=== PATIENT | female | born 1980 | race Caucasian/White ===

== ENCOUNTER → 2019-10-07 11:40 | Outpatient (BNVA) | payer MEDICAID, SELFPAY | PROVIDERS: Family Provider Nurse Practitioner; PCP Nurse Practitioner; Visit Provider Nurse Practitioner Family | DX: M54.6 Pain in thoracic spine (principal); M50.00 Cervical disc disorder with myelopathy, unspecified cervical region; G89.29 Other chronic pain; M47.817 Spondylosis without myelopathy or radiculopathy, lumbosacral region; I10 Essential (primary) hypertension; W19.XXXA Unspecified fall, initial encounter; Y92.009 Unspecified place in unspecified non-institutional (private) residence as the place of occurrence of the external cause; M48.02 Spinal stenosis, cervical region; E78.2 Mixed hyperlipidemia; J40 Bronchitis, not specified as acute or chronic; K21.9 Gastro-esophageal reflux disease without esophagitis; H91.90 Unspecified hearing loss, unspecified ear; E04.1 Nontoxic single thyroid nodule; F33.1 Major depressive disorder, recurrent, moderate; H91.93 Unspecified hearing loss, bilateral; F17.200 Nicotine dependence, unspecified, uncomplicated | CPT/HCPCS: 80053; 80061; 84443; 85025 ==

== ENCOUNTER 2019-10-18 04:13 | Inpatient (IN) | payer MEDICAID, SELFPAY ==
--- NOTE | 2019-10-18 04:18 | ED_ITS ---
Entered by Naomi Hernandez, acting as scribe for RamanSheeba Ferine HPI - Psych General: Chief Complaint: Psychiatric Symptoms Stated Complaint: SI Time Seen by Provider: 10/18/19 04:19 Source: patient Mode of arrival: ambulatory Limitations: no limitations History of Present Illness: HPI Narrative: 38 yo f came to the er p[facility] with family for SI. Onset was last night. Pt states that she wants Pt states that she does have a plan, she states that she would use a gun. complaint: suicidal ideation Onset (ago): day(s) (last night) Duration: constant History of same: Yes Relieving factors: none Exacerbating factors: none Associated psychiatric symptoms: depression and suicidal ideation Associated symptoms: Reports suicidal ideation Treatments prior to arrival: none If self harm: has plan Details of plan: Pt wants to take a gun and kill herself. Review of Systems General: Reports: other (negative unless marked) Const: Denies: fever, chills, body aches, fatigue, malaise or diaphoresis Eyes: Denies: change in vision or blurry vision ENMT: Denies: throat pain, painful swallowing, hoarseness, ear pain, ear discharge, Change in hearing or nasal discharge Card: Denies: chest pain, palpitations, irregular heart rhythm, syncope, pre- syncope, shortness of breath on exertion or shortness of breath when lying down Resp: Denies: shortness of breath, productive cough, non-productive cough, wheezing, coughing up blood or chest congestion GI: Denies: abdominal pain, nausea, vomiting, vomiting blood, coffee grounds in vomit, diarrhea, constipation, cramping, blood in stool or black tarry stool : Denies: flank pain, painful urination, urinary frequency, urinary urgency, decreased urine ouput, urinary incontinence or blood in urine Musc: Denies: joint warmth Skin/Breast: Denies: rash, skin tenderness or yellow skin Neuro: Denies: headache, numbness in extremities, weakness in extremities, changes in sensation, lack of coordination, difficulty walking, dizziness, vertigo or confusion Psych: Reports: suicidal ideation Endo: Denies: excessive thirst, tired all the time, cold intolerance, excessive sweating, flushing or hot flashes Maciel/Lymph: Denies: easy bruising, easy bleeding, petechiae or enlarged lymph nodes All/Imm: Denies: hives, throat swelling, tongue swelling, facial swelling or acute wheezing PFSH ED PFSH: Statuses (acute, chronic, etc) shown below reflect problem list status as previously entered and may not be historically accurate Medical History 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) Cervical stenosis of spine (Chronic) Chronic neck pain (Chronic) Essential hypertension (Chronic) GERD without esophagitis (Chronic) Hyperlipidemia (Chronic) Major depressive disorder (Chronic) Smoker (Chronic) Spondylosis without myelopathy or radiculopathy, lumbosacral region (Chronic) Thoracic back pain (Chronic) Thyroid cyst (Chronic) Family History Mother Hypercholesteremia Diabetes Hypertension Brother Hypercholesteremia Diabetes Hypertension Father Hypercholesteremia Diabetes Hypertension Sister Hypertension Stroke Social History Smoking and tobacco status: current every day smoker Alcohol intake: current Alcohol intake frequency: holidays/special occasions only Lives independently: Yes Household members: spouse Housing: House Marital status: Physical Exam Const: COMMON NORMALS: no apparent distress, oriented x3, no limitations, healthy appearing and well nourished EXAM LIMITATIONS: no altered mental status GENERAL APPEARANCE: cooperative, well kempt and well developed ORIENTATION/CONSCIOUSNESS: Yes awake HENMT: COMMON NORMALS: normocephalic, head/scalp atraumatic, hearing grossly normal bilaterally, external ears normal, EAC's normal, external nose normal and moist oral mucous membranes HEAD & SCALP: normal to inspection, normocephalic and atraumatic FACE & SINUS: normal facial exam and face symmetric NOSE: external nose normal and nares normal EXTERNAL EAR: Yes external ears normal EXTERNAL AUDITORY CANAL: EAC's normal MOUTH: oral and palatal mucosa normal and tongue normal Eye: COMMON NORMALS: PERRL, EOMs intact bilaterally, conjunctivae normal and no scleral icterus GENERAL EYE: normal appearance of both eyes and normal light reflex CONJUNCTIVA: Yes conjunctivae normal SCLERA: sclerae normal CORNEA: Yes corneas normal PUPIL: Yes PERRL DIRECT OPHTHALMOSCOPY: Yes normal light reflex Neck/C-Spine: COMMON NORMALS: full ROM, no lymphadenopathy, supple, no meningeal signs and no JVD GENERAL: Yes normal visual inspection and Yes trachea midline CERVICAL SPINE: Yes cervical ROM normal Chest: COMMONS NORMALS: inspection of chest normal and palpation of chest normal Resp: COMMON NORMALS: normal respiratory effort, no retractions, no use of accessory muscles and clear to auscultation bilaterally EFFORT & INSPECTION: Yes able to speak in complete sentences AUSCULTATION: clear to auscultation bilaterally Cardio: COMMON NORMALS: no JVD, regular rate, regular rhythm, S1 normal heart sound, S2 normal heart sound, no gallops, no clicks, no murmurs and no rub JUGULAR VENOUS DISTENTION: no JVD RATE: regular rate RHYTHM: regular rhythm HEART SOUNDS: S1 normal and S2 normal GI: COMMON NORMALS: soft to palpation, non-tender, no hepatosplenomegaly and no masses INSPECTION: Yes normal to inspection PALPATION: Yes soft and Yes no hepatosplenomegaly : COMMON NORMALS: Yes no CVA tenderness BLADDER/KIDNEY EXAM: Yes no CVA tenderness Back/Pelvis: COMMON NORMALS: no CVA tenderness, thoracic and lumbar spine normal to inspection, no thoracic nor lumbar tenderness and thoraco-lumbar ROM normal Extremity: COMMON NORMALS: normal to inspection, full ROM, normal capillary refill, no joint enlargement, no clubbing, cyanosis or edema and no calf tenderness Neuro: COMMON NORMALS: oriented x3, CN's II-XII intact bilaterally, moves all extremities, no focal motor deficits and no sensory deficits noted MENINGEAL SIGNS: Yes no meningeal signs Psych: COMMON NORMALS: mental status grossly normal, thought process normal, cooperative, affect normal, speech normal and activity/motor behavior normal APPEARANCE: Yes well kempt SPEECH: Yes normal speech THOUGHT PROCESS: normal thought process Skin: COMMON NORMALS: no rashes or lesions noted, skin turgor normal, no jaundice, no petechiae and no mottling GENERAL SKIN EXAM: no rashes or lesions noted and turgor normal MDM - Psych MDM Narrative: Medical decision making narrative: The case was reviewed with Dr. Mantilla, he is agreeable to admission to the MPU. Once the patient's clearance is completed we will admit. Lab Data: Attestation: I reviewed the patient's lab results. Labs: Lab Results 10/18/19 10/18/19 Range/Units 04:37 04:37 WBC 10.9 H (4.0-10.0) 10^3/ uL RBC 5.30 (4.1-5.3) 10^6/u L Hgb 14.9 (11.5-15.3) g/dL Hct 44.6 (37.0-47.0) % MCV 84.2 (81-99) fL MCH 28.1 (28.0-34.0) pg MCHC 33.4 (30.0-36.0) g/dL RDW 14.4 (12.1-15.1) % Plt Count 359 (130-400) 10^3/c mm MPV 9.9 (7.4-10.4) fL Neut % (Auto) 55.7 % Lymph % (Auto) 30.8 % Sterling % (Auto) 8.9 % Eos % (Auto) 3.7 % Baso % (Auto) 0.4 % Neut # (Auto) 6.1 (1.8-7.7) 10^3/u L Lymph # (Auto) 3.4 (0.8-4.8) 10^3/u L Sterling # (Auto) 1.0 H (0.2-0.9) 10^3/u L Eos # (Auto) 0.4 (0.0-0.8) 10^3/u L Baso # (Auto) 0.0 (0.0-0.1) 10^3/u L Nucleated RBC % (a uto) 0 % Nucleated RBCs # 0.0 /100WBC PT 13.80 H (10.5-13.3) SECO NDS INR 1.03 (0.8-1.2) Discharge Plan Discharge Prescriptions: No Action albuterol sulfate 2.5 mg /3 mL (0.083 %) solution for nebulization 2.5 mg INHALATION QID PRNRF: 0 azelastine 137 mcg (0.1 %) aerosol,spray 1 spray INTRANASAL BID RF: 0 fluticasone propionate [Flonase Allergy Relief] 50 mcg/actuation spray,suspension 2 spray INTRANASAL QDAY RF: 0 quetiapine [Seroquel] 50 mg tablet 100 mg PO .hs 30 Days Qty: 60 RF: 2 ibuprofen 800 mg tablet 800 mg PO TID PRN (Reason: pain) 30 Days Qty: 84 RF: 2 cyclobenzaprine 10 mg tablet 10 mg PO BID PRN (Reason: muscle spasm) 30 Days Qty: 60 RF: 5 lisinopril-hydrochlorothiazide 10-12.5 mg tablet 1 tab PO QDAY 30 Days Qty: 30 RF: 5 omeprazole 20 mg capsule,delayed release(DR/EC) 20 mg PO BID 30 Days Qty: 60 RF: 5 prednisone 10 mg tablets,dose pack See Rx Instructions PO PER PKG DIR Qty: 21 RF: 0 albuterol sulfate [ProAir HFA] 90 mcg/actuation HFA aerosol inhaler 2 puff INHALATION Q4H PRN (Reason: shortness of breath or wheezing) 30 Days Qty: 1 RF: 5 pravastatin 40 mg tablet 40 mg PO .hs 30 Days Qty: 30 RF: 5 Coding Level of Care Code ED Construction Driver for Chg Fwd The documentation recorded by the David person Stephanie Lyn, accurately reflects the service I personally performed and the decisions made by Raman palafox Eli N Oct 18, 2019 04:13
[2019-10-18 04:20] VITALS: RESP 18; BMI 38.7
[2019-10-18 04:24] VITALS: BP 141/101; PULSE 90; RESP 18; TEMP 36.6; O2SAT 96
[2019-10-18 04:50] LABS: Basophils % 0.4 %; Eosinophils # 0.4 10^3/uL (0.0-0.8); Eosinophils % 3.7 %; Hematocrit 44.6 % (37.0-47.0); Hemoglobin 14.9 g/dL (11.5-15.3); Lymphocytes # 3.4 10^3/uL (0.8-4.8); Lymphocytes % 30.8 %; Mean Corpuscular HGB Conc 33.4 g/dL (30.0-36.0); Mean Corpuscular Hemoglobin 28.1 pg (28.0-34.0); Mean Corpuscular Volume 84.2 fL (81-99); Mean Platelet Volume 9.9 fL (7.4-10.4); Monocytes % 8.9 %; Neutrophils # 6.1 10^3/uL (1.8-7.7); Neutrophils % 55.7 %; Nucleated Red Blood Cells % 0 %; Platelet Count 359 10^3/cmm (130-400); Red Cell Distribution Width 14.4 % (12.1-15.1); White Blood Count 10.9 10^3/uL (4.0-10.0)
[2019-10-18 05:07] LABS: INR 1.03 (0.8-1.2)
[2019-10-18 05:24] LABS: Alanine Aminotransferase 18 U/L (0-33); Albumin Level 4.5 g/dL (3.5-5.2); Alcohol Level 99 mg/dL (0-10); Alkaline Phosphatase 86 IU/L (35-105); Anion Gap 19.6 (5-19); Aspartate Amino Transferase 20 U/L (0-32); Blood Urea Nitrogen 4 mg/dL (6-20); Calcium 9.7 mg/dL (8.5-10.5); Carbon Dioxide 22 mmol/L (22-29); Chloride 102 mmol/L (98-107); Globulin 3.3 g/dL (1.3-4.6); Glomerular Filtration Rate 79.9 mL/min (90-130); Glucose 131 mg/dL (74-109); Potassium 3.6 mmol/L (3.5-5.1); Sodium 140 mmol/L (136-145); Thyroid Stimulating Hormone 2.19 uIU/mL (0.27-4.20); Total Bilirubin 0.2 mg/dL (0.15-1.2); Total Protein 7.8 g/dL (6.6-8.7)
[2019-10-18 05:30] LABS: Add Urine Microscopic? YES; Bilirubin Urine Neg (NEGATIVE); Blood Urine 2+ (Negative); Glucose Urine UA Norm (Normal); Ketones Urine Negative (Negative); Leukocyte Esterase Urine Negative (Negative); Nitrate Urine Negative (Negative); Protein Urine Neg (Negative); Specific Gravity, Urine 1.025 (1.005-1.030); Urine Appearance Hazy (CLEAR); Urine Color Yellow (Yellow); Urobilinogen Urine Norm (Negative); pH Urine 5 (5-7)
[2019-10-18 05:31] LABS: Add Urine Culture? No; Amorphous Sediment Urine 2+; Bacteria Urine 3+; RBC Urine 0-4 /hpf (0-2); Squamous Epithelial Cell Urine 15-25 (0-5); WBC Urine 0-4 /hpf (0-5)
[2019-10-18 05:32] LABS: Acetaminophen < 5.0 ug/mL (10-30); Salicylate < 0.3 mg/dL (3-10)
[2019-10-18 05:35] LABS: HCG, Serum Qual Negative (Negative)
[2019-10-18 05:36] LABS: Amphetamines Screen Urine Negative (Negative); Barbiturates Screen Urine Negative (Negative); Benzodiazepines Screen Urine Negative (Negative); Cocaine Screen Urine Negative (Negative); Opiate Screen Urine Negative (Negative); PCP Screen Urine Negative (Negative); THC Screen Urine Positive (Negative)
[2019-10-18 05:46] LABS: Lithium 0.1 mmol/L (0.6-1.2)
[2019-10-18 05:54] LABS: Phenytoin Dilantin 0.8 ug/mL (10-20); Valproic Acid Level 2.8 mcg/mL (50-100)
[2019-10-18 05:55] VITALS: BP 156/118; PULSE 80; RESP 16; O2SAT 98
[2019-10-18 06:10] VITALS: BP 132/96; PULSE 83; RESP 18; TEMP 37.3; O2SAT 99
--- NOTE | 2019-10-18 06:10 | PC.NURSE ---
Dr. Camargo notified of patient BP, okayed to send to NPU
[2019-10-18] MEDS: pneumococcal (23 valent) SDV 0.5 mL IM (08:23)
--- NOTE | 2019-10-18 10:07 | PM.NHP ---
Providers/Chief Complaint Admitting Physician: Martinez Henriquez M.D. Primary Care Provider: CARLOS Weaver Chief Complaint: asking to go to npu HPI NPU History of Present Illness Alla Liz is a 38 year old female who has had significant dysfunctional family troubles. Her daughter will not let her see her grandchild. The patient says she does not have a problem with alcohol but it seems to show up in the story time and again. She is indeed grief stricken and profoundly despondent. She thinks about shooting herself with a gun, avoids there are several in the house. She has been depressed for years and says, I cannot remember NOT being depressed. She had been on a number of antidepressants but the doctor keeps jiggling the doses and swapping out with something else and there has never been a real therapeutic trial of any specific agent. She does recall that she gained almost 100 pounds on Seroquel. They lied to you, she says, about weight gain. Review of Systems Narrative: This is taken from the ED report: General: Reports: other (negative unless marked) Const: Denies: fever, chills, body aches, fatigue, malaise or diaphoresis Eyes: Denies: change in vision or blurry vision ENMT: Denies: throat pain, painful swallowing, hoarseness, ear pain, ear discharge, Change in hearing or nasal discharge Card: Denies: chest pain, palpitations, irregular heart rhythm, syncope, pre-syncope, shortness of breath on exertion or shortness of breath when lying down Resp: Denies: shortness of breath, productive cough, non-productive cough, wheezing, coughing up blood or chest congestion GI: Denies: abdominal pain, nausea, vomiting, vomiting blood, coffee grounds in vomit, diarrhea, constipation, cramping, blood in stool or black tarry stool : Denies: flank pain, painful urination, urinary frequency, urinary urgency, decreased urine ouput, urinary incontinence or blood in urine Musc: Denies: joint warmth Skin/Breast: Denies: rash, skin tenderness or yellow skin Neuro: Denies: headache, numbness in extremities, weakness in extremities, changes in sensation, lack of coordination, difficulty walking, dizziness, vertigo or confusion Psych: Reports: suicidal ideation Endo: Denies: excessive thirst, tired all the time, cold intolerance, excessive sweating, flushing or hot flashes Maciel/Lymph: Denies: easy bruising, easy bleeding, petechiae or enlarged lymph nodes All/Imm: Denies: hives, throat swelling, tongue swelling, facial swelling or acute wheezing Meds NPU Home Medications Medication Instructions Recorded Confirmed Type albuterol sulfate 2.5 mg INHALATION QID PRN 10/07/19 History azelastine 137 mcg (0.1 %) nasal 1 spray INTRANASAL BID 10/07/19 History spray aerosol fluticasone propionate 50 2 spray INTRANASAL QDAY 10/07/19 History mcg/actuation nasal spray,suspension Allergies Allergy/AdvReac Type Severity Reaction Status Date / Time pregabalin [From Lyrica] Allergy unknown Verified 10/07/19 10:43 Psychiatric Medication Details Psychiatric Medication Details/Notes: We will start her on Prozac 20 mg/day IM. Remeron 30 mg will be involved for insomnia as opposed to the quetiapine which caused her so much weight gain. 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 [place] took her children away. The patient is the product of this liaison. Brother Hypercholesteremia Diabetes Hypertension Father Hypercholesteremia Diabetes Hypertension Sister Hypertension Stroke Social History Smoking and tobacco status: current every day smoker Alcohol intake: current Alcohol intake frequency: holidays/special occasions only Lives independently: Yes Household members: spouse Housing: House Marital status: Other Psychiatric History: Other Psychiatric History: The patient says she has had outpatient pharmacotherapy. However the providers Shannon changing the medicines. It would appear she has never had a legitimate full trial on any given antidepressant or other psychopharmacologic agent. Mental Status Exam MSE Comments: The patient is alert and oriented to person, place, time, and situation. Hygiene is good. Sensorium is clear. The patient maintains appropriate eye contact, is cooperative and relates well to me. Behavior shows significant psychomotor agitation. Mood is profoundly despondent. Affect is tearful and sad, appropriate to her current mood. Thought processes are organized and free of racing, blocking or looseness of association. Speech is of normal rate and volume, without dysarthria, aprosody or pressure. There is no inordinate latency of response. The patient denies auditory or visual hallucinations or delusions. Thought processes are integrated and free of any racing, blocking or looseness of association. The patient admits suicidal ideation previously, as she did not know how to cut this psychosocial Gordian knot. Fortunately, she has no homicidal ideation, plan or intent. Memory is intact for recent and remote events. The patient is cooperative and relates well to me. Fund of knowledge is adequate given vocabulary. Insight and judgment were deemed to be good given the recognition of problems and desire for treatment. Vitals/I&O/Wt Last Vital Signs Temp 99.2 F 10/18/19 06:10 Pulse 83 10/18/19 06:10 Resp 18 10/18/19 06:10 BP 132/96 10/18/19 06:10 Pulse Ox 99 10/18/19 06:10 Weight last 48 hrs Weight 240 lb Physical Exam Narrative: EXAM NARRATIVE: The patient appeared obese but normally developed. Vital signs as documented. Head exam is unremarkable. No scleral icterus or corneal arcus noted. Neck is without jugular venous distension, thyromegaly, or carotid bruits. Lungs are clear to auscultation and percussion. Heart normal sinus rhythm, no murmurs. Abdomen bland. Extremities no limitation of motion. Neurological cranial nerves II to XII intact. No cerebellar, sensory or motor deficit noted. Mental status as above. Data NPU : 10/18/19 04:37 10/18/19 04:37 A&P Assessment and plan (1) Major depressive disorder: Status: Chronic Qualifiers: Active/Remission status: currently active Major depression episode severity: moderate Major depression recurrence: recurrent Qualified Code(s): F33.1 - Major depressive disorder, recurrent, moderate Code(s): F32.9 - Major depressive disorder, single episode, unspecified (2) Essential hypertension: Status: Chronic Code(s): I10 - Essential (primary) hypertension Involuntary Hold Information 96 Hour Hold: 96 Hour Involuntary Admission: Yes 96 Hour Hold Ending Date: 10/24/19 96 Hour Hold Ending Time: 04:19 Attestations NPU Medical Necessity Statement*: This is a fairly complex case with a seriously depressed patient. I anticipate 5-7 midnights hospital stay. Time Spent in Patient Care: Greater than 35 minutes (>than 50% of time spent in counselling and/or direct pt care on unit). Coding Level of Care Code Acute Oxyacetylene Torch Operator for Yvette Beaulieu Diagnoses Major depressive disorder F33.1 Active/Remission status: currently active Major depression episode severity: moderate Major depression recurrence: recurrent Essential hypertension I10
[2019-10-18] MEDS: lisinopril 10 mg Tablet PO (10:20)
[2019-10-18] MEDS: nicotine 21 mg Patch 1 PATCH TRANSDERMA (12:37)
[2019-10-18 14:00] VITALS: BP 129/83; PULSE 87; RESP 18; TEMP 37; O2SAT 99
[2019-10-18] MEDS: atorvastatin 40 mg Tablet 20 MG PO (21:10)
[2019-10-18] MEDS: trazodone 50 mg Tablet PO (21:12)
[2019-10-18 22:00] VITALS: BP 101/69; PULSE 78; RESP 18; TEMP 36.9; O2SAT 97
[2019-10-19] MEDS: acetaminophen 325 mg Tablet 650 MG PO (04:13)
[2019-10-19 06:00] VITALS: BP 124/78; PULSE 80; RESP 18; TEMP 36.8; O2SAT 97
[2019-10-19] MEDS: pantoprazole DR 40 mg Tablet PO (09:44)
[2019-10-19] MEDS: lisinopril 10 mg Tablet PO (09:46)
--- NOTE | 2019-10-19 11:50 | PM.NDC ---
Diagnoses at Discharge Discharge Diagnosis (1) Major depressive disorder: Status: Chronic Problem details: Patient cannot remember when she was not depressed. Mood is much improved. She is asking for her discharge and denied suicidal or homicidal ideation, plan or intent. Qualifiers: Major depression recurrence: recurrent Active/Remission status: currently active Major depression episode severity: moderate Qualified Code(s): F33.1 - Major depressive disorder, recurrent, moderate (2) Essential hypertension: Status: Chronic Problem details: Patient is followed at the [facility] for her hypertension. Reason for Visit Reason for Visit: Reason For Visit: asking to go to npu Hospital Course Hospital Course The patient was admitted in extremis. She was reinstated on antidepressant and mood stabilizer medications and very quickly re-stabilized. She now exhibits a normal mental status. Discharge Summary The patient came in depressed, having been off her antidepressant and Seroquel. Mood was despondent, she felt hopeless and she was thinking about hurting herself. She became increasingly distraught and came to the hospital for stabilization. She was reinstated on her pharmacotherapy and involved in [facility]. She very rapidly reconstituted and her mood is greatly improved. She currently denies suicidal or homicidal ideation, plan or intent. Involuntary Hold Information 96 Hour Hold: 96 Hour Involuntary Admission: Yes 96 Hour Hold Ending Date: 10/24/19 96 Hour Hold Ending Time: 04:19 Comments: The patient no longer requires involuntary hospitalization. The risk to her has significantly declined and she is now competent, per my assessment today, to resume the increased risk of an outpatient treatment [facility]. Mental Status Exam MSE Comments: The patient is alert and oriented to person, place, time, and situation. Hygiene is well groomed. Sensorium is spotty but she actually understands what we tell her and what's going on around her. The patient maintains appropriate eye contact, is cooperative and relates well to me. Behavior shows no psychomotor agitation. Mood is calm and euthymic. Affect is appropriate to her current mood. Thought processes are slightly scattered but they are free of racing, blocking or looseness of association. Speech is of normal rate and volume, without dysarthria, aprosody or pressure. There is no inordinate latency of response. The patient denies auditory or visual hallucinations or delusions. The patient denies suicidal or homicidal ideation, plan or intent. She exhibits no assaultive behavior. Memory is intact for recent and remote events. Fund of knowledge is adequate given vocabulary. Insight and judgment were deemed to be good given the recognition of problems and desire for treatment. Physical Exam Narrative: EXAM NARRATIVE: The patient appeared thin but adequately nourished and normally developed. Vital signs as documented. Head exam is unremarkable. No scleral icterus or corneal arcus noted. Neck is without jugular venous distension, thyromegaly, or carotid bruits. Lungs are clear to auscultation and percussion. Heart normal sinus rhythm, no murmurs. Abdomen bland. Extremities no limitation of motion, no lower extremity edema. Neurological cranial nerves II to XII intact. No cerebellar, sensory or motor deficit noted. Mental status as above. Discharge Data Vitals: Last Vital Signs Temp 98.3 F 10/19/19 06:00 Pulse 80 10/19/19 06:00 Resp 18 10/19/19 06:00 BP 124/78 10/19/19 06:00 Pulse Ox 97 10/19/19 06:00 Discharge Plan Discharge Patient Disposition: Home, Self-Care Condition: Stable Prescriptions: Continued albuterol sulfate 2.5 mg /3 mL (0.083 %) solution for nebulization 2.5 mg INHALATION QID PRNRF: 0 azelastine 137 mcg (0.1 %) aerosol,spray 1 spray INTRANASAL BID RF: 0 fluticasone propionate [Flonase Allergy Relief] 50 mcg/actuation spray,suspension 2 spray INTRANASAL QDAY RF: 0 quetiapine [Seroquel] 50 mg tablet 100 mg PO .hs 30 Days Qty: 60 RF: 2 ibuprofen 800 mg tablet 800 mg PO TID PRN (Reason: pain) 30 Days Qty: 84 RF: 2 cyclobenzaprine 10 mg tablet 10 mg PO BID PRN (Reason: muscle spasm) 30 Days Qty: 60 RF: 5 lisinopril-hydrochlorothiazide 10-12.5 mg tablet 1 tab PO QDAY 30 Days Qty: 30 RF: 5 omeprazole 20 mg capsule,delayed release(DR/EC) 20 mg PO BID 30 Days Qty: 60 RF: 5 prednisone 10 mg tablets,dose pack See Rx Instructions PO PER PKG DIR Qty: 21 RF: 0 albuterol sulfate [ProAir HFA] 90 mcg/actuation HFA aerosol inhaler 2 puff INHALATION Q4H PRN (Reason: shortness of breath or wheezing) 30 Days Qty: 1 RF: 5 pravastatin 40 mg tablet 40 mg PO .hs 30 Days Qty: 30 RF: 5 Discharge Orders: Discharge Order (Routine); Ordered 10/19/19 Ordered By: Martinez Henriquez Referrals: Miriam Monsivais MD [Physician] - 10/26/19 8:45 am Discharge Diet: Usual diet Discharge Activity: Resume usual activity Activity Restrictions/Additional Instructions: Follow-up with a provider of choice within 3-5 days of discharge, if possible. Possible resource for outpatient mental health services: [facility] ([facility]) [address] [facility]. [facility] [address] [place] [address] If needed, here's a resource for substance abuse treatment: [facility] [address] [place] [address] If needed, here's a possible resource domestic violence issues: [facility] Address: [address] [place] [id number] Discharge Attestations NPU Time Spent in Discharge Care*: greater than 30 min Specific Discharge Activities: Specific discharge activities: educating patient, discussing with case mgr/social workers/dc planners, documenting/other paperwork and evaluating patient/reviewing data Time Spent in Smoking Cessation: Time spent discussing smoking cessation with patient: 3 to 10 minutes Status at Discharge: Cognitive status at discharge: cognitively intact, Behavioral status at discharge: cooperative, Functional status at discharge: independent ambulation Overall status at discharge: patient is back to baseline Coding Level of Care Code Acute Supervisor Extrusion for Chg Fwd Diagnoses Major depressive disorder F33.1 Major depression recurrence: recurrent Active/Remission status: currently active Major depression episode severity: moderate Essential hypertension I10
[2019-10-19 12:28] VITALS: BP 124/78; PULSE 80; RESP 18; TEMP 36.8; O2SAT 97
[2019-10-19 12:29] VITALS: BP 124/78; PULSE 80; RESP 18; TEMP 36.8; O2SAT 97
== END 2019-10-19 13:00 | disposition home or self-care (01) | DRG 885 ==
LOC: ER 04:30 → NP 05:25
PROVIDERS: Admitting Provider Psychiatry & Neurology Psychiatry; Emergency Provider Emergency Medicine; Family Provider Nurse Practitioner; PCP Nurse Practitioner; Visit Provider Psychiatry & Neurology Psychiatry
DX: F33.1 Major depressive disorder, recurrent, moderate (principal); I10 Essential (primary) hypertension; F17.210 Nicotine dependence, cigarettes, uncomplicated; E78.5 Hyperlipidemia, unspecified; K21.9 Gastro-esophageal reflux disease without esophagitis; G89.29 Other chronic pain; M54.2 Cervicalgia
CPT/HCPCS: 12345; 36415; 80053; 80164; 80178; 80185; 80307; 81001; 84443; 84703; 85025; 85610; 90732; 99282

== ENCOUNTER 2019-10-18 04:13 | Emergency (ER) | payer MEDICAID, SELFPAY | END 2019-10-18 06:00 | disposition admitted as inpatient to this hospital (09) | LOC: ER 11-09 10:22 | PROVIDERS: Emergency Provider Emergency Medicine; Family Provider Nurse Practitioner; PCP Nurse Practitioner | DX: F32.9 Major depressive disorder, single episode, unspecified (principal); R45.851 Suicidal ideations; I10 Essential (primary) hypertension; E78.5 Hyperlipidemia, unspecified; F17.210 Nicotine dependence, cigarettes, uncomplicated | CPT/HCPCS: 36415; 80053; 80164; 80178; 80185; 80307; 81001; 84443; 84703; 85025; 85610; 99282; 99285 ==

== ENCOUNTER 2019-10-26 08:02 | Outpatient (CLI) | payer MEDICAID, SELFPAY ==
--- NOTE | 2019-10-26 08:09 | XRR_ITS ---
PROCEDURE INFORMATION: Exam: XR Cervical Spine, 2 or 3 Views Exam date and time: 10/26/2019 8:42 AM Age: 38 years old Clinical indication: Cervicalgia and radicular pain (radiculopathy); Cervicothoracic region; Prior surgery; Additional info: Neck pain, lt arm pain w/ upper back pain, prior surgery TECHNIQUE: Imaging protocol: XR of the cervical spine, 2 or 3 views. COMPARISON: CR Cervical Spine AP/Lat* [id number] 05/15/2018 12:26 PM FINDINGS: Vertebrae: Alignment is normal. posterior vertebral line and the spinal laminar line normal odontoid process normal no fracture Interbody fusion C5-C6 and C6-C7. Surgical plate closely opposed to the anterior aspect of the vertebral bodies. Soft tissues: Normal. XR/XR cervical spine 3V* [id number] IMPRESSION: Interbody fusion C5-C6 and C6-C7. Surgical plate closely opposed to the anterior aspect of the vertebral bodies. Otherwise normal
--- NOTE | 2019-10-26 08:09 | XRR_ITS ---
PROCEDURE INFORMATION: Exam: XR Thoracic Spine, 3 Views Exam date and time: 10/26/2019 8:42 AM Age: 38 years old Clinical indication: Pain in thoracic spine; With radiculopathy; Left; Prior surgery; Additional info: Upper back pain, lt arm pain, prior c spine surg TECHNIQUE: Imaging protocol: XR of the thoracic spine, 3 views. COMPARISON: No relevant prior studies available. FINDINGS: Vertebrae: The alignment is normal. No visualized fracture. No paravertebral soft tissue prominence. Degenerative changes, mild, throughout much of the thoracic spine No subluxation-no perched or jumped facets. The facets are without acute process. Soft tissues: See Vertebrae Finding. XR/XR thoracic spine 3V* [id number] IMPRESSION: No visualized fracture. Mild degenerative disc disease.
== END 2019-10-26 08:03 | disposition home or self-care (01) ==
PROVIDERS: Family Provider Nurse Practitioner; PCP Nurse Practitioner; Visit Provider Nurse Practitioner Family
DX: M54.6 Pain in thoracic spine (principal); M54.14 Radiculopathy, thoracic region; M54.2 Cervicalgia; Z98.1 Arthrodesis status
CPT/HCPCS: 72040; 72072; 73060

== ENCOUNTER → 2020-01-25 08:06 | Outpatient (BNVA) | payer MEDICAID, SELFPAY | PROVIDERS: Family Provider Nurse Practitioner; PCP Nurse Practitioner; Visit Provider Specialist | DX: T14.8XXA Other injury of unspecified body region, initial encounter (principal); S42.334 Nondisplaced oblique fracture of shaft of humerus, right arm | CPT/HCPCS: 73060 ==

== ENCOUNTER → 2020-08-08 15:56 | Outpatient (BNVA) | payer MEDICAID, SELFPAY | PROVIDERS: Family Provider Nurse Practitioner; PCP Nurse Practitioner; Visit Provider Nurse Practitioner Family | DX: I10 Essential (primary) hypertension (principal); E78.2 Mixed hyperlipidemia; M50.00 Cervical disc disorder with myelopathy, unspecified cervical region; J40 Bronchitis, not specified as acute or chronic; F33.1 Major depressive disorder, recurrent, moderate; K04.7 Periapical abscess without sinus; G89.29 Other chronic pain; M54.2 Cervicalgia; K21.9 Gastro-esophageal reflux disease without esophagitis; M48.02 Spinal stenosis, cervical region; E04.1 Nontoxic single thyroid nodule; R59.0 Localized enlarged lymph nodes; F17.200 Nicotine dependence, unspecified, uncomplicated | CPT/HCPCS: 80053; 80061; 84443; 85025 ==

== ENCOUNTER → 2020-08-22 10:27 | Outpatient (BNVA) | payer MEDICAID, SELFPAY | PROVIDERS: Family Provider Nurse Practitioner; PCP Nurse Practitioner; Visit Provider Nurse Practitioner Family | DX: R05 Cough (principal); M54.6 Pain in thoracic spine; M54.9 Dorsalgia, unspecified; G89.29 Other chronic pain; M48.02 Spinal stenosis, cervical region; M54.2 Cervicalgia; W19.XXXA Unspecified fall, initial encounter | CPT/HCPCS: 71046; 72040; 72072; 72100; 85025 ==

== ENCOUNTER → 2020-08-30 11:05 | Outpatient (BNVA) | payer MEDICAID, SELFPAY | PROVIDERS: Family Provider Nurse Practitioner; PCP Nurse Practitioner; Visit Provider Nurse Practitioner Family | DX: M25.50 Pain in unspecified joint (principal); L30.9 Dermatitis, unspecified | CPT/HCPCS: 80053; 82306; 82607; 84550; 85025; 85651; 86038; 86140; 86431 ==

== ENCOUNTER 2020-09-17 11:46 | Outpatient (CLI) | payer MEDICAID, SELFPAY ==
--- NOTE | 2020-09-17 11:45 | US_ITS ---
WS: [id number] ULTRASOUND SOFT TISSUES cervical chain. HISTORY: R59.0 - Localized enlarged lymph nodes COMPARISON: 10/01/2017 and the heart ultrasound. TECHNIQUE: 2-D and color Doppler imaging is submitted. Bilateral enlarged cervical chain lymph nodes. Decreased echogenicity with no abnormal fatty hilum. V ascularity not significantly increased within the lymph nodes. Largest lymph nodes measure 2.4 x 1.1 x 1.7 cm. US/US soft tissue head neck [id number] IMPRESSION: Bilateral cervical chain lymphadenopathy. Abnormal lymph nodes along each cervi charlie chain. May be reactive and related to an infectious or inflammatory process . Early neoplastic changes from lymphoma not excluded.
== END 2020-09-17 11:47 | disposition home or self-care (01) ==
PROVIDERS: Visit Provider Nurse Practitioner Family
DX: R59.0 Localized enlarged lymph nodes (principal)
CPT/HCPCS: 76536

== ENCOUNTER → 2020-09-19 08:33 | Outpatient (BNVA) | payer MEDICAID, SELFPAY | PROVIDERS: PCP Nurse Practitioner Family; Visit Provider Internal Medicine | DX: R76.8 Other specified abnormal immunological findings in serum (principal); M25.50 Pain in unspecified joint; Z79.899 Other long term (current) drug therapy; Z11.59 Encounter for screening for other viral diseases; R53.83 Other fatigue; R06.02 Shortness of breath; M54.2 Cervicalgia; G89.29 Other chronic pain; R79.82 Elevated C-reactive protein (CRP); F17.210 Nicotine dependence, cigarettes, uncomplicated | CPT/HCPCS: 36415; 80053; 81003; 82533; 82550; 82728; 83540; 83735; 84100; 85025; 85651; 86140; 86431; 86704; 86803; 86812; 87340; 99204 ==

== ENCOUNTER 2020-10-24 09:47 | Outpatient (CLI) | payer MEDICAID, SELFPAY | END 2020-10-24 09:48 | disposition home or self-care (01) | LOC: LAB 07-04 13:41 | PROVIDERS: PCP Nurse Practitioner Family; Visit Provider Nurse Practitioner Family | DX: R59.0 Localized enlarged lymph nodes (principal) | CPT/HCPCS: 80053; 80500; 85025 ==

== ENCOUNTER → 2020-10-30 11:11 | Outpatient (BNVA) | payer MEDICAID, SELFPAY | PROVIDERS: PCP Nurse Practitioner Family; Visit Provider Nurse Practitioner Family | DX: R76.8 Other specified abnormal immunological findings in serum (principal); L40.9 Psoriasis, unspecified; R06.02 Shortness of breath; R53.83 Other fatigue | CPT/HCPCS: 71046; 72202; 73120; 73620 ==

== ENCOUNTER 2020-11-12 12:47 | Outpatient (CLI) | payer MEDICAID, SELFPAY ==
--- NOTE | 2020-11-12 13:00 | CT_ITS ---
WS: [id number] CT NECK WITH CONTRAST HISTORY: R59.0 - Localized enlarged lymph nodes TECHNIQUE: Contiguous 5 mm axial images are performed through the neck with intravenous contrast. Sag ittal and coronal reformats are also submitted. All CT scans at [facility] use at least o ne of these dose optimization techniques: automated exposure control; mA and/or kV adjustment per pat ient size (includes targeted exams where dose is matched to clinical indication); or iterative recons truction. CONTRAST: CONTRAST: Omnipaque 300; 95 mL IV. DLP: 2752.33 mGycm COMPARISON: 02/25/2018. Prior ultrasound 09/17/2020. Prominent asymmetric soft tissue in the posterior RIGHT nasopharynx measures 14 x 11 mm. This is in t he expected location of the adenoids. Oropharynx, hypopharynx, larynx and subglottic airway are negat victoriano. Torus tubarius and fossa of Rosenmuller and parapharyngeal fat are normal. There are numerous enlarged bilateral cervical chain lymph nodes. Small subcentimeter normal-appearin g level I lymph nodes. Level IIa and IIb lymph nodes are enlarged with the largest on the LEFT measur ing up to 1.3 cm in transverse diameter. Loss of the normal fatty hilum and mild increased vascularit y. There are numerous cervical chain lymph nodes. Majority of these are slightly enlarged. Normal fat ty hilum is no longer present and these lymph nodes are becoming round. Additional lymph nodes at lev el III and V. No supraclavicular lymph nodes. Subcentimeter nodule in the LEFT thyroid measures 6 mm. No submandibular or parotid gland mass. Prior anterior cervical fusion from C5 to C7. Visualized portions of the skull base demonstrate no abnormalities. Orbits and globes are within norm al limits. No soft tissue masses. Visualized paranasal sinuses and mastoid air cells are normal. Lung apices are clear. CT/CT neck w con* [id number] IMPRESSION: 1. Numerous indeterminate to slightly enlarged cervical chain lymph nodes. The largest lymph node at level IIb on the LEFT is 1.3 cm. Several of these lymph nodes are mildly hypervascular with loss of the normal fatty taye along the cer vical chains. Abnormal lymph nodes were also present on the prior ultrasound of 09/17/2020. Consider further evaluation by lymph node removal to exclude low-g rade malignancy. 2. Mildly prominent soft tissue in the RIGHT nasopharynx may be asymmetry of t he adenoids. Direct visualization and possible biopsy recommended.
[2020-11-12] MEDS: iohexol 300 mg/mL 100 mL Btl IV (13:20)
== END 2020-11-12 12:48 | disposition home or self-care (01) ==
LOC: RADWPI 12:51
PROVIDERS: PCP Nurse Practitioner Family; Visit Provider Nurse Practitioner Family
DX: R59.0 Localized enlarged lymph nodes (principal)
CPT/HCPCS: 70491; Q9967

== ENCOUNTER → 2020-11-13 14:45 | Outpatient (BNVA) | payer MEDICAID, SELFPAY | PROVIDERS: PCP Nurse Practitioner Family; Visit Provider Internal Medicine | DX: D72.829 Elevated white blood cell count, unspecified (principal); R76.8 Other specified abnormal immunological findings in serum; M25.50 Pain in unspecified joint; R79.82 Elevated C-reactive protein (CRP); R79.89 Other specified abnormal findings of blood chemistry; E55.9 Vitamin D deficiency, unspecified; R53.83 Other fatigue; F17.210 Nicotine dependence, cigarettes, uncomplicated | CPT/HCPCS: 99213; 99214 ==

== ENCOUNTER 2020-11-23 13:46 | Emergency (ER) | payer MEDICAID, SELFPAY ==
[2020-11-23 13:48] VITALS: BP 145/100; PULSE 94; RESP 18; TEMP 37.1; O2SAT 100; BMI 35.5
--- NOTE | 2020-11-23 13:57 | ED_ITS ---
HPI - General Adult General: Chief complaint: General Medical Stated complaint: NEEDING BLOOD WORK FOR DISEASE Time Seen by Provider: 11/23/20 13:56 History of Present Illness: HPI narrative: Patient is a 39-year-old female who comes to the ED with thoracic back pain and headache and fatigue. Patient was just recently diagnosed with Michael's disease and is scheduled to see a specialist on ThursdayNovember 26 to start treatment and discuss further management of disease. Back pain is on the left side of the thoracic spine just below the left shoulder blade. Pain is rated a 10 out of 10. She is also complaining of having a headache as well. Patient has tried taking some Motrin earlier today to help with pain. Associated symptoms: Reports headache(s); Deny chest pain, dyspnea, nausea, rash, palpitations or vomiting Review of Systems Const: Denies: fever(s), chills or fatigue Eyes: Denies: change in vision or eye discomfort ENMT: Denies: throat pain, odynophagia, nasal discharge or nasal congestion Card: Denies: chest pain, palpitations, edema, swelling of feet/ankles, dyspnea on exertion or orthopnea Resp: Denies: dyspnea, productive cough or non-productive cough GI: Denies: abdominal pain, nausea, vomiting, diarrhea, constipation or hematochezia : Denies: flank pain, dysuria or hematuria Musc: Reports: back pain; Denies: neck pain or extremity swelling Skin/Breast: Denies: rash or new lesions Neuro: Reports: headache(s); Denies: numbness in extremities or weakness in extremities PFS ED PFSH: Medical History Abnormal nuclear stress test 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 GERD without esophagitis Hyperglycemia Hyperlipidemia Major depressive disorder Patient cannot remember when she was not depressed. Mood is much improved. She is asking for her discharge and denied suicidal or homicidal ideation, plan or intent. Myalgia Plantar warts Sleep apnea Smoker Spondylosis without myelopathy or radiculopathy, lumbosacral region Thoracic back pain Thyroid cyst Surgical History Hx of section Hx of neck surgery 12/31/2017 c-5 c-6, c-6 c-[address] [place] Hx of tubal ligation 2002 Family History Mother Hypercholesteremia Diabetes Hypertension Psychiatric illness, Onset Age: 20 Mother had an affair with a man. [place] [employer] took her children away. The patient is the product of this liaison. Brother Hypercholesteremia Diabetes Hypertension Father Hypercholesteremia Diabetes Hypertension Sister Hypertension Stroke Social History Smoking and tobacco status: current every day smoker cigarettes Packs smoked per day: 1 Years cigarettes smoked: 27 Second hand smoke exposure: No Alcohol intake: current Alcohol intake frequency: few times a week Lives independently: Yes Household members: spouse Housing: House Marital status: Current occupational status: disabled History of recent travel: No Current gender identity: Female Physical Exam Const: COMMON NORMALS: no acute distress, patient oriented x3 and alert GENERAL APPEARANCE: cooperative and comfortable HENMT: COMMON NORMALS: normocephalic HEAD & SCALP: normocephalic MOUTH: Normal oral and palatal mucosa present THROAT: posterior oropharynx normal and uvula midline Neck/C-Spine: COMMON NORMALS: supple GENERAL: Yes normal visual inspection Resp: COMMON NORMALS: normal respiratory effort, No retractions, No use of accessory muscles and clear to auscultation bilaterally AUSCULTATION: clear to auscultation bilaterally Cardio: COMMON NORMALS: regular rate, regular rhythm, S1 normal heart sound present, S2 normal heart sound present, No gallops present (Cardio), No clicks present (Cardio), No murmurs present (Cardio) and Peripheral pulses 2+ throughout RATE: regular rate RHYTHM: regular rhythm HEART SOUNDS: S1 normal heart sound present and S2 normal heart sound present PERIPHERAL PULSES: Peripheral pulses 2+ throughout GI: COMMON NORMALS: Normal to inspection, nondistended, normoactive bowel sounds present, Soft to palpation, non-tender and no masses PALPATION: Yes Soft to palpation : COMMON NORMALS: Yes no CVA tenderness BLADDER/KIDNEY EXAM: Yes no CVA tenderness Back/Pelvis: COMMON NORMALS: no CVA tenderness THORACIC SPINE/UPPER BACK: Yes paraspinal muscle tenderness Thoracic paraspinal muscle tenderness: left Left thoracic paraspinal muscle tenderness: T4, T5 and T6 and Yes other soft tissue findings Other thoracic soft tissue findings laterality: left Left other thoracic soft tissue findings details: tenderness (Muscular soft tissue tenderness.) Extremity: COMMON NORMALS: normal to inspection Neuro: COMMON NORMALS: patient oriented x3 and moves all extremities SENSORIUM/ORIENTATION: Yes alert Skin: GENERAL SKIN EXAM: dry skin Course Vital Signs: Vital signs: Vital Signs Temperature 98.7 F 11/23/20 13:48 Pulse Rate 94 11/23/20 13:48 Respiratory Rate 18 11/23/20 13:48 Blood Pressure 145/100 11/23/20 13:48 Pulse Oximetry 100 11/23/20 13:48 MDM - General Adult MDM Narrative: Medical decision making narrative: Patient is a 39-year-old female who comes to the ED with back pain, headache and fatigue. Patient states she was just diagnosed with Michael's disease and is scheduled to see an special forces engineer sergeant on November 26 for treatment/management of her [place]'s disease. Patient denies any acute injury or trauma to cause back pain or headache. I described to patient that some of her current symptoms are likely due to her Michael's disease. Exam findings showed some muscular tenderness of the left thoracic back. No other remarkable exam findings. Patient was given 1 dose of Toradol and Solu-Medrol while here in the ED. Patient currently has a prescription for ibuprofen 800s and a muscle relaxer and I told her to continue taking that to help with back pain. Patient diagnosed with musculoskeletal back pain and headache. Patient discharged and told to follow-up with her special forces engineer sergeant on November 26 for management of [place]'s disease. Return to ED precautions given. Patient understood agree with plan. Discharge Plan Discharge Patient Disposition: Home Clinical Impression: Musculoskeletal back pain Headache Qualifiers: Headache type: tension-type Headache chronicity pattern: acute headache Intractability: not intractable Qualified Code(s): G44.209 - Tension-type headache, unspecified, not intractable Condition: Stable Prescriptions: No Action albuterol sulfate 2.5 mg /3 mL (0.083 %) solution for nebulization 2.5 mg INHALATION QID PRN (Reason: Shortness Of Breath) RF: 0 azelastine 137 mcg (0.1 %) aerosol,spray 1 spray INTRANASAL BID RF: 0 fluticasone propionate [Flonase Allergy Relief] 50 mcg/actuation spray,suspension 2 spray INTRANASAL DAILY@0900 RF: 0 ibuprofen 800 mg tablet 800 mg PO TID PRN (Reason: pain) 30 Days Qty: 84 RF: 2 cyclobenzaprine 10 mg tablet 10 mg PO BID PRN (Reason: muscle spasm) 30 Days Qty: 60 RF: 5 albuterol sulfate [ProAir HFA] 90 mcg/actuation HFA aerosol inhaler 2 puff INHALATION Q4H PRN (Reason: shortness of breath or wheezing) 30 Days Qty: 1 RF: 5 ergocalciferol (vitamin D2) 1,250 mcg (50,000 unit) capsule See Rx Instructions .ROUTE .COMPLEX Qty: 4 RF: 2 pravastatin 40 mg tablet 40 mg PO BEDTIME@2100 RF: 0 lisinopril 10 mg tablet 10 mg PO DAILY@0900 RF: 0 omeprazole 20 mg capsule,delayed release(DR/EC) 20 mg PO BID@0900,2100 RF: 0 Seroquel 50 mg tablet 100 mg PO BEDTIME@2100 RF: 0 hydrochlorothiazide 12.5 mg tablet 12.5 mg PO DAILY@0900 RF: 0 Discharge Orders: Discharge ED (Routine); Ordered 11/23/20 Ordered By: Danny Sanford Discharge Diet: Regular Discharge Activity: Increase activity as tolerated Patient Instructions: Musculoskeletal Pain (ED) Activity Restrictions/Additional Instructions: Follow-up with medical provider at your scheduled appointment on November 26 for further evaluation. Continue taking all home medications as previously prescribed. Apply cold pack or heat on back to help with symptoms. Return to the ER or your medical provider if condition worsens. Please read and understand discharge instructions. If any questions, please ask. Coding Level of Care Code ED Gate Watch for Yvette Fwd Exam Comprehensive
[2020-11-23] MEDS: ketorolac 60 mg/2 mL INJ IM (15:14)
== END 2020-11-23 15:19 | disposition home or self-care (01) ==
PROVIDERS: Emergency Provider Physician Assistant
DX: M54.9 Dorsalgia, unspecified (principal); G44.209 Tension-type headache, unspecified, not intractable; I10 Essential (primary) hypertension; E78.5 Hyperlipidemia, unspecified; F17.210 Nicotine dependence, cigarettes, uncomplicated
CPT/HCPCS: 96372; 99283; J1885; J2930

== ENCOUNTER → 2020-11-26 09:57 | Outpatient (BNVA) | payer MEDICAID, SELFPAY | PROVIDERS: Referring Provider Internal Medicine; Visit Provider Internal Medicine | DX: E27.40 Unspecified adrenocortical insufficiency (principal); M81.0 Age-related osteoporosis without current pathological fracture; R53.82 Chronic fatigue, unspecified | CPT/HCPCS: 99205 ==

== ENCOUNTER 2020-12-05 13:55 | Outpatient (CLI) | payer MEDICAID, SELFPAY ==
[2020-12-07 10:03] LABS: Miscellaneous Test See Scanned Lab Rpt
== END 2020-12-05 13:56 | disposition home or self-care (01) ==
PROVIDERS: Visit Provider Specialist
DX: R22.1 Localized swelling, mass and lump, neck (principal)
CPT/HCPCS: 88184; 88185; 88305; 88307

== ENCOUNTER → 2020-12-24 09:48 | Day surgery (SDC) | payer MEDICAID, SELFPAY ==
[2020-12-24] MEDS: cosyntropin 0.25 mg SDV IVP (10:44)
[2020-12-24 11:01] VITALS: BP 122/89; PULSE 82; RESP 18; TEMP 36.4; O2SAT 95
[2020-12-24 12:49] LABS: Cosyntropin 30 Minute 19.09 mcg/dL
[2020-12-24 12:59] LABS: Cosyntropin 1 Hour 21.75 mcg/dL
== END ==
PROVIDERS: Visit Provider Internal Medicine
DX: R79.89 Other specified abnormal findings of blood chemistry (principal)
CPT/HCPCS: 36415; 82533; 96374; J0834

== ENCOUNTER 2020-12-26 09:54 | Outpatient (CLI) | payer MEDICAID, SELFPAY ==
[2020-12-26 12:50] LABS: Basophils # 0.1 10^3/uL (0.0-0.1); Basophils % 0.9 %; Eosinophils # 0.6 10^3/uL (0.0-0.8); Eosinophils % 6.3 %; Hematocrit 43.7 % (37.0-47.0); Hemoglobin 14.2 g/dL (11.5-15.3); Lymphocytes # 3.3 10^3/uL (0.8-4.8); Lymphocytes % 36.9 %; Mean Corpuscular HGB Conc 32.5 g/dL (30.0-36.0); Mean Corpuscular Volume 92.2 fL (81-99); Mean Platelet Volume 10.6 fL (7.4-10.4); Monocytes # 0.6 10^3/uL (0.2-0.9); Monocytes % 6.8 %; Neutrophils # 4.38 10^3/uL (1.8-7.7); Neutrophils % 48.8 %; Nucleated Red Blood Cells % 0 %; Platelet Count 315 10^3/cmm (130-400); Red Blood Count 4.74 10^6/uL (4.1-5.3); Red Cell Distribution Width 13.6 % (12.1-15.1)
[2020-12-26 13:25] LABS: 25 Hydroxy Vitamin D 39 ng/mL (30-100); Alanine Aminotransferase 11 U/L (0-33); Alkaline Phosphatase 66 IU/L (35-105); Anion Gap 13.3 (5-19); Aspartate Amino Transferase 13 U/L (0-32); Blood Urea Nitrogen 14 mg/dL (6-20); Calcium 9.4 mg/dL (8.5-10.5); Carbon Dioxide 26 mmol/L (22-29); Chloride 107 mmol/L (98-107); Globulin 2.7 g/dL (1.3-4.6); Glomerular Filtration Rate 92.2 mL/min (90-130); Glucose 100 mg/dL (65-115); Lactate Dehydrogenase 145 U/L (135-214); Osmolality Calculated 295 mOsm/kg (285-295); Potassium 4.3 mmol/L (3.5-5.1); Sodium 142 mmol/L (136-145); Thyroid Stimulating Hormone 1.27 uIU/mL (0.27-4.20); Total Bilirubin 0.4 mg/dL (0.15-1.2); Total Protein 6.7 g/dL (6.6-8.7)
[2020-12-26 13:33] LABS: Estmated Average Glucose 103; Hemoglobin A1C 5.2 % (4.0-6.0)
[2020-12-26 13:59] LABS: Erythrocyte Sedimentation Rate 17 mm/hr (0-15)
--- NOTE | 2020-12-26 17:24 | ONC CON_ITS ---
Dr. Lewis New Patient Note Patient: Alla Liz Unit #: [id number]: 1980 Dicatated By: Luis Lewis M.D.Date of Visit: Dec 26, 2020 Onc MED New Patient/Consult Referring Physician: Dr. Macario Drew M.D. Chief Complaint: Hodgkin lymphoma. 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 She has multiple medical illnesses including hypertension, hyperlipidemia, asthma/COPD, GERD, degenerative arthritis/degenerative disease of the spine, osteoporosis, and anxiety/depression. She had presented with a knot on the right side of her neck. She was noted to have bilateral cervical adenopathy. Her neck CT on 11/12/2020 showed prominent asymmetric soft tissue in the posterior right nasopharynx measuring 14 x 11 mm, noted to be in the expected location of the adenoids. There were numerous enlarged bilateral cervical chain lymph nodes with the largest on the left measuring up to 1.3 cm. She was referred to Dr. Drew. She underwent direct laryngoscopy with endoscopic biopsy of the nasopharyngeal mass and excisional biopsy of 2 left cervical lymph nodes. Pathology at all sites was consistent with lymphocyte rich classic Hodgkin lymphoma. Her staging PET/CT on 12/22/2020 showed a left cervical level II node measuring 1.9 x 1.4 cm with SUV 5.4. Other similar nodes were present in the right IIA, V, and left II territories, also likely to be involved with lymphoma. There was noted to be prominent uptake along the mucosal surface of the head and neck but without localized activity. There were no other areas of abnormal uptake on that study. She is seen for further management. She has a plethora of complaints. She says she just does not feel good generally. She does not have much energy, and her activity is very limited. ECOG score is 2. Over the past 3 to 4 years she has had a weight loss in the range of 80 pounds, though recently her weight has fluctuated up and down. She complains that she feels hot at night and she does have some sweating, but it is mild. She has sinus drainage and she has soreness in her mouth and throat. She also has TMJ pain. She has cough productive of green or yellow sputum. She has shortness of breath. She has pain with coughing in the middle of her chest and back. She reports that her heart is sometimes irregular. She has daily nausea, occasionally with vomiting, and she has acid reflux. She has a lot of constipation and she occasionally has diarrhea. She reports having had polyps on a colonoscopy several years ago. She has urinary frequency and urgency. She has chronic pain, particularly in her neck and in the middle of her back. She also has pain in her left arm and right hip. She has headache all the time and she has intermittent shooting pains in her head. She also complains of dizziness. She has a little bit of numbness in her hands, worse on the left. She has chronic insomnia, currently managed with Seroquel. She also has anxiety and depression. Past Medical History: Her medical history includes anxiety, asthma/COPD, degenerative arthritis, degenerative disease of the spine, depression, gastroesophageal reflux disease, hyperlipidemia, hypertension, obstructive sleep apnea, osteoporosis, type II diabetes, and vitamin D deficiency. Past Surgical History: Ms. Liz's surgical/procedural history consists of nasal surgery, open reduction/internal fixation of right midshaft humerus fracture in 2018, C5-C6, C6-C7 anterior discectomy/fusion/fixation in 2018, colonoscopy in 2018, hysteroscopy followed by D&C and thermal ablation in 2011, section and tubal ligation in 2001, and section in 1999. Medications: Acid Rolling Machine Operator (20.6 (20 base) mg) Capsule Delayed Release Oral daily, Adult Aspirin EC Low Strength (81 mg) Tablet, enteric coated Oral daily, Allergy (10 mg) Tablet Oral daily, Azelastine HCl (0.15 %) Solution Nasal daily, Cyclobenzaprine HCl (10 mg) Tablet Oral daily, Doxycycline Hyclate (100 mg) Tablet Oral b.i.d., FLUoxetine HCl (10 mg) Tablet Oral daily, Lisinopril (20 mg) Tablet Oral daily, Pravachol (40 mg) Tablet Oral daily Allergies: Amoxicillin, clavulanic acid, KY jelly , and Pregabalin. Social History: Ms. Liz is . She has history of smoking 1 pack of cigarettes daily for 28 years. She also smokes marijuana daily. She reports having weekly alcohol use. Family History: Family history is significant for coronary artery disease and diabetes affecting her father and 2 brothers. One brother is . Her mother and her sister have diabetes. Review Of Symptoms: Constitutional - She has not felt good generally for quite some time. She does not have much energy and she has limited activity. She has had weight loss in the range of 80 pounds over the past 3 to 4 years, but recently her weight has been fluctuating up and down. She has not had fever. She tends to get hot at night and she does have sweating, but just mild. ECOG score is 2, Eyes - Her vision is sometimes blurry, ENMT - No hearing loss, but she sometimes has tinnitus.She has sinus drainage and she sometimes has sore mouth or throat. She has TMJ pain. No difficulty swallowing, Hematologic/Lymphatic - She complains that she bruises all the time, Respiratory - She has shortness of breath. She has cough productive of green or yellow sputum. She has had pain with coughing in the middle of her chest and back. No hemoptysis, Cardiovascular - No angina pain, but her heart is sometimes irregular, Gastrointestinal - She has nausea on a daily basis, occasionally with vomiting. She has acid reflux. She has constipation a lot and she occasionally has diarrhea. No blood in the stool or black stools, Genitourinary (F) - No dysuria or hematuria. She has urinary frequency and urgency. No incontinence, Musculoskeletal - She has chronic pain from her hips up. The most significant pain is in her neck. She also has pain in the middle of her back, and her right hip, and her left arm, Integumentary - She developed itchy bumps on her right leg about a year ago and she recently developed a new similar area on her left leg, Neurologic - She has headache all the time and some shooting pains in her head. She has dizziness. She has a little bit of numbness in her hands, worse on the left. No other focal neurologic symptoms, Psychiatric - She has anxiety and depression. She has chronic insomnia. Vital Signs: Performed on Dec 26, 2020 11:09: 3, 4, 0.00, 0.00 sq.m, 99 %, 64 /min, 18 /min, 118/80 mm(hg), 98.0 F (LOW), and 219 lbs (HIGH). Physical Examination: Constitutional - She does not appear acutely ill, Eyes - Sclerae nonicteric. Conjunctivae clear, ENMT - No lesions noted in the oral cavity, Neck - No mass or thyromegaly, Hematologic/Lymphatic - There is a small node palpable in the right posterior cervical area, measuring about 0.5 cm. There are well-healed incisions on the left side of the neck. I do not feel any clavicular or axillary adenopathy, Respiratory - Lungs sound clear, Cardiovascular - Heart rhythm is regular. There is no murmur, gallop, or rub noted, Abdomen - Soft and non-tender. Liver and spleen are not enlarged. There is no abdominal mass or ascites noted and there is no inguinal adenopathy, Back/Spine - No spine or CVA tenderness noted, Extremities - No edema. Pedal pulses are palpable bilaterally, Integumentary - There are small areas of faint erythema in the anterior tibial area bilaterally. There are no suspicious skin lesions noted, Neurologic - No focal neurologic deficits noted. Problem List: 1. Lymphocyte rich classical Hodgkin lymphoma, stage IIA. 2. Hypertension. 3. Hyperlipidemia. 4. Asthma/COPD. 5. Obstructive sleep apnea. 6. GERD. 7. Degenerative arthritis/degenerative disease of the spine. 8. Osteoporosis. 9. Vitamin D deficiency. 10. Anxiety/depression. 11. She has a strong family history for diabetes. Problems Addressed with this Encounter and Plan: Patient with lymphocyte rich classical Hodgkin lymphoma diagnosed by left cervical lymph node biopsy and biopsy of nasopharyngeal mass on 12/05/2020. By PET/CT her disease appears to be localized to the nasopharynx and cervical lymph nodes. As she does not have clear-cut B symptoms, her disease is thus stage IIA. We discussed the fact that Hodgkin lymphoma is a highly curable malignancy. Per NCCN guidelines, the recommended initial management for this subtype and stage is to initiate treatment with 2 cycles of AVBD chemotherapy followed by restaging PET/CT. I reviewed anticipated side effects with the chemotherapy including the potential for nausea, alopecia, fatigue, and low blood counts, among others. We specifically discussed the risk for cardiac toxicity with Adriamycin and for pulmonary and/or skin toxicity with bleomycin. She will need a baseline echocardiogram and baseline pulmonary function studies, and she also will need to undergo placement of Port-A-Cath for venous access. She will have baseline laboratory studies today to include CBC, CMP, sed rate, and LDH level. I will include a TSH level and a 25-hydroxy vitamin D level. In addition, because of her family history and because she says her blood sugars are sometimes high, I will also include a hemoglobin A1c level. Signed By: Luis Lewis M.D. <<Signature on File>>
== END 2020-12-26 09:55 | disposition home or self-care (01) ==
PROVIDERS: Visit Provider Internal Medicine Medical Oncology
DX: C81.41 Lymphocyte-rich Hodgkin lymphoma, lymph nodes of head, face, and neck (principal); I10 Essential (primary) hypertension; E78.5 Hyperlipidemia, unspecified; J45.909 Unspecified asthma, uncomplicated; J44.9 Chronic obstructive pulmonary disease, unspecified; G47.33 Obstructive sleep apnea (adult) (pediatric); K21.9 Gastro-esophageal reflux disease without esophagitis; M47.9 Spondylosis, unspecified; M81.0 Age-related osteoporosis without current pathological fracture; E55.9 Vitamin D deficiency, unspecified; F41.9 Anxiety disorder, unspecified; F32.9 Major depressive disorder, single episode, unspecified; Z83.3 Family history of diabetes mellitus; Z79.899 Other long term (current) drug therapy
CPT/HCPCS: 80053; 82306; 83036; 83615; 84443; 85025; 85651; 99215

== ENCOUNTER → 2020-12-31 12:02 | Outpatient (BNVA) | payer MEDICAID, SELFPAY | DX: Z01.812 Encounter for preprocedural laboratory examination (principal); Z20.822 Contact with and (suspected) exposure to COVID-19 | CPT/HCPCS: 87635 ==

== ENCOUNTER 2021-01-01 15:49 | Outpatient (CLI) | payer MEDICAID, SELFPAY ==
--- NOTE | 2021-01-01 16:15 | XR_ITS ---
WS: [id number] SCREENING DEXA SCAN [employer] CLINICAL INFORMATION: osteoporosis COMPARISON: None. FINDINGS: The L1-L4 bone mineral density measures 1.383 g/cm2. This corresponds to a T score score of 1.7 and Z score of 0.6. Left femoral neck bone mineral density measures 1.094 g/cm2. This corresponds to a T score of 0.7 and Z score of 0.1. Right femoral neck bone mineral density measures 1.130 g/cm2. This corresponds to a T score 1.0of and Z score of 0.4. Mean femoral neck bone mineral density measures 1.112 g/cm2. This corresponds to a T score of 0.8 and Z score of 0.3. XR/XR DEXA axial skeleton* 22457 IMPRESSION: Normal bone mineralization. Patient's FRAX calculated 10 year probability for major osteoporotic fracture i s 3.3 % and osteoporotic hip fracture is 0.1%.
== END 2021-01-01 15:50 | disposition home or self-care (01) ==
LOC: RADWPI 15:55
PROVIDERS: Visit Provider Internal Medicine
DX: M81.0 Age-related osteoporosis without current pathological fracture (principal)
CPT/HCPCS: 77080

== ENCOUNTER 2021-01-03 15:00 | Outpatient (CLI) | payer MEDICAID, SELFPAY ==
--- NOTE | 2021-01-03 15:28 | PFTS_ITS ---
Date of Study:01/03/21 Date of Dictation: 01/04/2021 MECHANICS: Forced vital capacity (FVC) is normal. Forced expiratory volume in one second (FEV1) is normal. FEV1/FVC is normal. Postbronchodilator study not performed. FLOW VOLUME LOOP: Normal . LUNG VOLUMES: Total lung capacity (TLC) is normal. Residual volume (RV) is normal. DIFFUSING CAPACITY FOR CARBON MONOXIDE: Normal . INTERPRETATION: The pulmonary function tests are normal. MTDD
== END 2021-01-03 15:01 | disposition home or self-care (01) ==
LOC: RT 15:01
PROVIDERS: Visit Provider Internal Medicine Medical Oncology
DX: R06.02 Shortness of breath (principal); J45.909 Unspecified asthma, uncomplicated
CPT/HCPCS: 94010; 94726; 94729

== ENCOUNTER → 2021-01-07 14:40 | Outpatient (BNVA) | payer MEDICAID, SELFPAY | PROVIDERS: Visit Provider Surgery | DX: C81.90 Hodgkin lymphoma, unspecified, unspecified site (principal) | CPT/HCPCS: 87635 ==

== ENCOUNTER → 2021-01-09 11:19 | Outpatient (BNVA) | payer MEDICAID, SELFPAY | PROVIDERS: PCP Nurse Practitioner Family; Visit Provider Nurse Practitioner Family | DX: E04.1 Nontoxic single thyroid nodule (principal); C81.90 Hodgkin lymphoma, unspecified, unspecified site | CPT/HCPCS: 84439; 84443 ==

== ENCOUNTER 2021-01-10 07:20 | Day surgery (SDC) | payer MEDICAID, SELFPAY ==
[2021-01-09 14:54] VITALS: BMI 35.5
[2021-01-10] VITALS (9 sets, daily range): BP systolic 93–133; BP diastolic 65–90; PULSE 60–77; RESP 14–18; TEMP 36.3–36.5; O2SAT 94–100
--- NOTE | 2021-01-10 | SCC_ITS ---
Procedure Done: 1. Placement of PowerPort in the right internal jugular vein 44.8 seconds of fluoroscopic guidance, for a cumulative dose of 9.77 mGy, was provided to Dr. Wright by the radiology department. C-arm images of the chest were saved for the patient's permanent record. [facility]
--- NOTE | 2021-01-10 | XR_ITS ---
WS: [id number] Portable AP upright chest, 01/10/2021 Clinical Data: NAN CATH PLACEMENT POST OP Comparison: PA and lateral chest, 10/30/2020. Findings: The right intrajugular venous port catheter has been inserted. No pneumothorax is noted. He art and lungs are unremarkable. Anterior cervical disc fusion and right humeral jennifer again are seen. XR/XR chest 1V portable [id number] Impression: Satisfactory insertion of right Port-A-Cath.
[2021-01-10] MEDS: sodium chloride 0.9% 1,000 ML 30 ML IV (07:46)
--- NOTE | 2021-01-10 07:54 | W.PM.OPSUD ---
Surgery/Procedure H&P Update DATE OF PROCEDURE: January 10, 2021 DATE H&P PERFORMED: 01/04/21 H&P UPDATE INFORMATION: I have reviewed H&P completed within last 30 days, I have examined patient prior to procedure and No changes to prior documentation PREOP DIAGNOSIS: Lymphoma PLANNED PROCEDURE: Operation Date: 01/10/21 09:10 Proposed Procedures p Portacath Placement 94981 C81.90(Not Applicable) - Ryan Wright MD
--- NOTE | 2021-01-10 08:43 | P.ANESASSM_ITS ---
Pre-Anesthetic Assessment Pre-Anesthetic Assessment: Height/Weight: Height 1.68 m Weight 99.79 kg Temp Pulse Resp BP Pulse Ox 97.4 F L 77 18 121/77 100 01/10/21 07:34 01/10/21 07:34 01/10/21 07:34 01/10/21 07:34 01/10/21 07:34 Preop Diagnosis: Lymphoma Proposed Procedure: Operation Date: 01/10/21 09:10 Proposed Procedures p Portacath Placement 01653 C81.90(Not Applicable) - Ryan Wright MD Was Beta Elisa taken within 24 hours: N/A Was Clonidine taken within 24 hours: N/A Last intake: Intake Last Liquid Date 01/09/21 Last Liquid Time 22:00 Last Solid Date 01/09/21 Last Solid Time 21:30 Social: Social History: Tobacco and No alcohol Exam: Pre-Anes Outpt Exam: alert, oriented x 3, clear to auscultation bilaterally and regular rate & rhythm Airway: Submandibular: WNL Cervical ROM: WNL MP: 2 Dentition: Parti als Additional comments: Missing several Pulmonary: Pulmonary: COPD CV/HEM: CV/HEM: HTN Comments: Lymphoma GI: GI: GERD Metabolic: Metabolic: Morbid obesity Anesthetic Plan: ASA status: 3 Anesthesia: MAC Risk of > 500 ml blood loss (7ml/kg in children): No Meds/Allergies Current Medications: Current Medications Generic Name Dose Route Start Last Admin Trade Name Freq PRN Reason Stop Dose Admin Sodium Chloride 1,000 mls @ 30 ml s/hr 01/10/21 07:30 01/10/21 07:46 Sodium Chloride 0.9% IV 01/11/21 07:29 30 mls/hr .Q24H JOSÉ MIGUEL Administration PFSH Anesthesia PFSH: Medical History 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 GERD without esophagitis Hodgkin lymphoma Hyperglycemia Hyperlipidemia Major depressive disorder Patient cannot remember when she was not depressed. Mood is much improved. She is asking for her discharge and denied suicidal or homicidal ideation, plan or intent. Myalgia Plantar warts Sleep apnea Spondylosis without myelopathy or radiculopathy, lumbosacral region Surgical History History of adenoidectomy 2020 History of colonoscopy 2017 History of surgery lymph node removal in neck -2020 History of surgery on arm right Hx of section Hx of neck surgery 12/31/2017 c-5 c-6, c-6 c-[address] avila Hx of tubal ligation 2001 Family History Mother Hypercholesteremia Diabetes Hypertension Psychiatric illness, Onset Age: 20 Mother had an affair with a man. [place] took her children away. The patient is the product of this liaison. Brother Hypercholesteremia Diabetes Hypertension Father Hypercholesteremia Diabetes Hypertension Sister Hypertension Stroke Social History Smoking and tobacco status: current every day smoker cigarettes Packs smoked per day: 1 Years cigarettes smoked: 27 Second hand smoke exposure: No Alcohol intake: current Alcohol intake frequency: few times a week Caregiver/support person: Yes (spouse) Lives independently: Yes Household members: spouse Housing: House Marital status: service: No Current occupational status: disabled History of recent travel: No Current gender identity: Female Special kamille needs: No Agree to transfusion: Yes Data Anesthesia Cardiac Studies: No Data to Display
[2021-01-10] MEDS: midazolam 1 mg/mL INJ 2 mL 2 MG IVP (09:09)
[2021-01-10] MEDS: vancomycin 1,000 MG in sodium chloride 0.9% 250 ML 250 MG IV (10:08)
--- NOTE | 2021-01-10 10:16 | SC_ITS ---
WS: [id number] C-arm fluoroscopy for port insertion, 01/10/2021 Clinical Data: port a cath Comparison: PA and lateral chest, 10/30/2020. Findings: The port has been inserted into the right internal jugular vein and appears to end in the vena cava. SC/C-arm FL for CVA [id number] Impression: Right port insertion.
[2021-01-10] MEDS: lidocaine 1% INJ 20 mL INJECTION (10:38)
[2021-01-10] MEDS: heparin, porcine 1,000 unit/mL INJ 10 mL 6000 UNIT INJECTION (10:39)
[2021-01-10] MEDS: fentaNYL 50 mcg/mL INJ 2mL IVP ×2 (11:25→11:29)
--- NOTE | 2021-01-10 11:49 | P.OP_ITS ---
Operative Report Date of procedure: January 10, 2021 Pre-op Diagnosis: Lymphoma Post-op diagnosis: same Procedure Done: 1. Placement of PowerPort in the right internal jugular vein 2. Fluoroscopic guidance and interpretation for placement of catheter 3. Ultrasound guidance to access the right internal jugular vein Pathology: none sent Surgeon: Ryan Wright Anesthesia: MAC Condition: stable Disposition: PACU Procedure: The patient was taken to the Operating Room and the chest and neck bilaterally were prepped and draped in a sterile manner after the antibiotic had been administered and shoulder rolls had been placed. A total of 10 mL of 1% lidocaine with 0.5% Marcaine was infiltrated under the clavicle on the left side at the site of the planned entry into the subclavian vein. An introducer needle was then used to access the subclavian vein under the clavicle and after withdrawing blood syringe was removed and a guidewire passed under fluoroscopy but the wire could not be advanced. 3 attempts were made and his decision was made to access the right internal jugular vein. Ultrasound of the right internal jugular vein revealed patent flow with no evidence of thrombus. Under ultrasound guidance the right internal jugular vein was accessed with an int roducer needle, guidewire passed and advanced into the superior vena cava and the introducer needle was removed. The site of the planned port was then marked on the chest and a 15 blade was used to make a 3 cm skin incision this was extended into the subcutaneous tissue using electrocautery and a subcutaneous pocket over the pectoralis fascia was created 2-0 Vicryl suture was used to suture the port to the pectoral fascia in the pocket on 3 sides. The catheter, after having been flushed with hep saline, was attached to the tunneler and a tunnel created between the port site and the right internal jugular vein entry site. Under fluoroscopy the dilator sheath was passed over the guidewire into the proximal superior vena cava. The inner dilator was removed and the sheath left behind and the catheter was introduced through the peel-away sheath with the tip in the superior vena cava. The peel-away sheath was removed. The proximal end of the catheter was cut to the right size and was attached to the port. Using a Arteaga needle the port was accessed, it withdrew blood easily and flushed easily. A final 5cc of heparin was used to flush the PowerPort. The subcutaneous tissue was approximated using interrupted 3-0 Vicryl sutures and the skin at the introducer site and the port site was closed using subcuticular running 4-0 Monocryl sutures. Surgical glue was applied and the patient was stable throughout the procedure. Fluoroscopic guidance and interpretation was performed for introduction of the guidewire in the right internal jugular vein, passage of dilator and placement of catheter tip in the distal superior vena cava.
[2021-01-10] MEDS: HYDROcodone-acetaminophen 5-325 mg Tablet 1 TAB PO (12:01)
--- NOTE | 2021-01-10 15:45 | ANE.PACU2 ---
Inpatient post-anesthesia follow up: Airway intact: Yes Vital signs: Temperature 97.7 F Pulse Rate 64 Respiratory Rate 18 Blood Pressure 124/90 Pulse Oximetry 99 Oxygen Delivery Me thod Room Air Oxygen Flow Rate Fraction of Inspir ed Oxygen Hydration adequate: Yes Nausea and vomiting: No Pain level: 1 Mental status: Baseline
== END 2021-01-10 12:18 | disposition home or self-care (01) ==
PROVIDERS: PCP Nurse Practitioner Family; Visit Provider Surgery
PROC: (CPT 36561; principal; 2021-01-10 09:10)
DX: C81.90 Hodgkin lymphoma, unspecified, unspecified site (principal); J44.9 Chronic obstructive pulmonary disease, unspecified; I10 Essential (primary) hypertension; K21.9 Gastro-esophageal reflux disease without esophagitis; E66.01 Morbid (severe) obesity due to excess calories; Z68.35 Body mass index [BMI] 35.0-35.9, adult; G47.30 Sleep apnea, unspecified; E78.5 Hyperlipidemia, unspecified
CPT/HCPCS: 36561; 71045; 76000; 77001; 96374; C1788; J1644; J2250; J2704; J3010; J3370; J3490; J7030; J7050

== ENCOUNTER 2021-01-18 07:03 | Outpatient (CLI) | payer MEDICAID, SELFPAY ==
--- NOTE | 2021-01-18 07:15 | USCV_ITS ---
Alla Liz Age: 40 Gender: F : 1980 Exam Date: 01/18/2021 07:24 Ordering Phys: Luis Lewis MD Technologist: Emelina Christina [place]am [place] [facility] [place]: HIGH RISK MEDICATION, hodgkins lymphoma BP: / HR: 79 Rhythm: Sinus Technical Quality: Adequate MEASUREMENTS (Male / Female) Normal Values 2D ECHO LV Diastolic Diameter PLAX 4.5 cm 4.2 - 5.9 / 3.9 - 5.3 cm LV Systolic Diameter PLAX 2.5 cm IVS Diastolic Thickness 1.0 cm 0.6 - 1.0 / 0.6 - 0.9 cm IVS Systolic Thickness 1.9 cm LVPW Diastolic Thickness 1.0 cm 0.6 - 1.0 / 0.6 - 0.9 cm LVPW Systolic Thickness 1.8 cm LVOT Diameter 2.1 cm LV Ejection Fraction 2D Teich 76.8 % LV Ejection Fraction MOD 2C 75.9 % LV Ejection Fraction 2C AL 76.4 % LA Diameter 3.3 cm LA Width 2.5 cm LA Height 4.4 cm RA Width 4.0 cm RA Height 3.6 cm Aorta at Sinotubular Diameter 2.7 cm M-MODE LV Diastolic Diameter MM 4.9 cm 4.2 - 5.9 / 3.9 - 5.3 cm LV Systolic Diameter MM 3.3 cm LV Ejection Fraction MM Teich 61.1 % IVS Diastolic Thickness MM 1.1 cm 0.6 - 1.0 / 0.6 - 0.9 cm IVS Systolic Thickness MM 1.3 cm LVPW Diastolic Thickness MM 0.9 cm 0.6 - 1.0 / 0.6 - 0.9 cm LVPW Systolic Thickness MM 1.8 cm Aortic Annulus Diameter 2.8 cm LA Ao Ratio MM 1.3 MV E Point Septal Separation 0.6 cm DOPPLER AV Peak Velocity 108.0 cm/s LVOT Peak Velocity 88.0 cm/s AV Area Cont Eq vti 2.8 cm squared AV Area Cont Eq pk 2.7 cm squared MV Peak Velocity 77.0 cm/s MV Area PHT 4.6 cm squared Mitral E to A Ratio 0.9 MV E' Velocity 35.5 cm/s Mitral E to MV E' Ratio 6.5 Mitral E to LV E' Lateral Ratio 7.0 Mitral E to LV E' Septal Ratio 6.2 TR Peak Velocity 80.0 cm/s TR Peak Gradient 2.6 mmHg Right Atrial Pressure 3.0 mmHg Pulmonary Artery Systolic Pressu 5.6 mmHg PV Peak Velocity 102.3 cm/s RV Acceleration Time 0.1 s RV Ejection Time 0.3 s RV AcT/ET 0.5 FINDINGS Left Ventricle Normal left ventricular cavity size. Normal left ventricular systolic function.left ventricular ejection fraction is estimated at 61 %. Grade I/IV diastolic dysfunction (abnormal relaxation filling pattern), normal to mildly elevated filling pressures. Right Ventricle The right ventricle is normal in size and function. Right Atrium The right atrium is normal in size. Left Atrium The left atrium is normal in size. Mitral Valve Structurally normal mitral valve without significant stenosis or prolapse. There is no mitral regurgitation. Aortic Valve Structurally normal aortic valve without significant sclerosis or stenosis. There is no aortic regurgitation. Tricuspid Valve Structurally normal tricuspid valve without significant stenosis or regurgitation. Pulmonary artery systolic pressure is normal. Pulmonic Valve Structurally normal pulmonic valve without significant stenosis. There is no pulmonic regurgitation. Pericardium Normal pericardium without effusion. Aorta Normal ascending aorta dimension. CONCLUSIONS 1-Normal left ventricular cavity size. Normal left ventricular systolic function.left ventricular ejection fraction is estimated at 61 %. Grade I/IV diastolic dysfunction (abnormal relaxation filling pattern), normal to mildly elevated filling pressures. 2-There is no pericardial effusion. 3-No significant valve abnormalities. 4-Pulmonary artery systolic pressure is within normal limits. 5-Right atrial pressure is around 5 mm of mercury. 6-No significant change since the prior echocardiogram study of 03/28/2018. Estefanía Boswell MD (Electronically Signed) Final Date: 23 Jan 2021 15:24 S
== END 2021-01-18 07:04 | disposition home or self-care (01) ==
LOC: US 07:05
PROVIDERS: PCP Nurse Practitioner Family; Visit Provider Internal Medicine Medical Oncology
DX: Z79.899 Other long term (current) drug therapy (principal); R07.9 Chest pain, unspecified; C81.41 Lymphocyte-rich Hodgkin lymphoma, lymph nodes of head, face, and neck
CPT/HCPCS: 93306

== ENCOUNTER 2021-01-23 11:36 | Outpatient (CLI) | payer MEDICAID, SELFPAY ==
[2021-01-23 12:37] LABS: Basophils % 0.5 %; Eosinophils # 0.6 10^3/uL (0.0-0.8); Hemoglobin 13.1 g/dL (11.5-15.3); Lymphocytes # 2.7 10^3/uL (0.8-4.8); Lymphocytes % 33.2 %; Mean Corpuscular HGB Conc 32.8 g/dL (30.0-36.0); Mean Corpuscular Hemoglobin 29.8 pg (28.0-34.0); Mean Corpuscular Volume 90.9 fL (81-99); Mean Platelet Volume 10.7 fL (7.4-10.4); Monocytes # 0.4 10^3/uL (0.2-0.9); Monocytes % 5.4 %; Neutrophils # 4.23 10^3/uL (1.8-7.7); Neutrophils % 52.7 %; Nucleated Red Blood Cells % 0 %; Platelet Count 253 10^3/cmm (130-400); Red Cell Distribution Width 13.1 % (12.1-15.1)
[2021-01-23 12:59] LABS: Alanine Aminotransferase 9 U/L (0-33); Albumin Level 3.8 g/dL (3.5-5.2); Alkaline Phosphatase 64 IU/L (35-105); Anion Gap 12.3 (5-19); Aspartate Amino Transferase 14 U/L (0-32); Blood Urea Nitrogen 13 mg/dL (6-20); Calcium 8.5 mg/dL (8.5-10.5); Carbon Dioxide 26 mmol/L (22-29); Chloride 105 mmol/L (98-107); Globulin 2.7 g/dL (1.3-4.6); Glomerular Filtration Rate 92.2 mL/min (90-130); Glucose 87 mg/dL (65-115); Lactate Dehydrogenase 189 U/L (135-214); Osmolality Calculated 287 mOsm/kg (285-295); Potassium 4.3 mmol/L (3.5-5.1); Sodium 139 mmol/L (136-145); Total Bilirubin 0.2 mg/dL (0.15-1.2); Total Protein 6.5 g/dL (6.6-8.7)
[2021-01-23] MEDS: acetaminophen 325 mg Tablet 650 MG PO (16:20)
[2021-01-23] MEDS: fosaprepitant 150 MG in sodium chloride 0.9% 150 ML 300 MG IV (16:20)
[2021-01-23] MEDS: famotidine 20 mg/2 mL INJ IVP (16:21)
[2021-01-23] MEDS: palonosetron 0.25 mg/5 mL SDV IV (16:23)
[2021-01-23] MEDS: dexamethasone 20 MG in sodium chloride 0.9% 50 ML 187 MG IV (16:23)
[2021-01-23] MEDS: sodium chloride 0.9% (100 ml) 100 ML 500 ML (16:41)
[2021-01-23] MEDS: diphenhydrAMINE 50 mg/mL SDV 1mL 25 MG IV (16:41)
[2021-01-23] MEDS: pegfilgrastim 6 mg/0.6 mL Kit (onpro) SUBCUT (18:50)
--- NOTE | 2021-02-11 12:53 | ONC FU_ITS ---
[facility] Patient Note Patient: Alla Liz Unit #: [id number]: 1980 Dictated By: Francie MckennaDate of Visit: January 23, 2021 Onc MED Follow-Up/Prog Note Chief Complaint: Hodgkin lymphoma. 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 She has multiple medical illnesses including hypertension, hyperlipidemia, asthma/COPD, GERD, degenerative arthritis/degenerative disease of the spine, osteoporosis, and anxiety/depression. She had presented with a knot on the right side of her neck. She was noted to have bilateral cervical adenopathy. Her neck CT on 11/12/2020 showed prominent asymmetric soft tissue in the posterior right nasopharynx measuring 14 x 11 mm, noted to be in the expected location of the adenoids. There were numerous enlarged bilateral cervical chain lymph nodes with the largest on the left measuring up to 1.3 cm. She was referred to Dr. Drew. She underwent direct laryngoscopy with endoscopic biopsy of the nasopharyngeal mass and excisional biopsy of 2 left cervical lymph nodes. Pathology at all sites was consistent with lymphocyte rich classic Hodgkin lymphoma. Her staging PET/CT on 12/22/2020 showed a left cervical level II node measuring 1.9 x 1.4 cm with SUV 5.4. Other similar nodes were present in the right IIA, V, and left II territories, also likely to be involved with lymphoma. There was noted to be prominent uptake along the mucosal surface of the head and neck but without localized activity. There were no other areas of abnormal uptake on that study. She has chronic pain, particularly in her neck and in the middle of her back. She also has pain in her left arm and right hip. She has headache all the time and she has intermittent shooting pains in her head. She has a little bit of numbness in her hands, worse on the left. She has chronic insomnia, currently managed with Seroquel. She also has chronic anxiety and depression. She has had treatment in the past and states she is very careful about what medications she takes now. Mrs. Ghosh underwent PowerPort placement in the right internal jugular vein per Dr. Wright on January 10, 2021. She underwent echocardiogram on January 18, 2021 which reported normal left ventricular ejection fraction is 61%. There is grade 1 #4 diastolic dysfunction, normal to mildly elevated filling pressures. No pericardial effusions no significant valve abnormalities and the pulmonary artery systolic pressure was within normal limits. The right atrial pressure was around 5 mmHg. She is here today to begin her first cycle of chemotherapy with ABVD (Adriamycin, bleomycin, vinblastine, dacarbazine). Her treatment plan is day 1 and 15 of a 28-day cycle. She will have 2 full cycles and then follow-up PET CT imaging. Mrs. Liz is accompanied by her today. She has no new concerns. She did bring along her Compazine and lorazepam and states she was uncomfortable taking either as she had read up on them and felt that they were psych drugs . She states given her experience with medicines in the past she is uncomfortable taking these. We discussed them at length and I have encouraged her that she can try ondansetron instead. We also discussed utilizing jes products, sea bands and scopolamine. I encouraged her to let us know how her nausea is doing so that we can treat her as needed. She denies any other concerns at this time. She denies any fever or chills. She is had no signs or symptoms of infection for at least the last 72 hours. She denies any mouth sores, sore throat or difficulty swallowing. She states that her appetite is good and her energy is fair. She has 2 grandbabies that she keeps up with pretty regularly and has been able to do this thus far. She denies any new shortness of breath orthopnea. She is had no new cough. She denies current nausea or vomiting. She has had no lower extremity edema. She states her bowels are normal for her. Her ECOG is 1 Past Medical History: Anxiety Asthma/COPD Degenerative arthritis Degenerative disease of the spine Depression Gastroesophageal reflux disease Hyperlipidemia Hypertension Obstructive sleep apnea Osteoporosis Type II diabetes Vitamin D deficiency Past Surgical History: Nasal surgery Open reduction/internal fixation of right midshaft humerus fracture in 2018 C5-C6, C6-C7 anterior discectomy/fusion/fixation in 2018 Colonoscopy in 2018 Hysteroscopy followed by D&C and thermal ablation in 2011 section and tubal ligation in 2001 section in 1999 Allergies: Amoxicillin, clavulanic acid, [place] jelly , and Pregabalin. Medications: Acid Titrator (20.6 (20 base) mg) Capsule Delayed Release Oral daily Adult Aspirin EC Low Strength (81 mg) Tablet, enteric coated Oral daily Allergy (10 mg) Tablet Oral daily Azelastine HCl (0.15 %) Solution Nasal daily Cyclobenzaprine HCl (10 mg) Tablet Oral daily Doxycycline Hyclate (100 mg) Tablet Oral b.i.d. FLUoxetine HCl (10 mg) Tablet Oral daily HYDROcodone-Acetaminophen (5-325 mg) Tablet Oral 8x/d Lisinopril (20 mg) Tablet Oral daily Narcan Liquid Nasal Pravachol (40 mg) Tablet Oral daily Family History: Ms. Liz's mother is alive: hypertension, and type II diabetes. Ms. Liz does not know if her father is alive: asthma, and heart disease, and hypertension, and type II diabetes. Ms. Liz has 3 brothers: 2 alive, 1 . Ms. Liz's first brother's myocard. She has 1 sister who is alive. Family history is significant for coronary artery disease and diabetes affecting her father and 2 brothers. One brother is . Her mother and her sister have diabetes. Social History: Ms. Liz is . She is a daily smoker who smokes 1.0 pack/day. She drinks occasionally. She has indicated exposure to the following products: recreational drug use and marijuana. She has history of smoking 1 pack of cigarettes daily for 28 years. She also smokes marijuana daily. She reports having weekly alcohol use. Review Of Symptoms: <See Above> Vital Signs: Performed on January 23, 2021 14:18 Height - 66.00 in Weight - 222.2 lbs (HIGH) BSA - 2.09 sq.m BMI - 35.86 (HIGH) Temperature - 97.9 F (LOW) Pulse - 73 /min Respiration - 18 /min BP - 106/71 mm(hg) O2 Sat - 99 % Pain - 0,1 - No physically strenuous activity, but ambulatory and able to carry out light or sedentary work (e.g. office work, light house work). (ECOG) Physical Examination: Constitutional Alert, oriented, no acute distress. Skin pink, warm and dry. Head Normocephalic; atraumatic. Eyes Conjunctivae and sclerae are clear and without icterus. Pupils are reactive and equal. Respiratory Lungs are clear to auscultation without rhonchi or wheezing. Cardiovascular Regular rate and rhythm of heart without murmurs,clicks, gallops or rubs. Chest Right chest wall access device insertion site has healed well. It is unremarkable. Abdomen Non-tender, non-distended, no masses or ascites. Good bowel sounds noted in all quads. No guarding or rebound tenderness. No pulsatile masses. Back/Spine Non-tender to palpation. Extremities No visible deformities, no cyanosis, clubbing or edema. Musculoskeletal No tenderness or swelling, normal range of motion without obvious weakness. Integumentary No rashes or lesions. Neurologic No sensory or motor deficits, normal cerebellar function, normal gait. Psychiatric Alert and oriented times three. Coherent speech. Verbalizes understanding of our discussions today. Laboratory:Test performed on February 06, 2021 08:19 LDH (Total) 184 U/L Sodium 137 mmol/L Potassium 4.1 mmol/L Chloride 103 mmol/L CO2 25 mmol/L Anion Gap 13.1 BUN 11 mg/dL Creatinine 0.7 mg/dL Cr Clearance (Est) 165.8600 mL/min eGFR 92.2 mL/min Glucose 91 mg/dL Osmolality - Calculated 283 mOsm/kg Calcium 9.1 mg/dL Protein, Total 7.1 g/dL Albumin 4.1 g/dL Globulin 3.0 g/dL Bilirubin, Total 0.2 mg/dL ALT (SGPT) 12 U/L AST (SGOT) 14 U/L Alkaline Phosphatase 74 IU/L WBC 8.9 10 3/uL RBC 4.67 10 6/uL HGB 14.0 g/dL HCT 42.6 % MCV 91.2 fL MCH 30.0 pg MCHC 32.9 g/dL RDW 13.9 % Platelet Count 234 10 3/cmm MPV 9.8 fL Neutrophils 5.04 10 3/uL Lymphocytes 2.6 10 3/uL Monocytes 0.8 10 3/uL Eosinophils 0.3 10 3/uL Basophils 0.0 10 3/uL Neutrophil % 56.8 % Lymphocyte % 28.9 % Monocyte % 9.3 % Eosinophil % 3.3 % Basophils % 0.2 % NRBC % 0 % Test performed on January 31, 2021 09:05 CBC Slide Review Slide Review Perform Test performed on Dec 26, 2020 12:20 TSH 1.27 uIU/mL Vitamin D (25-Hydroxy), Total 39 ng/mL Est Avg Glucose (eAG) 103 mg/dL ESR (Sed Rate) 17 mm/hr Hemoglobin A1C % 5.2 % Impression: 1. Lymphocyte rich classical Hodgkin lymphoma, stage IIA. 2. Hypertension. 3. Hyperlipidemia. 4. Asthma/COPD. 5. Obstructive sleep apnea. 6. GERD. 7. Degenerative arthritis/degenerative disease of the spine. 8. Osteoporosis. 9. Vitamin D deficiency. 10. Anxiety/depression. 11. She has a strong family history for diabetes. Plan/Problems Addressed at this Visit: 1. Lymphocyte rich classical Hodgkin lymphoma diagnosed by left cervical lymph node biopsy and biopsy of nasopharyngeal mass on 12/05/2020. By PET/CT her disease appears to be localized to the nasopharynx and cervical lymph nodes. As she does not have clear-cut B symptoms, her disease is thus stage IIA. Dr Lewis has discussed the fact that Hodgkin lymphoma is a highly curable malignancy. Per NCCN guidelines, the recommended initial management for this subtype and stage is to initiate treatment with 2 cycles of AVBD chemotherapy followed by restaging PET/CT. He reviewed anticipated side effects with the chemotherapy including the potential for nausea, alopecia, fatigue, and low blood counts, among others. We specifically discussed the risk for cardiac toxicity with Adriamycin and for pulmonary and/or skin toxicity with bleomycin. She has had a baseline echocardiogram and baseline pulmonary function studies. She also placement of Port-A-Cath for venous access. A. Proceed with cycle 1 day 1 ABVD. B. Baseline echocardiogram was obtained on January 18, 2021 and reported a LVEF of 61%. C. She is not comfortable utilizing Compazine and lorazepam for antiemetics at home due to her concern for them being psych drugs . For now we will utilize ondansetron at home. D. She will have supportive care as needed with antiemetics and hydration here at the office. E. Today's labs reviewed in detail and discussed with Mrs. Liz and her and a copy was given to her. WBC 8.0, hemoglobin 13.1, platelets 253,000, ANC is 4230. Potassium 4.3 random glucose is 87 creatinine 0.7 LFTs are normal. Her vitamin D level from December 26, 2020 is 39 and her TSH was 1.27. Her sed rate at that time was 17 and her hemoglobin A1c was 5.2. Her LDH today is 189. 2. Follow-up plan A. She will have weekly interim counts. B. We will plan to see her back in 1 week with CBC CMP for day 8 follow-up. C. She will be due back in 2 weeks for day 15 treatment and she will need CBC CMP and LDH at that time. D. The current plan is to complete 2 full cycles of ABVD then follow-up with repeat PET/CT imaging. 3. Patient education A. We have discussed her antiemetics at length. She is not controlled utilizing Compazine and Ativan at this time. She states that she has utilized psych medications in the past and did not want to utilize these medications at this time. B. The patient and family were informed of chemotherapy plan and specific drugs were discussed. We also discussed how chemotherapy works and identified common side effects including alopecia; myelosuppression-including neutropenia, anemia, bleeding or bruising; skin changes; mouth sores; drug hypersensitivity/allergic reactions or anaphylaxis and extravasation. They have also been informed how to contact the clinic with side effects or symptoms, including but not limited to fever greater than 100.4 degrees, chills, sore throat, bleeding or bruising that is not explained or mouth sores, cough, nasal discharge, diarrhea, constipation, nausea and/or vomiting not relieved with medications on hand at home, as well as any other concern or question they may have. Our hours are 8:00 a.m. to 4:30 p.m. on Thursday through and 8-12:00 on Thursday. However, someone is vehicle sales professional 24 hours per day and they have been advised to contact the [facility] at if it is after hours. We have also discussed potential long-term side effects of chemotherapy including secondary cancers, infertility, pulmonary complications, cardiac complications, and again peripheral neuropathy. We have discussed that they certainly need to let us know before taking any antioxidants or herbal or further dietary supplements, as we are unsure of how these agents react with chemotherapy and we request that they avoid these products for now. They were informed that it is okay to take multivitamins at normal doses. They verbally state that they understand to take all medications as directed by their healthcare provider unless otherwise indicated. They also verbalized understanding to leave the pressure dressing on the intravenous administration site for at least two hours after treatment. Instructions for oral care with baking soda and salt water rinses as well as a guide for use of [id number] medication were provided with the treatment plan. They have been given a written patient treatment plan, of which a copy is in the chart, as well as specific drug information. They have no questions and verbalized understanding and are willing to proceed with chemotherapy at this time. Total time spent on Ms. Liz's care today including review of records prior to her visit; review of plan of care, side effect identification and management and follow-up plan; and post visit documentation was 60 minutes. Signed By: Francie Mckenna-, CNP Luis Lewis MD <<Signature on File>>
== END 2021-01-23 11:37 | disposition home or self-care (01) ==
LOC: ONCMED 11:37
PROVIDERS: PCP Nurse Practitioner Family; Visit Provider Nurse Practitioner
DX: Z51.11 Encounter for antineoplastic chemotherapy (principal); C81.41 Lymphocyte-rich Hodgkin lymphoma, lymph nodes of head, face, and neck; F41.9 Anxiety disorder, unspecified; J45.909 Unspecified asthma, uncomplicated; J44.9 Chronic obstructive pulmonary disease, unspecified; M47.9 Spondylosis, unspecified; F32.9 Major depressive disorder, single episode, unspecified; K21.9 Gastro-esophageal reflux disease without esophagitis; E78.5 Hyperlipidemia, unspecified; I10 Essential (primary) hypertension; G47.33 Obstructive sleep apnea (adult) (pediatric); M81.0 Age-related osteoporosis without current pathological fracture; E11.9 Type 2 diabetes mellitus without complications; E55.9 Vitamin D deficiency, unspecified; Z79.899 Other long term (current) drug therapy
CPT/HCPCS: 80053; 83615; 85025; 96367; 96372; 96375; 96411; 96413; 96417; 99215; J1100; J1200; J1453; J2469; J2505; J3490; J7040; J9000; J9040; J9130; J9360

== ENCOUNTER 2021-01-24 19:41 | Emergency (ER) | payer MEDICAID, SELFPAY ==
[2021-01-24 19:48] VITALS: BP 132/84; PULSE 78; RESP 16; TEMP 36.5; O2SAT 100; BMI 35.5
--- NOTE | 2021-01-24 20:42 | W.ED.HA ---
HPI - Headache General: Chief Complaint: Headache Stated Complaint: HEADACHE AFTER CHEMO YESTERDAY Time Seen by Provider: 01/24/21 20:11 History of Present Illness: HPI Narrative: Patient is a 40-year-old female comes to the ED with headache. Patient says she got chemo yesterday and that was her first chemo treatment. Today she woke up with her severe headache that is generalized and wraps around her entire head. She rates it a 10 out of 10. She denies any other symptoms such as nausea or photophobia. She says she has never had a headache like this before does not have a history of migraines. Associated symptoms: Deny chest pain, fever(s), nausea, rash or vomiting Review of Systems Const: Denies: fever(s), chills or fatigue Eyes: Denies: change in vision or eye discomfort ENMT: Denies: throat pain, odynophagia, nasal discharge or nasal congestion Card: Denies: chest pain, palpitations, edema, swelling of feet/ankles, dyspnea on exertion or orthopnea Resp: Denies: dyspnea, productive cough or non-productive cough GI: Denies: abdominal pain, nausea, vomiting, diarrhea, constipation or hematochezia : Denies: flank pain, dysuria or hematuria Musc: Denies: neck pain, back pain or extremity swelling Skin/Breast: Denies: rash or new lesions Neuro: Reports: headache(s); Denies: numbness in extremities or weakness in extremities PFS ED PFSH: Medical History 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 GERD without esophagitis Hodgkin lymphoma Hyperglycemia Hyperlipidemia Major depressive disorder Patient cannot remember when she was not depressed. Mood is much improved. She is asking for her discharge and denied suicidal or homicidal ideation, plan or intent. Myalgia Plantar warts Sleep apnea Spondylosis without myelopathy or radiculopathy, lumbosacral region Surgical History History of adenoidectomy 2020 History of colonoscopy 2017 History of surgery lymph node removal in neck -2020 History of surgery on arm right Hx of section Hx of neck surgery 12/31/2017 c-5 c-6, c-6 c-[address] avila Hx of tubal ligation 2002 Port-A-Cath in place (01/10/21) Family History Mother Hypercholesteremia Diabetes Hypertension Psychiatric illness, Onset Age: 20 Mother had an affair with a man. Wendell [employer] took her children away. The patient is the product of this liaison. Brother Hypercholesteremia Diabetes Hypertension Father Hypercholesteremia Diabetes Hypertension Sister Hypertension Stroke Social History Smoking and tobacco status: current every day smoker cigarettes Packs smoked per day: 1 Years cigarettes smoked: 27 Second hand smoke exposure: No Alcohol intake: current Alcohol intake frequency: few times a week Caregiver/support person: Yes (spouse) Lives independently: Yes Household members: spouse Housing: House Marital status: service: No Current occupational status: disabled History of recent travel: No Current gender identity: Female Special kamille needs: No Agree to transfusion: Yes Physical Exam Const: COMMON NORMALS: patient oriented x3 and alert HENMT: COMMON NORMALS: normocephalic HEAD & SCALP: normocephalic MOUTH: Normal oral and palatal mucosa present THROAT: posterior oropharynx normal and uvula midline Neck/C-Spine: COMMON NORMALS: supple GENERAL: Yes normal visual inspection Resp: COMMON NORMALS: normal respiratory effort, No retractions, No use of accessory muscles and clear to auscultation bilaterally AUSCULTATION: clear to auscultation bilaterally Cardio: COMMON NORMALS: regular rate, regular rhythm, S1 normal heart sound present, S2 normal heart sound present, No gallops present (Cardio), No clicks present (Cardio), No murmurs present (Cardio) and Peripheral pulses 2+ throughout RATE: regular rate RHYTHM: regular rhythm HEART SOUNDS: S1 normal heart sound present and S2 normal heart sound present PERIPHERAL PULSES: Peripheral pulses 2+ throughout GI: COMMON NORMALS: Normal to inspection, nondistended, normoactive bowel sounds present, Soft to palpation, non-tender and no masses PALPATION: Yes Soft to palpation : COMMON NORMALS: Yes no CVA tenderness BLADDER/KIDNEY EXAM: Yes no CVA tenderness Back/Pelvis: COMMON NORMALS: no CVA tenderness Neuro: COMMON NORMALS: patient oriented x3 and moves all extremities SENSORIUM/ORIENTATION: Yes alert Course ED course: I wanted to go tell patient about the head CT results and she was not in her room. I spoke with the nurse and patient just left AMA. Vital Signs: Vital signs: Vital Signs Temperature 97.7 F 01/24/21 19:48 Pulse Rate 78 01/24/21 19:48 Respiratory Rate 16 01/24/21 19:48 Blood Pressure 132/84 01/24/21 19:48 Pulse Oximetry 100 01/24/21 19:48 MDM - Headache MDM Narrative: Medical decision making narrative: Patient is a 40-year-old female comes to the ED with a headache. The history and physical exam from patient and then told her I was going to order some meds to help her headache and order head CT. Migraine meds were ordered and head CT showed no acute findings. I went in to talk to patient to tell her about the head CT results and she was gone. Patient left ED before I was able to talk with her about head CT and for her to get the meds I ordered for her headache. Patient discharged AMA. Imaging Data^: CT Head: Attestation: I personally reviewed and interpreted this imaging study as follows: Radiologist's impression: [address] [address] [address] Scan Report Signed Patient: Alla Liz Unit #: [id number] : 1980 Age/Sex: 40 / F ADM Date: 01/24/21 Loc: ER Room/Bed: Attending Dr: Ordering Provider/Ordering MD: Danny Sanford Date of Service: 01/24/21 Procedure(s): CT head wo con* [id number] Accession Number(s): [id number] Report Number: [id number] PROCEDURE INFORMATION: Exam: CT Head Without Contrast Exam date and time: 01/24/2021 8:51 PM Age: 40 years old Clinical indication: Pain; Headache; Patient HX: VICK with dizziness. ; Additional info: Sudden and severe headache TECHNIQUE: Imaging protocol: Computed tomography of the head without contrast. Radiation optimization: All CT scans at this facility use at least one of these dose optimization techniques: automated exposure control; mA and/or kV adjustment per patient size (includes targeted exams where dose is matched to clinical indication); or iterative reconstruction. COMPARISON: US soft tissue head neck [id number] 09/17/2020 12:19 PM RADIATION DOSE METRICS: Total DLP (mGy-cm): 846.37 FINDINGS: Brain: No evidence of acute infarct. No mass or mass effect. No intra axial hemorrhage. No extra axial fluid collection or hemorrhage. Cerebral ventricles: Symmetric and without enlargement. Bones/joints: No acute fracture. Paranasal sinuses: Visualized sinuses are well aerated. Mastoid air cells: Visualized mastoid air cells are well aerated. Soft tissues: No concerning abnormalities. CT/CT head wo con* [id number] IMPRESSION: No acute intracranial abnormality. Radiation Dose CTDIVOL = (mGy): DLP = 846.37 (mGy-cm) Dictated By: Cecilio Delatorre Signed By: Cecilio Delatorre Signed Date/Time: 01/24/212134 DD/ 32 Discharge Plan Discharge Patient Disposition: Left Against Medical Advice Condition: Stable Prescriptions: No Action albuterol sulfate 2.5 mg /3 mL (0.083 %) solution for nebulization 2.5 mg INHALATION QID PRN (Reason: Shortness Of Breath) RF: 0 azelastine 137 mcg (0.1 %) aerosol,spray 1 spray INTRANASAL BID RF: 0 fluticasone propionate [Flonase Allergy Relief] 50 mcg/actuation spray,suspension 2 spray INTRANASAL DAILY@0900 RF: 0 ibuprofen 800 mg tablet 800 mg PO TID PRN (Reason: pain) 30 Days Qty: 84 RF: 2 cyclobenzaprine 10 mg tablet 10 mg PO BID PRN (Reason: muscle spasm) 30 Days Qty: 60 RF: 5 albuterol sulfate [ProAir HFA] 90 mcg/actuation HFA aerosol inhaler 2 puff INHALATION Q4H PRN (Reason: shortness of breath or wheezing) 30 Days Qty: 1 RF: 5 ergocalciferol (vitamin D2) 1,250 mcg (50,000 unit) capsule See Rx Instructions .ROUTE .COMPLEX Qty: 4 RF: 2 pravastatin 40 mg tablet 40 mg PO BEDTIME@2100 RF: 0 lisinopril 10 mg tablet 10 mg PO DAILY@0900 RF: 0 omeprazole 20 mg capsule,delayed release(DR/EC) 20 mg PO BID@0900,2100 RF: 0 quetiapine [Seroquel] 50 mg tablet 100 mg PO BEDTIME@2100 RF: 0 hydrochlorothiazide 12.5 mg tablet 12.5 mg PO DAILY@0900 RF: 0 hydrocodone-acetaminophen 5-325 mg tablet 1 tab PO Q6H PRN (Reason: pain) Qty: 20 RF: 0 Zofran 4 mg tablet 4 mg PO Q6H PRN (Reason: nausea and vomiting) Qty: 20 RF: 0 Colace 100 mg capsule 100 mg PO BID Qty: 30 RF: 0 Referrals: Venice Barry FNP [Primary Care Provider] - Coding Level of Care Code ED Recovery Engineer for [facility] Fwd Exam Comprehensive
== END 2021-01-24 21:50 | disposition left against medical advice (07) ==
PROVIDERS: Emergency Provider Physician Assistant; PCP Nurse Practitioner Family
DX: R51.9 Headache, unspecified (principal); Z53.21 Procedure and treatment not carried out due to patient leaving prior to being seen by health care provider; I10 Essential (primary) hypertension; E78.5 Hyperlipidemia, unspecified; Z85.71 Personal history of Hodgkin lymphoma; F17.210 Nicotine dependence, cigarettes, uncomplicated
CPT/HCPCS: 70450; 99281

== ENCOUNTER 2021-02-13 05:43 | Outpatient (RCR) | payer MEDICAID, SELFPAY ==
[2021-01-31 09:28] LABS: Basophils % 0.4 %; Eosinophils # 0.8 10^3/uL (0.0-0.8); Eosinophils % 10.5 %; Hematocrit 39.3 % (37.0-47.0); Hemoglobin 13.3 g/dL (11.5-15.3); Lymphocytes # 2.6 10^3/uL (0.8-4.8); Lymphocytes % 35.3 %; Mean Corpuscular HGB Conc 33.8 g/dL (30.0-36.0); Mean Corpuscular Hemoglobin 30.5 pg (28.0-34.0); Mean Corpuscular Volume 90.1 fL (81-99); Monocytes # 1.3 10^3/uL (0.2-0.9); Monocytes % 17.7 %; Neutrophils # 2.44 10^3/uL (1.8-7.7); Neutrophils % 33.5 %; Nucleated Red Blood Cells % 0 %; Platelet Count 206 10^3/cmm (130-400); Red Blood Count 4.36 10^6/uL (4.1-5.3); Red Cell Distribution Width 13.2 % (12.1-15.1); White Blood Count 7.3 10^3/uL (4.0-10.0)
[2021-01-31 09:49] LABS: Alanine Aminotransferase 24 U/L (0-33); Albumin Level 4.2 g/dL (3.5-5.2); Alkaline Phosphatase 110 IU/L (35-105); Anion Gap 11.3 (5-19); Aspartate Amino Transferase 18 U/L (0-32); Blood Urea Nitrogen 7 mg/dL (6-20); Carbon Dioxide 27 mmol/L (22-29); Chloride 102 mmol/L (98-107); Globulin 2.9 g/dL (1.3-4.6); Glomerular Filtration Rate 92.2 mL/min (90-130); Glucose 87 mg/dL (65-115); Osmolality Calculated 279 mOsm/kg (285-295); Potassium 4.3 mmol/L (3.5-5.1); Sodium 136 mmol/L (136-145); Total Bilirubin 0.2 mg/dL (0.15-1.2); Total Protein 7.1 g/dL (6.6-8.7)
[2021-01-31 10:06] LABS: Slide Review Slide Review Perform
[2021-02-06 08:34] LABS: Basophils % 0.2 %; Eosinophils # 0.3 10^3/uL (0.0-0.8); Eosinophils % 3.3 %; Hematocrit 42.6 % (37.0-47.0); Lymphocytes # 2.6 10^3/uL (0.8-4.8); Lymphocytes % 28.9 %; Mean Corpuscular HGB Conc 32.9 g/dL (30.0-36.0); Mean Corpuscular Volume 91.2 fL (81-99); Mean Platelet Volume 9.8 fL (7.4-10.4); Monocytes # 0.8 10^3/uL (0.2-0.9); Monocytes % 9.3 %; Neutrophils # 5.04 10^3/uL (1.8-7.7); Neutrophils % 56.8 %; Nucleated Red Blood Cells % 0 %; Platelet Count 234 10^3/cmm (130-400); Red Blood Count 4.67 10^6/uL (4.1-5.3); Red Cell Distribution Width 13.9 % (12.1-15.1); White Blood Count 8.9 10^3/uL (4.0-10.0)
[2021-02-06 09:07] LABS: Alanine Aminotransferase 12 U/L (0-33); Albumin Level 4.1 g/dL (3.5-5.2); Alkaline Phosphatase 74 IU/L (35-105); Anion Gap 13.1 (5-19); Aspartate Amino Transferase 14 U/L (0-32); Blood Urea Nitrogen 11 mg/dL (6-20); Calcium 9.1 mg/dL (8.5-10.5); Carbon Dioxide 25 mmol/L (22-29); Chloride 103 mmol/L (98-107); Glomerular Filtration Rate 92.2 mL/min (90-130); Glucose 91 mg/dL (65-115); Lactate Dehydrogenase 184 U/L (135-214); Osmolality Calculated 283 mOsm/kg (285-295); Potassium 4.1 mmol/L (3.5-5.1); Sodium 137 mmol/L (136-145); Total Bilirubin 0.2 mg/dL (0.15-1.2); Total Protein 7.1 g/dL (6.6-8.7)
[2021-02-06] MEDS: acetaminophen 325 mg Tablet 650 MG PO (10:20)
[2021-02-06] MEDS: dexamethasone 20 MG in sodium chloride 0.9% 50 ML 187 MG IV (10:20)
[2021-02-06] MEDS: ondansetron 2 mg/ML SDV 2 mL 8 MG IV (10:20)
[2021-02-06] MEDS: sodium chloride 0.9% 250 ML 75 ML IV (10:20)
[2021-02-06] MEDS: sodium chloride 0.9% (100 ml) 100 ML 500 ML (10:40)
[2021-02-06] MEDS: diphenhydrAMINE 50 mg/mL SDV 1mL 25 MG IV (10:40)
[2021-02-07] MEDS: famotidine 20 mg/2 mL INJ IVP (08:42)
[2021-02-07] MEDS: ondansetron 2 mg/ML SDV 2 mL 8 MG IV (08:45)
[2021-02-07] MEDS: sodium chloride 0.9% 1,000 ML 999 ML IV (09:02)
--- NOTE | 2021-02-11 13:07 | ONC FU_ITS ---
[facility] Patient Note Patient: Alla Liz Unit #: [id number]: [id number] Dictated By: Francie MckennaDate of Visit: January 31, 2021 Onc MED Follow-Up/Prog Note Chief Complaint: Hodgkin lymphoma. 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 She has multiple medical illnesses including hypertension, hyperlipidemia, asthma/COPD, GERD, degenerative arthritis/degenerative disease of the spine, osteoporosis, and anxiety/depression. She had presented with a knot on the right side of her neck. She was noted to have bilateral cervical adenopathy. Her neck CT on 11/12/2020 showed prominent asymmetric soft tissue in the posterior right nasopharynx measuring 14 x 11 mm, noted to be in the expected location of the adenoids. There were numerous enlarged bilateral cervical chain lymph nodes with the largest on the left measuring up to 1.3 cm. She was referred to Dr. Drew. She underwent direct laryngoscopy with endoscopic biopsy of the nasopharyngeal mass and excisional biopsy of 2 left cervical lymph nodes. Pathology at all sites was consistent with lymphocyte rich classic Hodgkin lymphoma. Her staging PET/CT on 12/22/2020 showed a left cervical level II node measuring 1.9 x 1.4 cm with SUV 5.4. Other similar nodes were present in the right IIA, V, and left II territories, also likely to be involved with lymphoma. There was noted to be prominent uptake along the mucosal surface of the head and neck but without localized activity. There were no other areas of abnormal uptake on that study. She has chronic pain, particularly in her neck and in the middle of her back. She also has pain in her left arm and right hip. She has headache all the time and she has intermittent shooting pains in her head. She has a little bit of numbness in her hands, worse on the left. She has chronic insomnia, currently managed with Seroquel. She also has chronic anxiety and depression. She has had treatment in the past and states she is very careful about what medications she takes now. Mrs. Ghosh underwent PowerPort placement in the right internal jugular vein per Dr. Wright on January 10, 2021. She underwent echocardiogram on January 18, 2021 which reported normal left ventricular ejection fraction is 61%. There is grade I/IViastolic dysfunction, normal to mildly elevated filling pressures. No pericardial effusions no significant valve abnormalities and the pulmonary artery systolic pressure was within normal limits. The right atrial pressure was around 5 mmHg. She began her first cycle of chemotherapy with ABVD (Adriamycin, bleomycin, vinblastine, dacarbazine) on January 23, 2021. Her treatment plan is day 1 and 15 of a 28-day cycle. She will have 2 full cycles and then follow-up PET CT imaging. Mrs. Liz is here today for day 8 follow-up. She reports that she feels she is done pretty well. She is had no nausea or vomiting. She did have significant headache and constipation. The headache lasted for 3 to 4 days and is just now starting to ease up. She has a history of headaches but states this is different than what her normal as. She states she is had numbness in her fingertips and some numbness in her throat. She describes the throat discomfort as a sharp pain that comes and goes. Is not particularly related to swallowing is just kind of intermittent. She states it is easing and certainly not getting any worse. She denies any fever or chills. She has had no actual mouth sores or actual sore throat. She states she just the sharp shooting pains at times. She denies any new shortness of breath or cough. She denies any hemoptysis. She states her bowels are better now after she took some laxative that were pretty constipated for the first few days after treatment. She denies any other concerns. She has no new pain. She states that her energy is improving it was down for a few days but now that is much better. Her ECOG is 1. Past Medical History: Anxiety Asthma/COPD Degenerative arthritis Degenerative disease of the spine Depression Gastroesophageal reflux disease Hyperlipidemia Hypertension Obstructive sleep apnea Osteoporosis Type II diabetes Vitamin D deficiency Past Surgical History: Nasal surgery Open reduction/internal fixation of right midshaft humerus fracture in 2018 C5-C6, C6-C7 anterior discectomy/fusion/fixation in 2018 Colonoscopy in 2018 Hysteroscopy followed by D&C and thermal ablation in 2011 section and tubal ligation in 2001 section in 1999 Allergies: Amoxicillin, clavulanic acid, [place] jelly , and Pregabalin. Medications: Acid Senior Courtroom Clerk (20.6 (20 base) mg) Capsule Delayed Release Oral daily Adult Aspirin EC Low Strength (81 mg) Tablet, enteric coated Oral daily Allergy (10 mg) Tablet Oral daily Azelastine HCl (0.15 %) Solution Nasal daily Cyclobenzaprine HCl (10 mg) Tablet Oral daily Doxycycline Hyclate (100 mg) Tablet Oral b.i.d. FLUoxetine HCl (10 mg) Tablet Oral daily HYDROcodone-Acetaminophen (5-325 mg) Tablet Oral 8x/d Lisinopril (20 mg) Tablet Oral daily Narcan Liquid Nasal Pravachol (40 mg) Tablet Oral daily Family History: Ms. Liz's mother is alive: hypertension, and type II diabetes. Ms. Liz does not know if her father is alive: asthma, and heart disease, and hypertension, and type II diabetes. Ms. Liz has 3 brothers: 2 alive, 1 . Ms. Liz's first brother's myocard. She has 1 sister who is alive. Family history is significant for coronary artery disease and diabetes affecting her father and 2 brothers. One brother is . Her mother and her sister have diabetes. Social History: Ms. Liz is . She is a daily smoker who smokes 1.0 pack/day. She drinks occasionally. She has indicated exposure to the following products: recreational drug use and marijuana. She has history of smoking 1 pack of cigarettes daily for 28 years. She also smokes marijuana daily. She reports having weekly alcohol use. Review Of Symptoms: <See Above> Vital Signs: Performed on January 31, 2021 11:42 Height - 66.00 in Weight - 217 lbs (LOW) BSA - 2.07 sq.m BMI - 35.02 (HIGH) Temperature - 98.7 F Pulse - 74 /min Respiration - 18 /min BP - 118/80 mm(hg) O2 Sat - 96 % Pain - 4 Fatigue - 4,1 - No physically strenuous activity, but ambulatory and able to carry out light or sedentary work (e.g. office work, light house work). (ECOG) Physical Examination: Constitutional Alert, oriented, no acute distress. Skin pink, warm and dry. Head Normocephalic; atraumatic. Eyes Conjunctivae and sclerae are clear and without icterus. Pupils are reactive and equal. Respiratory Lungs are clear to auscultation without rhonchi or wheezing. Cardiovascular Regular rate and rhythm of heart without murmurs,clicks, gallops or rubs. Chest Right chest wall access device insertion site has healed well. It is unremarkable. Back/Spine Non-tender to palpation. Musculoskeletal No tenderness or swelling, normal range of motion without obvious weakness. Integumentary No rashes or lesions. Neurologic No sensory or motor deficits, normal cerebellar function, normal gait. Psychiatric Alert and oriented times three. Coherent speech. Verbalizes understanding of our discussions today. Laboratory:see flow sheet Test performed on Dec 26, 2020 12:20 TSH 1.27 uIU/mL Vitamin D (25-Hydroxy), Total 39 ng/mL Est Avg Glucose (eAG) 103 mg/dL ESR (Sed Rate) 17 mm/hr Hemoglobin A1C % 5.2 % Impression: 1. Lymphocyte rich classical Hodgkin lymphoma, stage IIA. 2. Hypertension. 3. Hyperlipidemia. 4. Asthma/COPD. 5. Obstructive sleep apnea. 6. GERD. 7. Degenerative arthritis/degenerative disease of the spine. 8. Osteoporosis. 9. Vitamin D deficiency. 10. Anxiety/depression. 11. She has a strong family history for diabetes. Plan/Problems Addressed at this Visit: 1. Lymphocyte rich classical Hodgkin lymphoma diagnosed by left cervical lymph node biopsy and biopsy of nasopharyngeal mass on 12/05/2020. By PET/CT her disease appears to be localized to the nasopharynx and cervical lymph nodes. As she does not have clear-cut B symptoms, her disease is thus stage IIA. Dr Lewis has discussed the fact that Hodgkin lymphoma is a highly curable malignancy. Per NCCN guidelines, the recommended initial management for this subtype and stage is to initiate treatment with 2 cycles of AVBD chemotherapy followed by restaging PET/CT. He reviewed anticipated side effects with the chemotherapy including the potential for nausea, alopecia, fatigue, and low blood counts, among others. We specifically discussed the risk for cardiac toxicity with Adriamycin and for pulmonary and/or skin toxicity with bleomycin. She has had a baseline echocardiogram and baseline pulmonary function studies. She also placement of Port-A-Cath for venous access. A. Proceed with cycle 1 day 8 ABVD. She was treated day 1 on January 23, 2021 and is due for day 15 next week. We will plan to substitute ondansetron for the Aloxi with day 15 as she did have significant headache and constipation after treatment on day 1. B. Baseline echocardiogram was obtained on January 18, 2021 and reported a LVEF of 61%. C. She is not comfortable utilizing Compazine and lorazepam for antiemetics at home due to her concern for them being psych drugs . For now we will utilize ondansetron at home. D. She will have supportive care as needed with antiemetics and hydration here at the office. E. Today's labs reviewed in detail and discussed with Mrs. Liz and her and a copy was given to her. WBC 7.3, hemoglobin 13.3, platelets 206,000, ANC is 2440. Potassium 4.3 creatinine 0.7 random glucose 87 LFTs are normal her alk phos is 110 presumably due to Neulasta on pro F. CT of the head without contrast from ER visit on January 23, 2021 after headache post chemo showed no acute intracranial abnormality. 2. Follow-up plan A. She will be due back in 1 week with CBC CMP LDH 4 cycle 1 day 15 ABVD. B. We will plan to change from Aloxi to ondansetron to see if this will help avoid the severe headache and the constipation she experienced after day 1 of cycle 1. C. Mrs. Liz was encouraged to contact us in the interim should questions or problems arise. Signed By: Francie Mckenna-, AOP Luis Lewis MD <<Signature on File>>
--- NOTE | 2021-02-11 13:33 | ONC FU_ITS ---
[facility] Patient Note Patient: Alla Liz Unit #: [id number]: 1980 Dictated By: Francie MckennaDate of Visit: February 06, 2021 Onc MED Follow-Up/Prog Note Chief Complaint: Hodgkin lymphoma. 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 She has multiple medical illnesses including hypertension, hyperlipidemia, asthma/COPD, GERD, degenerative arthritis/degenerative disease of the spine, osteoporosis, and anxiety/depression. She had presented with a knot on the right side of her neck. She was noted to have bilateral cervical adenopathy. Her neck CT on 11/12/2020 showed prominent asymmetric soft tissue in the posterior right nasopharynx measuring 14 x 11 mm, noted to be in the expected location of the adenoids. There were numerous enlarged bilateral cervical chain lymph nodes with the largest on the left measuring up to 1.3 cm. She was referred to Dr. Drew. She underwent direct laryngoscopy with endoscopic biopsy of the nasopharyngeal mass and excisional biopsy of 2 left cervical lymph nodes. Pathology at all sites was consistent with lymphocyte rich classic Hodgkin lymphoma. Her staging PET/CT on 12/22/2020 showed a left cervical level II node measuring 1.9 x 1.4 cm with SUV 5.4. Other similar nodes were present in the right IIA, V, and left II territories, also likely to be involved with lymphoma. There was noted to be prominent uptake along the mucosal surface of the head and neck but without localized activity. There were no other areas of abnormal uptake on that study. She has chronic pain, particularly in her neck and in the middle of her back. She also has pain in her left arm and right hip. She has headache all the time and she has intermittent shooting pains in her head. She has a little bit of numbness in her hands, worse on the left. She has chronic insomnia, currently managed with Seroquel. She also has chronic anxiety and depression. She has had treatment in the past and states she is very careful about what medications she takes now. Mrs. Ghosh underwent PowerPort placement in the right internal jugular vein per Dr. Wright on January 10, 2021. She underwent echocardiogram on January 18, 2021 which reported normal left ventricular ejection fraction is 61%. There is grade 1 #4 diastolic dysfunction, normal to mildly elevated filling pressures. No pericardial effusions no significant valve abnormalities and the pulmonary artery systolic pressure was within normal limits. The right atrial pressure was around 5 mmHg. She began her first cycle of chemotherapy with ABVD (Adriamycin, bleomycin, vinblastine, dacarbazine) on January 23, 2021. Her treatment plan is day 1 and 15 of a 28-day cycle. She will have 2 full cycles and then follow-up PET CT imaging. Mrs. Liz is here today for cycle 1 day 15 follow-up and treatment. She states she is doing really well. She just took her 2 and 3-year-old grandchildren to the [facility] for the weekend and tolerated this well. She states she is able to keep up with them and had no problems. She denies any nausea or vomiting. The numbness/tingling in her hands and feet and throat are improved. She states the throat is actually gone slightly in her fingertips but she states nothing that is bothersome. She denies any fever or chills or any signs of infection. She states she is eating good her energy is good. She denies any new shortness of breath orthopnea. She is had no chest pain or palpitations. She denies any lower extremity edema. She states her bowels and bladder are normal for her. She is aware that we plan to change the Aloxi to Zofran/ondansetron today to try to prevent the severe headache she had with cycle 1 day 1 treatment. She actually ended up in the emergency room with a severe headache. Her head CT was unremarkable. She states overall she feels she is doing good. She denies mouth sores or any skin rashes. Her ECOG today is 0. Past Medical History: Anxiety Asthma/COPD Degenerative arthritis Degenerative disease of the spine Depression Gastroesophageal reflux disease Hyperlipidemia Hypertension Obstructive sleep apnea Osteoporosis Type II diabetes Vitamin D deficiency Past Surgical History: Nasal surgery Open reduction/internal fixation of right midshaft humerus fracture in 2018 C5-C6, C6-C7 anterior discectomy/fusion/fixation in 2018 Colonoscopy in 2018 Hysteroscopy followed by D&C and thermal ablation in 2011 section and tubal ligation in 2001 section in 1999 Allergies: Amoxicillin, clavulanic acid, [place] jelly , and Pregabalin. Medications: Acid Teleprinter (20.6 (20 base) mg) Capsule Delayed Release Oral daily Adult Aspirin EC Low Strength (81 mg) Tablet, enteric coated Oral daily Allergy (10 mg) Tablet Oral daily Azelastine HCl (0.15 %) Solution Nasal daily Cyclobenzaprine HCl (10 mg) Tablet Oral daily Doxycycline Hyclate (100 mg) Tablet Oral b.i.d. FLUoxetine HCl (10 mg) Tablet Oral daily HYDROcodone-Acetaminophen (5-325 mg) Tablet Oral 8x/d Lisinopril (20 mg) Tablet Oral daily Narcan Liquid Nasal Pravachol (40 mg) Tablet Oral daily Family History: Ms. Liz's mother is alive: hypertension, and type II diabetes. Ms. Liz does not know if her father is alive: asthma, and heart disease, and hypertension, and type II diabetes. Ms. Liz has 3 brothers: 2 alive, 1 . Ms. Liz's first brother's myocard. She has 1 sister who is alive. Family history is significant for coronary artery disease and diabetes affecting her father and 2 brothers. One brother is . Her mother and her sister have diabetes. Social History: Ms. Liz is . She is a daily smoker who smokes 1.0 pack/day. She drinks occasionally. She has indicated exposure to the following products: recreational drug use and marijuana. She has history of smoking 1 pack of cigarettes daily for 28 years. She also smokes marijuana daily. She reports having weekly alcohol use. Review Of Symptoms: <See Above> Vital Signs: Performed on February 06, 2021 09:22 Height - 66.00 in Weight - 216.8 lbs (LOW) BSA - 2.07 sq.m BMI - 34.99 (HIGH) Temperature - 98.4 F Pulse - 82 /min Respiration - 18 /min BP - 110/77 mm(hg) O2 Sat - 97 % Pain - 0,0 - Fully active, able to carry on all predisease activities without restrictions. (ECOG) Physical Examination: Constitutional Alert, oriented, no acute distress. Skin pink, warm and dry. Head Normocephalic; atraumatic. Eyes Conjunctivae and sclerae are clear and without icterus. Pupils are reactive and equal. ENMT No oral exudates, ulcers, masses, thrush or mucositis. Oropharynx clear. Tongue normal. Respiratory Lungs are clear to auscultation without rhonchi or wheezing. Cardiovascular Regular rate and rhythm of heart without murmurs,clicks, gallops or rubs. Chest Right chest wall access device insertion site has healed well. It is unremarkable. Abdomen Non-tender, non-distended, no masses or ascites. Good bowel sounds noted in all quads. No guarding or rebound tenderness. No pulsatile masses. Back/Spine Non-tender to palpation. Extremities No visible deformities, no cyanosis, clubbing or edema. Musculoskeletal No tenderness or swelling, normal range of motion without obvious weakness. Integumentary No rashes or lesions. Neurologic No sensory or motor deficits, normal cerebellar function, normal gait. Psychiatric Alert and oriented times three. Coherent speech. Verbalizes understanding of our discussions today. Laboratory:Test performed on February 06, 2021 08:19 LDH (Total) 184 U/L Sodium 137 mmol/L Potassium 4.1 mmol/L Chloride 103 mmol/L CO2 25 mmol/L Anion Gap 13.1 BUN 11 mg/dL Creatinine 0.7 mg/dL Cr Clearance (Est) 165.8600 mL/min eGFR 92.2 mL/min Glucose 91 mg/dL Osmolality - Calculated 283 mOsm/kg Calcium 9.1 mg/dL Protein, Total 7.1 g/dL Albumin 4.1 g/dL Globulin 3.0 g/dL Bilirubin, Total 0.2 mg/dL ALT (SGPT) 12 U/L AST (SGOT) 14 U/L Alkaline Phosphatase 74 IU/L WBC 8.9 10 3/uL RBC 4.67 10 6/uL HGB 14.0 g/dL HCT 42.6 % MCV 91.2 fL MCH 30.0 pg MCHC 32.9 g/dL RDW 13.9 % Platelet Count 234 10 3/cmm MPV 9.8 fL Neutrophils 5.04 10 3/uL Lymphocytes 2.6 10 3/uL Monocytes 0.8 10 3/uL Eosinophils 0.3 10 3/uL Basophils 0.0 10 3/uL Neutrophil % 56.8 % Lymphocyte % 28.9 % Monocyte % 9.3 % Eosinophil % 3.3 % Basophils % 0.2 % NRBC % 0 % Test performed on January 31, 2021 09:05 CBC Slide Review Slide Review Perform Test performed on Dec 26, 2020 12:20 TSH 1.27 uIU/mL Vitamin D (25-Hydroxy), Total 39 ng/mL Est Avg Glucose (eAG) 103 mg/dL ESR (Sed Rate) 17 mm/hr Hemoglobin A1C % 5.2 % Impression: 1. Lymphocyte rich classical Hodgkin lymphoma, stage IIA. 2. Hypertension. 3. Hyperlipidemia. 4. Asthma/COPD. 5. Obstructive sleep apnea. 6. GERD. 7. Degenerative arthritis/degenerative disease of the spine. 8. Osteoporosis. 9. Vitamin D deficiency. 10. Anxiety/depression. 11. She has a strong family history for diabetes. Plan/Problems Addressed at this Visit: 1. Lymphocyte rich classical Hodgkin lymphoma diagnosed by left cervical lymph node biopsy and biopsy of nasopharyngeal mass on 12/05/2020. By PET/CT her disease appears to be localized to the nasopharynx and cervical lymph nodes. As she does not have clear-cut B symptoms, her disease is thus stage IIA. Dr Lewis has discussed the fact that Hodgkin lymphoma is a highly curable malignancy. Per NCCN guidelines, the recommended initial management for this subtype and stage is to initiate treatment with 2 cycles of AVBD chemotherapy followed by restaging PET/CT. He reviewed anticipated side effects with the chemotherapy including the potential for nausea, alopecia, fatigue, and low blood counts, among others. We specifically discussed the risk for cardiac toxicity with Adriamycin and for pulmonary and/or skin toxicity with bleomycin. She has had a baseline echocardiogram and baseline pulmonary function studies. She also placement of Port-A-Cath for venous access. A. Proceed with cycle 1 day 15 ABVD. She was treated day 1 on January 23, 2021 and is due for day 15 today. We will plan to substitute ondansetron for the Aloxi as she did have significant headache and constipation after treatment on day 1. B. Baseline echocardiogram was obtained on January 18, 2021 and reported a LVEF of 61%. C. She is not comfortable utilizing Compazine and lorazepam for antiemetics at home due to her concern for them being psych drugs . For now we will utilize ondansetron at home. D. She will have supportive care as needed with antiemetics and hydration here at the office. E. Today's labs reviewed in detail and discussed with Mrs. Liz and her and a copy was given to her. WBC 8.9, hemoglobin 14, platelets 239,000, ANC is 5000. Potassium 4.1 glucose 91 creatinine 0.7 her ALT is 12 her AST is 14 alk phos is [address] is [address] of the head without contrast from ER visit on January 23, 2021 after headache post chemo showed no acute intracranial abnormality. H. We will plan on hydration tomorrow and Thursday if needed. She can also do hydration and supportive care in the interim. 2. Follow-up plan A. She will be due back in 1 week for CBC CMP. B. She will be due back in 2 weeks with CBC CMP and LDH for consideration of cycle 2-day 1 ABVD. C. I have asked for repeat follow-up PFTs with DLCO and vital capacity for monitoring of her bleomycin. D. Mrs. Liz was encouraged to contact us in the interim should questions or problems arise. Signed By: Francie Mckenna-, CNP Luis Lewis MD <<Signature on File>>
[2021-02-13 13:23] LABS: Basophils % 0.1 %; Eosinophils # 0.1 10^3/uL (0.0-0.8); Eosinophils % 1.5 %; Hematocrit 38.6 % (37.0-47.0); Hemoglobin 12.9 g/dL (11.5-15.3); Lymphocytes # 2.1 10^3/uL (0.8-4.8); Mean Corpuscular HGB Conc 33.4 g/dL (30.0-36.0); Mean Corpuscular Hemoglobin 30.4 pg (28.0-34.0); Mean Corpuscular Volume 90.8 fL (81-99); Mean Platelet Volume 10.8 fL (7.4-10.4); Monocytes # 1.4 10^3/uL (0.2-0.9); Monocytes % 14.4 %; Neutrophils # 5.82 10^3/uL (1.8-7.7); Neutrophils % 60.3 %; Nucleated Red Blood Cells % 0 %; Platelet Count 185 10^3/cmm (130-400); Red Blood Count 4.25 10^6/uL (4.1-5.3); Red Cell Distribution Width 13.8 % (12.1-15.1); White Blood Count 9.6 10^3/uL (4.0-10.0)
[2021-02-13 13:33] LABS: Alanine Aminotransferase 22 U/L (0-33); Albumin Level 4.1 g/dL (3.5-5.2); Alkaline Phosphatase 120 IU/L (35-105); Aspartate Amino Transferase 18 U/L (0-32); Blood Urea Nitrogen 8 mg/dL (6-20); Calcium 8.8 mg/dL (8.5-10.5); Carbon Dioxide 25 mmol/L (22-29); Chloride 103 mmol/L (98-107); Globulin 2.8 g/dL (1.3-4.6); Glomerular Filtration Rate 92.2 mL/min (90-130); Glucose 115 mg/dL (65-115); Osmolality Calculated 281 mOsm/kg (285-295); Sodium 136 mmol/L (136-145); Total Bilirubin 0.3 mg/dL (0.15-1.2); Total Protein 6.9 g/dL (6.6-8.7)
[2021-02-13 13:49] LABS: Slide Review Slide Review Perform
== END 2021-02-18 23:59 | disposition home or self-care (01) ==
LOC: ONCMED 05:43
PROVIDERS: Nurse Practitioner; PCP Nurse Practitioner Family; Visit Provider Internal Medicine Medical Oncology
DX: Z51.11 Encounter for antineoplastic chemotherapy (principal); C81.41 Lymphocyte-rich Hodgkin lymphoma, lymph nodes of head, face, and neck; F41.9 Anxiety disorder, unspecified; J45.909 Unspecified asthma, uncomplicated; J44.9 Chronic obstructive pulmonary disease, unspecified; M47.9 Spondylosis, unspecified; F32.9 Major depressive disorder, single episode, unspecified; K21.9 Gastro-esophageal reflux disease without esophagitis; E78.5 Hyperlipidemia, unspecified; I10 Essential (primary) hypertension; G47.33 Obstructive sleep apnea (adult) (pediatric); M81.0 Age-related osteoporosis without current pathological fracture; E11.9 Type 2 diabetes mellitus without complications; E55.9 Vitamin D deficiency, unspecified; Z79.899 Other long term (current) drug therapy
CPT/HCPCS: 36591; 80053; 83615; 85025; 96361; 96365; 96367; 96372; 96375; 96411; 96413; 96417; 99214; J1100; J1200; J2405; J2505; J3490; J7030; J7040; J7050; J9000; J9040; J9130; J9360

== ENCOUNTER 2021-02-26 17:06 | Emergency (ER) | payer MEDICAID, SELFPAY ==
[2021-02-26 17:15] VITALS: BP 110/76; PULSE 98; RESP 16; TEMP 36.4; O2SAT 98; BMI 34.7
[2021-02-26] MEDS: sodium chloride 0.9% 1,000 ML 999 ML IV ×2 (17:49→17:50)
--- NOTE | 2021-02-26 17:49 | XR_ITS ---
WS: [id number] Portable AP upright chest, 02/26/2021 Clinical Data: fever Comparison: Portable chest, 01/10/2021. Findings: No nodules, masses or effusions are seen. The heart is normal. The pulmonary vascularity is not increased. No pneumonia or pneumothorax is seen. The right internal jugular venous port catheter remains in the same position. Anterior cervical disc fusion and right humeral jennifer remain the same. XR/XR chest 1V portable [id number] Impression: Negative chest.
[2021-02-26] MEDS: ondansetron 2 mg/ML SDV 2 mL 4 MG IVP (17:50)
--- NOTE | 2021-02-26 17:50 | ED_ITS ---
HPI - Nausea/Vomiting/Diarrhea General: Chief complaint: Nausea/Vomiting/Diarrhea Stated complaint: DIARRHEA, CRAMPING, FEVER 101 AT HOME Time Seen by Provider: 02/26/21 17:28 Source: patient Mode of arrival: ambulatory Limitations: no limitations History of Present Illness: HPI Narrative: 40-year-old female history of lymphoma currently on chemo received her third treatment last week. States she has been feeling ill with low-grade fevers. States she has had vomiting with abdominal cramping and diarrhea as well. States this has been going on since Thursday. She rates her pain 2 out of 10. Denies any worsening or improving factors. 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 GERD without esophagitis Hodgkin lymphoma Hyperglycemia Hyperlipidemia Major depressive disorder Patient cannot remember when she was not depressed. Mood is much improved. She is asking for her discharge and denied suicidal or homicidal ideation, plan or intent. Myalgia Plantar warts Sleep apnea Spondylosis without myelopathy or radiculopathy, lumbosacral region Surgical History History of adenoidectomy 2020 History of colonoscopy 2017 History of surgery lymph node removal in neck -2020 History of surgery on arm right Hx of section Hx of neck surgery 12/31/2017 c-5 c-6, c-6 c-[address] avila Hx of tubal ligation 2001 Port-A-Cath in place (01/10/21) Family History Mother Hypercholesteremia Diabetes Hypertension Psychiatric illness, Onset Age: 20 Mother had an affair with a man. [facility] took her children away. The patient is the product of this liaison. Brother Hypercholesteremia Diabetes Hypertension Father Hypercholesteremia Diabetes Hypertension Sister Hypertension Stroke Social History Smoking and tobacco status: current every day smoker cigarettes Packs smoked per day: 1 Years cigarettes smoked: 27 Second hand smoke exposure: No Alcohol intake: current Alcohol intake frequency: few times a week Caregiver/support person: Yes (spouse) Lives independently: Yes Household members: spouse Housing: House Marital status: service: No Current occupational status: disabled History of recent travel: No Current gender identity: Female Special kamille needs: No Agree to transfusion: Yes Physical Exam Const: COMMON NORMALS: no acute distress, patient oriented x3 and healthy appearing HENMT: COMMON NORMALS: normocephalic and atraumatic HEAD & SCALP: normocephalic and atraumatic Eye: COMMON NORMALS: Equal, round and reactive pupils present and EOMs intact bilaterally PUPIL: Yes Equal, round and reactive pupils present Neck/C-Spine: COMMON NORMALS: full ROM and supple Chest: COMMONS NORMALS: normal inspection of the chest and normal palpation of entire chest wall Resp: COMMON NORMALS: normal respiratory effort, No retractions, No use of accessory muscles and clear to auscultation bilaterally AUSCULTATION: clear to auscultation bilaterally Cardio: COMMON NORMALS: regular rate, regular rhythm and No murmurs present ( Cardio) RATE: regular rate RHYTHM: regular rhythm GI: COMMON NORMALS: Normal to inspection, nondistended, normoactive bowel sounds present, Soft to palpation, non-tender and no masses PALPATION: Yes Soft to palpation Extremity: COMMON NORMALS: normal to inspection and full ROM Neuro: COMMON NORMALS: patient oriented x3, moves all extremities and no focal motor deficits Psych: COMMON NORMALS: mental status grossly normal, Normal thought process present and cooperative THOUGHT PROCESS: Normal thought process present Skin: COMMON NORMALS: no rashes or lesions noted and no wounds GENERAL SKIN EXAM: no rashes or lesions noted Course Vital Signs: Vital signs: Vital Signs Temperature 99.1 F 02/26/21 19:45 Pulse Rate 100 02/26/21 19:45 Respiratory Rate 20 H 02/26/21 17:56 Blood Pressure 93/49 02/26/21 19:45 Pulse Oximetry 94 02/26/21 19:45 MDM - Nausea/Vomiting/Diarrhea MDM Narrative: Medical decision making narrative: Patient presents here with nausea vomiting diarrhea likely related to her chemotherapy. She is afebrile here and has no signs of infection. She feels much improved here. Will pres cribe her Zofran for home and she is to follow-up with PCP and return if worsening. Lab Data: Labs: Lab Results 02/26/21 02/26/21 02/26/21 Range/Units 17:47 17:47 17:47 WBC 5.3 (4.0-10.0) 10^3/ uL RBC 4.43 (4.1-5.3) 10^6/u L Hgb 13.5 (11.5-15.3) g/dL Hct 39.2 (37.0-47.0) % MCV 88.5 (81-99) fL MCH 30.5 (28.0-34.0) pg MCHC 34.4 (30.0-36.0) g/dL RDW 14.4 (12.1-15.1) % Plt Count 165 (130-400) 10^3/c mm MPV 11.3 H (7.4-10.4) fL Neut % (Auto) 75.6 % Lymph % (Auto) 12.5 % Mcdonald % (Auto) 8.7 % Eos % (Auto) 1.3 % Baso % (Auto) 0.2 % Neut # (Auto) 3.97 (1.8-7.7) 10^3/u L Lymph # (Auto) 0.7 L (0.8-4.8) 10^3/u L Mcdonald # (Auto) 0.5 (0.2-0.9) 10^3/u L Eos # (Auto) 0.1 (0.0-0.8) 10^3/u L Baso # (Auto) 0.0 (0.0-0.1) 10^3/u L Nucleated RBC % (a uto) 0 % Nucleated RBCs # 0.0 /100WBC Sodium 130 L (136-145) mmol/L Potassium 3.9 (3.5-5.1) mmol/L Chloride 94 L (98-107) mmol/L Carbon Dioxide 23 (22-29) mmol/L Anion Gap 16.9 (5-19) BUN 9 (6-20) mg/dL Creatinine 0.6 (0.5-0.9) mg/dL GFR Calculation 110.2 (90-130) mL/min Glucose 108 (65-115) mg/dL Calculated Osmolal ity 269 L (285-295) mOsm/k g Lactate 2.4 H (0.5-2.2) mmol/L Calcium 9.1 (8.5-10.5) mg/dL Magnesium 1.8 (1.7-2.3) mg/dL Total Bilirubin 0.7 (0.15-1.2) mg/dL AST 14 (0-32) U/L ALT 11 (0-33) U/L Alkaline Phosphata se 126 H (35-105) IU/L Total Protein 7.3 (6.6-8.7) g/dL Albumin 4.4 (3.5-5.2) g/dL Globulin 2.9 (1.3-4.6) g/dL Urine Color (Yellow) Urine Appearance (CLEAR) Urine pH (5-7) Ur Specific Gravit y (1.005-1.030) Urine Protein (Negative) Urine Glucose (UA) (Normal) Urine Ketones (Negative) Urine Blood (Negative) Urine Nitrate (Negative) Urine Bilirubin (Negative) Urine Urobilinogen (Negative) mg/dL Ur Leukocyte Estephania ase (Negative) 02/26/21 Range/Units 18:53 WBC (4.0-10.0) 10^3/ uL RBC (4.1-5.3) 10^6/u L Hgb (11.5-15.3) g/dL Hct (37.0-47.0) % MCV (81-99) fL MCH (28.0-34.0) pg MCHC (30.0-36.0) g/dL RDW (12.1-15.1) % Plt Count (130-400) 10^3/c mm MPV (7.4-10.4) fL Neut % (Auto) % Lymph % (Auto) % Mcdonald % (Auto) % Eos % (Auto) % Baso % (Auto) % Neut # (Auto) (1.8-7.7) 10^3/u L Lymph # (Auto) (0.8-4.8) 10^3/u L Mcdonald # (Auto) (0.2-0.9) 10^3/u L Eos # (Auto) (0.0-0.8) 10^3/u L Baso # (Auto) (0.0-0.1) 10^3/u L Nucleated RBC % (a uto) % Nucleated RBCs # /100WBC Sodium (136-145) mmol/L Potassium (3.5-5.1) mmol/L Chloride (98-107) mmol/L Carbon Dioxide (22-29) mmol/L Anion Gap (5-19) BUN (6-20) mg/dL Creatinine (0.5-0.9) mg/dL GFR Calculation (90-130) mL/min Glucose (65-115) mg/dL Calculated Osmolal ity (285-295) mOsm/k g Lactate (0.5-2.2) mmol/L Calcium (8.5-10.5) mg/dL Magnesium (1.7-2.3) mg/dL Total Bilirubin (0.15-1.2) mg/dL AST (0-32) U/L ALT (0-33) U/L Alkaline Phosphata se (35-105) IU/L Total Protein (6.6-8.7) g/dL Albumin (3.5-5.2) g/dL Globulin (1.3-4.6) g/dL Urine Color Yellow (Yellow) Urine Appearance Clear (CLEAR) Urine pH 7 (5-7) Ur Specific Gravit y 1.010 (1.005-1.030) Urine Protein Neg (Negative) Urine Glucose (UA) Norm (Normal) Urine Ketones Negative (Negative) Urine Blood Neg (Negative) Urine Nitrate Negative (Negative) Urine Bilirubin Neg (Negative) Urine Urobilinogen Norm (Negative) mg/dL Ur Leukocyte Estephania ase Negative (Negative) Imaging Data^: CXR: Attestation: I personally reviewed and interpreted this imaging study as follows: My impression: no acute abnormality Discharge Plan Discharge Patient Disposition: Home Clinical Impression: Vomiting Qualifiers: Vomiting type: unspecified Vomiting Intractability: non-intractable Nausea presence: with nausea Qualified Code(s): R11.2 - Nausea with vomiting, unspecified Diarrhea Qualifiers: Diarrhea type: unspecified type Qualified Code(s): R19.7 - Diarrhea, unspe cified Condition: Stable Prescriptions: New ondansetron 4 mg tablet,disintegrating 4 mg PO Q6H PRN (Reason: nausea and vomiting) Qty: 14 RF: 0 No Action azelastine 137 mcg (0.1 %) aerosol,spray 1 spray INTRANASAL BID RF: 0 fluticasone propionate [Flonase Allergy Relief] 50 mcg/actuation spray,suspension 2 spray INTRANASAL DAILY@0900 RF: 0 ibuprofen 800 mg tablet 800 mg PO TID PRN (Reason: pain) 30 Days Qty: 84 RF: 2 cyclobenzaprine 10 mg tablet 10 mg PO BID PRN (Reason: muscle spasm) 30 Days Qty: 60 RF: 5 albuterol sulfate [ProAir HFA] 90 mcg/actuation HFA aerosol inhaler 2 puff INHALATION Q4H PRN (Reason: shortness of breath or wheezing) 30 Days Qty: 1 RF: 5 ergocalciferol (vitamin D2) 1,250 mcg (50,000 unit) capsule See Rx Instructions .ROUTE .COMPLEX Qty: 4 RF: 2 pravastatin 40 mg tablet 40 mg PO BEDTIME@2100 RF: 0 lisinopril 10 mg tablet 10 mg PO DAILY@0900 RF: 0 omeprazole 20 mg capsule,delayed release(DR/EC) 20 mg PO BID@0900,2100 RF: 0 quetiapine [Seroquel] 50 mg tablet 100 mg PO BEDTIME@2100 RF: 0 hydrochlorothiazide 12.5 mg tablet 12.5 mg PO DAILY@0900 RF: 0 lidocaine-prilocaine 2.5-2.5 % cream See Rx Instructions .ROUTE .COMPLEX RF: 0 levocetirizine 5 mg tablet 5 mg PO DAILY@0900 RF: 0 hydrocodone-acetaminophen 5-325 mg tablet 1 tab PO Q6H PRN (Reason: pain) Qty: 20 RF: 0 ondansetron HCl [Zofran] 4 mg tablet 4 mg PO Q6H PRN (Reason: nausea and vomiting) Qty: 20 RF: 0 Discharge Orders: Discharge ED (Routine); Ordered 02/26/21 Ordered By: Honey Mcdowell Referrals: Venice Barry FNP [Primary Care Provider] - 1-3 days Discharge Diet: Advance as tolerated Discharge Activity: Resume usual activity Patient Instructions: Diarrhea - Adult, Acute Nausea and Vomiting (ED) Coding Level of Care Code ED Supervisory Historian for Chg Fwd Exam Comprehensive
[2021-02-26] MEDS: LORazepam 2 mg/mL INJ 1 mL IVP (17:51)
[2021-02-26 17:56] VITALS: RESP 20; O2SAT 98
[2021-02-26] MEDS: morphine 4 mg/mL SDV 1 mL IVP ×2 (17:56→20:12)
[2021-02-26 17:59] LABS: Basophils % 0.2 %; Eosinophils # 0.1 10^3/uL (0.0-0.8); Eosinophils % 1.3 %; Hematocrit 39.2 % (37.0-47.0); Hemoglobin 13.5 g/dL (11.5-15.3); Lymphocytes # 0.7 10^3/uL (0.8-4.8); Lymphocytes % 12.5 %; Mean Corpuscular HGB Conc 34.4 g/dL (30.0-36.0); Mean Corpuscular Hemoglobin 30.5 pg (28.0-34.0); Mean Corpuscular Volume 88.5 fL (81-99); Mean Platelet Volume 11.3 fL (7.4-10.4); Monocytes # 0.5 10^3/uL (0.2-0.9); Monocytes % 8.7 %; Neutrophils # 3.97 10^3/uL (1.8-7.7); Neutrophils % 75.6 %; Nucleated Red Blood Cells % 0 %; Platelet Count 165 10^3/cmm (130-400); Red Blood Count 4.43 10^6/uL (4.1-5.3); Red Cell Distribution Width 14.4 % (12.1-15.1); White Blood Count 5.3 10^3/uL (4.0-10.0)
[2021-02-26 18:25] LABS: Alanine Aminotransferase 11 U/L (0-33); Albumin Level 4.4 g/dL (3.5-5.2); Alkaline Phosphatase 126 IU/L (35-105); Blood Urea Nitrogen 9 mg/dL (6-20); Calcium 9.1 mg/dL (8.5-10.5); Carbon Dioxide 23 mmol/L (22-29); Chloride 94 mmol/L (98-107); Globulin 2.9 g/dL (1.3-4.6); Glomerular Filtration Rate 110.2 mL/min (90-130); Glucose 108 mg/dL (65-115); Magnesium 1.8 mg/dL (1.7-2.3); Osmolality Calculated 269 mOsm/kg (285-295); Sodium 130 mmol/L (136-145); Total Bilirubin 0.7 mg/dL (0.15-1.2); Total Protein 7.3 g/dL (6.6-8.7)
[2021-02-26 18:26] LABS: Lactate (Lactic Acid level) 2.4 mmol/L (0.5-2.2)
[2021-02-26 18:32] LABS: Anion Gap 16.9 (5-19); Potassium 3.9 mmol/L (3.5-5.1)
[2021-02-26 18:33] LABS: Slide Review Slide Review Perform
[2021-02-26 19:04] LABS: Add Urine Microscopic? NO; Charge for UA Resulting for Rev
[2021-02-26 19:08] LABS: Aspartate Amino Transferase 14 U/L (0-32)
[2021-02-26 19:20] LABS: Bilirubin Urine Neg (Negative); Blood Urine Neg (Negative); Glucose Urine UA Norm (Normal); Ketones Urine Negative (Negative); Leukocyte Esterase Urine Negative (Negative); Nitrate Urine Negative (Negative); Protein Urine Neg (Negative); Urine Appearance Clear (CLEAR); Urine Color Yellow (Yellow); Urobilinogen Urine Norm (Negative); pH Urine 7 (5-7)
[2021-02-26 19:45] VITALS: BP 93/49; PULSE 100; TEMP 37.3; O2SAT 94
[2021-02-26 20:12] VITALS: RESP 16; O2SAT 97
[2021-02-26 20:18] VITALS: BP 93/49; PULSE 100; RESP 15; TEMP 37.3; O2SAT 94
== END 2021-02-26 20:22 | disposition home or self-care (01) ==
PROVIDERS: Family Medicine; Emergency Provider Emergency Medicine; PCP Nurse Practitioner Family
DX: R11.2 Nausea with vomiting, unspecified (principal); R19.7 Diarrhea, unspecified; I10 Essential (primary) hypertension; Z85.71 Personal history of Hodgkin lymphoma; E78.5 Hyperlipidemia, unspecified; F17.210 Nicotine dependence, cigarettes, uncomplicated
CPT/HCPCS: 36415; 71045; 80053; 81003; 83605; 83735; 85025; 87040; 96374; 96375; 96376; 99284; J2060; J2270; J2405; J7030

== ENCOUNTER 2021-03-08 07:55 | Outpatient (RCR) | payer MEDICAID, SELFPAY ==
[2021-02-20 12:02] LABS: Basophils % 0.3 %; Eosinophils # 0.1 10^3/uL (0.0-0.8); Hematocrit 39.9 % (37.0-47.0); Hemoglobin 13.2 g/dL (11.5-15.3); Lymphocytes # 2.3 10^3/uL (0.8-4.8); Lymphocytes % 32.5 %; Mean Corpuscular HGB Conc 33.1 g/dL (30.0-36.0); Mean Corpuscular Hemoglobin 30.1 pg (28.0-34.0); Mean Corpuscular Volume 91.1 fL (81-99); Mean Platelet Volume 10.1 fL (7.4-10.4); Monocytes # 0.6 10^3/uL (0.2-0.9); Monocytes % 8.2 %; Neutrophils % 56.7 %; Nucleated Red Blood Cells % 0 %; Platelet Count 179 10^3/cmm (130-400); Red Blood Count 4.38 10^6/uL (4.1-5.3); Red Cell Distribution Width 14.4 % (12.1-15.1); White Blood Count 7.1 10^3/uL (4.0-10.0)
[2021-02-20 12:26] LABS: Alanine Aminotransferase 11 U/L (0-33); Albumin Level 4.1 g/dL (3.5-5.2); Alkaline Phosphatase 83 IU/L (35-105); Anion Gap 14.2 (5-19); Aspartate Amino Transferase 14 U/L (0-32); Blood Urea Nitrogen 9 mg/dL (6-20); Calcium 9.2 mg/dL (8.5-10.5); Carbon Dioxide 26 mmol/L (22-29); Chloride 101 mmol/L (98-107); Globulin 2.8 g/dL (1.3-4.6); Glomerular Filtration Rate 92.2 mL/min (90-130); Glucose 89 mg/dL (65-115); Lactate Dehydrogenase 161 U/L (135-214); Osmolality Calculated 282 mOsm/kg (285-295); Potassium 4.2 mmol/L (3.5-5.1); Sodium 137 mmol/L (136-145); Total Bilirubin 0.2 mg/dL (0.15-1.2); Total Protein 6.9 g/dL (6.6-8.7)
[2021-02-20] MEDS: alteplase 1 mg/mL SDV 2 mL 2 MG IV ×2 (13:30→14:35)
[2021-02-21] MEDS: sodium chloride 0.9% 500 ML 75 ML IV (09:13)
[2021-02-21] MEDS: famotidine 20 mg/2 mL INJ IVP (09:13)
[2021-02-21] MEDS: ondansetron 2 mg/ML SDV 2 mL 8 MG IV (09:15)
[2021-02-21] MEDS: acetaminophen 325 mg Tablet 650 MG PO (09:15)
[2021-02-21] MEDS: sodium chloride 0.9% (100 ml) 100 ML 500 ML (09:20)
[2021-02-21] MEDS: diphenhydrAMINE 50 mg/mL SDV 1mL 25 MG IV (09:20)
[2021-02-21] MEDS: dexamethasone 20 MG in sodium chloride 0.9% 50 ML 187 MG IV (09:40)
[2021-02-21] MEDS: fosaprepitant 150 MG in sodium chloride 0.9% 150 ML 300 MG IV (10:00)
[2021-02-21] MEDS: alteplase 1 mg/mL SDV 2 mL 2 MG IV (11:06)
[2021-02-21] MEDS: pegfilgrastim 6 mg/0.6 mL Kit (onpro) SUBCUT (11:40)
--- NOTE | 2021-02-23 10:10 | ONC FU_ITS ---
Dr. Lewis Patient Follow-Up Note Patient: Alla Liz Unit #: [id number]: 1980 Dicatated By: Luis Lewis M.D.Date of Visit:Feb 20, 2021 Onc Med Follow-up/Prog Note Chief Complaint: Hodgkin lymphoma. 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 She had presented with a knot on the right side of her neck. She was noted to have bilateral cervical adenopathy. Her neck CT on 11/12/2020 showed prominent asymmetric soft tissue in the posterior right nasopharynx measuring 14 x 11 mm, noted to be in the expected location of the adenoids. There were numerous enlarged bilateral cervical chain lymph nodes with the largest on the left measuring up to 1.3 cm. She was referred to Dr. Drew. She underwent direct laryngoscopy with endoscopic biopsy of the nasopharyngeal mass and excisional biopsy of 2 left cervical lymph nodes. Pathology at all sites was consistent with lymphocyte rich classic Hodgkin lymphoma. Her staging PET/CT on 12/22/2020 showed a left cervical level II node measuring 1.9 x 1.4 cm with SUV 5.4. Other similar nodes were present in the right IIA, V, and left II territories, also likely to be involved with lymphoma. There was noted to be prominent uptake along the mucosal surface of the head and neck but without localized activity. There were no other areas of abnormal uptake on that study. I had seen her initially on 12/26/2020. By clinical evaluation, her disease was stage IIA and she was recommended to begin treatment with ABVD chemotherapy for 2 cycles followed by restaging PET/CT. Her baseline echocardiogram showed normal left ventricular ejection fraction at 61%. Her pulmonary function studies showed normal diffusion capacity at 101% of predicted. Her other medical illnesses include hypertension, hyperlipidemia, asthma/COPD, GERD, obstructive sleep apnea, degenerative arthritis/degenerative disease of the spine, osteoporosis, vitamin D deficiency, and anxiety/depression. She has history of smoking 1 pack of cigarettes daily. INTERIM HISTORY: She began cycle 1 of ABVD chemotherapy on 01/23/2021. She was able to tolerate it with acceptable toxicity, and she continued with cycle 1 day 15 treatment on 02/06/2021. She is seen for a follow-up visit. She complains that she has been feeling really tired. She is still able to do light work. ECOG score is 1. Appetite is variable. She has not had fever. She does report having sweating and hot flashes. She is having burning in her scalp and alopecia. She complains of having clogged sinuses and the corners of her mouth are sore. She has not had sore throat or difficulty swallowing. She does get out of breath quickly. She has having some chest congestion and cough and she has some pain in the chest area with coughing. She has not had any nausea/vomiting. She has a little bit of heartburn. Her bowel function lately has been better. She has no complaints. She has had increased pain in her neck and back for 3 to 4 days after treatment. She has headaches, but they are not as severe now. She has numbness on the tips of her fingers. Medications: Acid Electric Train Driver (20.6 (20 base) mg) Capsule Delayed Release Oral daily, Adult Aspirin EC Low Strength (81 mg) Tablet, enteric coated Oral daily, Allergy (10 mg) Tablet Oral daily, Azelastine HCl (0.15 %) Solution Nasal daily, Cyclobenzaprine HCl (10 mg) Tablet Oral daily, Doxycycline Hyclate (100 mg) Tablet Oral b.i.d., FLUoxetine HCl (10 mg) Tablet Oral daily, HYDROcodone-Acetaminophen (5-325 mg) Tablet Oral 8x/d, Lisinopril (20 mg) Tablet Oral daily, Narcan Liquid Nasal, Pravachol (40 mg) Tablet Oral daily Allergies: Amoxicillin, clavulanic acid, KY jelly , and Pregabalin. Vital Signs: Performed on Feb 20, 2021 13:25 Height - 66.00 in Weight - 219.8 lbs (HIGH) BSA - 2.08 sq.m BMI - 35.48 (HIGH) Temperature - 97.7 F (LOW) Pulse - 98 /min Respiration - 18 /min BP - 129/84 mm(hg) O2 Sat - 98 % Pain - 4 Fatigue - 4 Physical Examination: Constitutional - She looks pretty good generally, Eyes - Sclerae nonicteric. Conjunctivae clear, ENMT - She has mild angular cheilitis. There are no lesions noted in the oral cavity, Hematologic/Lymphatic - No cervical, clavicular, or axillary adenopathy, Respiratory - Lungs are clear with good air movement bilaterally, Cardiovascular - Heart rhythm is regular. There is no murmur, gallop, or rub noted, Abdomen - Soft. Liver and spleen are not enlarged. There is no abdominal mass or ascites noted and there is no inguinal adenopathy, Extremities - No edema, Neurologic - No focal neurologic deficits noted. Lab/Imaging: Test performed on Feb 20, 2021 11:35 LDH (Total) 161 U/L Sodium 137 mmol/L Potassium 4.2 mmol/L Chloride 101 mmol/L CO2 26 mmol/L Anion Gap 14.2 BUN 9 mg/dL Creatinine 0.7 mg/dL Cr Clearance (Est) 165.8600 mL/min eGFR 92.2 mL/min Glucose 89 mg/dL Osmolality - Calculated 282 mOsm/kg Calcium 9.2 mg/dL Protein, Total 6.9 g/dL Albumin 4.1 g/dL Globulin 2.8 g/dL Bilirubin, Total 0.2 mg/dL ALT (SGPT) 11 U/L AST (SGOT) 14 U/L Alkaline Phosphatase 83 IU/L WBC 7.1 10 3/uL RBC 4.38 10 6/uL HGB 13.2 g/dL HCT 39.9 % MCV 91.1 fL MCH 30.1 pg MCHC 33.1 g/dL RDW 14.4 % Platelet Count 179 10 3/cmm MPV 10.1 fL Neutrophils 4.00 10 3/uL Lymphocytes 2.3 10 3/uL Monocytes 0.6 10 3/uL Eosinophils 0.1 10 3/uL Basophils 0.0 10 3/uL Neutrophil % 56.7 % Lymphocyte % 32.5 % Monocyte % 8.2 % Eosinophil % 2.0 % Basophils % 0.3 % NRBC % 0 % Problem List: 1. Lymphocyte rich classical Hodgkin lymphoma, stage IIA. 2. Hypertension. 3. Hyperlipidemia. 4. Asthma/COPD. 5. Obstructive sleep apnea. 6. GERD. 7. Degenerative arthritis/degenerative disease of the spine. 8. Osteoporosis. 9. Vitamin D deficiency. 10. Anxiety/depression. 11. She has a strong family history for diabetes. Problems Addressed with this Encounter and Plan: Patient with lymphocyte rich classical Hodgkin lymphoma diagnosed by left cervical lymph node biopsy and biopsy of nasopharyngeal mass on 12/05/2020. By PET/CT her disease appears to be localized to the nasopharynx and cervical lymph nodes. As she did not have clear-cut B symptoms, by clinical evaluation her disease was stage IIA. She was recommended to undergo treatment with ABVD chemotherapy for 2 cycles followed by restaging PET/CT. She began cycle 1 of ABVD on 01/23/2021. She tolerated it with acceptable toxicity, and she continued with cycle 1 day 15 treatment on 02/06/2021. At this point she is having some fatigue, but she still has ECOG performance score of 1. She reports having sinusitis symptoms and productive cough, she also has some angular cheilitis. She has mild neuropathy symptoms. Her blood counts, though, remain adequate and overall she continues to tolerate chemotherapy with acceptable toxicity. She will proceed now with her cycle 2-day 1 ABVD. Dosages will remain the same. She returns in 2 weeks. She will have restaging PET/CT following completion of the 2nd cycle. Signed By: Luis Lewis M.D. <<Signature on File>>
--- NOTE | 2021-02-27 09:03 | PFTS_ITS ---
Date of Study:02/27/21 Date of Dictation: 03/01/2021 Prebronchodilator forced vital capacity (FVC) is normal. Prebronchodilator forced expiratory volume in one second (FEV1) is normal. FEV1/FVC is normal. No postbronchodilator study performed. FLOW VOLUME LOOP: Normal. LUNG VOLUMES: Total lung capacity (TLC) is normal. Residual volume (RV) is normal. DIFFUSING CAPACITY FOR CARBON MONOXIDE: Normal . INTERPRETATION: The pulmonary function tests are normal. MTDD
[2021-02-28] MEDS: sodium chloride 0.9% 1,000 ML 999 ML IV (14:55)
[2021-02-28] MEDS: ondansetron 2 mg/ML SDV 2 mL 8 MG IV (15:30)
[2021-02-28] MEDS: loperamide 2 mg Capsule PO (15:30)
[2021-03-01] MEDS: sodium chloride 0.9% 1,000 ML 999 ML IV (11:00)
[2021-03-07] MEDS: alteplase 1 mg/mL SDV 2 mL 2 MG IV (10:20)
[2021-03-07 10:34] LABS: Basophils % 0.3 %; Eosinophils # 0.1 10^3/uL (0.0-0.8); Hematocrit 37.6 % (37.0-47.0); Hemoglobin 12.5 g/dL (11.5-15.3); Lymphocytes # 2.3 10^3/uL (0.8-4.8); Lymphocytes % 26.4 %; Mean Corpuscular HGB Conc 33.2 g/dL (30.0-36.0); Mean Corpuscular Volume 90.2 fL (81-99); Mean Platelet Volume 9.4 fL (7.4-10.4); Monocytes % 11.8 %; Neutrophils % 59.1 %; Nucleated Red Blood Cells % 0 %; Platelet Count 274 10^3/cmm (130-400); Red Blood Count 4.17 10^6/uL (4.1-5.3); Red Cell Distribution Width 14.6 % (12.1-15.1); White Blood Count 8.6 10^3/uL (4.0-10.0)
[2021-03-07 11:05] LABS: Alanine Aminotransferase 12 U/L (0-33); Albumin Level 3.8 g/dL (3.5-5.2); Alkaline Phosphatase 78 IU/L (35-105); Anion Gap 15.1 (5-19); Aspartate Amino Transferase 13 U/L (0-32); Blood Urea Nitrogen 11 mg/dL (6-20); Calcium 8.7 mg/dL (8.5-10.5); Carbon Dioxide 23 mmol/L (22-29); Chloride 103 mmol/L (98-107); Globulin 2.7 g/dL (1.3-4.6); Glucose 127 mg/dL (65-115); Osmolality Calculated 285 mOsm/kg (285-295); Potassium 4.1 mmol/L (3.5-5.1); Sodium 137 mmol/L (136-145); Total Bilirubin 0.2 mg/dL (0.15-1.2); Total Protein 6.5 g/dL (6.6-8.7)
[2021-03-07] MEDS: acetaminophen 325 mg Tablet 650 MG PO (12:36)
[2021-03-07] MEDS: ondansetron 2 mg/ML SDV 2 mL 8 MG IV (12:37)
[2021-03-07] MEDS: diphenhydrAMINE 50 mg/mL SDV 1mL 25 MG IV (12:40)
[2021-03-07 12:42] VITALS: RESP 18
[2021-03-07] MEDS: morphine 4 mg/mL SDV 1 mL 2 MG IVP (12:42)
[2021-03-07] MEDS: dexamethasone 20 MG in sodium chloride 0.9% 50 ML 187 MG IV (12:46)
[2021-03-07 12:54] LABS: Add Urine Microscopic? NO; Charge for UA Resulting for Rev
[2021-03-07 13:10] LABS: Bilirubin Urine Neg (Negative); Blood Urine Neg (Negative); Glucose Urine UA Norm (Normal); Ketones Urine Negative (Negative); Leukocyte Esterase Urine Negative (Negative); Nitrate Urine Negative (Negative); Protein Urine Neg (Negative); Urine Appearance Clear (CLEAR); Urine Color Yellow (Yellow); Urobilinogen Urine 1 mg/dL (Negative); pH Urine 6.5 (5-7)
[2021-03-08] MEDS: famotidine 20 mg/2 mL INJ IVP (08:35)
[2021-03-08] MEDS: sodium chloride 0.9% 1,000 ML 999 ML IV (08:35)
--- NOTE | 2021-03-25 21:17 | ONC FU_ITS ---
[facility] Patient Note Patient: Alla Liz Unit #: [id number]: 1980 Dictated By: Francie MckennaDate of Visit: Mar 07, 2021 Onc MED Follow-Up/Prog Note Chief Complaint: Hodgkin lymphoma. 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 She had presented with a knot on the right side of her neck. She was noted to have bilateral cervical adenopathy. Her neck CT on 11/12/2020 showed prominent asymmetric soft tissue in the posterior right nasopharynx measuring 14 x 11 mm, noted to be in the expected location of the adenoids. There were numerous enlarged bilateral cervical chain lymph nodes with the largest on the left measuring up to 1.3 cm. She was referred to Dr. Drew. She underwent direct laryngoscopy with endoscopic biopsy of the nasopharyngeal mass and excisional biopsy of 2 left cervical lymph nodes. Pathology at all sites was consistent with lymphocyte rich classic Hodgkin lymphoma. Her staging PET/CT on 12/22/2020 showed a left cervical level II node measuring 1.9 x 1.4 cm with SUV 5.4. Other similar nodes were present in the right IIA, V, and left II territories, also likely to be involved with lymphoma. There was noted to be prominent uptake along the mucosal surface of the head and neck but without localized activity. There were no other areas of abnormal uptake on that study. Dr Lewis had seen her initially on 12/26/2020. By clinical evaluation, her disease was stage IIA and she was recommended to begin treatment with ABVD chemotherapy for 2 cycles followed by restaging PET/CT. Her baseline echocardiogram showed normal left ventricular ejection fraction at 61%. Her pulmonary function studies showed normal diffusion capacity at 101% of predicted. Her other medical illnesses include hypertension, hyperlipidemia, asthma/COPD, GERD, obstructive sleep apnea, degenerative arthritis/degenerative disease of the spine, osteoporosis, vitamin D deficiency, and anxiety/depression. She has history of smoking 1 pack of cigarettes daily. INTERIM HISTORY: She began cycle 1 of ABVD chemotherapy on 01/23/2021. She was able to tolerate it with acceptable toxicity, and she continued with cycle 1 day 15 treatment on 02/06/2021. She had cycle 2 on February 21, 2021. She is receiving growth factor support with Neulasta on pro. She has had interim hydration as needed. She is here today for follow-up and consideration of cycle 2-day 15 ABVD. She has no new concerns today. She states overall she is feeling okay. She has washed out but is still able to do her ADLs without any assistance. She denies any mouth sores, sore throat or difficulty swallowing. She has had no fever or chills or any signs of infection. She states her appetite count of comes and goes but is good for the most part . She has had some alopecia on her scalp but not complete hair loss at this time. She has occasional shortness of breath and occasional cough but thus far its been nonproductive. She states the shortness of breath is no worse than what it has been. She denies any orthopnea. She denies any chest pain or palpitations. She denies any nausea or vomiting. She has had some intermittent heartburn that is controlled with [id number] antacids. She has had couple episodes of diarrhea but states that may have been stress or diet related and has not been an issue. It has resolved completely. She is having mild urinary symptoms with urinary burning, frequency and right flank pain. She states it just started yesterday. She has not had any hematuria. She does tend to have some bone pain related to the Neulasta. She has had some intermittent peripheral neuropathy symptoms in her fingers but they resolve prior to treatment. Her ECOG is 1. Past Medical History: Anxiety Asthma/COPD Degenerative arthritis Degenerative disease of the spine Depression Gastroesophageal reflux disease Hyperlipidemia Hypertension Obstructive sleep apnea Osteoporosis Type II diabetes Vitamin D deficiency Past Surgical History: Nasal surgery Open reduction/internal fixation of right midshaft humerus fracture in 2018 C5-C6, C6-C7 anterior discectomy/fusion/fixation in 2018 Colonoscopy in 2018 Hysteroscopy followed by D&C and thermal ablation in 2012 section and tubal ligation in 2001 section in 1999 Allergies: Amoxicillin, clavulanic acid, [place] jelly , and Pregabalin. Medications: Acid Syrup Mixer Helper (20.6 (20 base) mg) Capsule Delayed Release Oral daily Adult Aspirin EC Low Strength (81 mg) Tablet, enteric coated Oral daily Allergy (10 mg) Tablet Oral daily Azelastine HCl (0.15 %) Solution Nasal daily Cyclobenzaprine HCl (10 mg) Tablet Oral daily Doxycycline Hyclate (100 mg) Tablet Oral b.i.d. FLUoxetine HCl (10 mg) Tablet Oral daily HYDROcodone-Acetaminophen (5-325 mg) Tablet Oral 8x/d Lisinopril (20 mg) Tablet Oral daily Narcan Liquid Nasal Pravachol (40 mg) Tablet Oral daily Family History: Ms. Liz's mother is alive: hypertension, and type II diabetes. Ms. Liz does not know if her father is alive: asthma, and heart disease, and hypertension, and type II diabetes. Ms. Liz has 3 brothers: 2 alive, 1 . Ms. Liz's first brother's myocard. She has 1 sister who is alive. Family history is significant for coronary artery disease and diabetes affecting her father and 2 brothers. One brother is . Her mother and her sister have diabetes. Social History: Ms. Liz is . She is a daily smoker who smokes 1.0 pack/day. She drinks occasionally. She has indicated exposure to the following products: recreational drug use and marijuana. She has history of smoking 1 pack of cigarettes daily for 28 years. She also smokes marijuana daily. She reports having weekly alcohol use. Review Of Symptoms: <See Above> Vital Signs: Performed on Mar 07, 2021 15:24 Height - 66.00 in Temperature - 97.5 F (LOW) Pulse - 83 /min Respiration - 18 /min BP - 123/86 mm(hg) O2 Sat - 97 % Performed on Mar 07, 2021 11:54 Height - 66.00 in Weight - 214.2 lbs (LOW) BSA - 2.06 sq.m BMI - 34.57 (HIGH) Temperature - 97.6 F (LOW) Pulse - 85 /min Respiration - 18 /min BP - 110/70 mm(hg) O2 Sat - 99 % Pain - 5 Fatigue - 4,1 - No physically strenuous activity, but ambulatory and able to carry out light or sedentary work (e.g. office work, light house work). (ECOG) Physical Examination: Constitutional Alert, oriented, no acute distress. Skin pink, warm and dry. Head Normocephalic; atraumatic. Eyes Conjunctivae and sclerae are clear and without icterus. Pupils are reactive and equal. ENMT No oral exudates, ulcers, masses, thrush or mucositis. Oropharynx clear. Tongue normal. Respiratory Lungs are clear to auscultation without rhonchi or wheezing. Cardiovascular Regular rate and rhythm of heart without murmurs,clicks, gallops or rubs. Chest Right chest wall access device insertion site has healed well. It is unremarkable. Abdomen Non-tender, non-distended, no masses or ascites. Good bowel sounds noted in all quads. No guarding or rebound tenderness. No pulsatile masses. Back/Spine Non-tender to palpation. Extremities No visible deformities, no cyanosis, clubbing or edema. Musculoskeletal No tenderness or swelling, normal range of motion without obvious weakness. Integumentary No rashes or lesions. Neurologic No sensory or motor deficits, normal cerebellar function, normal gait. Psychiatric Alert and oriented times three. Coherent speech. Verbalizes understanding of our discussions today. Test performed on Mar 07, 2021 12:10 Ua Color Yellow Ua Appearance Clear Ua Glucose Norm Ua Bilirubin Neg Ua Ketones Negative Ua Specific [place] 1.020 Ua Blood Neg Ua pH 6.5 Ua Protein Neg Ua Urobilinogen 1 mg/dL Ua Nitrites Negative Ua Leukocyte Esterase Negative Test performed on Dec 26, 2020 12:20 TSH 1.27 uIU/mL Vitamin D (25-Hydroxy), Total 39 ng/mL Est Avg Glucose (eAG) 103 mg/dL ESR (Sed Rate) 17 mm/hr Hemoglobin A1C % 5.2 % Impression: 1. Lymphocyte rich classical Hodgkin lymphoma, stage IIA. 2. Hypertension. 3. Hyperlipidemia. 4. Asthma/COPD. 5. Obstructive sleep apnea. 6. GERD. 7. Degenerative arthritis/degenerative disease of the spine. 8. Osteoporosis. 9. Vitamin D deficiency. 10. Anxiety/depression. 11. She has a strong family history for diabetes. Plan/Problems Addressed at this Visit: 1. Lymphocyte rich classical Hodgkin lymphoma diagnosed by left cervical lymph node biopsy and biopsy of nasopharyngeal mass on 12/05/2020. By PET/CT her disease appears to be localized to the nasopharynx and cervical lymph nodes. As she does not have clear-cut B symptoms, her disease is thus stage IIA. Dr Lewis has discussed the fact that Hodgkin lymphoma is a highly curable malignancy. Per NCCN guidelines, the recommended initial management for this subtype and stage is to initiate treatment with 2 cycles of ABVD chemotherapy followed by restaging PET/CT. He reviewed anticipated side effects with the chemotherapy including the potential for nausea, alopecia, fatigue, and low blood counts, among others. We specifically discussed the risk for cardiac toxicity with Adriamycin and for pulmonary and/or skin toxicity with bleomycin. She has had a baseline echocardiogram and baseline pulmonary function studies. She also had placement of Port-A-Cath for venous access. She began her first cycle of ABVD on January 23, 2021. She has tolerated it well overall. A. Proceed with cycle 2 day 15 ABVD. She has had substitution of ondansetron for the Aloxi as she did have significant headache and constipation after treatment on day 1 of cycle 1. She has not had recurrence of the headache with the ondanestron and has not had significant nausea. B. Baseline echocardiogram was obtained on January 18, 2021 and reported a LVEF of 61%. C. She is not comfortable utilizing Compazine and lorazepam for antiemetics at home due to her concern for them being psych drugs . For now we will utilize ondansetron at home. D. She will have supportive care as needed with antiemetics and hydration here at the office as needed. E. Today's labs reviewed in detail and discussed with Mrs. Liz and her and a copy was given to her. WBC 8.6, hemoglobin 12.5, platelets 10 74,000, ANC is 5110. Potassium 4.1 random glucose 127 creatinine 0.9 LFTs are normal. Her last LDH on February 20, 2021 was 161 which is normal. F. CT of the head without contrast from ER visit on January 23, 2021 after headache post chemo showed no acute intracranial abnormality. G. I have requested a UA today for urinary burning and right flank pain. H. Childbearing age/potential. She has had tubal ligation in the past. 2. Follow-up plan A. She will be due for restaging PET/CT after completion of 2 full cycles of ABVD. B. She will be due back in 2 weeks with CBC CMP and LDH for consideration of cycle 3-day 1 ABVD. She will have had repeat pet imaging and will review the results at that time as well. C. I have previously asked for repeat follow-up PFTs with DLCO and vital capacity for monitoring of her bleomycin. She had PFT's on 01/03/2021. I do not see any followup PFT's at this time. She has not had any new shortness of breath or any noted respiratory changes on exam. D. Mrs. Liz was encouraged to contact us in the interim should questions or problems arise. Signed By: Francie Mckenna-< AOCNP Luis Lewis MD <<Signature on File>>
== END 2021-03-20 23:59 | disposition home or self-care (01) ==
LOC: ONCMED 07:55
PROVIDERS: Internal Medicine Medical Oncology; PCP Nurse Practitioner Family; Visit Provider Nurse Practitioner
DX: Z51.11 Encounter for antineoplastic chemotherapy (principal); C81.41 Lymphocyte-rich Hodgkin lymphoma, lymph nodes of head, face, and neck; I10 Essential (primary) hypertension; E78.5 Hyperlipidemia, unspecified; J45.909 Unspecified asthma, uncomplicated; J44.9 Chronic obstructive pulmonary disease, unspecified; G47.33 Obstructive sleep apnea (adult) (pediatric); K21.9 Gastro-esophageal reflux disease without esophagitis; M47.9 Spondylosis, unspecified; M81.0 Age-related osteoporosis without current pathological fracture; E55.9 Vitamin D deficiency, unspecified; F41.9 Anxiety disorder, unspecified; F32.9 Major depressive disorder, single episode, unspecified; Z83.3 Family history of diabetes mellitus; Z79.899 Other long term (current) drug therapy
CPT/HCPCS: 36415; 36593; 80053; 81003; 83615; 85025; 87635; 94010; 94726; 94729; 96360; 96361; 96365; 96367; 96372; 96374; 96375; 96376; 96377; 96411; 96413; 96415; 96417; 99214; J1100; J1200; J1453; J2270; J2405; J2505; J2997; J3490; J7030; J7040; J9000; J9040; J9130; J9360

== ENCOUNTER → 2021-04-02 15:48 | Outpatient (BNVA) | payer MEDICAID, SELFPAY | PROVIDERS: PCP Nurse Practitioner Family; Visit Provider Nurse Practitioner Family | DX: L02.214 Cutaneous abscess of groin (principal); J30.89 Other allergic rhinitis | CPT/HCPCS: 87070; 87075; 87205 ==

== ENCOUNTER 2021-04-18 05:46 | Outpatient (RCR) | payer MEDICAID, SELFPAY ==
[2021-03-21 08:44] LABS: Basophils % 0.4 %; Eosinophils # 0.2 10^3/uL (0.0-0.8); Eosinophils % 3.2 %; Hematocrit 36.2 % (37.0-47.0); Hemoglobin 11.7 g/dL (11.5-15.3); Lymphocytes # 1.7 10^3/uL (0.8-4.8); Lymphocytes % 30.4 %; Mean Corpuscular HGB Conc 32.3 g/dL (30.0-36.0); Mean Corpuscular Hemoglobin 29.9 pg (28.0-34.0); Mean Corpuscular Volume 92.6 fL (81-99); Mean Platelet Volume 9.4 fL (7.4-10.4); Monocytes # 0.7 10^3/uL (0.2-0.9); Monocytes % 12.1 %; Neutrophils # 3.06 10^3/uL (1.8-7.7); Neutrophils % 53.5 %; Nucleated Red Blood Cells % 0 %; Platelet Count 213 10^3/cmm (130-400); Red Blood Count 3.91 10^6/uL (4.1-5.3); Red Cell Distribution Width 16.1 % (12.1-15.1); White Blood Count 5.7 10^3/uL (4.0-10.0)
[2021-03-21 09:07] LABS: Alanine Aminotransferase 10 U/L (0-33); Albumin Level 3.6 g/dL (3.5-5.2); Alkaline Phosphatase 88 IU/L (35-105); Anion Gap 13.7 (5-19); Aspartate Amino Transferase 10 U/L (0-32); Blood Urea Nitrogen 9 mg/dL (6-20); Calcium 8.7 mg/dL (8.5-10.5); Carbon Dioxide 23 mmol/L (22-29); Chloride 102 mmol/L (98-107); Globulin 2.7 g/dL (1.3-4.6); Glomerular Filtration Rate 92.2 mL/min (90-130); Glucose 132 mg/dL (65-115); Lactate Dehydrogenase 176 U/L (135-214); Osmolality Calculated 281 mOsm/kg (285-295); Potassium 3.7 mmol/L (3.5-5.1); Sodium 135 mmol/L (136-145); Total Bilirubin 0.2 mg/dL (0.15-1.2); Total Protein 6.3 g/dL (6.6-8.7)
[2021-03-21 09:41] LABS: Slide Review Slide Review Perform
[2021-03-21] MEDS: famotidine 20 mg/2 mL INJ IVP (11:20)
[2021-03-21] MEDS: sodium chloride 0.9% 250 ML 75 ML IV (11:20)
[2021-03-21] MEDS: diphenhydrAMINE 50 mg/mL SDV 1mL 25 MG IVP (11:21)
[2021-03-21] MEDS: ondansetron 2 mg/ML SDV 2 mL 8 MG IV (11:26)
[2021-03-21] MEDS: acetaminophen 325 mg Tablet 650 MG PO (11:26)
[2021-03-21] MEDS: dexamethasone 20 MG in sodium chloride 0.9% 50 ML 187 MG IV (11:26)
[2021-03-21] MEDS: fosaprepitant 150 MG in sodium chloride 0.9% 150 ML 300 MG IV (11:48)
[2021-03-21] MEDS: alteplase 1 mg/mL SDV 2 mL 2 MG INTRACATH (14:45)
[2021-03-21] MEDS: pegfilgrastim 6 mg/0.6 mL Kit (onpro) SUBCUT (15:32)
--- NOTE | 2021-03-21 17:43 | ONC FU_ITS ---
Dr. Lewis Patient Follow-Up Note Patient: Alla Liz Unit #: [id number]: 1980 Dicatated By: Luis Lewis M.D.Date of Visit:Mar 21, 2021 Onc Med Follow-up/Prog Note Chief Complaint: Hodgkin lymphoma. 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 She had presented with a knot on the right side of her neck. She was noted to have bilateral cervical adenopathy. Her neck CT on 11/12/2020 showed prominent asymmetric soft tissue in the posterior right nasopharynx measuring 14 x 11 mm, noted to be in the expected location of the adenoids. There were numerous enlarged bilateral cervical chain lymph nodes with the largest on the left measuring up to 1.3 cm. She was referred to Dr. Drew. She underwent direct laryngoscopy with endoscopic biopsy of the nasopharyngeal mass and excisional biopsy of 2 left cervical lymph nodes. Pathology at all sites was consistent with lymphocyte rich classic Hodgkin lymphoma. Her staging PET/CT on 12/22/2020 showed a left cervical level II node measuring 1.9 x 1.4 cm with SUV 5.4. Other similar nodes were present in the right IIA, V, and left II territories, also likely to be involved with lymphoma. There was noted to be prominent uptake along the mucosal surface of the head and neck but without localized activity. There were no other areas of abnormal uptake on that study. I had seen her initially on 12/26/2020. By clinical evaluation, her disease was stage IIA and she was recommended to begin treatment with ABVD chemotherapy for 2 cycles followed by restaging PET/CT. Her baseline echocardiogram showed normal left ventricular ejection fraction at 61%. Her pulmonary function studies showed normal diffusion capacity at 101% of predicted. Her other medical illnesses include hypertension, hyperlipidemia, asthma/COPD, GERD, obstructive sleep apnea, degenerative arthritis/degenerative disease of the spine, osteoporosis, vitamin D deficiency, and anxiety/depression. She has history of smoking 1 pack of cigarettes daily. INTERIM HISTORY: She began cycle 1 of ABVD chemotherapy on 01/23/2021. She was able to tolerate it with acceptable toxicity. She continued with cycle 1 day 15 treatment on 02/06/2021, with cycle 2 day 1 on 02/21/2021, and with cycle 2 day 15 on 03/07/2021. Her restaging PET/CT on 03/16/2021 showed decrease in the previously described bilateral jugulodigastric lymph nodes to subcentimeter size with negative FDG uptake, consistent with complete response to treatment (Deauville criteria 1). Mediastinal lymph nodes appeared radiographically benign and without significant FDG uptake. There was no significant pelvic or abdominal adenopathy noted. She is seen for a follow-up visit. She says she is feeling all right, though she has had significant chemotherapy related side effects, particularly during the first week after her treatments. She says he just feels like a bad case of the flu with fatigue, body aches, and nausea/anorexia. She also has a bad taste. She does feel somewhat better the second week, and she is able to do some light work. ECOG score is 1. She has not had fever. She is having hot flashes and night sweating. She has some sinus drainage and cough. She also has shortness of breath with activity. She is still smoking, but she is trying to quit. She recently had some chest pain, which she thought was most likely heartburn/acid reflux. Her nausea comes and goes. She has had diarrhea and at times she also has had constipation. Bladder function has been okay. She continues to have joint pain and she sometimes has headache. She has a little bit of dizziness. She is having some numbness in her fingertips. Medications: Acid Scrap Collector (20.6 (20 base) mg) Capsule Delayed Release Oral daily, Adult Aspirin EC Low Strength (81 mg) Tablet, enteric coated Oral daily, Allergy (10 mg) Tablet Oral daily, Azelastine HCl (0.15 %) Solution Nasal daily, Cyclobenzaprine HCl (10 mg) Tablet Oral daily, Doxycycline Hyclate (100 mg) Tablet Oral b.i.d., FLUoxetine HCl (10 mg) Tablet Oral daily, HYDROcodone-Acetaminophen (5-325 mg) Tablet Oral 8x/d, Lisinopril (20 mg) Tablet Oral daily, Narcan Liquid Nasal, Pravachol (40 mg) Tablet Oral daily Allergies: Amoxicillin, clavulanic acid, [place] jelly , and Pregabalin. Vital Signs: Performed on Mar 21, 2021 11:24 Height - 66.00 in Weight - 217 lbs (HIGH) BSA - 2.07 sq.m BMI - 35.02 (HIGH) Temperature - 97.8 F (LOW) Pulse - 81 /min Respiration - 18 /min BP - 101/71 mm(hg) O2 Sat - 98 % Pain - 4 Fatigue - 2 Physical Examination: Constitutional - She looks pretty good generally, Eyes - Sclerae nonicteric. Conjunctivae clear, ENMT - No lesions noted in the oral cavity, Hematologic/Lymphatic - There is no cervical, clavicular, or axillary adenopathy noted, Respiratory - Lungs are clear with good air movement bilaterally, Cardiovascular - Heart rhythm is regular. There is no murmur, gallop, or rub noted, Abdomen - Soft. Liver and spleen are not enlarged. There is no abdominal mass or ascites noted and there is no inguinal adenopathy, Extremities - No edema, Neurologic - No focal neurologic deficits noted. Lab/Imaging: Test performed on Mar 21, 2021 08:32 LDH (Total) 176 U/L Sodium 135 mmol/L Potassium 3.7 mmol/L Chloride 102 mmol/L CO2 23 mmol/L Anion Gap 13.7 BUN 9 mg/dL Creatinine 0.7 mg/dL Cr Clearance (Est) 165.8600 mL/min eGFR 92.2 mL/min Glucose 132 mg/dL Osmolality - Calculated 281 mOsm/kg Calcium 8.7 mg/dL Protein, Total 6.3 g/dL Albumin 3.6 g/dL Globulin 2.7 g/dL Bilirubin, Total 0.2 mg/dL ALT (SGPT) 10 U/L AST (SGOT) 10 U/L Alkaline Phosphatase 88 IU/L WBC 5.7 10 3/uL RBC 3.91 10 6/uL HGB 11.7 g/dL HCT 36.2 % MCV 92.6 fL MCH 29.9 pg MCHC 32.3 g/dL RDW 16.1 % Platelet Count 213 10 3/cmm MPV 9.4 fL Neutrophils 3.06 10 3/uL Lymphocytes 1.7 10 3/uL Monocytes 0.7 10 3/uL Eosinophils 0.2 10 3/uL Basophils 0.0 10 3/uL Neutrophil % 53.5 % Lymphocyte % 30.4 % Monocyte % 12.1 % Eosinophil % 3.2 % Basophils % 0.4 % NRBC % 0 % CBC Slide Review Slide Review Perform SLIDE REVIEW AGREES WITH AUTOMATED RESULTS ST Problem List: 1. Lymphocyte rich classical Hodgkin lymphoma, stage IIA. 2. Hypertension. 3. Hyperlipidemia. 4. Asthma/COPD. 5. Obstructive sleep apnea. 6. GERD. 7. Degenerative arthritis/degenerative disease of the spine. 8. Osteoporosis. 9. Vitamin D deficiency. 10. Anxiety/depression. 11. She has a strong family history for diabetes. Problems Addressed with this Encounter and Plan: Patient with lymphocyte rich classical Hodgkin lymphoma diagnosed by left cervical lymph node biopsy and biopsy of nasopharyngeal mass on 12/05/2020. By PET/CT her disease appears to be localized to the nasopharynx and cervical lymph nodes. As she did not have clear-cut B symptoms, by clinical evaluation her disease was stage IIA. She has been undergoing treatment with ABVD chemotherapy, cycle 1 beginning on 01/23/2021. She has now completed 2 cycles of treatment. Her restaging PET/CT is consistent with complete response to treatment (Deauville 1). With that finding, she is recommended to continue with 2 more cycles of chemotherapy. She is having multiple chemotherapy related side effects including fatigue, body aches, nausea/anorexia, dysguesia, and mild neuropathy, among others. Her blood counts, though, have remained adequate, and her repeat pulmonary function studies show normal DLCO. Overall, though, she has been able to tolerate the chemotherapy with acceptable toxicity. As such, she will proceed now with cycle 3-day 1 ABVD. The dosages remain the same. She returns in 2 weeks. Signed By: Luis Lewis M.D. <<Signature on File>>
[2021-04-04] MEDS: alteplase 1 mg/mL SDV 2 mL 2 MG IV (11:23)
[2021-04-04 11:57] LABS: Basophils % 0.5 %; Eosinophils # 0.1 10^3/uL (0.0-0.8); Eosinophils % 1.1 %; Hematocrit 36.6 % (37.0-47.0); Hemoglobin 12.2 g/dL (11.5-15.3); Lymphocytes % 22.2 %; Mean Corpuscular HGB Conc 33.3 g/dL (30.0-36.0); Mean Corpuscular Hemoglobin 30.9 pg (28.0-34.0); Mean Corpuscular Volume 92.7 fL (81-99); Mean Platelet Volume 9.5 fL (7.4-10.4); Monocytes # 1.1 10^3/uL (0.2-0.9); Monocytes % 12.8 %; Neutrophils # 5.41 10^3/uL (1.8-7.7); Neutrophils % 61.2 %; Nucleated Red Blood Cells % 0 %; Platelet Count 249 10^3/cmm (130-400); Red Blood Count 3.95 10^6/uL (4.1-5.3); Red Cell Distribution Width 16.9 % (12.1-15.1); White Blood Count 8.8 10^3/uL (4.0-10.0)
[2021-04-04 12:26] LABS: Alanine Aminotransferase 12 U/L (0-33); Albumin Level 3.8 g/dL (3.5-5.2); Alkaline Phosphatase 78 IU/L (35-105); Anion Gap 14.2 (5-19); Aspartate Amino Transferase 13 U/L (0-32); Blood Urea Nitrogen 6 mg/dL (6-20); Calcium 8.7 mg/dL (8.5-10.5); Carbon Dioxide 23 mmol/L (22-29); Chloride 105 mmol/L (98-107); Globulin 2.6 g/dL (1.3-4.6); Glucose 84 mg/dL (65-115); Osmolality Calculated 283 mOsm/kg (285-295); Potassium 4.2 mmol/L (3.5-5.1); Sodium 138 mmol/L (136-145); Total Bilirubin 0.2 mg/dL (0.15-1.2); Total Protein 6.4 g/dL (6.6-8.7)
[2021-04-04] MEDS: dexamethasone 20 MG in sodium chloride 0.9% 50 ML 187 MG IV (13:48)
[2021-04-04] MEDS: ondansetron 2 mg/ML SDV 2 mL 8 MG IV (13:48)
[2021-04-04] MEDS: sodium chloride 0.9% 250 ML 75 ML IV (13:48)
[2021-04-04] MEDS: famotidine 20 mg/2 mL INJ IVP (14:05)
[2021-04-04] MEDS: acetaminophen 325 mg Tablet 650 MG PO (14:05)
[2021-04-04] MEDS: diphenhydrAMINE 50 mg/mL SDV 1mL 25 MG IV (14:07)
[2021-04-04] MEDS: pegfilgrastim 6 mg/0.6 mL Kit (onpro) SUBCUT (16:15)
--- NOTE | 2021-04-05 07:14 | ONC FU_ITS ---
Dr. Lewis Patient Follow-Up Note Patient: Alla Liz Unit #: [id number]: 1980 Dicatated By: Luis Lewis M.D.Date of Visit:Apr 04, 2021 Onc Med Follow-up/Prog Note Chief Complaint: Hodgkin lymphoma. 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 She had presented with a knot on the right side of her neck. She was noted to have bilateral cervical adenopathy. Her neck CT on 11/12/2020 showed prominent asymmetric soft tissue in the posterior right nasopharynx measuring 14 x 11 mm, noted to be in the expected location of the adenoids. There were numerous enlarged bilateral cervical chain lymph nodes with the largest on the left measuring up to 1.3 cm. She was referred to Dr. Drew. She underwent direct laryngoscopy with endoscopic biopsy of the nasopharyngeal mass and excisional biopsy of 2 left cervical lymph nodes. Pathology at all sites was consistent with lymphocyte rich classic Hodgkin lymphoma. Her staging PET/CT on 12/22/2020 showed a left cervical level II node measuring 1.9 x 1.4 cm with SUV 5.4. Other similar nodes were present in the right IIA, V, and left II territories, also likely to be involved with lymphoma. There was noted to be prominent uptake along the mucosal surface of the head and neck but without localized activity. There were no other areas of abnormal uptake on that study. I had seen her initially on 12/26/2020. By clinical evaluation, her disease was stage IIA and she was recommended to begin treatment with ABVD chemotherapy for 2 cycles followed by restaging PET/CT. Her baseline echocardiogram showed normal left ventricular ejection fraction at 61%. Her pulmonary function studies showed normal diffusion capacity at 101% of predicted. Her other medical illnesses include hypertension, hyperlipidemia, asthma/COPD, GERD, obstructive sleep apnea, degenerative arthritis/degenerative disease of the spine, osteoporosis, vitamin D deficiency, and anxiety/depression. She has history of smoking 1 pack of cigarettes daily. INTERIM HISTORY: She began cycle 1 of ABVD chemotherapy on 01/23/2021. She was able to tolerate it with acceptable toxicity. She continued with cycle 1 day 15 treatment on 02/06/2021, with cycle 2 day 1 on 02/21/2021, and with cycle 2 day 15 on 03/07/2021. Her restaging PET/CT on 03/16/2021 showed decrease in the previously described bilateral jugulodigastric lymph nodes to subcentimeter size with negative FDG uptake, consistent with complete response to treatment (Deauville criteria 1). Mediastinal lymph nodes appeared radiographically benign and without significant FDG uptake. There was no significant pelvic or abdominal adenopathy noted. With those findings, she was recommended to continue with 2 additional cycles of ABVD chemotherapy. She returned for cycle 3-day 1 treatment on 03/21/2021. She is seen for a follow-up visit. She has been feeling a little better generally. She still complains that she is tired, but she is able to do light work. Her bone pain was not as bad after her last treatment. Her ECOG score is 1. Appetite is variable. Her weight is stable. She has not had fever. She has having some sweating at night, which I suspect is hormonal. She has started antibiotic therapy for a boil which drained from her right groin area. She reports having constant drainage from her nose, and she has had some ongoing problems with angular cheilitis. She has some shortness of breath and cough. She also reports having a little chest pain. She has just occasional nausea. She has a little bit of acid reflux. Bowel and bladder function have been okay. She has headache off and on. She has numbness/tingling in her fingers, but it comes and goes. Medications: Acid Wildlife Conservation Professor (20.6 (20 base) mg) Capsule Delayed Release Oral daily, Adult Aspirin EC Low Strength (81 mg) Tablet, enteric coated Oral daily, Allergy (10 mg) Tablet Oral daily, Azelastine HCl (0.15 %) Solution Nasal daily, Cyclobenzaprine HCl (10 mg) Tablet Oral daily, Doxycycline Hyclate (100 mg) Tablet Oral b.i.d., FLUoxetine HCl (10 mg) Tablet Oral daily, HYDROcodone-Acetaminophen (5-325 mg) Tablet Oral 8x/d, Lisinopril (20 mg) Tablet Oral daily, Narcan Liquid Nasal, Pravachol (40 mg) Tablet Oral daily Allergies: Amoxicillin, clavulanic acid, KY jelly , and Pregabalin. Vital Signs: Performed on Apr 04, 2021 13:47 Height - 66.00 in Weight - 216.2 lbs (LOW) BSA - 2.07 sq.m BMI - 34.90 (HIGH) Temperature - 97.8 F (LOW) Pulse - 97 /min Respiration - 18 /min BP - 109/72 mm(hg) O2 Sat - 94 % (LOW) Pain - 0 Fatigue - 2 Physical Examination: Constitutional - She looks pretty good generally, Eyes - Sclerae nonicteric. Conjunctivae clear, ENMT - No lesions noted in the oral cavity, Hematologic/Lymphatic - There is no cervical, clavicular, or axillary adenopathy noted, Respiratory - Lungs are clear with good air movement bilaterally, Cardiovascular - Heart rhythm is regular. There is no murmur, gallop, or rub noted, Abdomen - Soft. Liver and spleen are not enlarged. There is no abdominal mass or ascites noted and there is no inguinal adenopathy, Extremities - No edema, Integumentary - There is a resolving furuncle in the right groin area, Neurologic - No focal neurologic deficits noted. Lab/Imaging: Test performed on Apr 04, 2021 11:25 Sodium 138 mmol/L Potassium 4.2 mmol/L Chloride 105 mmol/L CO2 23 mmol/L Anion Gap 14.2 BUN 6 mg/dL Creatinine 0.8 mg/dL Cr Clearance (Est) 145.1300 mL/min eGFR 79.0 mL/min Glucose 84 mg/dL Osmolality - Calculated 283 mOsm/kg Calcium 8.7 mg/dL Protein, Total 6.4 g/dL Albumin 3.8 g/dL Globulin 2.6 g/dL Bilirubin, Total 0.2 mg/dL ALT (SGPT) 12 U/L AST (SGOT) 13 U/L Alkaline Phosphatase 78 IU/L WBC 8.8 10 3/uL RBC 3.95 10 6/uL HGB 12.2 g/dL HCT 36.6 % MCV 92.7 fL MCH 30.9 pg MCHC 33.3 g/dL RDW 16.9 % Platelet Count 249 10 3/cmm MPV 9.5 fL Neutrophils 5.41 10 3/uL Lymphocytes 2.0 10 3/uL Monocytes 1.1 10 3/uL Eosinophils 0.1 10 3/uL Basophils 0.0 10 3/uL Neutrophil % 61.2 % Lymphocyte % 22.2 % Monocyte % 12.8 % Eosinophil % 1.1 % Basophils % 0.5 % NRBC % 0 % Problem List: 1. Lymphocyte rich classical Hodgkin lymphoma, stage IIA. 2. Hypertension. 3. Hyperlipidemia. 4. Asthma/COPD. 5. Obstructive sleep apnea. 6. GERD. 7. Degenerative arthritis/degenerative disease of the spine. 8. Osteoporosis. 9. Vitamin D deficiency. 10. Anxiety/depression. 11. She has a strong family history for diabetes. Problems Addressed with this Encounter and Plan: Patient with lymphocyte rich classical Hodgkin lymphoma diagnosed by left cervical lymph node biopsy and biopsy of nasopharyngeal mass on 12/05/2020. By PET/CT her disease appeared to be localized to the nasopharynx and cervical lymph nodes. As she did not have clear-cut B symptoms, by clinical evaluation her disease was stage IIA. She began cycle 1 of ABVD chemotherapy on 01/23/2021. Her restaging PET/CT after 2 cycles was consistent with complete response to treatment (Deauville 1). With that finding, she was recommended to continue with 2 more cycles of chemotherapy. She received cycle 3-day 1 ABVD on 03/21/2021. It was administered at full dosages. She continues to have significant fatigue with the chemotherapy. She also has musculoskeletal pain and mild neuropathy. Her blood counts, though, remain adequate. Overall, she has been tolerating treatment with acceptable toxicity. She is at risk for pneumonitis, as she is a smoker. She will proceed with her cycle 3-day 15 treatment. Dosages remain the same. She returns in 2 weeks. Signed By: Luis Lewis M.D. <<Signature on File>>
[2021-04-15 11:17] LABS: Basophils % 0.5 %; Eosinophils # 0.1 10^3/uL (0.0-0.8); Eosinophils % 2.6 %; Hemoglobin 11.3 g/dL (11.5-15.3); Lymphocytes % 25.4 %; Mean Corpuscular HGB Conc 33.2 g/dL (30.0-36.0); Mean Corpuscular Hemoglobin 30.7 pg (28.0-34.0); Mean Corpuscular Volume 92.4 fL (81-99); Mean Platelet Volume 9.5 fL (7.4-10.4); Monocytes # 0.9 10^3/uL (0.2-0.9); Monocytes % 23.1 %; Neutrophils # 1.87 10^3/uL (1.8-7.7); Neutrophils % 47.9 %; Nucleated Red Blood Cells % 0 %; Platelet Count 227 10^3/cmm (130-400); Red Blood Count 3.68 10^6/uL (4.1-5.3); Red Cell Distribution Width 17.3 % (12.1-15.1); White Blood Count 3.9 10^3/uL (4.0-10.0)
[2021-04-15 11:37] LABS: Alanine Aminotransferase 12 U/L (0-33); Albumin Level 4.2 g/dL (3.5-5.2); Alkaline Phosphatase 86 IU/L (35-105); Aspartate Amino Transferase 14 U/L (0-32); Blood Urea Nitrogen 7 mg/dL (6-20); Calcium 9.1 mg/dL (8.5-10.5); Carbon Dioxide 22 mmol/L (22-29); Chloride 99 mmol/L (98-107); Globulin 2.9 g/dL (1.3-4.6); Glucose 104 mg/dL (65-115); Osmolality Calculated 276 mOsm/kg (285-295); Sodium 134 mmol/L (136-145); Total Bilirubin 0.3 mg/dL (0.15-1.2); Total Protein 7.1 g/dL (6.6-8.7)
[2021-04-18 11:29] LABS: Basophils % 0.4 %; Eosinophils # 0.2 10^3/uL (0.0-0.8); Eosinophils % 2.9 %; Hematocrit 31.2 % (37.0-47.0); Hemoglobin 10.4 g/dL (11.5-15.3); Lymphocytes # 1.4 10^3/uL (0.8-4.8); Lymphocytes % 27.9 %; Mean Corpuscular HGB Conc 33.3 g/dL (30.0-36.0); Mean Corpuscular Volume 93.1 fL (81-99); Mean Platelet Volume 8.8 fL (7.4-10.4); Monocytes # 0.8 10^3/uL (0.2-0.9); Monocytes % 14.8 %; Neutrophils # 2.71 10^3/uL (1.8-7.7); Nucleated Red Blood Cells % 0 %; Platelet Count 214 10^3/cmm (130-400); Red Blood Count 3.35 10^6/uL (4.1-5.3); Red Cell Distribution Width 17.2 % (12.1-15.1); White Blood Count 5.1 10^3/uL (4.0-10.0)
[2021-04-18 12:16] LABS: Slide Review Slide Review Perform
[2021-04-18] MEDS: alteplase 1 mg/mL SDV 2 mL 2 MG IV (12:40)
[2021-04-18] MEDS: acetaminophen 325 mg Tablet 650 MG PO (13:15)
[2021-04-18] MEDS: famotidine 20 mg/2 mL INJ IVP (13:15)
[2021-04-18] MEDS: sodium chloride 0.9% 250 ML 75 ML IV (13:15)
[2021-04-18] MEDS: diphenhydrAMINE 50 mg/mL SDV 1mL 25 MG IV (13:16)
[2021-04-18] MEDS: ondansetron 2 mg/ML SDV 2 mL 8 MG IVP (13:20)
[2021-04-18] MEDS: dexamethasone 20 MG in sodium chloride 0.9% 50 ML 187 MG IV (13:20)
[2021-04-18] MEDS: fosaprepitant 150 MG in sodium chloride 0.9% 150 ML 300 MG IV (13:40)
[2021-04-18] MEDS: pegfilgrastim 6 mg/0.6 mL Kit (onpro) SUBCUT (16:00)
--- NOTE | 2021-04-18 16:34 | ONC FU_ITS ---
Dr. Lewis Patient Follow-Up Note Patient: Alla Liz Unit #: [id number]: 1980 Dicatated By: Luis Lewis M.D.Date of Visit:Apr 15, 2021 Onc Med Follow-up/Prog Note Chief Complaint: Hodgkin lymphoma. 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 She had presented with a knot on the right side of her neck. She was noted to have bilateral cervical adenopathy. Her neck CT on 11/12/2020 showed prominent asymmetric soft tissue in the posterior right nasopharynx measuring 14 x 11 mm, noted to be in the expected location of the adenoids. There were numerous enlarged bilateral cervical chain lymph nodes with the largest on the left measuring up to 1.3 cm. She was referred to Dr. Drew. She underwent direct laryngoscopy with endoscopic biopsy of the nasopharyngeal mass and excisional biopsy of 2 left cervical lymph nodes. Pathology at all sites was consistent with lymphocyte rich classic Hodgkin lymphoma. Her staging PET/CT on 12/22/2020 showed a left cervical level II node measuring 1.9 x 1.4 cm with SUV 5.4. Other similar nodes were present in the right IIA, V, and left II territories, also likely to be involved with lymphoma. There was noted to be prominent uptake along the mucosal surface of the head and neck but without localized activity. There were no other areas of abnormal uptake on that study. I had seen her initially on 12/26/2020. By clinical evaluation, her disease was stage IIA and she was recommended to begin treatment with ABVD chemotherapy for 2 cycles followed by restaging PET/CT. Her baseline echocardiogram showed normal left ventricular ejection fraction at 61%. Her pulmonary function studies showed normal diffusion capacity at 101% of predicted. Her other medical illnesses include hypertension, hyperlipidemia, asthma/COPD, GERD, obstructive sleep apnea, degenerative arthritis/degenerative disease of the spine, osteoporosis, vitamin D deficiency, and anxiety/depression. She has history of smoking 1 pack of cigarettes daily. INTERIM HISTORY: She began cycle 1 of ABVD chemotherapy on 01/23/2021. She was able to tolerate it with acceptable toxicity. She continued with cycle 1 day 15 treatment on 02/06/2021, with cycle 2 day 1 on 02/21/2021, and with cycle 2 day 15 on 03/07/2021. Her restaging PET/CT on 03/16/2021 showed decrease in the previously described bilateral jugulodigastric lymph nodes to subcentimeter size with negative FDG uptake, consistent with complete response to treatment (Deauville criteria 1). Mediastinal lymph nodes appeared radiographically benign and without significant FDG uptake. There was no significant pelvic or abdominal adenopathy noted. With those findings, she was recommended to continue with 2 additional cycles of ABVD chemotherapy. She returned for cycle 3-day 1 treatment on 03/21/2021 and for cycle 3 day 15 treatment on 04/04/2021. She is seen for a follow-up visit. She complains that her energy is down and she has very limited activity. ECOG score is 2. Her appetite has not been good since her last treatment. She has not had fever. She does have sweating, both during the daytime and at night. She has sinus drainage. She says the inside of her mouth felt raw after her last treatment. She has not had sore throat or difficulty swallowing. She does have cough when she gets out of breath very quickly. She has had a little bit of chest pain. She had nausea and vomiting for 4 days. Bowel function remains adequate, she has had a little bit of rectal bleeding the last 2 to 3 days. Bladder function has been okay. She has generalized achiness, like she has the flu. She has occasional headache. She has a little bit of dizziness. She has numbness/tingling in her fingers, which is is the same. She says her right arm went numb for short time yesterday. Medications: Acid Cutter Operator Asbestos Shingle (20.6 (20 base) mg) Capsule Delayed Release Oral daily, Adult Aspirin EC Low Strength (81 mg) Tablet, enteric coated Oral daily, Allergy (10 mg) Tablet Oral daily, Azelastine HCl (0.15 %) Solution Nasal daily, Cyclobenzaprine HCl (10 mg) Tablet Oral daily, Doxycycline Hyclate (100 mg) Tablet Oral b.i.d., FLUoxetine HCl (10 mg) Tablet Oral daily, hydroCHLOROthiazide 1 (12.5 mg) Tablet Oral daily, HYDROcodone-Acetaminophen (5-325 mg) Tablet Oral 8x/d, Lisinopril 1 (10 mg) Tablet Oral daily, Narcan Liquid Nasal, Pravachol (40 mg) Tablet Oral daily Allergies: Amoxicillin, clavulanic acid, KY jelly , and Pregabalin. Vital Signs: Performed on Apr 15, 2021 13:25 Height - 66.00 in Weight - 208.8 lbs (LOW) BSA - 2.04 sq.m BMI - 33.70 (HIGH) Temperature - 97.5 F (LOW) Pulse - 115 /min (HIGH) Respiration - 19 /min BP - 93/65 mm(hg) O2 Sat - 96 % Pain - 4 Physical Examination: Constitutional - She looks pretty good generally, Eyes - Sclerae nonicteric. Conjunctivae clear, ENMT - No lesions noted in the oral cavity, Hematologic/Lymphatic - There is no cervical, clavicular, or axillary adenopathy noted, Respiratory - Lungs are clear with good air movement bilaterally, Cardiovascular - Heart rhythm is regular. There is no murmur, gallop, or rub noted, Abdomen - Soft. Liver and spleen are not enlarged. There is no abdominal mass or ascites noted and there is no inguinal adenopathy, Extremities - No edema, Neurologic - No focal neurologic deficits noted. Lab/Imaging: Test performed on Apr 15, 2021 11:06 Sodium 134 mmol/L Potassium 4.0 mmol/L Chloride 99 mmol/L CO2 22 mmol/L Anion Gap 17.0 BUN 7 mg/dL Creatinine 0.9 mg/dL Cr Clearance (Est) 129.0000 mL/min eGFR 69.0 mL/min Glucose 104 mg/dL Osmolality - Calculated 276 mOsm/kg Calcium 9.1 mg/dL Protein, Total 7.1 g/dL Albumin 4.2 g/dL Globulin 2.9 g/dL Bilirubin, Total 0.3 mg/dL ALT (SGPT) 12 U/L AST (SGOT) 14 U/L Alkaline Phosphatase 86 IU/L WBC 3.9 10 3/uL RBC 3.68 10 6/uL HGB 11.3 g/dL HCT 34.0 % MCV 92.4 fL MCH 30.7 pg MCHC 33.2 g/dL RDW 17.3 % Platelet Count 227 10 3/cmm MPV 9.5 fL Neutrophils 1.87 10 3/uL Lymphocytes 1.0 10 3/uL Monocytes 0.9 10 3/uL Eosinophils 0.1 10 3/uL Basophils 0.0 10 3/uL Neutrophil % 47.9 % Lymphocyte % 25.4 % Monocyte % 23.1 % Eosinophil % 2.6 % Basophils % 0.5 % NRBC % 0 % Problem List: 1. Lymphocyte rich classical Hodgkin lymphoma, stage IIA. 2. Hypertension. 3. Hyperlipidemia. 4. Asthma/COPD. 5. Obstructive sleep apnea. 6. GERD. 7. Degenerative arthritis/degenerative disease of the spine. 8. Osteoporosis. 9. Vitamin D deficiency. 10. Anxiety/depression. 11. She has a strong family history for diabetes. Problems Addressed with this Encounter and Plan: 1. Patient with lymphocyte rich classical Hodgkin lymphoma diagnosed by left cervical lymph node biopsy and biopsy of nasopharyngeal mass on 12/05/2020. By PET/CT her disease appeared to be localized to the nasopharynx and cervical lymph nodes. As she did not have clear-cut B symptoms, by clinical evaluation her disease was stage IIA. She began cycle 1 of ABVD chemotherapy on 01/23/2021. Her restaging PET/CT after 2 cycles was consistent with complete response to treatment (Deauville 1). With that finding, she was recommended to continue with 2 more cycles of chemotherapy. She received cycle 3-day 1 ABVD on 03/21/2021 and cycle 3 day 15 treatment on 04/04/2021. It was administered at full dosages. She has had worsening fatigue during chemotherapy, particularly during the past month. She also reports having shortness of breath with activity. She has had some nausea/vomiting and she also reports generalized achiness. She has mild neuropathy. Overall, she has been tolerating treatment with acceptable toxicity. She will return in 4 days to begin her 4th cycle of treatment. I will see her at day 15. 2. She has hypertension for which she has been on treatment with lisinopril and hydrochlorothiazide. Her blood pressure is low now, so she will be given IV fluid today and she will stop both medications. She will monitor blood pressure at home. Signed By: Luis Lewis M.D. <<Signature on File>>
== END 2021-04-20 23:59 | disposition home or self-care (01) ==
LOC: ONCMED 05:46
PROVIDERS: PCP Nurse Practitioner Family; Visit Provider Internal Medicine Medical Oncology
DX: Z51.11 Encounter for antineoplastic chemotherapy (principal); C81.41 Lymphocyte-rich Hodgkin lymphoma, lymph nodes of head, face, and neck; I10 Essential (primary) hypertension; E78.5 Hyperlipidemia, unspecified; J45.909 Unspecified asthma, uncomplicated; J44.9 Chronic obstructive pulmonary disease, unspecified; G47.33 Obstructive sleep apnea (adult) (pediatric); K21.9 Gastro-esophageal reflux disease without esophagitis; M47.9 Spondylosis, unspecified; M81.0 Age-related osteoporosis without current pathological fracture; E55.9 Vitamin D deficiency, unspecified; F41.9 Anxiety disorder, unspecified; F32.9 Major depressive disorder, single episode, unspecified; Z83.3 Family history of diabetes mellitus; Z79.899 Other long term (current) drug therapy
CPT/HCPCS: 36415; 36593; 80053; 83615; 85025; 96367; 96372; 96375; 96377; 96411; 96413; 96417; 99214; 99215; J1100; J1200; J1453; J2405; J2505; J2997; J3490; J7040; J7050; J9000; J9040; J9130; J9360

== ENCOUNTER 2021-05-01 06:16 | Outpatient (RCR) | payer MEDICAID, SELFPAY ==
[2021-05-01] MEDS: alteplase 1 mg/mL SDV 2 mL 2 MG IV (12:12)
[2021-05-01 12:28] LABS: Basophils % 0.5 %; Eosinophils % 0.3 %; Hematocrit 39.1 % (37.0-47.0); Hemoglobin 12.7 g/dL (11.5-15.3); Lymphocytes # 1.9 10^3/uL (0.8-4.8); Lymphocytes % 21.2 %; Mean Corpuscular HGB Conc 32.5 g/dL (30.0-36.0); Mean Corpuscular Hemoglobin 31.8 pg (28.0-34.0); Mean Corpuscular Volume 97.8 fL (81-99); Mean Platelet Volume 9.4 fL (7.4-10.4); Monocytes # 1.1 10^3/uL (0.2-0.9); Neutrophils # 5.65 10^3/uL (1.8-7.7); Neutrophils % 64.7 %; Nucleated Red Blood Cells % 0 %; Platelet Count 219 10^3/cmm (130-400); Red Cell Distribution Width 18.6 % (12.1-15.1); White Blood Count 8.7 10^3/uL (4.0-10.0)
[2021-05-01 13:06] LABS: Alanine Aminotransferase 13 U/L (0-33); Albumin Level 4.1 g/dL (3.5-5.2); Alkaline Phosphatase 95 IU/L (35-105); Anion Gap 17.7 (5-19); Aspartate Amino Transferase 13 U/L (0-32); Blood Urea Nitrogen 9 mg/dL (6-20); Calcium 9.4 mg/dL (8.5-10.5); Carbon Dioxide 21 mmol/L (22-29); Chloride 104 mmol/L (98-107); Globulin 2.9 g/dL (1.3-4.6); Glucose 148 mg/dL (65-115); Lactate Dehydrogenase 277 U/L (135-214); Osmolality Calculated 289 mOsm/kg (285-295); Potassium 3.7 mmol/L (3.5-5.1); Sodium 139 mmol/L (136-145); Total Bilirubin 0.2 mg/dL (0.15-1.2)
[2021-05-01 13:34] LABS: Slide Review Slide Review Perform
--- NOTE | 2021-05-01 14:00 | ONC FU_ITS ---
Dr. Lewis Patient Follow-Up Note Patient: Alla Liz Unit #: [id number]: 1980 Dicatated By: Luis Lewis M.D.Date of Visit:May 01, 2021 Onc Med Follow-up/Prog Note Chief Complaint: Hodgkin lymphoma. 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 She had presented with a knot on the right side of her neck. She was noted to have bilateral cervical adenopathy. Her neck CT on 11/12/2020 showed prominent asymmetric soft tissue in the posterior right nasopharynx measuring 14 x 11 mm, noted to be in the expected location of the adenoids. There were numerous enlarged bilateral cervical chain lymph nodes with the largest on the left measuring up to 1.3 cm. She was referred to Dr. Drew. She underwent direct laryngoscopy with endoscopic biopsy of the nasopharyngeal mass and excisional biopsy of 2 left cervical lymph nodes. Pathology at all sites was consistent with lymphocyte rich classic Hodgkin lymphoma. Her staging PET/CT on 12/22/2020 showed a left cervical level II node measuring 1.9 x 1.4 cm with SUV 5.4. Other similar nodes were present in the right IIA, V, and left II territories, also likely to be involved with lymphoma. There was noted to be prominent uptake along the mucosal surface of the head and neck but without localized activity. There were no other areas of abnormal uptake on that study. I had seen her initially on 12/26/2020. By clinical evaluation, her disease was stage IIA and she was recommended to begin treatment with ABVD chemotherapy for 2 cycles followed by restaging PET/CT. Her baseline echocardiogram showed normal left ventricular ejection fraction at 61%. Her pulmonary function studies showed normal diffusion capacity at 101% of predicted. Her other medical illnesses include hypertension, hyperlipidemia, asthma/COPD, GERD, obstructive sleep apnea, degenerative arthritis/degenerative disease of the spine, osteoporosis, vitamin D deficiency, and anxiety/depression. She has history of smoking 1 pack of cigarettes daily. INTERIM HISTORY: She began cycle 1 of ABVD chemotherapy on 01/23/2021. She was able to tolerate it with acceptable toxicity. She continued with cycle 1 day 15 treatment on 02/06/2021, with cycle 2 day 1 on 02/21/2021, and with cycle 2 day 15 on 03/07/2021. Her restaging PET/CT on 03/16/2021 showed decrease in the previously described bilateral jugulodigastric lymph nodes to subcentimeter size with negative FDG uptake, consistent with complete response to treatment (Deauville criteria 1). Mediastinal lymph nodes appeared radiographically benign and without significant FDG uptake. There was no significant pelvic or abdominal adenopathy noted. With those findings, she was recommended to continue with 2 additional cycles of ABVD chemotherapy. She continued with cycle 3 on 03/21/2021 and with her cycle 4 day 1 treatment on 04/18/2021. She is seen for a follow-up visit. She has not been feeling very good. She has very poor energy, she gets short of breath with any activity, even showering. Her ECOG score is 2. Her appetite is not very good. She has not had fever. She has alternating hot and cold spells and she has episodes of sweating both during the daytime and at night. She has sinus drainage. For about a week she has had sore throat and hoarseness. She also has cough. She has pain in her mid to upper back and in her upper chest. She is having some nausea, but no vomiting. Bowel and bladder function remain adequate. She also has pain in her neck and jaw area and she has generalized aching. She has occasional headache. She has a little bit of numbness in her fingers. Medications: Acid Bath Steward (20.6 (20 base) mg) Capsule Delayed Release Oral daily, Adult Aspirin EC Low Strength (81 mg) Tablet, enteric coated Oral daily, Allergy (10 mg) Tablet Oral daily, Azelastine HCl (0.15 %) Solution Nasal daily, Cyclobenzaprine HCl (10 mg) Tablet Oral daily, Doxycycline Hyclate (100 mg) Tablet Oral b.i.d., FLUoxetine HCl (10 mg) Tablet Oral daily, hydroCHLOROthiazide 1 (12.5 mg) Tablet Oral daily, HYDROcodone-Acetaminophen (5-325 mg) Tablet Oral 8x/d, Lisinopril 1 (10 mg) Tablet Oral daily, Narcan Liquid Nasal, Pravachol (40 mg) Tablet Oral daily Allergies: Amoxicillin, clavulanic acid, KY jelly , and Pregabalin. Vital Signs: Weight is 211 pounds. Blood pressure 134/81, pulse 111, respirations 20, temp 97.3 degrees, oxygen saturation 97%. Physical Examination: Constitutional - She looks pretty good generally, Eyes - Sclerae nonicteric. Conjunctivae clear, ENMT - No lesions noted in the oral cavity, Hematologic/Lymphatic - There is no cervical, clavicular, or axillary adenopathy noted, Respiratory - Lungs sound clear. She has good air movement bilaterally, Cardiovascular - Heart rhythm is regular with a mild tachycardia. There is no murmur, gallop, or rub noted, Abdomen - Soft. Liver and spleen are not enlarged. There is no abdominal mass or ascites noted and there is no inguinal adenopathy, Extremities - No edema, Neurologic - No focal neurologic deficits noted. Lab/Imaging: Test performed on May 01, 2021 12:12 LDH (Total) 277 U/L Sodium 139 mmol/L Potassium 3.7 mmol/L Chloride 104 mmol/L CO2 21 mmol/L Anion Gap 17.7 BUN 9 mg/dL Creatinine 0.9 mg/dL Cr Clearance (Est) 129.0000 mL/min eGFR 69.0 mL/min Glucose 148 mg/dL Osmolality - Calculated 289 mOsm/kg Calcium 9.4 mg/dL Protein, Total 7.0 g/dL Albumin 4.1 g/dL Globulin 2.9 g/dL Bilirubin, Total 0.2 mg/dL ALT (SGPT) 13 U/L AST (SGOT) 13 U/L Alkaline Phosphatase 95 IU/L WBC 8.7 10 3/uL RBC 4.00 10 6/uL HGB 12.7 g/dL HCT 39.1 % MCV 97.8 fL MCH 31.8 pg MCHC 32.5 g/dL RDW 18.6 % Platelet Count 219 10 3/cmm MPV 9.4 fL Neutrophils 5.65 10 3/uL Lymphocytes 1.9 10 3/uL Monocytes 1.1 10 3/uL Eosinophils 0.0 10 3/uL Basophils 0.0 10 3/uL Neutrophil % 64.7 % Lymphocyte % 21.2 % Monocyte % 12.0 % Eosinophil % 0.3 % Basophils % 0.5 % NRBC % 0 % CBC Slide Review Slide Review Perform Problem List: 1. Lymphocyte rich classical Hodgkin lymphoma, stage IIA. 2. Hypertension. 3. Hyperlipidemia. 4. Asthma/COPD. 5. Obstructive sleep apnea. 6. GERD. 7. Degenerative arthritis/degenerative disease of the spine. 8. Osteoporosis. 9. Vitamin D deficiency. 10. Anxiety/depression. 11. She has a strong family history for diabetes. Problems Addressed with this Encounter and Plan: Patient with lymphocyte rich classical Hodgkin lymphoma diagnosed by left cervical lymph node biopsy and biopsy of nasopharyngeal mass on 12/05/2020. By PET/CT her disease appeared to be localized to the nasopharynx and cervical lymph nodes. As she did not have clear-cut B symptoms, by clinical evaluation her disease was stage IIA. She began cycle 1 of ABVD chemotherapy on 01/23/2021. Her restaging PET/CT after 2 cycles was consistent with complete response to treatment (Deauville 1). With that finding, she was recommended to continue with 2 more cycles of chemotherapy. She continue with cycle 3 on 03/21/2021 and she received her cycle 4-day 1 treatment on 04/18/2021. She is complaining of severe fatigue and exertional dyspnea, and she also has some nausea and generalized aching. In addition she is having significant hot flashes and sweating, which likely are hormone related. As she has had a good response to the chemotherapy, she will proceed now with her cycle 4-day 15 treatment. She will be scheduled to return in 1 month. She will have restaging PET/CT prior to that visit. Signed By: Luis Lewis M.D. <<Signature on File>>
[2021-05-01] MEDS: acetaminophen 325 mg Tablet 650 MG PO (14:40)
[2021-05-01] MEDS: sodium chloride 0.9% 250 ML 75 ML IV (14:41)
[2021-05-01] MEDS: fosaprepitant 150 MG in sodium chloride 0.9% 150 ML 300 MG IV (14:41)
[2021-05-01] MEDS: diphenhydrAMINE 50 mg/mL SDV 1mL 25 MG IV (15:05)
[2021-05-01] MEDS: famotidine 20 mg/2 mL INJ IVP (15:20)
[2021-05-01] MEDS: ondansetron 2 mg/ML SDV 2 mL 8 MG IV (15:20)
[2021-05-01] MEDS: dexamethasone 20 MG in sodium chloride 0.9% 50 ML 187 MG IV (15:20)
[2021-05-01] MEDS: pegfilgrastim 6 mg/0.6 mL Kit (onpro) SUBCUT (16:10)
== END 2021-05-21 23:59 | disposition home or self-care (01) ==
LOC: ONCMED 06:16
PROVIDERS: PCP Nurse Practitioner Family; Visit Provider Internal Medicine Medical Oncology
DX: Z51.11 Encounter for antineoplastic chemotherapy (principal); C81.40 Lymphocyte-rich Hodgkin lymphoma, unspecified site; I10 Essential (primary) hypertension; E78.5 Hyperlipidemia, unspecified; J45.909 Unspecified asthma, uncomplicated; J44.9 Chronic obstructive pulmonary disease, unspecified; G47.33 Obstructive sleep apnea (adult) (pediatric); K21.9 Gastro-esophageal reflux disease without esophagitis; M47.9 Spondylosis, unspecified; M81.0 Age-related osteoporosis without current pathological fracture; E55.9 Vitamin D deficiency, unspecified; F41.9 Anxiety disorder, unspecified; F32.9 Major depressive disorder, single episode, unspecified; Z83.3 Family history of diabetes mellitus; Z79.899 Other long term (current) drug therapy
CPT/HCPCS: 36415; 36593; 80053; 83615; 85025; 96367; 96372; 96375; 96377; 96411; 96413; 96417; 99214; J1100; J1200; J1453; J2405; J2505; J2997; J3490; J7040; J7050; J9000; J9040; J9130; J9360

== ENCOUNTER 2021-05-28 06:02 | Outpatient (RCR) | payer MEDICAID, SELFPAY ==
[2021-05-28] MEDS: alteplase 1 mg/mL SDV 2 mL 2 MG IV (13:56)
[2021-05-28 14:59] LABS: Basophils # 0.1 10^3/uL (0.0-0.1); Basophils % 0.8 %; Eosinophils # 0.1 10^3/uL (0.0-0.8); Eosinophils % 0.7 %; Hematocrit 35.7 % (37.0-47.0); Hemoglobin 11.6 g/dL (11.5-15.3); Lymphocytes # 2.4 10^3/uL (0.8-4.8); Lymphocytes % 28.2 %; Mean Corpuscular HGB Conc 32.5 g/dL (30.0-36.0); Mean Corpuscular Hemoglobin 31.6 pg (28.0-34.0); Mean Corpuscular Volume 97.3 fl (81-99); Mean Platelet Volume 9.6 fL (7.4-10.4); Monocytes % 11.8 %; Neutrophils # 4.94 10^3/uL (1.8-7.7); Nucleated Red Blood Cells % 0 %; Platelet Count 370 10^3/cmm (130-400); Red Blood Count 3.67 10^6/uL (4.1-5.3); Red Cell Distribution Width 14.8 % (12.1-15.1); White Blood Count 8.5 10^3/uL (4.0-10.0)
[2021-05-28 15:29] LABS: Alanine Aminotransferase 16 U/L (0-33); Albumin Level 3.9 g/dL (3.5-5.2); Alkaline Phosphatase 72 IU/L (35-105); Anion Gap 16.6 (5-19); Aspartate Amino Transferase 17 U/L (0-32); Blood Urea Nitrogen 7 mg/dL (6-20); Calcium 9.1 mg/dL (8.5-10.5); Carbon Dioxide 24 mmol/L (22-29); Chloride 104 mmol/L (98-107); Globulin 2.8 g/dL (1.3-4.6); Glomerular Filtration Rate 92.2 mL/min (90-130); Glucose 101 mg/dL (65-115); Lactate Dehydrogenase 224 U/L (135-214); Osmolality Calculated 290 mOsm/kg (285-295); Potassium 3.6 mmol/L (3.5-5.1); Sodium 141 mmol/L (136-145); Total Bilirubin 0.3 mg/dL (0.15-1.2); Total Protein 6.7 g/dL (6.6-8.7)
--- NOTE | 2021-05-29 06:50 | ONC FU_ITS ---
Dr. Lewis Patient Follow-Up Note Patient: Alla Liz Unit #: [id number]: 1980 Dicatated By: Luis Lewis M.D.Date of Visit:May 28, 2021 Onc Med Follow-up/Prog Note Chief Complaint: Hodgkin lymphoma. 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 She had presented with a knot on the right side of her neck. She was noted to have bilateral cervical adenopathy. Her neck CT on 11/12/2020 showed prominent asymmetric soft tissue in the posterior right nasopharynx measuring 14 x 11 mm, noted to be in the expected location of the adenoids. There were numerous enlarged bilateral cervical chain lymph nodes with the largest on the left measuring up to 1.3 cm. She was referred to Dr. Drew. She underwent direct laryngoscopy with endoscopic biopsy of the nasopharyngeal mass and excisional biopsy of 2 left cervical lymph nodes. Pathology at all sites was consistent with lymphocyte rich classic Hodgkin lymphoma. Her staging PET/CT on 12/22/2020 showed a left cervical level II node measuring 1.9 x 1.4 cm with SUV 5.4. Other similar nodes were present in the right IIA, V, and left II territories, also likely to be involved with lymphoma. There was noted to be prominent uptake along the mucosal surface of the head and neck but without localized activity. There were no other areas of abnormal uptake on that study. I had seen her initially on 12/26/2020. By clinical evaluation, her disease was stage IIA and she was recommended to begin treatment with ABVD chemotherapy for 2 cycles followed by restaging PET/CT. Her baseline echocardiogram showed normal left ventricular ejection fraction at 61%. Her pulmonary function studies showed normal diffusion capacity at 101% of predicted. She began cycle 1 of ABVD chemotherapy on 01/23/2021. She was able to tolerate it with acceptable toxicity. She continued with cycle 1 day 15 treatment on 02/06/2021, with cycle 2 day 1 on 02/21/2021, and with cycle 2 day 15 on 03/07/2021. Her restaging PET/CT on 03/16/2021 showed decrease in the previously described bilateral jugulodigastric lymph nodes to subcentimeter size with negative FDG uptake, consistent with complete response to treatment (Deauville criteria 1). Mediastinal lymph nodes appeared radiographically benign and without significant FDG uptake. There was no significant pelvic or abdominal adenopathy noted. With those findings, she was recommended to continue with 2 additional cycles of ABVD chemotherapy. She continued with cycle 3 on 03/21/2021 and with cycle 4 on 04/18/2021. Her other medical illnesses include hypertension, hyperlipidemia, asthma/COPD, GERD, obstructive sleep apnea, degenerative arthritis/degenerative disease of the spine, osteoporosis, vitamin D deficiency, and anxiety/depression. She has history of smoking 1 pack of cigarettes daily. INTERIM HISTORY: Her restaging PET/CT on 05/11/2021 was negative for malignancy (Deauville criteria 1). Previously described bilateral jugulodigastric nodes remained resolved. Mediastinal lymph nodes were radiographically benign and without significant FDG uptake. A 3 mm right lower lobe pulmonary nodules unchanged. There were no pulmonary infiltrates or other pulmonary parenchymal abnormalities noted. She is seen for a follow-up visit. She continues to complain that her energy is not good. Her activity is limited. ECOG score is 2. Her appetite is not very good. She has not had fever. She has been having hot and cold sweats. She is having some sinus drainage and she has a slight cough. She continues to complain that she is short of breath with any activity. She is smoking 1/2 pack of cigarettes daily. She has been having some pain in her lower chest, mainly when she swallows something hot or cold. It sometimes occurs with stress. She has a little nausea. She is not having any obvious acid reflux symptoms. Bowel function has been okay, but she occasionally has a little bit of red blood in the stool. She has no complaints. She has been having some joint pain, mainly in the right hip and right foot. It is not real bad. She does not complain of headache or dizziness. She still has a little bit of numbness/tingling, but it goes away. Medications: Acid Metal Casting Trades Worker (20.6 (20 base) mg) Capsule Delayed Release Oral daily, Adult Aspirin EC Low Strength (81 mg) Tablet, enteric coated Oral daily, Allergy (10 mg) Tablet Oral daily, Azelastine HCl (0.15 %) Solution Nasal daily, Cyclobenzaprine HCl (10 mg) Tablet Oral daily, Doxycycline Hyclate (100 mg) Tablet Oral b.i.d., FLUoxetine HCl (10 mg) Tablet Oral daily, hydroCHLOROthiazide 1 (12.5 mg) Tablet Oral daily, HYDROcodone-Acetaminophen (5-325 mg) Tablet Oral 8x/d, Lisinopril 1 (10 mg) Tablet Oral daily, Narcan Liquid Nasal, Pravachol (40 mg) Tablet Oral daily Allergies: Amoxicillin, clavulanic acid, KY jelly , and Pregabalin. Vital Signs: Performed on May 28, 2021 15:39 Height - 66.00 in Weight - 214.8 lbs (HIGH) BSA - 2.06 sq.m BMI - 34.67 (HIGH) Temperature - 97.3 F (LOW) Pulse - 114 /min (HIGH) Respiration - 18 /min BP - 134/93 mm(hg) O2 Sat - 96 % Pain - 6 Fatigue - 7 Physical Examination: Constitutional - She looks pretty good generally, Eyes - Sclerae nonicteric. Conjunctivae clear, ENMT - No lesions noted in the oral cavity, Hematologic/Lymphatic - No cervical, clavicular, or axillary adenopathy noted, Respiratory - Lungs sound clear. She has good air movement bilaterally, Cardiovascular - Heart rhythm is regular. There is no murmur, gallop, or rub noted, Abdomen - Soft. Liver and spleen are not enlarged. There is no abdominal mass or ascites noted and there is no inguinal adenopathy, Extremities - No edema, Neurologic - No focal neurologic deficits noted. Lab/Imaging: Test performed on May 28, 2021 14:00 LDH (Total) 224 U/L Sodium 141 mmol/L Potassium 3.6 mmol/L Chloride 104 mmol/L CO2 24 mmol/L Anion Gap 16.6 BUN 7 mg/dL Creatinine 0.7 mg/dL Cr Clearance (Est) 165.8600 mL/min eGFR 92.2 mL/min Glucose 101 mg/dL Osmolality - Calculated 290 mOsm/kg Calcium 9.1 mg/dL Protein, Total 6.7 g/dL Albumin 3.9 g/dL Globulin 2.8 g/dL Bilirubin, Total 0.3 mg/dL ALT (SGPT) 16 U/L AST (SGOT) 17 U/L Alkaline Phosphatase 72 IU/L WBC 8.5 10 3/uL RBC 3.67 10 6/uL HGB 11.6 g/dL HCT 35.7 % MCV 97.3 fl MCH 31.6 pg MCHC 32.5 g/dL RDW 14.8 % Platelet Count 370 10 3/cmm MPV 9.6 fL Neutrophils 4.94 10 3/uL Lymphocytes 2.4 10 3/uL Monocytes 1.0 10 3/uL Eosinophils 0.1 10 3/uL Basophils 0.1 10 3/uL Neutrophil % 58.0 % Lymphocyte % 28.2 % Monocyte % 11.8 % Eosinophil % 0.7 % Basophils % 0.8 % NRBC % 0 % Problem List: 1. Lymphocyte rich classical Hodgkin lymphoma, stage IIA. 2. Hypertension. 3. Hyperlipidemia. 4. Asthma/COPD. 5. Obstructive sleep apnea. 6. GERD. 7. Degenerative arthritis/degenerative disease of the spine. 8. Osteoporosis. 9. Vitamin D deficiency. 10. Anxiety/depression. 11. She has a strong family history for diabetes. Problems Addressed with this Encounter and Plan: 1. Patient with lymphocyte rich classical Hodgkin lymphoma diagnosed by left cervical lymph node biopsy and biopsy of nasopharyngeal mass on 12/05/2020. By PET/CT her disease appeared to be localized to the nasopharynx and cervical lymph nodes. As she did not have clear-cut B symptoms, by clinical evaluation her disease was stage IIA, and she was recommended to undergo treatment with ABVD chemotherapy. She began cycle 1 of ABVD on 01/23/2021. Her restaging PET/CT after 2 cycles was consistent with complete response to treatment (Deauville 1). With that finding, she was recommended to continue with 2 more cycles of chemotherapy. She continued with cycle 3 on 03/21/2021 and with cycle 4-day on 04/18/2021. Her restaging PET/CT on 05/11/2021 was again negative for malignancy (Deauville category 1). As such, she has completed her course of treatment and she will now be followed on expectant management. In view of the symptoms she is currently having, I am going to see her again in 1 month. 2. She has had persistent complaints of shortness of breath. The cause is uncertain. She does have a history of asthma/COPD, and she continues to smoke. She would be at some risk of bleomycin induced pulmonary toxicity, but there were no findings on the PET/CT which would suggest that kind of problem. At this point I will have her seen by a headliner installer. Signed By: Luis Lewis M.D. <<Signature on File>>
== END 2021-06-20 23:59 | disposition home or self-care (01) ==
LOC: ONCMED 06:02
PROVIDERS: PCP Nurse Practitioner Family; Visit Provider Internal Medicine Medical Oncology
DX: Z08 Encounter for follow-up examination after completed treatment for malignant neoplasm (principal); Z85.72 Personal history of non-Hodgkin lymphomas; I10 Essential (primary) hypertension; E78.5 Hyperlipidemia, unspecified; J45.909 Unspecified asthma, uncomplicated; J44.9 Chronic obstructive pulmonary disease, unspecified; G47.33 Obstructive sleep apnea (adult) (pediatric); K21.9 Gastro-esophageal reflux disease without esophagitis; M47.9 Spondylosis, unspecified; M81.0 Age-related osteoporosis without current pathological fracture; E55.9 Vitamin D deficiency, unspecified; F41.9 Anxiety disorder, unspecified; F32.9 Major depressive disorder, single episode, unspecified; Z83.3 Family history of diabetes mellitus; Z79.899 Other long term (current) drug therapy; Z92.21 Personal history of antineoplastic chemotherapy
CPT/HCPCS: 36415; 36593; 80053; 83615; 85025; 96374; 99214; J2997

== ENCOUNTER → 2021-05-31 10:51 | Outpatient (BNVA) | payer MEDICAID, SELFPAY | PROVIDERS: PCP Nurse Practitioner Family; Visit Provider Nurse Practitioner Family | DX: M79.671 Pain in right foot (principal) | CPT/HCPCS: 73630 ==

== ENCOUNTER 2021-06-18 16:41 | Outpatient (CLI) | payer MEDICAID, SELFPAY ==
--- NOTE | 2021-06-18 16:45 | XR_ITS ---
WS: [id number] Exam: XR chest 2V* [id number] Date/Time of Exam: 06/18/2021 4:45 PM Reason For Exam: RULE OUT PNEUMONIA Comparison 02/26/2021. The lungs are clear. Normal cardiomediastinal structures and regional bony elements. No pleural effus ions. A right-sided Chemo-Port is noted ending in the lower one third of the SVC. Signs of the lower cervical spine fusion with plate and screw fixation. An intramedullary jennifer is partially visualized in the upper right humerus. XR/XR chest 2V* [id number] IMPRESSION: 1. No acute cardiopulmonary finding. No change.
[2021-06-20 11:48] LABS: Alpha 1 Antitrypsin 177 mg/dL (83-199)
[2021-06-20 16:12] LABS: Immunoglobulin E <2 kU/L (<OR=114)
== END 2021-06-18 16:42 | disposition home or self-care (01) ==
LOC: RAD 16:44
PROVIDERS: PCP Nurse Practitioner Family; Visit Provider Internal Medicine Pulmonary Disease
DX: J44.9 Chronic obstructive pulmonary disease, unspecified (principal); J06.9 Acute upper respiratory infection, unspecified; R06.02 Shortness of breath; J30.89 Other allergic rhinitis
CPT/HCPCS: 36415; 71046; 82103; 82785; 86003

== ENCOUNTER 2021-07-03 10:30 | Outpatient (RCR) | payer MEDICAID, SELFPAY ==
[2021-07-02 12:23] LABS: Basophils # 0.1 10^3/uL (0.0-0.1); Basophils % 0.6 %; Eosinophils # 0.8 10^3/uL (0.0-0.8); Eosinophils % 9.6 %; Hematocrit 42.8 % (37.0-47.0); Hemoglobin 13.6 g/dL (11.5-15.3); Lymphocytes # 2.4 10^3/uL (0.8-4.8); Lymphocytes % 30.1 %; Mean Corpuscular HGB Conc 31.8 g/dL (30.0-36.0); Mean Corpuscular Hemoglobin 29.4 pg (28.0-34.0); Mean Corpuscular Volume 92.4 fl (81-99); Mean Platelet Volume 9.6 fL (7.4-10.4); Monocytes # 0.7 10^3/uL (0.2-0.9); Monocytes % 8.4 %; Neutrophils % 50.9 %; Nucleated Red Blood Cells % 0 %; Platelet Count 230 10^3/cmm (130-400); Red Blood Count 4.63 10^6/uL (4.1-5.3); Red Cell Distribution Width 13.4 % (12.1-15.1); White Blood Count 7.9 10^3/uL (4.0-10.0)
[2021-07-02] MEDS: alteplase 1 mg/mL SDV 2 mL 2 MG IV (12:25)
--- NOTE | 2021-07-02 12:33 | PC.PHAR ---
OK TO INCREASE DOSE TO NORCO PER GUICHO
[2021-07-02 12:50] LABS: Alanine Aminotransferase 16 U/L (0-33); Albumin Level 4.1 g/dL (3.5-5.2); Alkaline Phosphatase 66 IU/L (35-105); Anion Gap 11.8 (5-19); Aspartate Amino Transferase 14 U/L (0-32); Blood Urea Nitrogen 11 mg/dL (6-20); Calcium 9.6 mg/dL (8.5-10.5); Carbon Dioxide 27 mmol/L (22-29); Chloride 104 mmol/L (98-107); Globulin 2.7 g/dL (1.3-4.6); Glucose 111 mg/dL (65-115); Lactate Dehydrogenase 145 U/L (135-214); Osmolality Calculated 288 mOsm/kg (285-295); Potassium 3.8 mmol/L (3.5-5.1); Sodium 139 mmol/L (136-145); Total Bilirubin 0.2 mg/dL (0.15-1.2); Total Protein 6.8 g/dL (6.6-8.7)
[2021-07-02] MEDS: HYDROcodone-acetaminophen 10-325 mg Tablet 1 TAB PO (12:52)
[2021-07-02] MEDS: sodium chloride 0.9% 500 ML 999 ML IV (13:23)
--- NOTE | 2021-07-03 10:01 | XR_ITS ---
WS: [id number] CHEST 2 VIEWS HISTORY: SHORTNESS OF BREATH; LYMPHOMA ALSO FOR CT COMPARISON: 06/18/2021 Lungs: Clear with no abnormality. No pleural effusion or pneumothorax. Cardiac size: Normal. Mediastinum/Aorta: Normal mediastinum. Bones: Prior anterior cervical fusion. RIGHT subclavian Mediport with tip in the distal SVC. XR/XR chest 2V* [id number] IMPRESSION: No pneumonia. No acute interval change.
--- NOTE | 2021-07-03 10:01 | XR_ITS ---
WS: [id number] Bilateral hips. HISTORY: Hip pain after fall. COMPARISON: 10/30/2020. No fractures or dislocations. No osteoblastic or osteolytic bone disease. No significant degenerative changes at the hips. XR/XR hip BI 3-4V wo/w pel [id number] IMPRESSION: Negative bilateral hips. No fractures.
--- NOTE | 2021-07-03 10:01 | CT_ITS ---
WS: [id number] CT HEAD WITH AND WITHOUT CONTRAST HISTORY: DIZZINESS,HEADACHE,VISION CHANGES, UNEXPLAINED SYNCOPE TECHNIQUE: Noncontrast 2.5 mm axial images obtained from the vertex to the skull base. Additional mary alice ging performed at 2.5 mm axial images status post IV contrast. Bone and soft tissue windows are revie wed. All CT scans at [facility] use at least one of these dose optimization techniques: autom ated exposure control; mA and/or kV adjustment per patient size (includes targeted exams where dose i s matched to clinical indication); or iterative reconstruction. CONTRAST: Omnipaque 300; 95 mL IV. DLP: 1229.96 mGy.cm COMPARISON: 01/24/2021 No acute intracranial hemorrhage, edema or midline shift. No enhancing mass or vascular malformations identified. Dural venous sinuses are normally enhancing. Visualized [place] is unremarkable. Paranasal sinuses as visualized: Clear. Mastoid air cells: Clear. Calvarium and scalp: Intact. CT/CT head w con [id number] IMPRESSION: 1. No acute intracranial hemorrhage or edema. No enhancing mass. 2. Negative CT head with and without contrast.
[2021-07-03] MEDS: iohexol 300 mg/mL 100 mL Btl IV (10:45)
--- NOTE | 2021-07-07 23:11 | ONC FU_ITS ---
[facility] Patient Note Patient: Alla Liz Unit #: [id number]: 1980 Dictated By: Francie MckennaDate of Visit: Jul 02, 2021 Onc MED Follow-Up/Prog Note Chief Complaint: Hodgkin lymphoma. 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 She had presented with a knot on the right side of her neck. She was noted to have bilateral cervical adenopathy. Her neck CT on 11/12/2020 showed prominent asymmetric soft tissue in the posterior right nasopharynx measuring 14 x 11 mm, noted to be in the expected location of the adenoids. There were numerous enlarged bilateral cervical chain lymph nodes with the largest on the left measuring up to 1.3 cm. She was referred to Dr. Drew. She underwent direct laryngoscopy with endoscopic biopsy of the nasopharyngeal mass and excisional biopsy of 2 left cervical lymph nodes. Pathology at all sites was consistent with lymphocyte rich classic Hodgkin lymphoma. Her staging PET/CT on 12/22/2020 showed a left cervical level II node measuring 1.9 x 1.4 cm with SUV 5.4. Other similar nodes were present in the right IIA, V, and left II territories, also likely to be involved with lymphoma. There was noted to be prominent uptake along the mucosal surface of the head and neck but without localized activity. There were no other areas of abnormal uptake on that study. Dr Lewis had seen her initially on 12/26/2020. By clinical evaluation, her disease was stage IIA and she was recommended to begin treatment with ABVD chemotherapy for 2 cycles followed by restaging PET/CT. Her baseline echocardiogram showed normal left ventricular ejection fraction at 61%. Her pulmonary function studies showed normal diffusion capacity at 101% of predicted. She began cycle 1 of ABVD chemotherapy on 01/23/2021. She was able to tolerate it with acceptable toxicity. She continued with cycle 1 day 15 treatment on 02/06/2021, with cycle 2 day 1 on 02/21/2021, and with cycle 2 day 15 on 03/07/2021. Her restaging PET/CT on 03/16/2021 showed decrease in the previously described bilateral jugulodigastric lymph nodes to subcentimeter size with negative FDG uptake, consistent with complete response to treatment (Deauville criteria 1). Mediastinal lymph nodes appeared radiographically benign and without significant FDG uptake. There was no significant pelvic or abdominal adenopathy noted. With those findings, she was recommended to continue with 2 additional cycles of ABVD chemotherapy. She continued with cycle 3 on 03/21/2021 and with cycle 4 on 04/18/2021. Her other medical illnesses include hypertension, hyperlipidemia, asthma/COPD, GERD, obstructive sleep apnea, degenerative arthritis/degenerative disease of the spine, osteoporosis, vitamin D deficiency, and anxiety/depression. She has history of smoking 1 pack of cigarettes daily. INTERIM HISTORY: Her restaging PET/CT on 05/11/2021 was negative for malignancy (Deauville criteria 1). Previously described bilateral jugulodigastric nodes remained resolved. Mediastinal lymph nodes were radiographically benign and without significant FDG uptake. A 3 mm right lower lobe pulmonary nodules unchanged. There were no pulmonary infiltrates or other pulmonary parenchymal abnormalities noted. She presents today for an urgent, uncscheduled appointment after passing out a few days ago . She reported getting dizzy, diapheritic and feeling really weak overall. Drinking a soda didn't help . She has had no more passing out spells . She states that she felt like she hit her head and her ribs have been sore. She has not been coughing. She states that her hips have been hurting on both sides since the fall. She states it hurts to walk more so with the right but the left is tender as well. She denies any orthopnea but states she is more winded than normal for her. She states she gets out of breath just walking around the house sometimes. She denies any wheezing. She denies any runny nose or cough presently.. Has had no hemoptysis. She states she just feels off today and weak in general. She denies any headaches or vision changes. She has had no more diaphoresis but is anxious today. She denies any lower extremity edema today but states she has been swelling in her feet and ankles off and on for the last couple of weeks. She states her bowels and bladder are normal for her. She states her appetite is down she is just not been able to eat or drink very well for the last couple of days. She states she is worried that the cancer is back. Her ECOG is 1 Past Medical History: Anxiety Asthma/COPD Degenerative arthritis Degenerative disease of the spine Depression Gastroesophageal reflux disease Hyperlipidemia Hypertension Obstructive sleep apnea Osteoporosis Type II diabetes Vitamin D deficiency Past Surgical History: Nasal surgery Open reduction/internal fixation of right midshaft humerus fracture in 2018 C5-C6, C6-C7 anterior discectomy/fusion/fixation in 2018 Colonoscopy in 2017 Hysteroscopy followed by D&C and thermal ablation in 2011 section and tubal ligation in 2001 section in 1999 Allergies: Amoxicillin, clavulanic acid, KY jelly , and Pregabalin. Medications: Acid General Repairer (20.6 (20 base) mg) Capsule Delayed Release Oral daily Adult Aspirin EC Low Strength (81 mg) Tablet, enteric coated Oral daily Allergy (10 mg) Tablet Oral daily Azelastine HCl (0.15 %) Solution Nasal daily Cyclobenzaprine HCl (10 mg) Tablet Oral daily Doxycycline Hyclate (100 mg) Tablet Oral b.i.d. FLUoxetine HCl (10 mg) Tablet Oral daily hydroCHLOROthiazide 1 (12.5 mg) Tablet Oral daily HYDROcodone-Acetaminophen (5-325 mg) Tablet Oral 8x/d Lisinopril 1 (10 mg) Tablet Oral daily Narcan Liquid Nasal Pravachol (40 mg) Tablet Oral daily Family History: Ms. Liz's mother is alive: hypertension, and type II diabetes. Ms. Liz does not know if her father is alive: asthma, and heart disease, and hypertension, and type II diabetes. Ms. Liz has 3 brothers: 2 alive, 1 . Ms. Liz's first brother's myocard. She has 1 sister who is alive. Family history is significant for coronary artery disease and diabetes affecting her father and 2 brothers. One brother is . Her mother and her sister have diabetes. Social History: Ms. Liz is . She is a daily smoker who smokes 1.0 pack/day. She drinks occasionally. She has indicated exposure to the following products: recreational drug use and marijuana. She has history of smoking 1 pack of cigarettes daily for 28 years. She also smokes marijuana daily. She reports having weekly alcohol use. Review Of Symptoms: <See Above> Vital Signs: Performed on Jul 02, 2021 11:43 Height - 66.00 in Temperature - 97.9 F (LOW) Pulse - 87 /min Respiration - 18 /min BP - 138/85 mm(hg) O2 Sat - 98 % Pain - 10 Fatigue - 6,1 - No physically strenuous activity, but ambulatory and able to carry out light or sedentary work (e.g. office work, light house work). (ECOG) Physical Examination: Constitutional Alert, oriented, no acute distress. Skin pink, warm and dry. Head Normocephalic; atraumatic. Eyes Conjunctivae and sclerae are clear and without icterus. Pupils are reactive and equal. ENMT No oral exudates, ulcers, masses, thrush or mucositis. Oropharynx clear. Tongue normal. Respiratory Lungs are clear to auscultation without rhonchi or wheezing. Cardiovascular Regular rate and rhythm of heart without murmurs,clicks, gallops or rubs. Chest Right chest wall access device insertion site is unremarkable. Abdomen Non-tender, non-distended, no masses or ascites. Good bowel sounds noted in all quads. No guarding or rebound tenderness. No pulsatile masses. Back/Spine Non-tender to palpation. Extremities No visible deformities, no cyanosis, clubbing or edema. Musculoskeletal No tenderness or swelling, normal range of motion without obvious weakness. Integumentary No rashes or lesions. Neurologic No sensory or motor deficits, normal cerebellar function, slow gait. Psychiatric Alert and oriented times three. Coherent speech. Verbalizes understanding of our discussions today. Laboratory:Test performed on Jul 02, 2021 12:08 LDH (Total) 145 U/L Sodium 139 mmol/L Potassium 3.8 mmol/L Chloride 104 mmol/L CO2 27 mmol/L Anion Gap 11.8 BUN 11 mg/dL Creatinine 0.8 mg/dL Cr Clearance (Est) 145.1300 mL/min eGFR 79.0 mL/min Glucose 111 mg/dL Osmolality - Calculated 288 mOsm/kg Calcium 9.6 mg/dL Protein, Total 6.8 g/dL Albumin 4.1 g/dL Globulin 2.7 g/dL Bilirubin, Total 0.2 mg/dL ALT (SGPT) 16 U/L AST (SGOT) 14 U/L Alkaline Phosphatase 66 IU/L WBC 7.9 10 3/uL RBC 4.63 10 6/uL HGB 13.6 g/dL HCT 42.8 % MCV 92.4 fl MCH 29.4 pg MCHC 31.8 g/dL RDW 13.4 % Platelet Count 230 10 3/cmm MPV 9.6 fL Neutrophils 4.00 10 3/uL Lymphocytes 2.4 10 3/uL Monocytes 0.7 10 3/uL Eosinophils 0.8 10 3/uL Basophils 0.1 10 3/uL Neutrophil % 50.9 % Lymphocyte % 30.1 % Monocyte % 8.4 % Eosinophil % 9.6 % Basophils % 0.6 % NRBC % 0 % Impression: 1. Lymphocyte rich classical Hodgkin lymphoma, stage IIA. 2. Hypertension. 3. Hyperlipidemia. 4. Asthma/COPD. 5. Obstructive sleep apnea. 6. GERD. 7. Degenerative arthritis/degenerative disease of the spine. 8. Osteoporosis. 9. Vitamin D deficiency. 10. Anxiety/depression. 11. She has a strong family history for diabetes. Plan/Problems Addressed at this Visit: 1. Patient with lymphocyte rich classical Hodgkin lymphoma diagnosed by left cervical lymph node biopsy and biopsy of nasopharyngeal mass on 12/05/2020. By PET/CT her disease appeared to be localized to the nasopharynx and cervical lymph nodes. As she did not have clear-cut B symptoms, by clinical evaluation her disease was stage IIA, and she was recommended to undergo treatment with ABVD chemotherapy. She began cycle 1 of ABVD on 01/23/2021. Her restaging PET/CT after 2 cycles was consistent with complete response to treatment (Deauville 1). With that finding, she was recommended to continue with 2 more cycles of chemotherapy. She continued with cycle 3 on 03/21/2021 and with cycle 4-day on 04/18/2021. Her restaging PET/CT on 05/11/2021 was again negative for malignancy (Deauville category 1). As such, she has completed her course of treatment and she will now be followed on expectant management. Mrs. Ghosh presents today with generalized weakness, anxiety after a recent fall with new complaints of shortness of breath, bilateral hip pain, decreased appetite and oral intake and head pain after falling. A. She received supportive care with hydration and antiemetics today if needed. B. I requested a CBC CMP LDH today. Have also asked for a chest x-ray due to the shortness of breath and her history of lymphoma. C. We will ask for CT of the head with IV contrast due to headache unexplained syncope and her reports of dizziness and vision changes prior to her syncopal episode. D. Of also asked for plain films of the hips bilaterally due to bilateral hip pain after the fall. We have been unable to explain her fall. She states that she does, got dizzy and went down . I cannot ascertain that she actually was out for any length of time and did not appear to have any seizure-like activity. E. We will go over the labs with her once those are available and plan to see her back in 2 weeks to go over all of her requested imaging unless otherwise needed. We will see her sooner if needed. F. I was able to go over her labs with her today and reassured her that those were all normal. We will call her with results of the x-rays once those were obtained in the CT and echocardiogram. G. Mrs. Liz was instructed to contact us in interim should questions or problems arise. H. refill her lorazepam to use as needed for anxiety.. Signed By: Francie Mckenna-, AOCNP Luis Lewis MD <<Signature on File>>
== END 2021-07-21 23:59 | disposition home or self-care (01) ==
LOC: RAD 10:30
PROVIDERS: PCP Nurse Practitioner Family; Visit Provider Nurse Practitioner
DX: R53.1 Weakness (principal); F41.9 Anxiety disorder, unspecified; M25.552 Pain in left hip; R51.9 Headache, unspecified; M25.551 Pain in right hip; I10 Essential (primary) hypertension; E78.5 Hyperlipidemia, unspecified; J44.9 Chronic obstructive pulmonary disease, unspecified; Z85.71 Personal history of Hodgkin lymphoma
CPT/HCPCS: 36415; 36593; 70460; 71046; 73522; 80053; 83615; 85025; 96361; 96374; 99215; J2997; J7040; Q9967

== ENCOUNTER 2021-07-05 19:54 | Emergency (ER) | payer MEDICAID, SELFPAY ==
[2021-07-05 20:04] VITALS: BP 117/84; PULSE 89; RESP 18; TEMP 36.7; O2SAT 99; BMI 34.8
--- NOTE | 2021-07-05 20:10 | W.ED.SKABFB ---
HPI - Skin/Abscess/Foreign Bdy General: Chief complaint: Skin/Abscess/Foreign Body Stated complaint: Rash around chemo port Time Seen by Provider: 07/05/21 20:10 History of Present Illness: HPI narrative: 40-year-old female comes in today for concerns of a rash developing to her right chest wall for the last 2 to 3 days. Patient states that she had her port flushed 2 days ago but since then has noticed more of a rash developing. Before that she did have some pain and tenderness along that right chest wall. Patient appears well. Patient appears no acute distress. 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 avila Hx of tubal ligation 2001 Port-A-Cath in place (01/10/21) Family History (Updated 06/18/21 @ 15:18 by Taniya Fields LPN) Mother Hypercholesteremia Diabetes Hypertension Psychiatric illness, Onset Age: 20 Mother had an affair with a man. [employer] took her children away. The patient is the product of this liaison. Brother Hypercholesteremia Diabetes Hypertension Myocardial infarct Father Hypercholesteremia Diabetes Hypertension Sister Hypertension Stroke Social History (Updated 06/18/21 @ 15:17 by Taniya Fields LPN) Smoking and tobacco status: current every day smoker cigarettes Packs smoked per day: 1.5 Years cigarettes smoked: 27 Second hand smoke exposure: No Alcohol intake: current Alcohol intake frequency: few times a week Caregiver/support person: Yes (spouse) Lives independently: Yes Household members: spouse Housing: House Marital status: service: No Current occupational status: disabled History of recent travel: No Current gender identity: Female Special kamille needs: No Agree to transfusion: Yes Physical Exam Const: COMMON NORMALS: no acute distress and patient oriented x3 GENERAL APPEARANCE: cooperative HENMT: COMMON NORMALS: normocephalic and Normal external nose present HEAD & SCALP: normal to inspection and normocephalic NOSE: Normal external nose present MOUTH: Normal oral and palatal mucosa present Eye: GENERAL EYE: appearance normal, both eyes and all related structures Neck/C-Spine: COMMON NORMALS: full ROM Chest: COMMONS NORMALS: normal inspection of the chest Resp: COMMON NORMALS: normal respiratory effort EFFORT & INSPECTION: Yes able to speak in complete sentences Cardio: COMMON NORMALS: regular rate and regular rhythm RATE: regular rate RHYTHM: regular rhythm GI: COMMON NORMALS: non-tender Extremity: COMMON NORMALS: normal to inspection Neuro: COMMON NORMALS: patient oriented x3 and moves all extremities Psych: COMMON NORMALS: mental status grossly normal and cooperative Skin: NARRATIVE SKIN EXAM: Erupting vesicular lesions to the right anterior chest wall developing along a linear pattern. Course Vital Signs: Vital signs: Vital Signs Temperature 98.0 F 07/05/21 20:04 Pulse Rate 89 07/05/21 20:04 Respiratory Rate 18 07/05/21 20:04 Blood Pressure 117/84 07/05/21 20:04 Pulse Oximetry 99 07/05/21 20:04 MDM - Skin/Abscess/Foreign Bdy MDM Narrative: Medical decision making narrative: 40-year-old female comes in today with a rash developing to her right anterior chest wall in a linear pattern. Patient states that there is some pain with the rash. On exam we note a vesicular lesions developing along the right anterior chest wall in a linear pattern. Differential diagnosis includes herpes zoster, cellulitis, contact dermatitis. It appears patient probably has shingles. We will start her on valacyclovir and recommend lidocaine gel for her pain. Patient can also use hydrocodone for breakthrough pain. Patient reported understanding of care plan and need for follow-up or return to the ER. Discharge Plan Discharge Patient Disposition: Home Clinical Impression: Shingles Qualifiers: Herpes zoster complications: without complications Qualified Code(s): B02.9 - Zoster without complications Condition: Stable Prescriptions: New valacyclovir 1 gram tablet 1,000 mg PO TID 7 Days Qty: 21 RF: 0 No Action azelastine 137 mcg (0.1 %) aerosol,spray 1 spray INTRANASAL BID RF: 0 nicotine (polacrilex) 2 mg gum 2 mg buccal Q2H Qty: 50 RF: 3 nicotine 21-14-7 mg/24 hr patch, TD daily, sequential See Rx Instructions transdermal .COMPLEX Qty: 56 RF: 0 budesonide-formoterol [Symbicort] 80-4.5 mcg/actuation HFA aerosol inhaler 2 puff inhalation BID Qty: 10.2 RF: 3 ibuprofen 800 mg tablet 800 mg PO TID PRN (Reason: pain) 30 Days Qty: 84 RF: 2 mupirocin 2 % ointment 1 applic topical BID Qty: 22 RF: 0 quetiapine [Seroquel] 50 mg tablet 100 mg PO BEDTIME@2100 Qty: 60 RF: 5 pravastatin 40 mg tablet 40 mg PO BEDTIME@2100 Qty: 30 RF: 5 omeprazole 20 mg capsule,delayed release(DR/EC) 20 mg PO BID@0900,2100 Qty: 30 RF: 5 hydrochlorothiazide 12.5 mg tablet 12.5 mg PO DAILY@0900 Qty: 30 RF: 5 fluticasone propionate [Flonase Allergy Relief] 50 mcg/actuation spray,suspension 2 spray INTRANASAL DAILY@0900 Qty: 16 RF: 5 cyclobenzaprine 10 mg tablet 10 mg PO BID PRN (Reason: muscle spasm) 30 Days Qty: 60 RF: 5 albuterol sulfate [ProAir HFA] 90 mcg/actuation HFA aerosol inhaler 2 puff INHALATION Q4H PRN (Reason: shortness of breath or wheezing) 30 Days Qty: 1 RF: 5 ergocalciferol (vitamin D2) 1,250 mcg (50,000 unit) capsule See Rx Instructions .ROUTE .COMPLEX Qty: 4 RF: 2 lidocaine-prilocaine 2.5-2.5 % cream See Rx Instructions .ROUTE .COMPLEX RF: 0 levocetirizine 5 mg tablet 5 mg PO DAILY@0900 RF: 0 ondansetron 4 mg tablet,disintegrating 4 mg PO Q6H PRN (Reason: nausea and vomiting) Qty: 14 RF: 0 hydrocodone-acetaminophen 5-325 mg tablet 1 tab PO Q6H PRN (Reason: pain) Qty: 20 RF: 0 ondansetron HCl [Zofran] 4 mg tablet 4 mg PO Q6H PRN (Reason: nausea and vomiting) Qty: 20 RF: 0 Discharge Orders: Discharge ED (Routine); Ordered 07/05/21 Ordered By: Khoa Gutierrez Referrals: Venice Barry FNP [Primary Care Provider] - Discharge Diet: Usual diet Discharge Activity: Increase activity as tolerated Patient Instructions: Shingles (ED), Opioid Safety Activity Restrictions/Additional Instructions: Home and rest. Drink plenty of water. Activity as tolerated. Use [id number] lidocaine topical preparations to the rash to help pain control. Use hydrocodone for breakthrough pain. Take valacyclovir for outbreaks for the next 7 days. Follow-up with primary care as needed. Return to the ED for new concerns. Coding Level of Care Code ED Inspecting Machine Adjuster for Yvette Fweboni Exam Comprehensive
[2021-07-05] MEDS: valACYclovir 1,000 mg Tablet 1000 MG PO (20:31)
== END 2021-07-05 20:34 | disposition home or self-care (01) ==
LOC: ER 20:20
PROVIDERS: Emergency Provider Nurse Practitioner Family; PCP Nurse Practitioner Family
DX: B02.9 Zoster without complications (principal); F17.210 Nicotine dependence, cigarettes, uncomplicated; I10 Essential (primary) hypertension; Z85.71 Personal history of Hodgkin lymphoma; E78.5 Hyperlipidemia, unspecified
CPT/HCPCS: 99282

== ENCOUNTER 2021-07-29 12:16 | Outpatient (RCR) | payer MEDICAID, SELFPAY ==
[2021-07-29] MEDS: alteplase 1 mg/mL SDV 2 mL 2 MG IV (12:45)
[2021-07-29 14:02] LABS: Basophils # 0.1 10^3/uL (0.0-0.1); Basophils % 0.7 %; Eosinophils # 0.3 10^3/uL (0.0-0.8); Eosinophils % 4.1 %; Hematocrit 39.3 % (37.0-47.0); Hemoglobin 12.7 g/dL (11.5-15.3); Lymphocytes # 2.8 10^3/uL (0.8-4.8); Lymphocytes % 36.4 %; Mean Corpuscular HGB Conc 32.3 g/dL (30.0-36.0); Mean Corpuscular Hemoglobin 29.3 pg (28.0-34.0); Mean Corpuscular Volume 90.8 fl (81-99); Mean Platelet Volume 9.7 fL (7.4-10.4); Monocytes # 0.6 10^3/uL (0.2-0.9); Monocytes % 8.3 %; Neutrophils # 3.82 10^3/uL (1.8-7.7); Neutrophils % 50.2 %; Nucleated Red Blood Cells % 0 %; Platelet Count 244 10^3/cmm (130-400); Red Blood Count 4.33 10^6/uL (4.1-5.3); Red Cell Distribution Width 14.3 % (12.1-15.1); White Blood Count 7.6 10^3/uL (4.0-10.0)
[2021-07-29 14:17] LABS: Alanine Aminotransferase 12 U/L (0-33); Albumin Level 3.9 g/dL (3.5-5.2); Alkaline Phosphatase 60 IU/L (35-105); Anion Gap 15.8 (5-19); Aspartate Amino Transferase 14 U/L (0-32); Blood Urea Nitrogen 7 mg/dL (6-20); Carbon Dioxide 24 mmol/L (22-29); Chloride 105 mmol/L (98-107); Globulin 2.6 g/dL (1.3-4.6); Glomerular Filtration Rate 92.2 mL/min (90-130); Glucose 79 mg/dL (65-115); Lactate Dehydrogenase 143 U/L (135-214); Osmolality Calculated 289 mOsm/kg (285-295); Potassium 3.8 mmol/L (3.5-5.1); Sodium 141 mmol/L (136-145); Total Bilirubin 0.2 mg/dL (0.15-1.2); Total Protein 6.5 g/dL (6.6-8.7)
--- NOTE | 2021-07-29 14:21 | ONC FU_ITS ---
Dr. Lewis Patient Follow-Up Note Patient: Alla Liz Unit #: [id number]: 1980 Dicatated By: Luis Lewis M.D.Date of Visit:Jul 29, 2021 Onc Med Follow-up/Prog Note Chief Complaint: Hodgkin lymphoma. 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 She had presented with a knot on the right side of her neck. She was noted to have bilateral cervical adenopathy. Her neck CT on 11/12/2020 showed prominent asymmetric soft tissue in the posterior right nasopharynx measuring 14 x 11 mm, noted to be in the expected location of the adenoids. There were numerous enlarged bilateral cervical chain lymph nodes with the largest on the left measuring up to 1.3 cm. She was referred to Dr. Drew. She underwent direct laryngoscopy with endoscopic biopsy of the nasopharyngeal mass and excisional biopsy of 2 left cervical lymph nodes. Pathology at all sites was consistent with lymphocyte rich classic Hodgkin lymphoma. Her staging PET/CT on 12/22/2020 showed a left cervical level II node measuring 1.9 x 1.4 cm with SUV 5.4. Other similar nodes were present in the right IIA, V, and left II territories, also likely to be involved with lymphoma. There was noted to be prominent uptake along the mucosal surface of the head and neck but without localized activity. There were no other areas of abnormal uptake on that study. I had seen her initially on 12/26/2020. By clinical evaluation, her disease was stage IIA and she was recommended to begin treatment with ABVD chemotherapy for 2 cycles followed by restaging PET/CT. Her baseline echocardiogram showed normal left ventricular ejection fraction at 61%. Her pulmonary function studies showed normal diffusion capacity at 101% of predicted. She began cycle 1 of ABVD chemotherapy on 01/23/2021. She was able to tolerate it with acceptable toxicity. She began cycle 2 on 02/21/2021. Her restaging PET/CT on 03/16/2021 showed decrease in the previously described bilateral jugulodigastric lymph nodes to subcentimeter size with negative FDG uptake, consistent with complete response to treatment (Deauville criteria 1). Mediastinal lymph nodes appeared radiographically benign and without significant FDG uptake. There was no significant pelvic or abdominal adenopathy noted. With those findings, she was recommended to continue with 2 additional cycles of ABVD chemotherapy. She continued with cycle 3 on 03/21/2021 and with cycle 4 on 04/18/2021. Her restaging PET/CT on 05/11/2021 was negative for malignancy (Deauville criteria 1). Previously described bilateral jugulodigastric nodes remained resolved. Mediastinal lymph nodes were radiographically benign and without significant FDG uptake. A 3 mm right lower lobe pulmonary nodules unchanged. There were no pulmonary infiltrates or other pulmonary parenchymal abnormalities noted. With those findings, she then began expectant management. Her other medical illnesses include hypertension, hyperlipidemia, asthma/COPD, GERD, obstructive sleep apnea, degenerative arthritis/degenerative disease of the spine, osteoporosis, vitamin D deficiency, and anxiety/depression. She has history of smoking 1 pack of cigarettes daily. INTERIM HISTORY: She had been seen here about a month ago with complaint of having nearly passed out while waiting in line at [employer]. It started with hot flashes and sweating. She says she then went deaf and blind and then went down . Her contrast-enhanced head CT was unrevealing. On 07/05/2021 she was seen in the emergency room with a skin eruption in the right upper chest/back. She was treated for herpes zoster with valacyclovir 1 g 3 times daily for 7 days. She is seen for a scheduled follow-up visit. She still complains of being fatigued, but she is babysitting her 3 grandchildren. Her ECOG score is 1. Her appetite is not good, she says she does eat. She has gained weight. She has not had fever. She has been having a lot of hot flashes and sweating. She has sinus drainage and cough. She has shortness of breath, but her breathing lately has been a little better. She still has some pain associated with the shingles. She has had a little bit of nausea and a little bit of acid reflux. Bowel and bladder function have been okay. She complains that her whole entire body hurts when she first wakes up, but that does tend to get better with activity. She also has been having pain in her neck and she has had some swelling and numbness in her left arm and hand. She has some headaches and she sometimes has dizziness. She had pre-existing numbness in her right hand. Medications: Acid Sheet Ironworker (20.6 (20 base) mg) Capsule Delayed Release Oral daily, Adult Aspirin EC Low Strength (81 mg) Tablet, enteric coated Oral daily, Allergy (10 mg) Tablet Oral daily, Azelastine HCl (0.15 %) Solution Nasal daily, Cyclobenzaprine HCl (10 mg) Tablet Oral daily, Doxycycline Hyclate (100 mg) Tablet Oral b.i.d., FLUoxetine HCl (10 mg) Tablet Oral daily, hydroCHLOROthiazide 1 (12.5 mg) Tablet Oral daily, HYDROcodone-Acetaminophen (5-325 mg) Tablet Oral 8x/d, Lisinopril 1 (10 mg) Tablet Oral daily, Narcan Liquid Nasal, Pravachol (40 mg) Tablet Oral daily Allergies: Amoxicillin, clavulanic acid, KY jelly , and Pregabalin. Vital Signs: Performed on Jul 29, 2021 12:48 Height - 66.00 in Weight - 224.2 lbs (HIGH) BSA - 2.10 sq.m BMI - 36.19 (HIGH) Temperature - 98.0 F (LOW) Pulse - 94 /min Respiration - 18 /min BP - 125/86 mm(hg) O2 Sat - 96 % Pain - 10 Fatigue - 2 Physical Examination: Constitutional - She looks pretty good generally, Eyes - Sclerae nonicteric. Conjunctivae clear, ENMT - No lesions noted in the oral cavity, Hematologic/Lymphatic - No cervical, clavicular, or axillary adenopathy noted, Respiratory - Lungs sound clear. She has pretty good air movement bilaterally, Cardiovascular - Heart rhythm is regular. There is no murmur, gallop, or rub noted, Abdomen - Soft. Liver and spleen are not enlarged. There is no abdominal mass or ascites noted and there is no inguinal adenopathy, Extremities - No edema, Neurologic - No focal neurologic deficits noted. Problem List: 1. Lymphocyte rich classical Hodgkin lymphoma, stage IIA. 2. Hypertension. 3. Hyperlipidemia. 4. Asthma/COPD. 5. Obstructive sleep apnea. 6. GERD. 7. Degenerative arthritis/degenerative disease of the spine. 8. Osteoporosis. 9. Vitamin D deficiency. 10. Anxiety/depression. 11. She has a strong family history for diabetes. Problems Addressed with this Encounter and Plan: 1. Patient with lymphocyte rich classical Hodgkin lymphoma diagnosed by left cervical lymph node biopsy and biopsy of nasopharyngeal mass on 12/05/2020. By PET/CT her disease appeared to be localized to the nasopharynx and cervical lymph nodes. As she did not have clear-cut B symptoms, by clinical evaluation her disease was stage IIA, and she was recommended to undergo treatment with ABVD chemotherapy. She began cycle 1 of ABVD on 01/23/2021. Her restaging PET/CT after 2 cycles was consistent with complete response to treatment (Deauville 1). With that finding, she was recommended to continue with 2 more cycles of chemotherapy. She continued with cycle 3 on 03/21/2021 and with cycle 4-day on 04/18/2021. Her restaging PET/CT on 05/11/2021 was again negative for malignancy (Deauville category 1). With those findings she then began expectant management. During follow-up she had continued to complain of fatigue and shortness of breath, and she also reported having fairly generalized musculoskeletal pain. Since then the shortness of breath has improved. She continues to have significant fatigue and musculoskeletal pain. Thus far there has been no evidence of recurrence/progression of the Hodgkin lymphoma. She continues expectant management, but I will recheck laboratory studies today to include CBC, CMP, sed rate and CRP level. In addition, with her neck pain and left arm numbness I am going to schedule her for an x-ray of the cervical spine. She will have further evaluation with MRI as indicated. In the meantime, she will be given a prescription for gabapentin to start at 100 mg 3 times daily. I will tentatively plan a follow-up visit in 3 months. 2. She has been having significant hot flashes and sweating since her chemotherapy. This is almost certainly due to chemotherapy induced menopause, and I will include FSH, LH, and estradiol levels with her current lab studies. In addition, I will go ahead and arrange for [facility] referral for hormone replacement therapy, as there would be no contraindication from an oncologic standpoint. Signed By: Luis Lewis M.D. <<Signature on File>>
[2021-07-29 16:33] LABS: Estradiol 123.8 pg/mL; Follicle Stimulating Hormone 14.6 mIU/mL; Luteinizing Hormone 19.7 mIU/mL (0.5-41.7)
[2021-07-30 16:31] LABS: Erythrocyte Sedimentation Rate 14 mm/hr (0-15)
== END 2021-08-20 23:59 | disposition home or self-care (01) ==
LOC: ONCMED 12:16
PROVIDERS: Internal Medicine Medical Oncology; PCP Nurse Practitioner Family; Visit Provider Nurse Practitioner
DX: Z08 Encounter for follow-up examination after completed treatment for malignant neoplasm (principal); Z85.71 Personal history of Hodgkin lymphoma; I10 Essential (primary) hypertension; E78.5 Hyperlipidemia, unspecified; J45.909 Unspecified asthma, uncomplicated; J44.9 Chronic obstructive pulmonary disease, unspecified; G47.33 Obstructive sleep apnea (adult) (pediatric); K21.9 Gastro-esophageal reflux disease without esophagitis; M47.9 Spondylosis, unspecified; M81.0 Age-related osteoporosis without current pathological fracture; E55.9 Vitamin D deficiency, unspecified; F41.9 Anxiety disorder, unspecified; F32.9 Major depressive disorder, single episode, unspecified; Z83.3 Family history of diabetes mellitus; Z79.891 Long term (current) use of opiate analgesic; Z79.890 Hormone replacement therapy; Z92.21 Personal history of antineoplastic chemotherapy
CPT/HCPCS: 36415; 36593; 80053; 82670; 83001; 83002; 83615; 85025; 85651; 90471; 90686; 96374; 99214; J2997

== ENCOUNTER 2021-07-30 08:16 | Outpatient (CLI) | payer MEDICAID, SELFPAY ==
--- NOTE | 2021-07-30 08:24 | XR_ITS ---
WS: [id number] CERVICAL SPINE 3 VIEWS HISTORY: NECK PAIN, LYMPHOMA COMPARISON: None available. Straightening of the normal cervical lordosis. Slight reversal near C5. Anterior cervical fusion from C5 to C7. Interbody spacers at C5-6 and C6-7 with normal disc space height. Posterior alignment is normal. Lateral masses are aligned. Odontoid is intact. XR/XR cervical spine 3V* [id number] IMPRESSION: 1. Anterior cervical fusion with interbody spacers from C5 to C6 intact. 2. No acute change.
== END 2021-07-30 08:17 | disposition home or self-care (01) ==
LOC: RAD 08:20
PROVIDERS: PCP Nurse Practitioner Family; Visit Provider Internal Medicine Medical Oncology
DX: M54.2 Cervicalgia (principal); C85.90 Non-Hodgkin lymphoma, unspecified, unspecified site
CPT/HCPCS: 72040

== ENCOUNTER 2021-08-12 10:45 | Outpatient (CLI) | payer MEDICAID, SELFPAY ==
--- NOTE | 2021-08-12 11:00 | MR_ITS ---
WS: [id number] MRI CERVICAL SPINE NONCONTRAST AND CONTRAST TECHNIQUE: Sagittal T1, T2 and STIR imaging. Axial T2, gradient, and fiesta imaging. Post gadolinium imaging was obtained. CLINICAL INFORMATION: LYMPHOMA, NECK PAIN COMPARISON: CT cervical February 2018. PET/CT April 2021 FINDINGS: Straightening of the normal cervical lordosis. ACDF C5-C7. Cord signal is normal. No high-grade centr al canal stenosis. C2-C3: Normal. C3-C4: No significant disc bulging. Spinal canal and foramen are patent. Mild facet arthropathy. C4-C5: Mild disc bulging with a tiny annular fissure. Mild facet arthropathy. Spinal canal and forame n are patent. C5-C6: Postoperative changes ACDF. Mild facet arthropathy. Spinal canal and foramen are patent. C6-C7: Postoperative changes ACDF. Mild left and no right foraminal narrowing. Spinal canal is paten t. C7-T1: Normal. Visualized brain stem structures: Normal. Prevertebral soft tissues: Normal. MR/MR cervical spine wo/w [id number] IMPRESSION: 1. Straightening of the normal cervical lordosis. No high-grade central canal narrowing. Cord signal is normal. 2. ACDF C5-C7. 3. Mild left C6-C7 bony foraminal narrowing. 4. Mild disc bulging C4-C5 with a tiny annular fissure. Spinal canal and rachel en are patent at this level.
[2021-08-12] MEDS: gadobenate dimeglumine 20 mL vial IV (12:53)
== END 2021-08-12 10:46 | disposition home or self-care (01) ==
PROVIDERS: PCP Nurse Practitioner Family; Visit Provider Internal Medicine Medical Oncology
DX: C81.41 Lymphocyte-rich Hodgkin lymphoma, lymph nodes of head, face, and neck (principal); M43.22 Fusion of spine, cervical region; M50.221 Other cervical disc displacement at C4-C5 level
CPT/HCPCS: 72156; A9577

== ENCOUNTER 2021-08-14 13:51 | Outpatient (CLI) | payer MEDICAID, SELFPAY ==
--- NOTE | 2021-08-14 13:59 | USCV_ITS ---
Alla Liz Age: 40 Gender: F : 1980 Exam Date: 08/14/2021 14:18 Ordering Phys: Miriam Taylor NP Technologist: PAVEL [place] [facility] [place]: SHORTNESS OF BREATH/SYNCOPE/LOWER EXTREMITY EDEMA BP: 108 / 64 HR: 78 Rhythm: Sinus Technical Quality: Adequate MEASUREMENTS (Male / Female) Normal Values 2D ECHO LV Diastolic Diameter PLAX 4.6 cm 4.2 - 5.9 / 3.9 - 5.3 cm LV Systolic Diameter PLAX 3.1 cm IVS Diastolic Thickness 1.1 cm 0.6 - 1.0 / 0.6 - 0.9 cm IVS Systolic Thickness 1.8 cm LVPW Diastolic Thickness 1.2 cm 0.6 - 1.0 / 0.6 - 0.9 cm LVPW Systolic Thickness 1.5 cm RV Chamber Size 2.5 cm LVOT Diameter 2.0 cm LV Ejection Fraction 2D Teich 60.6 % LV Ejection Fraction MOD 2C 69.5 % LV Ejection Fraction 2C AL 69.7 % LA Diameter 3.3 cm LA Width 3.4 cm LA Height 4.1 cm RA Width 2.7 cm RA Height 3.7 cm Aorta at Sinotubular Diameter 2.0 cm M-MODE Aortic Annulus Diameter 3.1 cm LA Ao Ratio MM 0.9 MV E Point Septal Separation 0.6 cm DOPPLER AV Peak Velocity 125.0 cm/s LVOT Peak Velocity 84.0 cm/s AV Area Cont Eq vti 2.2 cm squared AV Area Cont Eq pk 2.1 cm squared MV Area PHT 3.6 cm squared Mitral E to A Ratio 1.0 MV E' Velocity 44.0 cm/s Mitral E to MV E' Ratio 7.4 Mitral E to LV E' Lateral Ratio 7.0 Mitral E to LV E' Septal Ratio 8.0 TR Peak Velocity 275.0 cm/s TR Peak Gradient 30.3 mmHg TV Peak E Velocity 63.0 cm/s Right Atrial Pressure 3.0 mmHg Pulmonary Artery Systolic Pressu 33.3 mmHg RV Acceleration Time 0.1 s RV Ejection Time 0.2 s RV AcT/ET 0.6 FINDINGS Left Ventricle Normal left ventricular cavity size. Normal left ventricular systolic function. No regional wall motion abnormalities. Left ventricular ejection fraction is estimated at 65 %.Grade I/IV diastolic dysfunction (abnormal relaxation filling pattern), normal to mildly elevated filling pressures. Right Ventricle The right ventricle is normal in size and function. Right Atrium The right atrium is normal in size. Left Atrium The left atrium is normal in size. Mitral Valve Structurally normal mitral valve without significant stenosis or prolapse. There is no mitral regurgitation. Aortic Valve Structurally normal aortic valve without significant sclerosis or stenosis. There is no aortic regurgitation. Tricuspid Valve Structurally normal tricuspid valve without significant stenosis or regurgitation. Pulmonary artery systolic pressure is normal. Pulmonic Valve Structurally normal pulmonic valve without significant stenosis. There is no pulmonic regurgitation. Pericardium Normal pericardium without effusion. Aorta Normal ascending aorta dimension. CONCLUSIONS 1-Normal left ventricular cavity size. Normal left ventricular systolic function. No regional wall motion abnormalities. Left ventricular ejection fraction is estimated at 65 %.Grade I/IV diastolic dysfunction (abnormal relaxation filling pattern), normal to mildly elevated filling pressures. 2-No significant valve abnormalities. 3-There is no pericardial effusion. 4-Pulmonary artery systolic pressure is within normal limits. 5-Right atrial pressure is around 5 mm of mercury. 6-No significant change since the prior echocardiogram study of 01/23/2021. Estefanía Boswell MD (Electronically Signed) Final Date: 14 August 2021 19:32 S
== END 2021-08-14 13:52 | disposition home or self-care (01) ==
LOC: US 13:55
PROVIDERS: PCP Nurse Practitioner Family; Visit Provider Nurse Practitioner
DX: R06.02 Shortness of breath (principal); R55 Syncope and collapse; R60.0 Localized edema
CPT/HCPCS: 93306

== ENCOUNTER 2021-08-24 06:27 | Emergency (ER) | payer MEDICAID, SELFPAY ==
[2021-08-24 06:35] VITALS: BP 147/91; PULSE 78; RESP 16; TEMP 36.6; O2SAT 100; BMI 35.5
[2021-08-24 07:12] VITALS: BP 139/78; PULSE 80; RESP 15; O2SAT 99
--- NOTE | 2021-08-24 07:15 | XRR_ITS ---
PROCEDURE INFORMATION: Exam: XR Chest Exam date and time: 08/24/2021 7:15 AM Age: 40 years old Clinical indication: Pain; Chest pressure; Prior surgery; Surgery type: Port; Additional info: Chest pain TECHNIQUE: Imaging protocol: XR of the chest. Views: 2 views. Total images: 2 COMPARISON: CR XR chest 2V* [id number] 07/03/2021 10:13 AM FINDINGS: Tubes, catheters and devices: A right infusion port is present. Lungs: Unremarkable. No consolidation. Pleural spaces: Unremarkable. No pleural effusion. No pneumothorax. Heart/Mediastinum: Unremarkable. No cardiomegaly. Bones/joints: Spinal fusion hardware noted. XR/XR chest 2V* [id number] IMPRESSION: No acute cardiopulmonary process. Radiation Dose CTDIVOL = (mGy): DLP = (mGy-cm)
[2021-08-24] MEDS: acetaminophen-codeine 300-30mg Tablet 1 TAB PO (07:38)
[2021-08-24] MEDS: ketorolac 30 mg/mL INJ IM (07:38)
[2021-08-24 07:40] LABS: Basophils % 0.5 %; Eosinophils # 0.4 10^3/uL (0.0-0.8); Eosinophils % 5.3 %; Hematocrit 45.8 % (37.0-47.0); Hemoglobin 14.6 g/dL (11.5-15.3); Lymphocytes # 2.5 10^3/uL (0.8-4.8); Lymphocytes % 34.3 %; Mean Corpuscular HGB Conc 31.9 g/dL (30.0-36.0); Mean Corpuscular Volume 87.7 fl (81-99); Mean Platelet Volume 9.9 fL (7.4-10.4); Monocytes # 0.6 10^3/uL (0.2-0.9); Monocytes % 8.5 %; Neutrophils # 3.75 10^3/uL (1.8-7.7); Nucleated Red Blood Cells % 0 %; Platelet Count 242 10^3/cmm (130-400); Red Blood Count 5.22 10^6/uL (4.1-5.3); Red Cell Distribution Width 14.8 % (12.1-15.1); White Blood Count 7.4 10^3/uL (4.0-10.0)
[2021-08-24 08:03] LABS: Troponin T (5th) Once 9 ng/L (0-10)
[2021-08-24 08:04] LABS: Anion Gap 14.2 (5-19); Blood Urea Nitrogen 9 mg/dL (6-20); Calcium 9.1 mg/dL (8.5-10.5); Carbon Dioxide 26 mmol/L (22-29); Chloride 103 mmol/L (98-107); Glomerular Filtration Rate 92.2 mL/min (90-130); Glucose 82 mg/dL (65-115); Osmolality Calculated 286 mOsm/kg (285-295); Potassium 4.2 mmol/L (3.5-5.1); Sodium 139 mmol/L (136-145)
--- NOTE | 2021-08-24 08:04 | W.ED.GENADLT ---
HPI - General Adult General: Chief complaint: Back Pain/Injury Stated complaint: L SIDE BACK PAIN,SHINGLE HX:STATES FEELS SAME Time Seen by Provider: 08/24/21 06:31 History of Present Illness: HPI narrative: Patient is a 40-year-old female with history of Hodgkin lymphoma NOT on chemotherapy, prior history of shingles presenting to the emergency room for evaluation left thoracic posterior back pain and burning sensation and dyspnea since . Patient says that she is concerned that she may be having shingles again said to come to the emergency room for evaluation. Patient has not noted any vesicular lesion but left thoracic back pain. In addition, patient has occasiona ldyspnea since then. Denies dyspnea is exertional in anture. Denies any chest pain, hemoptysis, cough, pleuritic chest pain, leg swelling, recent surgery or immobilization. Patient denies any cough, runny nose, sore throat, fever or chills. Patient has no abdominal complaints no nausea vomiting, diaphoresis, arm pain jaw pain, diarrhea, melena or hematochezia Onset: 3 days ago Duration:3 days Location:home Severity:moderate Review of Systems Narrative: Constitutional: No fever, no chills. HEENT: No vision changes CV: No chest pain, no palpitations PULM: no cough, no dyspnea. GI: No abdominal pain, no N/V/D. : No dysuria MSKEL: No muscle pain SKIN: No new rashes, no lesions. NEURO: No headache, no focal weakness. 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 avila Hx of tubal ligation 2001 Port-A-Cath in place (01/10/21) Family History (Updated 06/18/21 @ 15:18 by Taniya Fields LPN) Mother Hypercholesteremia Diabetes Hypertension Psychiatric illness, Onset Age: 20 Mother had an affair with a man. [employer] took her children away. The patient is the product of this liaison. Brother Hypercholesteremia Diabetes Hypertension Myocardial infarct Father Hypercholesteremia Diabetes Hypertension Sister Hypertension Stroke Social History (Updated 06/18/21 @ 15:17 by Taniya Fields LPN) Smoking and tobacco status: current every day smoker cigarettes Packs smoked per day: 1.5 Years cigarettes smoked: 27 Second hand smoke exposure: No Alcohol intake: current Alcohol intake frequency: few times a week Caregiver/support person: Yes (spouse) Lives independently: Yes Household members: spouse Housing: House Marital status: service: No Current occupational status: disabled History of recent travel: No Current gender identity: Female Special kamille needs: No Agree to transfusion: Yes Physical Exam Narrative: EXAM NARRATIVE: Head: Atraumatic Eyes: PERRL, conjunctiva without injection ENT: Mucous membrane moist NECK: Supple, ROM intact LUNGS: LCTAB, no crackles/rhonchi CV: RRR ABDOMEN: Soft, no focal TTP. NO guarding rebound, guarding, rigidity. No CVA tenderness to percussion. Neg Huddleston/Neg McBurney's point tenderness, no suprabupic tenderness to palpation. EXTREMITY: Normal ROM SKIN: No rash or erythema, +no vesicular lesions over the L throacic areas, no erythema/induration/fluctuance along L upper thoracic back NEURO: Awake and alert, no focal motor deficits PSYCH: Normal mood and affect BACK: +mild tenderness to palpation over the L thoracic back at the Level of T8-T10 Course Vital Signs: Vital signs: Vital Signs Temperature 97.8 F 08/24/21 06:35 Pulse Rate 85 08/24/21 08:40 Respiratory Rate 18 08/24/21 08:40 Blood Pressure 139/78 08/24/21 07:12 Pulse Oximetry 98 08/24/21 08:40 MDM - General Adult MDM Narrative: Medical decision making narrative: Patient is a 40-year-old female with a history of shingles, Hodgkin's lymphoma in remission presenting to the emergency room with complaints of left upper thoracic back pain. On exam, patient has point tenderness palpation of the levels T8-T10. No visible vesicular lesion or signs of infection in the upper back. At the present time, it is unclear whether patient is actually having a prodrome of shingles. However, given the symptoms of dyspnea, and cancer history, will evaluate for PE (low suspicion - no pleuritic pain, normal O2 sat, no tachycardia, no other risk factors other than cancer for VTE) Today including EKG, troponin, D-dimer within normal limit. X-ray chest not show any signs of focal pneumonia. No signs of acute fracture or cancer seen in the thoracic back. At the present time, if this can certainly be early shingles lesion. As such I have given patient close follow-up to come back to the emergency room within the 72-hour vesicular outbreak to get antiviral medication. Patient is not immunocompromised and does not need acyclovir currently. Patient received T3, Toradol with significant improvement in pain currently. Rx tylenol, menthol, lidocaine patch, and norflex PRN pain Disposition: Discharge. Patient counseled regarding diagnostic impression, treatment plan. Patient given ED strict return precautions to return for continuation, worsening, or development of new symptoms. Instructed to f/u w/ PCP regarding symptoms today. Patient verbalized understanding. Lab Data: Labs: Lab Results 08/24/21 08/24/21 08/24/21 07:30 07:30 07:30 WBC 7.4 10^3/uL 10^3/ uL (4.0-10.0) RBC 5.22 10^6/uL 10^6 /uL (4.1-5.3) Hgb 14.6 g/dL g/dL (11.5-15.3) Hct 45.8 % % (37.0-47.0) MCV 87.7 fl fl (81-99) MCH 28.0 pg pg (28.0-34.0) MCHC 31.9 g/dL g/dL (30.0-36.0) RDW 14.8 % % (12.1-15.1) Plt Count 242 10^3/cmm 10^3 /cmm (130-400) MPV 9.9 fL fL (7.4-10.4) Neut % (Auto) 51.0 % % Lymph % (Auto) 34.3 % % [place] % (Auto) 8.5 % % Eos % (Auto) 5.3 % % Baso % (Auto) 0.5 % % Neut # (Auto) 3.75 10^3/uL 10^3 /uL (1.8-7.7) Lymph # (Auto) 2.5 10^3/uL 10^3/ uL (0.8-4.8) [place] # (Auto) 0.6 10^3/uL 10^3/ uL (0.2-0.9) Eos # (Auto) 0.4 10^3/uL 10^3/ uL (0.0-0.8) Baso # (Auto) 0.0 10^3/uL 10^3/ uL (0.0-0.1) Nucleated RBC % (a uto) 0 % % Nucleated RBCs # 0.0 /100WBC /100W BC D-Dimer 0.43 ug/mIFEU ug/ mIFEU (0-0.59) Sodium 139 mmol/L mmol/L (136-145) Potassium 4.2 mmol/L mmol/L (3.5-5.1) Chloride 103 mmol/L mmol/L (98-107) Carbon Dioxide 26 mmol/L mmol/L (22-29) Anion Gap 14.2 (5-19) BUN 9 mg/dL mg/dL (6-20) Creatinine 0.7 mg/dL mg/dL (0.5-0.9) GFR Calculation 92.2 mL/min mL/mi n (90-130) Glucose 82 mg/dL mg/dL (65-115) Calculated Osmolal ity 286 mOsm/kg mOsm/ kg (285-295) Calcium 9.1 mg/dL mg/dL (8.5-10.5) Troponin T Gen 5 n g/L 08/24/21 07:30 WBC RBC Hgb Hct MCV MCH MCHC RDW Plt Count MPV Neut % (Auto) Lymph % (Auto) [place] % (Auto) Eos % (Auto) Baso % (Auto) Neut # (Auto) Lymph # (Auto) [place] # (Auto) Eos # (Auto) Baso # (Auto) Nucleated RBC % (a uto) Nucleated RBCs # D-Dimer Sodium Potassium Chloride Carbon Dioxide Anion Gap BUN Creatinine GFR Calculation Glucose Calculated Osmolal ity Calcium Troponin T Gen 5 n g/L 9 ng/L ng/L (0-10) Discharge Plan Discharge Patient Disposition: Home Clinical Impression: Back pain, Dyspnea Condition: Stable Prescriptions: New acetaminophen 500 mg tablet 500 mg PO Q6H PRN (Reason: pain) 5 Days Qty: 20 RF: 0 lidocaine 5 % adhesive patch,medicated 1 patch topical DAILY PRN (Reason: pain) 10 Days Qty: 10 RF: 0 orphenadrine citrate 100 mg tablet extended release 100 mg PO BID PRN (Reason: pain) 10 Days Qty: 20 RF: 0 Biofreeze (menthol) 5 % gel 1 ea topical BID PRN (Reason: pain) 10 Days Qty: 1 RF: 0 No Action azelastine 137 mcg (0.1 %) aerosol,spray 1 spray INTRANASAL BID RF: 0 nicotine (polacrilex) 2 mg gum 2 mg buccal Q2H Qty: 50 RF: 3 nicotine 21-14-7 mg/24 hr patch, TD daily, sequential See Rx Instructions transdermal .COMPLEX Qty: 56 RF: 0 budesonide-formoterol [Symbicort] 80-4.5 mcg/actuation HFA aerosol inhaler 2 puff inhalation BID Qty: 10.2 RF: 3 ibuprofen 800 mg tablet 800 mg PO TID PRN (Reason: pain) 30 Days Qty: 84 RF: 2 mupirocin 2 % ointment 1 applic topical BID Qty: 22 RF: 0 quetiapine [Seroquel] 50 mg tablet 100 mg PO BEDTIME@2100 Qty: 60 RF: 5 pravastatin 40 mg tablet 40 mg PO BEDTIME@2100 Qty: 30 RF: 5 omeprazole 20 mg capsule,delayed release(DR/EC) 20 mg PO BID@0900,2100 Qty: 30 RF: 5 hydrochlorothiazide 12.5 mg tablet 12.5 mg PO DAILY@0900 Qty: 30 RF: 5 fluticasone propionate [Flonase Allergy Relief] 50 mcg/actuation spray,suspension 2 spray INTRANASAL DAILY@0900 Qty: 16 RF: 5 cyclobenzaprine 10 mg tablet 10 mg PO BID PRN (Reason: muscle spasm) 30 Days Qty: 60 RF: 5 albuterol sulfate [ProAir HFA] 90 mcg/actuation HFA aerosol inhaler 2 puff INHALATION Q4H PRN (Reason: shortness of breath or wheezing) 30 Days Qty: 1 RF: 5 ergocalciferol (vitamin D2) 1,250 mcg (50,000 unit) capsule See Rx Instructions .ROUTE .COMPLEX Qty: 4 RF: 0 lidocaine-prilocaine 2.5-2.5 % cream See Rx Instructions .ROUTE .COMPLEX RF: 0 levocetirizine 5 mg tablet 5 mg PO DAILY@0900 RF: 0 ondansetron 4 mg tablet,disintegrating 4 mg PO Q6H PRN (Reason: nausea and vomiting) Qty: 14 RF: 0 hydrocodone-acetaminophen 5-325 mg tablet 1 tab PO Q6H PRN (Reason: pain) Qty: 20 RF: 0 ondansetron HCl [Zofran] 4 mg tablet 4 mg PO Q6H PRN (Reason: nausea and vomiting) Qty: 20 RF: 0 Discharge Orders: Discharge ED (Routine); Ordered 08/24/21 Ordered By: Yelena Montemayor Referrals: Venice Barry FNP [Primary Care Provider] - Discharge Diet: Advance as tolerated Discharge Activity: Resume usual activity Patient Instructions: Back Pain (ED) Activity Restrictions/Additional Instructions: Come back to the emergency room if your chest pain worsens, have any fever or chills, worsening shortness of breath, worsening exertional lightheadedness, or any new or concerning complaints. Come back if you notice any shingle like rash as you can get valtrex within 72 hrs. Coding Level of Care Code ED Oil Heater Operator for Yvette Beaulieu
[2021-08-24 08:08] LABS: D Dimer 0.43 ug/mIFEU (0-0.59)
[2021-08-24 08:40] VITALS: PULSE 85; RESP 18; O2SAT 98
== END 2021-08-24 08:41 | disposition home or self-care (01) ==
PROVIDERS: Emergency Provider Emergency Medicine; PCP Nurse Practitioner Family
DX: M54.9 Dorsalgia, unspecified (principal); R06.00 Dyspnea, unspecified; I10 Essential (primary) hypertension; Z85.71 Personal history of Hodgkin lymphoma; E78.5 Hyperlipidemia, unspecified; F17.210 Nicotine dependence, cigarettes, uncomplicated
CPT/HCPCS: 71046; 80048; 84484; 85025; 85378; 96372; 99283; J1885

== ENCOUNTER 2021-08-27 14:02 | Outpatient (CLI) | payer MEDICAID, SELFPAY ==
[2021-08-27] MEDS: alteplase 1 mg/mL SDV 2 mL 2 MG IV (14:23)
== END 2021-08-27 14:03 | disposition home or self-care (01) ==
LOC: ONCMED 14:04
PROVIDERS: PCP Nurse Practitioner Family; Visit Provider Internal Medicine Medical Oncology
DX: C81.41 Lymphocyte-rich Hodgkin lymphoma, lymph nodes of head, face, and neck (principal); Z79.899 Other long term (current) drug therapy
CPT/HCPCS: 36593; 96374; J2997

== ENCOUNTER 2021-09-30 13:59 | Outpatient (CLI) | payer MEDICAID, SELFPAY | END 2021-09-30 14:00 | disposition home or self-care (01) | PROVIDERS: PCP Nurse Practitioner Family; Visit Provider Internal Medicine Medical Oncology | DX: Z45.2 Encounter for adjustment and management of vascular access device (principal) | CPT/HCPCS: 96523 ==

== ENCOUNTER → 2021-10-02 10:02 | Outpatient (BNVA) | payer MEDICAID, SELFPAY | PROVIDERS: PCP Nurse Practitioner Family; Visit Provider Nurse Practitioner Family | DX: M25.519 Pain in unspecified shoulder (principal); M54.2 Cervicalgia; J30.89 Other allergic rhinitis; J44.9 Chronic obstructive pulmonary disease, unspecified; R06.02 Shortness of breath; M25.511 Pain in right shoulder; G89.29 Other chronic pain; F41.9 Anxiety disorder, unspecified; F32.A Depression, unspecified; J01.00 Acute maxillary sinusitis, unspecified | CPT/HCPCS: 82785; 86003 ==

== ENCOUNTER → 2021-10-07 14:05 | Outpatient (BNVA) | payer MEDICAID, SELFPAY | PROVIDERS: PCP Nurse Practitioner Family; Visit Provider Internal Medicine | DX: R76.8 Other specified abnormal immunological findings in serum (principal); M25.50 Pain in unspecified joint; E55.9 Vitamin D deficiency, unspecified; M54.2 Cervicalgia; G89.29 Other chronic pain; F17.210 Nicotine dependence, cigarettes, uncomplicated | CPT/HCPCS: 99213 ==

== ENCOUNTER → 2021-10-08 10:03 | Outpatient (BNVA) | payer MEDICAID, SELFPAY | PROVIDERS: PCP Nurse Practitioner Family; Referring Provider Nurse Practitioner Family; Visit Provider Physician Assistant | DX: M54.2 Cervicalgia (principal); G89.29 Other chronic pain | CPT/HCPCS: 72050 ==

== ENCOUNTER → 2021-10-09 09:03 | Outpatient (BNVA) | payer MEDICAID, SELFPAY | PROVIDERS: PCP Nurse Practitioner Family; Referring Provider Physician Assistant; Visit Provider Anesthesiology Pain Medicine | DX: G89.29 Other chronic pain (principal); M54.2 Cervicalgia; M79.601 Pain in right arm; M79.602 Pain in left arm; Z79.891 Long term (current) use of opiate analgesic | CPT/HCPCS: 99204 ==

== ENCOUNTER → 2021-10-21 14:11 | Outpatient (BNVA) | payer MEDICAID, SELFPAY | PROVIDERS: PCP Nurse Practitioner Family; Visit Provider Anesthesiology Pain Medicine | DX: Z79.891 Long term (current) use of opiate analgesic (principal); F17.210 Nicotine dependence, cigarettes, uncomplicated | CPT/HCPCS: 62321; J1100 ==

== ENCOUNTER → 2021-10-28 11:27 | Outpatient (BNVA) | payer MEDICAID, SELFPAY | PROVIDERS: PCP Nurse Practitioner Family; Visit Provider Nurse Practitioner Family | DX: H66.91 Otitis media, unspecified, right ear (principal); N64.4 Mastodynia; R30.0 Dysuria | CPT/HCPCS: 81003 ==

== ENCOUNTER 2021-10-29 12:39 | Outpatient (CLI) | payer MEDICAID, SELFPAY ==
[2021-10-29] MEDS: alteplase 1 mg/mL SDV 2 mL 2 MG INTRACATH (13:01)
[2021-10-29 13:36] LABS: Basophils # 0.1 10^3/uL (0.0-0.1); Basophils % 0.6 %; Eosinophils # 0.4 10^3/uL (0.0-0.8); Eosinophils % 4.3 %; Hematocrit 40.9 % (37.0-47.0); Hemoglobin 13.2 g/dL (11.5-15.3); Lymphocytes # 2.4 10^3/uL (0.8-4.8); Lymphocytes % 27.2 %; Mean Corpuscular HGB Conc 32.3 g/dL (30.0-36.0); Mean Corpuscular Hemoglobin 29.1 pg (28.0-34.0); Mean Corpuscular Volume 90.3 fl (81-99); Mean Platelet Volume 9.6 fL (7.4-10.4); Monocytes # 0.7 10^3/uL (0.2-0.9); Monocytes % 7.3 %; Neutrophils # 5.38 10^3/uL (1.8-7.7); Neutrophils % 60.2 %; Nucleated Red Blood Cells % 0 %; Platelet Count 231 10^3/cmm (130-400); Red Blood Count 4.53 10^6/uL (4.1-5.3); Red Cell Distribution Width 15.5 % (12.1-15.1); White Blood Count 8.9 10^3/uL (4.0-10.0)
[2021-10-29 14:15] LABS: Alanine Aminotransferase 11 U/L (0-33); Albumin Level 3.9 g/dL (3.5-5.2); Alkaline Phosphatase 73 IU/L (35-105); Anion Gap 13.7 (5-19); Aspartate Amino Transferase 13 U/L (0-32); Blood Urea Nitrogen 13 mg/dL (6-20); Calcium 8.9 mg/dL (8.5-10.5); Carbon Dioxide 22 mmol/L (22-29); Chloride 101 mmol/L (98-107); Globulin 2.3 g/dL (1.3-4.6); Glucose 83 mg/dL (65-115); Lactate Dehydrogenase 133 U/L (135-214); Osmolality Calculated 275 mOsm/kg (285-295); Potassium 3.7 mmol/L (3.5-5.1); Sodium 133 mmol/L (136-145); Total Bilirubin 0.4 mg/dL (0.15-1.2); Total Protein 6.2 g/dL (6.6-8.7)
[2021-10-30 21:11] LABS: Estmated Average Glucose 114; Hemoglobin A1C 5.6 % (4.0-6.0)
--- NOTE | 2021-11-02 12:11 | ONC FU_ITS ---
Dr. Lewis Patient Follow-Up Note Patient: Alla Liz Unit #: [id number]: 1980 Dicatated By: Luis Lewis M.D.Date of Visit:Oct 29, 2021 Onc Med Follow-up/Prog Note Chief Complaint: Hodgkin lymphoma. 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 She had presented with a knot on the right side of her neck. She was noted to have bilateral cervical adenopathy. Her neck CT on 11/12/2020 showed prominent asymmetric soft tissue in the posterior right nasopharynx measuring 14 x 11 mm, noted to be in the expected location of the adenoids. There were numerous enlarged bilateral cervical chain lymph nodes with the largest on the left measuring up to 1.3 cm. She was referred to Dr. Drew. She underwent direct laryngoscopy with endoscopic biopsy of the nasopharyngeal mass and excisional biopsy of 2 left cervical lymph nodes. Pathology at all sites was consistent with lymphocyte rich classic Hodgkin lymphoma. Her staging PET/CT on 12/22/2020 showed a left cervical level II node measuring 1.9 x 1.4 cm with SUV 5.4. Other similar nodes were present in the right IIA, V, and left II territories, also likely to be involved with lymphoma. There was noted to be prominent uptake along the mucosal surface of the head and neck but without localized activity. There were no other areas of abnormal uptake on that study. I had seen her initially on 12/26/2020. By clinical evaluation, her disease was stage IIA and she was recommended to begin treatment with ABVD chemotherapy for 2 cycles followed by restaging PET/CT. Her baseline echocardiogram showed normal left ventricular ejection fraction at 61%. Her pulmonary function studies showed normal diffusion capacity at 101% of predicted. She began cycle 1 of ABVD chemotherapy on 01/23/2021. She was able to tolerate it with acceptable toxicity. She began cycle 2 on 02/21/2021. Her restaging PET/CT on 03/16/2021 showed decrease in the previously described bilateral jugulodigastric lymph nodes to subcentimeter size with negative FDG uptake, consistent with complete response to treatment (Deauville criteria 1). Mediastinal lymph nodes appeared radiographically benign and without significant FDG uptake. There was no significant pelvic or abdominal adenopathy noted. With those findings, she was recommended to continue with 2 additional cycles of ABVD chemotherapy. She continued with cycle 3 on 03/21/2021 and with cycle 4 on 04/18/2021. Her restaging PET/CT on 05/11/2021 was negative for malignancy (Deauville criteria 1). Previously described bilateral jugulodigastric nodes remained resolved. Mediastinal lymph nodes were radiographically benign and without significant FDG uptake. A 3 mm right lower lobe pulmonary nodules unchanged. There were no pulmonary infiltrates or other pulmonary parenchymal abnormalities noted. With those findings, she then began expectant management. Her other medical illnesses include hypertension, hyperlipidemia, asthma/COPD, GERD, obstructive sleep apnea, degenerative arthritis/degenerative disease of the spine, osteoporosis, vitamin D deficiency, and anxiety/depression. She has history of smoking 1 pack of cigarettes daily. INTERIM HISTORY: On 07/05/2021 she was seen in the emergency room with a skin eruption in the right upper chest/back. She was treated for herpes zoster with valacyclovir 1 g 3 times daily for 7 days. At her follow-up visit in July 2021 she was having a lot of neck pain. She also reported having pretty severe hot flashes and sweating. I had suspected chemotherapy-induced menopause, but her hormone levels appear to be premenopausal. Her MRI of the cervical spine on 08/12/2021 showed just mild degenerative changes. There was no evidence of metastatic involvement. She is seen for a scheduled follow-up visit. She says she does not feel good. She has been trying to do little things at home, but her energy is not good and she has limited activity. Her ECOG score is one. Appetite is variable. She has not noticed that meat now tastes nasty to her. Her weight is up a couple of pounds. She has not had fever. She still having a lot of sweating, both during the daytime and at night. She has been having pain in both breasts. She has sinus drainage, and she is on antibiotic for ear infection. She has had sore throat, but she has only a little bit of cough. She has shortness of breath, but her breathing overall is better now. She does not complain of chest pain. She has nausea in the mornings. She has a little bit of acid reflux. Bowel function has been okay. She has been having some lower abdominal cramping and she has been having difficulty voiding the past 2 to 3 weeks. She continues to have neck pain. She did get an injection at pain clinic, but that caused a headache, and it did not really help the neck pain. She also reports having pain in her shoulders, in the middle of her back, and in her hips. She has numbness/tingling in her fingers and arms. She has ongoing problems with anxiety and depression, for which she did start treatment with sertraline. Medications: Acid Senior Construction Project Manager (20.6 (20 base) mg) Capsule Delayed Release Oral daily, Adult Aspirin EC Low Strength (81 mg) Tablet, enteric coated Oral daily, Allergy (10 mg) Tablet Oral daily, Azelastine HCl (0.15 %) Solution Nasal daily, Cyclobenzaprine HCl (10 mg) Tablet Oral daily, Doxycycline Hyclate (100 mg) Tablet Oral b.i.d., FLUoxetine HCl (10 mg) Tablet Oral daily, hydroCHLOROthiazide 1 (12.5 mg) Tablet Oral daily, HYDROcodone-Acetaminophen (5-325 mg) Tablet Oral 8x/d, Lisinopril 1 (10 mg) Tablet Oral daily, Narcan Liquid Nasal, Pravachol (40 mg) Tablet Oral daily Allergies: Amoxicillin, clavulanic acid, [place] jelly , and Pregabalin. Vital Signs: Performed on Oct 29, 2021 15:33 Height - 66.00 in Weight - 226.4 lbs (HIGH) BSA - 2.11 sq.m BMI - 36.54 (HIGH) Temperature - 96.8 F (LOW) Pulse - 74 /min Respiration - 18 /min BP - 120/80 mm(hg) O2 Sat - 98 % Pain - 6 Fatigue - 7 Physical Examination: Constitutional - She looks pretty good generally, Eyes - Sclerae nonicteric. Conjunctivae clear, ENMT - No lesions noted in the oral cavity, Hematologic/Lymphatic - No cervical or clavicular adenopathy, Respiratory - Lungs sound clear, Cardiovascular - Heart rhythm is regular. There is no murmur, gallop, or rub noted, Breasts - Both breasts have a nodular consistency, but there are no suspicious masses noted. There is no axillary adenopathy noted, Abdomen - Soft. Liver and spleen are not enlarged. There is no abdominal mass or ascites noted and there is no inguinal adenopathy, Back/Spine - There is a subcutaneous nodule palpable in the lower back to the right of the midline, Extremities - No edema, Neurologic - No focal neurologic deficits noted. Lab/Imaging: Test performed on Oct 29, 2021 13:21 LDH (Total) 133 U/L Sodium 133 mmol/L Potassium 3.7 mmol/L Chloride 101 mmol/L Est Avg Glucose (eAG) 114 mg/dL CO2 22 mmol/L Anion Gap 13.7 BUN 13 mg/dL Creatinine 0.8 mg/dL Cr Clearance (Est) 145.1300 mL/min eGFR 79.0 mL/min Glucose 83 mg/dL Osmolality - Calculated 275 mOsm/kg Calcium 8.9 mg/dL Protein, Total 6.2 g/dL Albumin 3.9 g/dL Globulin 2.3 g/dL Bilirubin, Total 0.4 mg/dL ALT (SGPT) 11 U/L AST (SGOT) 13 U/L Alkaline Phosphatase 73 IU/L Hemoglobin A1C % 5.6 % WBC 8.9 10 3/uL RBC 4.53 10 6/uL HGB 13.2 g/dL HCT 40.9 % MCV 90.3 fl MCH 29.1 pg MCHC 32.3 g/dL RDW 15.5 % Platelet Count 231 10 3/cmm MPV 9.6 fL Neutrophils 5.38 10 3/uL Lymphocytes 2.4 10 3/uL Monocytes 0.7 10 3/uL Eosinophils 0.4 10 3/uL Basophils 0.1 10 3/uL Neutrophil % 60.2 % Lymphocyte % 27.2 % Monocyte % 7.3 % Eosinophil % 4.3 % Basophils % 0.6 % NRBC % 0 % Problem List: 1. Lymphocyte rich classical Hodgkin lymphoma, stage IIA. 2. Hypertension. 3. Hyperlipidemia. 4. Asthma/COPD. 5. Obstructive sleep apnea. 6. GERD. 7. Degenerative arthritis/degenerative disease of the spine. 8. Osteoporosis. 9. Vitamin D deficiency. 10. Anxiety/depression. 11. She has a strong family history for diabetes. Problems Addressed with this Encounter and Plan: Patient with lymphocyte rich classical Hodgkin lymphoma diagnosed by left cervical lymph node biopsy and biopsy of nasopharyngeal mass on 12/05/2020. By PET/CT her disease appeared to be localized to the nasopharynx and cervical lymph nodes. As she did not have clear-cut B symptoms, by clinical evaluation her disease was stage IIA, and she was recommended to undergo treatment with ABVD chemotherapy. She began cycle 1 of ABVD on 01/23/2021. Her restaging PET/CT after 2 cycles was consistent with complete response to treatment (Deauville 1). With that finding, she was recommended to continue with 2 more cycles of chemotherapy. She continued with cycle 3 on 03/21/2021 and with cycle 4-day on 04/18/2021. Her restaging PET/CT on 05/11/2021 was again negative for malignancy (Deauville category 1). With those findings she was then followed on expectant management. During follow-up she has continued to have multiple complaints, most significantly fatigue and musculoskeletal pain. She also has been having hot flashes and sweating, and she also has been having anxiety/depression. I had suspected that she had chemotherapy-induced menopause, but her hormone levels appear to be premenopausal. In the absence of any evidence of recurrence of the Hodgkin lymphoma, she will continue on expectant management. I will see her again in 3 months. In the meantime, I will have her try increasing her gabapentin to 600 mg 3 times daily and I also will have her try increasing the sertraline dosage to 100 mg daily. Signed By: Luis Lewis M.D. <<Signature on File>>
== END 2021-10-29 12:40 | disposition home or self-care (01) ==
LOC: ONCMED 12:40
PROVIDERS: PCP Nurse Practitioner Family; Visit Provider Internal Medicine Medical Oncology
DX: C81.40 Lymphocyte-rich Hodgkin lymphoma, unspecified site (principal); I10 Essential (primary) hypertension; E78.5 Hyperlipidemia, unspecified; J45.909 Unspecified asthma, uncomplicated; J44.9 Chronic obstructive pulmonary disease, unspecified; G47.33 Obstructive sleep apnea (adult) (pediatric); K21.9 Gastro-esophageal reflux disease without esophagitis; G31.89 Other specified degenerative diseases of nervous system; M81.0 Age-related osteoporosis without current pathological fracture; E55.9 Vitamin D deficiency, unspecified; F41.9 Anxiety disorder, unspecified; F32.9 Major depressive disorder, single episode, unspecified; Z83.3 Family history of diabetes mellitus; Z79.899 Other long term (current) drug therapy
CPT/HCPCS: 36593; 80053; 83036; 83615; 85025; 96523; 99215; J2997

== ENCOUNTER → 2021-11-04 09:55 | Outpatient (BNVA) | payer MEDICAID, SELFPAY | PROVIDERS: PCP Nurse Practitioner Family; Visit Provider Anesthesiology Pain Medicine | DX: M54.2 Cervicalgia (principal); F17.210 Nicotine dependence, cigarettes, uncomplicated; Z79.891 Long term (current) use of opiate analgesic | CPT/HCPCS: 99213; 99214 ==

== ENCOUNTER 2021-12-17 10:40 | Outpatient (CLI) | payer MEDICAID, SELFPAY ==
[2021-12-17] MEDS: ondansetron 2 mg/ML SDV 2 mL 8 MG IV (11:36)
[2021-12-17] MEDS: alteplase 1 mg/mL SDV 2 mL 2 MG IV (12:01)
[2021-12-17] MEDS: sodium chloride 0.9% 1,000 ML 999 ML IV (12:17)
== END 2021-12-17 10:41 | disposition home or self-care (01) ==
PROVIDERS: PCP Nurse Practitioner Family; Visit Provider Internal Medicine Medical Oncology
DX: C81.41 Lymphocyte-rich Hodgkin lymphoma, lymph nodes of head, face, and neck (principal); Z79.899 Other long term (current) drug therapy
CPT/HCPCS: 36593; 96360; 96374; 96375; J1100; J2405; J2997; J7030

== ENCOUNTER 2021-12-24 13:30 | Outpatient (CLI) | payer MEDICAID, SELFPAY ==
--- NOTE | 2021-12-24 13:49 | MM_ITS ---
WS: [id number] DIAGNOSTIC BILATERAL 3D TOMOSYNTHESIS DIGITAL MAMMOGRAM WITH CAD HISTORY: N64.4 - Mastodynia COMPARISON: None available. TECHNIQUE: Bilateral craniocaudad, mediolateral oblique, and mediolateral views are submitted. Comput er aided detection utilized. Breast composition: There are scattered areas of fibroglandular density. No soft tissue masses or dis tortion identified. There are a few benign calcifications in each breast. No nipple retraction. MM/[place] [id number] IMPRESSION: BI-RADS: 2-Benign FOLLOW UP: 1 Year Follow-up Patient was unable to locate palpable areas today. No ultrasound will be perfor med. No masses are identified by mammography.
== END 2021-12-24 13:31 | disposition home or self-care (01) ==
LOC: RAD 13:32
PROVIDERS: PCP Nurse Practitioner Family; Visit Provider Nurse Practitioner Family
DX: N64.4 Mastodynia (principal)
CPT/HCPCS: 77062

== ENCOUNTER 2022-01-30 07:41 | Emergency (ER) | payer MEDICAID, SELFPAY ==
[2022-01-30 07:46] VITALS: BP 131/88; PULSE 79; RESP 16; TEMP 36.7; O2SAT 98; BMI 35.5
--- NOTE | 2022-01-30 08:13 | XRR_ITS ---
PROCEDURE INFORMATION: Exam: XR Chest Exam date and time: 01/30/2022 8:28 AM Age: 41 years old Clinical indication: Cough and shortness of breath; Prior surgery; Surgery type: Port; Additional info: Cough, congestion TECHNIQUE: Imaging protocol: XR of the chest. Views: 1 view. COMPARISON: CR XR chest 2V* [id number] 08/24/2021 7:58 AM FINDINGS: Tubes, catheters and devices: Right IJ Port-A-Cath terminates in the region of the mid SVC. Lungs: Unremarkable. No consolidation. Pleural spaces: Unremarkable. No pleural effusion. No pneumothorax. Heart/Mediastinum: Unremarkable. No cardiomegaly. Bones/joints: Partially imaged ACDF hardware in the cervical spine. XR/XR chest 1V portable [id number] IMPRESSION: No acute cardiopulmonary abnormality.
--- NOTE | 2022-01-30 09:19 | W.ED.GENADLT ---
HPI - General Adult General: Chief complaint: General Medical Stated complaint: SOB, Cough, Congestion Time Seen by Provider: 01/30/22 09:19 History of Present Illness: Ms. Liz is a 41-year-old lady with significant past medical history of tobacco use, asthma?COPD overlap syndrome, history of Hodgkin's lymphoma after completion of treatment, hypertension, hyperlipidemia, obesity who presents to the emergency department due to generalized illness. She reports symptom onset approximately 5 days ago primarily with sore throat. Initially mild in intensity and sharp stinging with swallowing however is now progressed to worsening. She subjectively feels like her throat is swollen. Additionally she has had productive cough and shortness of breath as well as nausea and one episode of loose stool this morning associated with mild abdominal discomfort. Overall course of symptoms has been worsening. Intensity is moderate. No other specific changes in health, exacerbating, or alleviating factors identified. 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 avila Hx of tubal ligation 2002 Port-A-Cath in place (01/10/21) Family History Mother Hypercholesteremia Diabetes Hypertension Psychiatric illness, Onset Age: 20 Mother had an affair with a man. [employer] took her children away. The patient is the product of this liaison. Brother Hypercholesteremia Diabetes Hypertension Myocardial infarct Father Hypercholesteremia Diabetes Hypertension Sister Hypertension Stroke Social History Smoking and tobacco status: current every day smoker cigarettes Packs smoked per day: 1 Years cigarettes smoked: 27 Second hand smoke exposure: No Alcohol intake: current Alcohol intake frequency: few times a week Caregiver/support person: Yes (spouse) Lives independently: Yes Household members: spouse Housing: House Marital status: service: No Current occupational status: disabled History of recent travel: No Current gender identity: Female Special kamille needs: No Agree to transfusion: Yes Physical Exam Const: COMMON NORMALS: alert GENERAL APPEARANCE: cooperative, well developed and ill appearing (Mildly) HENMT: COMMON NORMALS: normocephalic and atraumatic HEAD & SCALP: normocephalic and atraumatic THROAT: uvula midline and posterior oropharynx abnormal erythema; no uvular edema Eye: COMMON NORMALS: conjunctivae normal CONJUNCTIVA: Yes conjunctivae normal SCLERA: sclerae normal Neck/C-Spine: COMMON NORMALS: supple GENERAL: Yes trachea midline Resp: COMMON NORMALS: clear to auscultation bilaterally EFFORT & INSPECTION: Yes able to speak in complete sentences AUSCULTATION: clear to auscultation bilaterally Cardio: COMMON NORMALS: regular rate and regular rhythm RATE: regular rate RHYTHM: regular rhythm GI: COMMON NORMALS: Soft to palpation PALPATION: Yes Soft to palpation and No Tenderness to palpation present (GI) PERCUSSION: normal to percussion Extremity: GENERAL: Yes normal exam except as noted and No edema Neuro: COMMON NORMALS: moves all extremities SENSORIUM/ORIENTATION: Yes alert and No Orientation impaired Psych: COMMON NORMALS: mental status grossly normal and Normal thought process present THOUGHT PROCESS: Normal thought process present Course ED course: - Patient was seen and evaluated by me at bedside -Vital signs obtained - Initial evaluation notable for exam as above - Labs and xrays personally interpreted by me - Labs notable for minimal leukocytosis, normal hemoglobin. Electrolyte panel without acute abnormality to explain symptoms. Urinalysis not concerning for urinary tract infection. Viral studies negative. - Imaging notable for no pneumonia or pneumothorax -Prior to completion of ED evaluation and reassessment the patient ambulated from the emergency department without notification of staff for myself. Patient left prior to treatment completion. Vital Signs: Vital signs: Vital Signs Temperature 98.1 F 01/30/22 07:46 Pulse Rate 75 01/30/22 10:00 Respiratory Rate 18 01/30/22 10:00 Blood Pressure 140/94 01/30/22 10:00 Pulse Oximetry 100 01/30/22 10:00 MDM - General Adult Medical Decision Making 41-year-old lady presented to the emergency department for concern of sore throat/respiratory symptoms. Patient eloped from the emergency department prior to completion of ED evaluation. Medical Records I reviewed the patient's medical records. Lab Data I reviewed the patient's lab results. : 01/30/22 09:25 01/30/22 09:25 Radiology Impressions Chest X-Ray 01/30/22 08:13 IMPRESSION: No acute cardiopulmonary abnormality. Laboratory Results WBC 10.2 10^3/uL (4.0-10.0) H 01/30/22 09:25 RBC 5.17 10^6/uL (4.1-5.3) 01/30/22 09:25 Hgb 15.2 g/dL (11.5-15.3) 01/30/22 09:25 Hct 46.4 % (37.0-47.0) 01/30/22 09:25 MCV 89.7 fl (81-99) 01/30/22 09:25 MCH 29.4 pg (28.0-34.0) 01/30/22 09:25 MCHC 32.8 g/dL (30.0-36.0) 01/30/22 09:25 RDW 14.3 % (12.1-15.1) 01/30/22 09:25 Plt Count 227 10^3/cmm (130-400) 01/30/22 09:25 MPV 10.1 fL (7.4-10.4) 01/30/22 09:25 Neut % (Auto) 49.5 % 01/30/22 09:25 Lymph % (Auto) 35.0 % 01/30/22 09:25 [place]ardo % (Auto) 6.6 % 01/30/22 09:25 Eos % (Auto) 8.1 % 01/30/22 09:25 Baso % (Auto) 0.5 % 01/30/22 09:25 Neut # (Auto) 5.06 10^3/uL (1.8-7.7) 01/30/22 09:25 Lymph # (Auto) 3.6 10^3/uL (0.8-4.8) 01/30/22 09:25 [place]ardo # (Auto) 0.7 10^3/uL (0.2-0.9) 01/30/22 09:25 Eos # (Auto) 0.8 10^3/uL (0.0-0.8) 01/30/22 09:25 Baso # (Auto) 0.1 10^3/uL (0.0-0.1) 01/30/22 09:25 Nucleated RBC % (auto) 0 % 01/30/22 09:25 Nucleated RBCs # 0.0 /100WBC 01/30/22 09:25 Sodium 141 mmol/L (136-145) 01/30/22 09:25 Potassium 4.0 mmol/L (3.5-5.1) 01/30/22 09:25 Chloride 106 mmol/L (98-107) 01/30/22 09:25 Carbon Dioxide 24 mmol/L (22-29) 01/30/22 09:25 Anion Gap 15.0 (5-19) 01/30/22 09:25 BUN 6 mg/dL (6-20) 01/30/22 09:25 Creatinine 0.7 mg/dL (0.5-0.9) 01/30/22 09:25 GFR Calculation 91.8 mL/min (90-130) 01/30/22 09:25 Glucose 104 mg/dL (65-115) 01/30/22 09:25 Calculated Osmolality 290 mOsm/kg (285-295) 01/30/22 09:25 Calcium 10.1 mg/dL (8.5-10.5) 01/30/22 09:25 Total Bilirubin 0.4 mg/dL (0.15-1.2) 01/30/22 09:25 AST 16 U/L (0-32) 01/30/22 09:25 ALT 15 U/L (0-33) 01/30/22 09:25 Alkaline Phosphatase 84 IU/L (35-105) 01/30/22 09:25 Total Protein 8.2 g/dL (6.6-8.7) 01/30/22 09:25 Albumin 4.6 g/dL (3.5-5.2) 01/30/22 09:25 Globulin 3.6 g/dL (1.3-4.6) 01/30/22 09:25 Urine Color Yellow (Yellow) 01/30/22 09:30 Urine Appearance Clear (CLEAR) 01/30/22 09:30 Urine pH 6 (5-7) 01/30/22 09:30 Ur Specific [place] 1.010 (1.005-1.030) 01/30/22 09:30 Urine Protein Neg (Negative) 01/30/22 09:30 Urine Glucose (UA) Norm (Normal) 01/30/22 09:30 Urine Ketones Negative (Negative) 01/30/22 09:30 Urine Blood Neg (Negative) 01/30/22 09:30 Urine Nitrate Negative (Negative) 01/30/22 09:30 Urine Bilirubin Neg (Negative) 01/30/22 09:30 Urine Urobilinogen Norm mg/dL (Negative) 01/30/22 09:30 Ur Leukocyte Esterase Negative (Negative) 01/30/22 09:30 Urine HCG, Qual Negative (Negative) 01/30/22 09:30 Influenza Type A Ag Negative (Negative) 01/30/22 09:55 Influenza Type B Ag Negative (Negative) 01/30/22 09:55 SARS-CoV-2 Ag (Rapid) Negative (Negative) 01/30/22 09:55 Group A Strep Rapid Negative (Negative) 01/30/22 09:55 Discharge Plan Discharge Patient Disposition: Left Against Medical Advice Clinical Impression: Acute sore throat, Shortness of breath, Cough Condition: Stable Prescriptions: No Action quetiapine [Seroquel] 50 mg tablet 100 mg PO BEDTIME@2100 Qty: 60 5RF omeprazole 20 mg capsule,delayed release(DR/EC) 20 mg PO BID@0900,2100 Qty: 30 5RF cyclobenzaprine 10 mg tablet 10 mg PO BID PRN (Reason: muscle spasm) 30 Days Qty: 60 5RF albuterol sulfate [ProAir HFA] 90 mcg/actuation HFA aerosol inhaler 2 puff INHALATION Q4H PRN (Reason: shortness of breath or wheezing) 30 Days Qty: 1 5RF meloxicam 15 mg tablet 15 mg PO DAILY Qty: 30 3RF diclofenac sodium [Voltaren Arthritis Pain] 1 % gel 4 g topical QID Qty: 100 0RF Rx Instructions: apply to single knee, ankle, foot; for foot includes sole/toes/top of foot gabapentin 600 mg tablet 600 mg PO DAILY 0RF budesonide-formoterol [Symbicort] 80-4.5 mcg/actuation HFA aerosol inhaler 2 puff inhalation BID Qty: 10.2 3RF nicotine (polacrilex) 4 mg gum 4 mg buccal Q2H Qty: 100 3RF fluticasone propionate 50 mcg/actuation spray,suspension See Rx Instructions .ROUTE .COMPLEX Qty: 16 0RF Dose Instruction: USE 2 SPRAYS IN EACH NOSTRIL DAILY AT 9:00AM Rx Instructions: USE 2 SPRAYS IN EACH NOSTRIL DAILY AT 9:00AM lidocaine-prilocaine 2.5-2.5 % cream See Rx Instructions .ROUTE .COMPLEX 0RF Rx Instructions: apply generous amount to port area at least 1 hour prior to chemo. hydrocodone-acetaminophen 5-325 mg tablet 1 tab PO Q6H PRN (Reason: pain) Qty: 20 0RF sertraline 50 mg tablet 50 mg PO DAILY 0RF Referrals: Venice Barry FNP [Primary Care Provider] - Coding Level of Care Code ED Senior Customer Service Representative for Chg Fwd Exam Comprehensive
[2022-01-30 09:21] VITALS: BP 152/93; PULSE 86; O2SAT 98
[2022-01-30 09:33] LABS: Basophils # 0.1 10^3/uL (0.0-0.1); Basophils % 0.5 %; Eosinophils # 0.8 10^3/uL (0.0-0.8); Eosinophils % 8.1 %; Hematocrit 46.4 % (37.0-47.0); Hemoglobin 15.2 g/dL (11.5-15.3); Lymphocytes # 3.6 10^3/uL (0.8-4.8); Mean Corpuscular HGB Conc 32.8 g/dL (30.0-36.0); Mean Corpuscular Hemoglobin 29.4 pg (28.0-34.0); Mean Corpuscular Volume 89.7 fl (81-99); Mean Platelet Volume 10.1 fL (7.4-10.4); Monocytes # 0.7 10^3/uL (0.2-0.9); Monocytes % 6.6 %; Neutrophils # 5.06 10^3/uL (1.8-7.7); Neutrophils % 49.5 %; Nucleated Red Blood Cells % 0 %; Platelet Count 227 10^3/cmm (130-400); Red Blood Count 5.17 10^6/uL (4.1-5.3); Red Cell Distribution Width 14.3 % (12.1-15.1); White Blood Count 10.2 10^3/uL (4.0-10.0)
[2022-01-30] MEDS: ketorolac 30 mg/mL INJ IM (09:54)
[2022-01-30] MEDS: ondansetron 4 MG Tablet PO (09:54)
[2022-01-30 10:00] VITALS: BP 140/94; PULSE 75; RESP 18; O2SAT 100
[2022-01-30 10:03] LABS: Alanine Aminotransferase 15 U/L (0-33); Albumin Level 4.6 g/dL (3.5-5.2); Alkaline Phosphatase 84 IU/L (35-105); Aspartate Amino Transferase 16 U/L (0-32); Blood Urea Nitrogen 6 mg/dL (6-20); Calcium 10.1 mg/dL (8.5-10.5); Carbon Dioxide 24 mmol/L (22-29); Chloride 106 mmol/L (98-107); Creatinine Clr Calc Pharmacy 124.7781; Globulin 3.6 g/dL (1.3-4.6); Glomerular Filtration Rate 91.8 mL/min (90-130); Glucose 104 mg/dL (65-115); Osmolality Calculated 290 mOsm/kg (285-295); Sodium 141 mmol/L (136-145); Total Bilirubin 0.4 mg/dL (0.15-1.2); Total Protein 8.2 g/dL (6.6-8.7)
[2022-01-30 10:07] LABS: Slide Review Slide Review Perform
[2022-01-30 10:10] LABS: Add Urine Microscopic? NO; Urine Appearance Clear (CLEAR); Urine Color Yellow (Yellow)
[2022-01-30 10:11] LABS: Bilirubin Urine Neg (Negative); Blood Urine Neg (Negative); Glucose Urine UA Norm (Normal); Ketones Urine Negative (Negative); Leukocyte Esterase Urine Negative (Negative); Nitrate Urine Negative (Negative); Protein Urine Neg (Negative); Urobilinogen Urine Norm (Negative); pH Urine 6 (5-7)
[2022-01-30 10:13] LABS: Charge for UA Resulting for Rev
[2022-01-30 10:26] LABS: Rapid Strep A Test Negative (Negative)
[2022-01-30 10:34] LABS: Influenza A by IFA Negative (Negative)
[2022-01-30 10:35] LABS: Influenza B by IFA Negative (Negative); SARS Covid-2 Antigen Negative (Negative)
== END 2022-01-30 11:05 | disposition left against medical advice (07) ==
PROVIDERS: Physician Assistant; Emergency Provider Emergency Medicine; PCP Nurse Practitioner Family
DX: J02.9 Acute pharyngitis, unspecified (principal); R06.02 Shortness of breath; R05.9 Cough, unspecified; Z53.29 Procedure and treatment not carried out because of patient's decision for other reasons; F17.210 Nicotine dependence, cigarettes, uncomplicated
CPT/HCPCS: 71045; 80053; 81003; 81025; 85025; 87081; 87426; 87804; 87880; 96372; 99284; J1885; Q0162

== ENCOUNTER 2022-03-03 11:18 | Oncology outpatient (recurring) (ONCR) | payer MEDICAID, SELFPAY ==
[2022-03-03 11:55] LABS: Basophils # 0.1 10^3/uL (0.0-0.1); Basophils % 0.7 %; Eosinophils # 0.8 10^3/uL (0.0-0.8); Eosinophils % 8.8 %; Hemoglobin 10.5 g/dL (11.5-15.3); Lymphocytes # 3.5 10^3/uL (0.8-4.8); Lymphocytes % 40.8 %; Mean Corpuscular HGB Conc 33.9 g/dL (30.0-36.0); Mean Corpuscular Hemoglobin 29.8 pg (28.0-34.0); Mean Corpuscular Volume 88.1 fl (81-99); Mean Platelet Volume 9.9 fL (7.4-10.4); Monocytes # 0.5 10^3/uL (0.2-0.9); Neutrophils # 3.75 10^3/uL (1.8-7.7); Neutrophils % 43.2 %; Nucleated Red Blood Cells % 0 %; Platelet Count 177 10^3/cmm (130-400); Red Blood Count 3.52 10^6/uL (4.1-5.3); Red Cell Distribution Width 13.9 % (12.1-15.1); White Blood Count 8.7 10^3/uL (4.0-10.0)
[2022-03-03 12:14] LABS: Alanine Aminotransferase 10 U/L (0-33); Albumin Level 3.8 g/dL (3.5-5.2); Alkaline Phosphatase 65 IU/L (35-105); Anion Gap 12.8 (5-19); Aspartate Amino Transferase 12 U/L (0-32); Blood Urea Nitrogen 11 mg/dL (6-20); Calcium 7.9 mg/dL (8.5-10.5); Carbon Dioxide 22 mmol/L (22-29); Chloride 107 mmol/L (98-107); Globulin 2.4 g/dL (1.3-4.6); Glomerular Filtration Rate 91.8 mL/min (90-130); Glucose 81 mg/dL (65-115); Lactate Dehydrogenase 141 U/L (135-214); Osmolality Calculated 284 mOsm/kg (285-295); Potassium 3.8 mmol/L (3.5-5.1); Sodium 138 mmol/L (136-145); Total Bilirubin 0.2 mg/dL (0.15-1.2); Total Protein 6.2 g/dL (6.6-8.7)
[2022-03-03 14:15] LABS: Ferritin 36 ng/mL (15-150)
[2022-03-03 14:31] LABS: Vitamin B12 277 pg/mL (232-1245)
[2022-03-03 14:47] LABS: Reticulocyte % 1.3 % (0.5-2.0)
[2022-03-03 14:50] LABS: Erythrocyte Sedimentation Rate 1 mm/hr (0-15)
[2022-03-03 15:11] LABS: Thyroid Stimulating Hormone 1.05 uIU/mL (0.27-4.20)
== END 2022-03-20 23:59 | disposition home or self-care (01) ==
PROVIDERS: Internal Medicine; PCP Nurse Practitioner Family; Referring Provider Specialist; Visit Provider Nurse Practitioner Family
DX: C81.41 Lymphocyte-rich Hodgkin lymphoma, lymph nodes of head, face, and neck (principal); R53.83 Other fatigue; M79.18 Myalgia, other site; D64.9 Anemia, unspecified; Z79.899 Other long term (current) drug therapy; Z92.21 Personal history of antineoplastic chemotherapy
CPT/HCPCS: 36591; 80053; 82607; 82728; 83010; 83615; 84443; 85025; 85045; 85651; 99214

== ENCOUNTER → 2022-04-03 13:12 | Outpatient (BNVA) | payer MEDICAID, SELFPAY | PROVIDERS: PCP Nurse Practitioner Family; Visit Provider Nurse Practitioner Family | DX: J40 Bronchitis, not specified as acute or chronic (principal) | CPT/HCPCS: 71046; 80053; 80061 ==

== ENCOUNTER 2022-04-09 11:15 | Oncology outpatient (recurring) (ONCR) | payer MEDICAID, SELFPAY ==
[2022-04-09 12:30] LABS: Basophils # 0.1 10^3/uL (0.0-0.1); Basophils % 0.6 %; Eosinophils # 0.4 10^3/uL (0.0-0.8); Eosinophils % 3.8 %; Hematocrit 41.6 % (37.0-47.0); Hemoglobin 13.6 g/dL (11.5-15.3); Lymphocytes # 3.3 10^3/uL (0.8-4.8); Lymphocytes % 32.7 %; Mean Corpuscular HGB Conc 32.7 g/dL (30.0-36.0); Mean Corpuscular Hemoglobin 29.8 pg (28.0-34.0); Mean Corpuscular Volume 91.2 fl (81-99); Mean Platelet Volume 10.1 fL (7.4-10.4); Monocytes # 0.9 10^3/uL (0.2-0.9); Monocytes % 9.4 %; Neutrophils # 5.27 10^3/uL (1.8-7.7); Neutrophils % 52.9 %; Nucleated Red Blood Cells % 0 %; Platelet Count 204 10^3/cmm (130-400); Red Blood Count 4.56 10^6/uL (4.1-5.3); Red Cell Distribution Width 13.8 % (12.1-15.1)
[2022-04-09 13:08] LABS: Alanine Aminotransferase 11 U/L (0-33); Albumin Level 3.9 g/dL (3.5-5.2); Alkaline Phosphatase 73 IU/L (35-105); Aspartate Amino Transferase 14 U/L (0-32); Blood Urea Nitrogen 8 mg/dL (6-20); Calcium 8.8 mg/dL (8.5-10.5); Carbon Dioxide 24 mmol/L (22-29); Chloride 101 mmol/L (98-107); Globulin 2.8 g/dL (1.3-4.6); Glomerular Filtration Rate 78.7 mL/min (90-130); Glucose 119 mg/dL (65-115); Osmolality Calculated 281 mOsm/kg (285-295); Sodium 136 mmol/L (136-145); Total Bilirubin 0.2 mg/dL (0.15-1.2); Total Protein 6.7 g/dL (6.6-8.7)
[2022-04-09 13:13] LABS: Anion Gap 14.7 (5-19); Potassium 3.7 mmol/L (3.5-5.1)
== END 2022-04-09 23:59 | disposition home or self-care (01) ==
PROVIDERS: PCP Nurse Practitioner Family; Referring Provider Specialist; Visit Provider Nurse Practitioner Family
DX: C81.41 Lymphocyte-rich Hodgkin lymphoma, lymph nodes of head, face, and neck (principal); R53.82 Chronic fatigue, unspecified; F41.9 Anxiety disorder, unspecified; F32.A Depression, unspecified; M79.18 Myalgia, other site; B37.81 Candidal esophagitis; B37.0 Candidal stomatitis; Z79.899 Other long term (current) drug therapy; Z92.21 Personal history of antineoplastic chemotherapy
CPT/HCPCS: 36591; 80053; 85025; 99214

== ENCOUNTER 2022-05-12 15:05 | Oncology outpatient (recurring) (ONCR) | payer MEDICAID, SELFPAY | END 2022-05-21 23:59 | disposition home or self-care (01) | PROVIDERS: PCP Nurse Practitioner Family; Referring Provider Specialist; Visit Provider Nurse Practitioner Family | DX: Z45.2 Encounter for adjustment and management of vascular access device (principal) | CPT/HCPCS: 96523 ==

== ENCOUNTER → 2022-05-15 13:27 | Outpatient (BNVA) | payer MEDICAID, SELFPAY | PROVIDERS: PCP Nurse Practitioner Family; Visit Provider Internal Medicine | DX: R07.9 Chest pain, unspecified (principal); I10 Essential (primary) hypertension; F17.210 Nicotine dependence, cigarettes, uncomplicated | CPT/HCPCS: 99203; 99204 ==

== ENCOUNTER 2022-05-15 14:35 | Outpatient (CLI) | payer MEDICAID, SELFPAY ==
--- NOTE | 2022-05-15 14:54 | XR_ITS ---
WS: [id number] AP pelvis, both hips, 2 views each, 05/15/2022 Clinical Data: M25.551 - Pain in right hip Comparison: Both hips, 07/03/2021. Findings: AP pelvis: The SI joints and pubic symphysis are normal. The pelvis is intact. The hips are unremarkable. The so ft tissues are normal. Right hip: There are no fractures or dislocations. The right hip joint shows no erosion, sclerosis, narrowing or fragmentation of the right femoral head. Left hip: There are no fractures or dislocations. The left hip shows no erosion, sclerosis, narrowing or fragme ntation of the left femoral head. XR/XR hip BI m 5V wo/w pel* [id number] Impression: Negative pelvis and both hips.
--- NOTE | 2022-05-15 14:54 | XR_ITS ---
WS: [id number] Lumbar spine, 3 views, 05/15/2022 Clinical Data: M54.50 - Low back pain, unspecified Comparison: Lumbar spine, 08/22/2020. Findings: No compression fractures or subluxation is seen. No disc space narrowing is seen. The transverse proc esses and SI joints are normal. There is anterior osteoarthritic spurring at L1, L3 and L4. XR/XR lumbar spine 2-3V* [id number] Impression: Osteoarthritis L1, L3 and L4.
== END 2022-05-15 14:36 | disposition home or self-care (01) ==
PROVIDERS: PCP Nurse Practitioner Family; Visit Provider Nurse Practitioner Family
DX: M25.551 Pain in right hip (principal); M25.552 Pain in left hip; M47.816 Spondylosis without myelopathy or radiculopathy, lumbar region
CPT/HCPCS: 72100; 73523

== ENCOUNTER → 2022-07-04 09:27 | Outpatient (BNVA) | payer MEDICAID, SELFPAY | PROVIDERS: PCP Nurse Practitioner Family; Visit Provider Obstetrics & Gynecology | DX: Z12.4 Encounter for screening for malignant neoplasm of cervix (principal) | CPT/HCPCS: 87624 ==

== ENCOUNTER 2022-07-15 11:30 | Oncology outpatient (recurring) (ONCR) | payer MEDICAID, SELFPAY ==
[2022-07-15 12:01] LABS: Basophils # 0.1 10^3/uL (0.0-0.1); Basophils % 0.7 %; Eosinophils # 0.9 10^3/uL (0.0-0.8); Eosinophils % 9.3 %; Hematocrit 38.6 % (37.0-47.0); Hemoglobin 12.8 g/dL (11.5-15.3); Lymphocytes # 3.6 10^3/uL (0.8-4.8); Lymphocytes % 35.3 %; Mean Corpuscular HGB Conc 33.2 g/dL (30.0-36.0); Mean Corpuscular Hemoglobin 30.2 pg (28.0-34.0); Mean Platelet Volume 10.3 fL (7.4-10.4); Monocytes # 0.7 10^3/uL (0.2-0.9); Monocytes % 6.6 %; Neutrophils # 4.83 10^3/uL (1.8-7.7); Neutrophils % 47.8 %; Nucleated Red Blood Cells % 0 %; Platelet Count 247 10^3/cmm (130-400); Red Blood Count 4.24 10^6/uL (4.1-5.3); Red Cell Distribution Width 14.5 % (12.1-15.1); White Blood Count 10.1 10^3/uL (4.0-10.0)
[2022-07-15 12:20] LABS: Alanine Aminotransferase 9 U/L (0-33); Albumin Level 3.6 g/dL (3.5-5.2); Alkaline Phosphatase 64 U/L (35-105); Anion Gap 14.3 (5-19); Aspartate Amino Transferase 13 U/L (0-32); Blood Urea Nitrogen 10 mg/dL (6-20); Carbon Dioxide 23 mmol/L (22-29); Chloride 106 mmol/L (98-107); Globulin 2.4 g/dL (1.3-4.6); Glomerular Filtration Rate 68.7 mL/min (90-130); Glucose 88 mg/dL (65-115); Osmolality Calculated 286 mOsm/kg (285-295); Potassium 4.3 mmol/L (3.5-5.1); Sodium 139 mmol/L (136-145); Total Bilirubin 0.2 mg/dL (0.15-1.2)
[2022-07-15 12:29] LABS: Lactate Dehydrogenase 173 U/L (135-214)
== END 2022-07-21 23:59 | disposition home or self-care (01) ==
PROVIDERS: PCP Nurse Practitioner Family; Visit Provider Internal Medicine Medical Oncology
DX: Z45.2 Encounter for adjustment and management of vascular access device (principal); C81.41 Lymphocyte-rich Hodgkin lymphoma, lymph nodes of head, face, and neck; R53.83 Other fatigue; Z92.21 Personal history of antineoplastic chemotherapy
CPT/HCPCS: 80053; 83615; 85025; 96523; 99213

== ENCOUNTER 2022-07-16 06:36 | Outpatient (CLI) | payer MEDICAID, SELFPAY ==
--- NOTE | 2022-07-16 07:15 | MR_ITS ---
WS: [id number] MRI LUMBAR SPINE NONCONTRAST TECHNIQUE: Sagittal T1, T2 and STIR imaging. Axial T1 and T2 imaging. CLINICAL INFORMATION: M54.50 - Low back pain, unspecified COMPARISON: None. FINDINGS: Mild lumbar curve. No acute compression. No high-grade central canal stenosis. Degenerative endplate-type changes L3-L4. L1-L2: Normal. L2-L3: Mild annular bulging. Moderate facet arthropathy. Spinal canal and foramen are patent. L3-L4: Mild annular bulging with slight effacement of ventral thecal sac. Narrowing of the subarticul ar recess bilaterally with encroachment traversing L4 nerve roots. Moderate facet arthropathy. Small RIGHT foraminal protrusion with mild RIGHT foraminal narrowing. LEFT foramen is patent. L4-L5: LEFT eccentric disc osteophytic ridging. Mild LEFT foraminal narrowing. Narrowing of the LEFT subarticular recess. RIGHT foramen is patent. Mild facet arthropathy. L5-S1: No significant disc bulging. Tiny RIGHT lateral synovial cyst slightly contacts the exiting RI GHT L5 nerve root. Synovial cyst measures 5 mm. Mild facet arthropathy. LEFT foramen is patent. Small RIGHT renal cyst. MR/MR lumbar spine wo con* [id number] IMPRESSION: 1. Mild lumbar curve. No acute compression. No high-grade central canal stenos is. 2. Mild annular bulging L3-L4 narrowing of the subarticular recess bilaterally . Mild RIGHT L3-L4 foraminal narrowing with contact of the exiting RIGHT L3 ner ve root. 3. LEFT eccentric disc bulging L4-L5 with narrowing LEFT subarticular recess a nd mild LEFT L4-L5 foraminal narrowing. 4. Small RIGHT synovial cyst RIGHT L5-S1 slightly contacts the exiting RIGHT L 5 nerve root. Small synovial cyst measures 5 mm. 5. Mild to moderate facet arthropathy L3-L5. 6. Prior cervical fusion seen on the welding inspector imaging at C5-C7.
== END 2022-07-16 06:37 | disposition home or self-care (01) ==
LOC: RAD 06:37
PROVIDERS: PCP Nurse Practitioner Family; Visit Provider Nurse Practitioner Family
DX: M51.26 Other intervertebral disc displacement, lumbar region (principal); M47.816 Spondylosis without myelopathy or radiculopathy, lumbar region; Z98.1 Arthrodesis status
CPT/HCPCS: 72148

== ENCOUNTER → 2022-08-07 08:18 | Outpatient (BNVA) | payer MEDICAID, SELFPAY | PROVIDERS: PCP Nurse Practitioner Family; Referring Provider Nurse Practitioner Family; Visit Provider Orthopaedic Surgery | DX: M48.062 Spinal stenosis, lumbar region with neurogenic claudication (principal); M43.16 Spondylolisthesis, lumbar region; M47.816 Spondylosis without myelopathy or radiculopathy, lumbar region | CPT/HCPCS: 72120; 99214 ==

== ENCOUNTER 2022-08-08 16:32 | Emergency (ER) | payer MEDICAID, SELFPAY ==
[2022-08-08 16:39] VITALS: BP 113/82; PULSE 77; RESP 16; TEMP 36.6; O2SAT 98; BMI 38.2
--- NOTE | 2022-08-08 18:18 | CTR_ITS ---
PROCEDURE INFORMATION: Exam: CT Head Without Contrast Exam date and time: 08/08/2022 6:24 PM Age: 41 years old Clinical indication: Visual disturbance; Additional info: Blurry vision TECHNIQUE: Imaging protocol: Computed tomography of the head without contrast. Radiation optimization: All CT scans at this facility use at least one of these dose optimization techniques: automated exposure control; mA and/or kV adjustment per patient size (includes targeted exams where dose is matched to clinical indication); or iterative reconstruction. COMPARISON: CT head w con [id number] 07/03/2021 10:38 AM RADIATION DOSE METRICS: Total DLP (mGy-cm): 1181.98 FINDINGS: Brain: Normal. No hemorrhage. Unremarkable white matter. No mass effect. Cerebral ventricles: No ventriculomegaly. Paranasal sinuses: Visualized sinuses are unremarkable. No fluid levels. Mastoid air cells: Visualized mastoid air cells are well aerated. Bones/joints: Unremarkable. No acute fracture. Soft tissues: Unremarkable. CT/CT head wo con* [id number] IMPRESSION: No acute intracranial abnormality.
--- NOTE | 2022-08-08 18:19 | W.ED.GENADLT ---
HPI - General Adult General: Chief complaint: General Medical Stated complaint: neck pain and swelling, blurred vision Time Seen by Provider: 08/08/22 17:44 History of Present Illness: patient is a 41-year-old female comes to the ED with neck pain and blurred vision. Approximately 1 week ago she had dental pain and was put on an antibiotic and is currently taking the antibiotic for dental pain. Patient states that her symptoms started this morning when she woke up. She started feeling some pain in her neck bilaterally. She states that her dental pain has since resolved. Reports feeling flushed and her face was red this morning. She has had blurry vision as well. She denies any trouble breathing or throat swelling. Associated symptoms: Deny chest pain, dyspnea, headache(s), nausea, rash, palpitations or vomiting Review of Systems Const: Denies: fever(s), chills or fatigue Eyes: Reports: blurry vision; Denies: change in vision or eye discomfort ENMT: Denies: throat pain, odynophagia, nasal discharge or nasal congestion Card: Denies: chest pain, palpitations, edema, swelling of feet/ankles, dyspnea on exertion or orthopnea Resp: Denies: dyspnea, productive cough or non-productive cough GI: Denies: abdominal pain, nausea, vomiting, diarrhea, constipation or hematochezia : Denies: flank pain, dysuria or hematuria Musc: Reports: neck pain (anterior neck soreness); Denies: back pain or extremity swelling Skin/Breast: Denies: rash or new lesions Neuro: Denies: headache(s), numbness in extremities or weakness in extremities PFS ED PFSH: Medical History Chronic anxiety COPD (chronic obstructive pulmonary disease) Degenerative arthritis Degenerative joint disease of spine Environmental and seasonal allergies Essential hypertension GERD (gastroesophageal reflux disease) Hodgkin lymphoma Hyperlipidemia Major depressive disorder Obstructive sleep apnea Surgical History History of adenoidectomy (2020) History of colonoscopy (2017) History of endometrial ablation (2011) Hysteroscopy followed by D&C and thermal ablation History of lymph node biopsy (12/05/20) Left cervical lymph node biopsy History of surgery on arm (2017) ORIF for fracture of the right humerus Hx of section x 2 Hx of neck surgery 12/31/2017 c-5 c-6, c-6 c-[address] avila Hx of tubal ligation (2001) 2001 Port-A-Cath in place (01/10/21) Family History Mother Hypercholesteremia Diabetes Hypertension Psychiatric illness, Onset Age: 20 Mother had an affair with a man. [employer] took her children away. The patient is the product of this liaison. Brother Hypercholesteremia Diabetes Hypertension Myocardial infarct Heart disease Father Hypercholesteremia Diabetes Hypertension Sister Hypertension Stroke Grandmother Thyroid disease Denies family history of Colon cancer Ovarian cancer Breast cancer Uterine cancer Social History Smoking and tobacco status: current every day smoker (1/2 rod a day, smoked x 25+ years) Other details last alcohol use: none Physical Exam Const: COMMON NORMALS: no acute distress, patient oriented x3 and alert GENERAL APPEARANCE: cooperative HENMT: COMMON NORMALS: normocephalic HEAD & SCALP: normocephalic MOUTH: Normal oral and palatal mucosa present THROAT: posterior oropharynx normal and uvula midline Eye: COMMON NORMALS: Equal, round and reactive pupils present and EOMs intact bilaterally GENERAL EYE: appearance normal, both eyes and all related structures PUPIL: Yes Equal, round and reactive pupils present Neck/C-Spine: COMMON NORMALS: supple GENERAL: Yes normal visual inspection Lymph: LYMPHATIC: lymphadenopathy bilateral anterior cervical small and tender 1 cm Resp: COMMON NORMALS: normal respiratory effort, No retractions, No use of accessory muscles and clear to auscultation bilaterally AUSCULTATION: clear to auscultation bilaterally Cardio: COMMON NORMALS: regular rate, regular rhythm, S1 normal heart sound present, S2 normal heart sound present, No gallops present (Cardio), No clicks present (Cardio), No murmurs present (Cardio) and Peripheral pulses 2+ throughout RATE: regular rate RHYTHM: regular rhythm HEART SOUNDS: S1 normal heart sound present and S2 normal heart sound present PERIPHERAL PULSES: Peripheral pulses 2+ throughout GI: COMMON NORMALS: Normal to inspection, nondistended, normoactive bowel sounds present, Soft to palpation, non-tender and no masses PALPATION: Yes Soft to palpation : COMMON NORMALS: Yes no CVA tenderness BLADDER/KIDNEY EXAM: Yes no CVA tenderness Back/Pelvis: COMMON NORMALS: no CVA tenderness Extremity: GENERAL: Yes normal exam except as noted Neuro: COMMON NORMALS: patient oriented x3, CN's II-XII intact bilaterally, moves all extremities, no focal motor deficits and no sensory deficits noted SENSORIUM/ORIENTATION: Yes alert SENSORY EXAM: Yes extremities (intact) MOTOR EXAM: 5/5 motor strength present throughout Skin: COMMON NORMALS: no rashes or lesions noted GENERAL SKIN EXAM: no rashes or lesions noted and dry skin Course Vital Signs: Vital signs: Vital Signs Temperature 97.9 F 08/08/22 16:39 Pulse Rate 77 08/08/22 16:39 Respiratory Rate 16 08/08/22 16:39 Blood Pressure 113/82 08/08/22 16:39 Pulse Oximetry 98 08/08/22 16:39 Oxygen Delivery Me thod 08/08/22 16:39 MDM - General Adult Medical Decision Making Patient is a 39-year-old female comes the ED with anterior neck pain and blurry vision. Patient started developing neck pain from tooth ache that started a couple days ago. Today she noticed she was having some bilateral blurry vision as well. Denies any other symptoms. Vitals are stable. Exam of patient showed some small palpable and tender bilateral anterior cervical lymph nodes, which are likely reactive to recent dental issue. She appears nontoxic in no acute distress or pain. Neuro exam shows no deficits. Head CT showed no acute findings. Patient diagnosed with anterior neck pain and blurry vision and was stable for discharge home. She was told to follow-up with her PCP within the next week for reevaluation. Return to ED precautions given. Patient understood and agreed with plan. Lab Data Radiology Impressions Head CT 08/08/22 18:18 IMPRESSION: No acute intracranial abnormality. Discharge Plan Discharge Patient Disposition: Home Clinical Impression: Anterior neck pain, Blurred vision, bilateral Condition: Stable Prescriptions: No Action albuterol sulfate [ProAir HFA] 90 mcg/actuation HFA aerosol inhaler 2 puff INHALATION Q4H PRN (Reason: shortness of breath or wheezing) 30 Days Qty: 1 5RF cyclobenzaprine 10 mg tablet 10 mg PO BID PRN (Reason: muscle spasm) 30 Days Qty: 60 5RF fluticasone propionate 50 mcg/actuation spray,suspension See Rx Instructions .ROUTE .COMPLEX Qty: 16 6RF Dose Instruction: USE 2 SPRAYS IN EACH NOSTRIL DAILY AT 9:00AM Rx Instructions: USE 2 SPRAYS IN EACH NOSTRIL DAILY AT 9:00AM quetiapine [Seroquel] 50 mg tablet 100 mg PO BEDTIME@2100 Qty: 60 5RF diclofenac sodium [Voltaren Arthritis Pain] 1 % gel 4 g topical QID Qty: 100 5RF Rx Instructions: apply to single knee, ankle, foot; for foot includes sole/toes/top of foot ondansetron 4 mg tablet,disintegrating 4 mg PO Q6H PRN (Reason: nausea and vomiting) Qty: 90 0RF diclofenac sodium 75 mg tablet,delayed release (DR/EC) 75 mg PO BID PRN (Reason: pain) Qty: 60 5RF clindamycin HCl 300 mg capsule 300 mg PO TID 10 Days Qty: 30 0RF simvastatin 20 mg tablet 20 mg PO .QHS 30 Days Qty: 30 5RF Spiriva with HandiHaler 18 mcg capsule, w/inhalation device 1 cap inhalation DAILY Qty: 30 3RF Rx Instructions: puncture 1 cap using device; one dose = 2 inhalations budesonide-formoterol [Symbicort] 160-4.5 mcg/actuation HFA aerosol inhaler 2 puff inhalation BID Qty: 10.2 3RF gabapentin 100 mg capsule 100 mg PO TID Qty: 270 3RF pantoprazole 40 mg tablet,delayed release (DR/EC) See Rx Instructions .ROUTE .COMPLEX Qty: 30 2RF Dose Instruction: TAKE ONE TABLET BY MOUTH DAILY Rx Instructions: TAKE ONE TABLET BY MOUTH DAILY bupropion HCl 150 mg tablet sustained-release 12 hr See Rx Instructions .ROUTE .COMPLEX Qty: 60 2RF Dose Instruction: TAKE ONE TABLET BY MOUTH TWICE DAILY - START WITH ONE TABLET ONCE DAILY FOR 3 DAYS, THEN INCREASE TO TWICE DAILY Rx Instructions: TAKE ONE TABLET BY MOUTH TWICE DAILY - START WITH ONE TABLET ONCE DAILY FOR 3 DAYS, THEN INCREASE TO TWICE DAILY hydrocodone-acetaminophen 7.5-325 mg tablet 1 tab PO Q4H PRN (Reason: pain) 30 Days Qty: 120 0RF lidocaine-prilocaine 2.5-2.5 % cream See Rx Instructions .ROUTE .COMPLEX Rx Instructions: apply generous amount to port area at least 1 hour prior to chemo. Discharge Orders: Discharge ED (Routine); Ordered 08/08/22 Ordered By: Danny Sanford Referrals: Venice Barry FNP [Primary Care Provider] - Discharge Diet: Regular Discharge Activity: Increase activity as tolerated Activity Restrictions/Additional Instructions: Follow-up with medical provider as directed. Continue taking all home medications as previously prescribed. Return to the ER or your medical provider if condition worsens. Please read and understand discharge instructions. Thank you for choosing [facility] for your healthcare needs today. Please realize this is an emergency room and that we are providing you with a medical screening exam and this may not be complete and all inclusive of all the testing and or work up that you may need to determine your ailment or severity of your illness. It is very important that you follow up as instructed or that you return to the Emergency Department should you have concerns or if your condition changes or worsens in any way. Coding Level of Care Code ED [employer] for Yvette Beaulieu Exam Comprehensive
[2022-08-08] MEDS: dexamethasone 10 mg/mL INJ IM (20:15)
== END 2022-08-08 21:00 | disposition home or self-care (01) ==
PROVIDERS: Emergency Provider Physician Assistant; PCP Nurse Practitioner Family
DX: M54.2 Cervicalgia (principal); H53.8 Other visual disturbances; F17.210 Nicotine dependence, cigarettes, uncomplicated
CPT/HCPCS: 70450; 96372; 99285; J1100

== ENCOUNTER 2022-08-10 15:14 | Emergency (ER) | payer MEDICAID, SELFPAY ==
[2022-08-10 15:31] VITALS: BP 121/87; PULSE 83; RESP 16; TEMP 36.6; O2SAT 99
[2022-08-10 16:48] LABS: Basophils # 0.1 10^3/uL (0.0-0.1); Basophils % 0.7 %; Eosinophils # 0.5 10^3/uL (0.0-0.8); Eosinophils % 4.1 %; Hematocrit 41.8 % (37.0-47.0); Hemoglobin 13.7 g/dL (11.5-15.3); Lymphocytes # 4.9 10^3/uL (0.8-4.8); Mean Corpuscular HGB Conc 32.8 g/dL (30.0-36.0); Mean Corpuscular Volume 91.5 fl (81-99); Mean Platelet Volume 9.8 fL (7.4-10.4); Monocytes # 0.9 10^3/uL (0.2-0.9); Monocytes % 7.6 %; Neutrophils # 5.57 10^3/uL (1.8-7.7); Neutrophils % 46.3 %; Nucleated Red Blood Cells % 0 %; Platelet Count 191 10^3/cmm (130-400); Red Blood Count 4.57 10^6/uL (4.1-5.3); Red Cell Distribution Width 14.2 % (12.1-15.1)
[2022-08-10 16:56] VITALS: BP 126/87; PULSE 70; O2SAT 100
[2022-08-10 16:59] LABS: Erythrocyte Sedimentation Rate 6 mm/hr (0-15)
--- NOTE | 2022-08-10 17:05 | ED_ITS ---
HPI - Headache General: Chief Complaint: Headache Stated Complaint: Temples are swollen Time Seen by Provider: 08/10/22 16:45 History of Present Illness: 41-year-old female presents to the emergency department stating she had a gradual onset of headache on Thursday, 2 days ago. She reports the headache is around her temples and over the top of her head radiating towards the back. It is not unilateral. She feels her temples are puffy or swollen. When she leans over she feels like she is not getting blood flow to her head. Patient notes that she has binocular blurry vision. She reports that she always has trouble concentrating with her vision and has not been to an trace evidence technician in a long time but seems like it is worse. She does not have ocular pain or discharge. She does have a history of MURALI positive serotesting. She denies any fever, acute neck pain or stiffness, tickborne illnesses, acute sinus issues, acute dental pain, trauma, confusion, new neurologic symptoms. She has been taking hydrocodone with Tylenol as this is prescribed for chronic pain syndrome. No history of vasculitis. History of Hodgkin's lymphoma. Associated symptoms: Deny chest pain, fever(s), nausea, rash, syncope or vomiting Review of Systems General: Reports: 10 or more systems reviewed and unremarkable except in HPI and below Const: Denies: fever(s) or chills Eyes: Reports: change in vision and blurry vision; Denies: blind spots, photophobia, eye discomfort, eye discharge, eye redness, yellow eyes, dry eyes, increased production of tears, floaters or seeing flashes ENMT: Denies: throat pain, uvular edema, enlarged tonsils, odynophagia, hoarseness, mouth pain, oral sores, dental pain, ear or mastoid pain, change in hearing, disequilibrium, nasal discharge, nasal congestion, nasal obstruction or sinus pain Card: Denies: chest pain or syncope Resp: Denies: dyspnea, productive cough or non-productive cough GI: Denies: abdominal pain, nausea, vomiting or diarrhea : Denies: flank pain or dysuria Musc: Reports: neck pain (Chronic, unchanged) and back pain (Chronic, unchanged); Denies: extremity swelling or joint warmth Skin/Breast: Denies: rash or sores Neuro: Denies: weakness in extremities PFSH ED PFSH: Medical History Chronic anxiety COPD (chronic obstructive pulmonary disease) Degenerative arthritis Degenerative joint disease of spine Environmental and seasonal allergies Essential hypertension GERD (gastroesophageal reflux disease) Hodgkin lymphoma Hyperlipidemia Major depressive disorder Obstructive sleep apnea Surgical History History of adenoidectomy (2020) History of colonoscopy (2017) History of endometrial ablation (2011) Hysteroscopy followed by D&C and thermal ablation History of lymph node biopsy (12/05/20) Left cervical lymph node biopsy History of surgery on arm (2017) ORIF for fracture of the right humerus Hx of section x 2 Hx of neck surgery 12/31/2017 c-5 c-6, c-6 c-[address] avila Hx of tubal ligation (2001) 2001 Port-A-Cath in place (01/10/21) Family History Mother Hypercholesteremia Diabetes Hypertension Psychiatric illness, Onset Age: 20 Mother had an affair with a man. [employer] took her children away. The patient is the product of this liaison. Brother Hypercholesteremia Diabetes Hypertension Myocardial infarct Heart disease Father Hypercholesteremia Diabetes Hypertension Sister Hypertension Stroke Grandmother Thyroid disease Denies family history of Colon cancer Ovarian cancer Breast cancer Uterine cancer Social History Smoking and tobacco status: current every day smoker (1/2 rod a day, smoked x 25+ years) Other details last alcohol use: none Physical Exam Const: COMMON NORMALS: no limitations, alert and well nourished EXAM LIMITATIONS: no altered mental status GENERAL APPEARANCE: cooperative, well kempt and well developed ORIENTATION/CONSCIOUSNESS: Yes awake; not confused HENMT: COMMON NORMALS: normocephalic, atraumatic, external ears normal, EAC's normal, TM's normal bilaterally and Normal external nose present HEAD & SCALP: normal to inspection, normocephalic and atraumatic FACE & SINUS: face symmetric and sinus tenderness (Maxillary and frontal) NOSE: Normal external nose present EXTERNAL EAR: Yes external ears normal EXTERNAL AUDITORY CANAL: EAC's normal TYMPANIC MEMBRANE: TM's normal bilaterally MOUTH: lip normal and other (Patient has no signs of acute inflammation or infection in the gingiva. Sh); no muffled voice THROAT: no uvular edema OTHER: Patient states her buddhist areas are swollen. Without knowing her I would not have noticed a difference. She is tender in the buddhist region bilaterally. No palpable cord , warmth, erythema Eye: COMMON NORMALS: EOMs intact bilaterally and conjunctivae normal GENERAL EYE: appearance normal, both eyes and all related structures CONJUNCTIVA: Yes conjunctivae normal Neck/C-Spine: COMMON NORMALS: no meningeal signs and no JVD GENERAL: Yes normal visual inspection and Yes trachea midline OTHER: No meningeal signs Lymph: OTHER: No cervical lymph nodes palpated anteriorly Resp: COMMON NORMALS: normal respiratory effort, No use of accessory muscles and clear to auscultation bilaterally EFFORT & INSPECTION: Yes able to speak in complete sentences and Yes symmetric chest movement AUSCULTATION: clear to auscultation bilaterally Cardio: COMMON NORMALS: no JVD, regular rate and regular rhythm RATE: regular rate RHYTHM: regular rhythm PERIPHERAL PULSES: radial pulses present GI: COMMON NORMALS: Soft to palpation INSPECTION: Yes normal to inspection PALPATION: Yes Soft to palpation, No Tenderness to palpation present (GI) and No Guarding due to palpation present (GI) Back/Pelvis: COMMON NORMALS: thoraco-lumbar ROM normal Extremity: COMMON NORMALS: normal to inspection GENERAL: Yes normal exam except as noted Neuro: COMMON NORMALS: moves all extremities, no focal motor deficits and no sensory deficits noted SENSORIUM/ORIENTATION: Yes alert MENINGEAL SIGNS: Yes no meningeal signs CRANIAL NERVES: Yes CN normal except as noted COORDINATION/BALANCE: other (Normal observed coordination with movements in the room, repositioning, fin) SPEECH: speech normal COORDINATION: other (Normal observed coordination with movements in the room, repositioning, fin) Psych: COMMON NORMALS: mental status grossly normal, Normal thought process present, cooperative, normal affect and speech normal APPEARANCE: Yes well kempt SPEECH: Yes normal speech THOUGHT PROCESS: Normal thought process present Skin: COMMON NORMALS: no rashes or lesions noted, turgor normal and no jaundice GENERAL SKIN EXAM: no rashes or lesions noted and turgor normal Course Vital Signs: Vital signs: Vital Signs Temperature 97.8 F 08/10/22 15:31 Pulse Rate 62 08/10/22 17:29 Respiratory Rate 16 08/10/22 15:31 Blood Pressure 131/78 08/10/22 17:30 Pulse Oximetry 97 08/10/22 17:30 Oxygen Delivery Me thod 08/10/22 17:30 MDM - Headache Medical Decision Making Differential diagnosis includes tension type headache, ocular headache due to po or visual acuity and eyestrain, sinusitis, temporal arteritis, medication overuse syndrome, medication withdrawal syndrome due to the fact the patient stopped taking NSAIDs in anticipation of a lumbar surgery coming up, other. Patient did have a CT scan of her head on the and did not have any intracranial abnormalities. Additionally, her sinuses and mastoid air cells were noted as within normal limits with no fluid levels. I have ordered ESR and CRP to evaluate for possible temporal arteritis. I have ordered visual acuity. I have also ordered a cocktail to help with general headache and an empiric dose of steroids. UPDATE: ESR is normal. This would typically be positive if GCA was present. CRP is mildly elevated. Patient's presentation: female, hx of MURALI positive, buddhist pain, binocular vision complaints, headache is enough to consider GCA until de finitive testing can be done. I consulted with Dr Akbar at [facility]. He is a vascular surgeon and recommends doing 5 days of steroids and he will follow-up with her in clinic and consider temporal artery US at that time. On reassessment, patient's headache is gone. Lab Data 08/10/22 16:40 08/10/22 16:40 Laboratory Results WBC 12.0 10^3/uL (4.0-10.0) H 08/10/22 16:40 RBC 4.57 10^6/uL (4.1-5.3) 08/10/22 16:40 Hgb 13.7 g/dL (11.5-15.3) 08/10/22 16:40 Hct 41.8 % (37.0-47.0) 08/10/22 16:40 MCV 91.5 fl (81-99) 08/10/22 16:40 MCH 30.0 pg (28.0-34.0) 08/10/22 16:40 MCHC 32.8 g/dL (30.0-36.0) 08/10/22 16:40 RDW 14.2 % (12.1-15.1) 08/10/22 16:40 Plt Count 191 10^3/cmm (130-400) 08/10/22 16:40 MPV 9.8 fL (7.4-10.4) 08/10/22 16:40 Neut % (Auto) 46.3 % 08/10/22 16:40 Lymph % (Auto) 41.0 % 08/10/22 16:40 Calhoun % (Auto) 7.6 % 08/10/22 16:40 Eos % (Auto) 4.1 % 08/10/22 16:40 Baso % (Auto) 0.7 % 08/10/22 16:40 Neut # (Auto) 5.57 10^3/uL (1.8-7.7) 08/10/22 16:40 Lymph # (Auto) 4.9 10^3/uL (0.8-4.8) H 08/10/22 16:40 Calhoun # (Auto) 0.9 10^3/uL (0.2-0.9) 08/10/22 16:40 Eos # (Auto) 0.5 10^3/uL (0.0-0.8) 08/10/22 16:40 Baso # (Auto) 0.1 10^3/uL (0.0-0.1) 08/10/22 16:40 Nucleated RBC % (auto) 0 % 08/10/22 16:40 Nucleated RBCs # 0.0 /100WBC 08/10/22 16:40 ESR 6 mm/hr (0-15) 08/10/22 16:40 Sodium 137 mmol/L (136-145) 08/10/22 16:40 Potassium 3.6 mmol/L (3.5-5.1) 08/10/22 16:40 Chloride 102 mmol/L (98-107) 08/10/22 16:40 Carbon Dioxide 26 mmol/L (22-29) 08/10/22 16:40 Anion Gap 12.6 (5-19) 08/10/22 16:40 BUN 15 mg/dL (6-20) 08/10/22 16:40 Creatinine 1.1 mg/dL (0.5-0.9) H 08/10/22 16:40 GFR Calculation 54.5 mL/min (90-130) L 08/10/22 16:40 Glucose 83 mg/dL (65-115) 08/10/22 16:40 Calculated Osmolality 284 mOsm/kg (285-295) L 08/10/22 16:40 Calcium 9.3 mg/dL (8.5-10.5) 08/10/22 16:40 Total Bilirubin 0.4 mg/dL (0.15-1.2) 08/10/22 16:40 AST 15 U/L (0-32) 08/10/22 16:40 ALT 12 U/L (0-33) 08/10/22 16:40 Alkaline Phosphatase 65 U/L (35-105) 08/10/22 16:40 C-Reactive Protein 10.3 mg/L (0.0-4.9) H 08/10/22 16:40 Total Protein 7.1 g/dL (6.6-8.7) 08/10/22 16:40 Albumin 4.3 g/dL (3.5-5.2) 08/10/22 16:40 Globulin 2.8 g/dL (1.3-4.6) 08/10/22 16:40 Discharge Plan Discharge Condition: Stable Prescriptions: No Action albuterol sulfate [ProAir HFA] 90 mcg/actuation HFA aerosol inhaler 2 puff INHALATION Q4H PRN (Reason: shortness of breath or wheezing) 30 Days Qty: 1 5RF cyclobenzaprine 10 mg tablet 10 mg PO BID PRN (Reason: muscle spasm) 30 Days Qty: 60 5RF fluticasone propionate 50 mcg/actuation spray,suspension See Rx Instructions .ROUTE .COMPLEX Qty: 16 6RF Dose Instruction: USE 2 SPRAYS IN EACH NOSTRIL DAILY AT 9:00AM Rx Instructions: USE 2 SPRAYS IN EACH NOSTRIL DAILY AT 9:00AM quetiapine [Seroquel] 50 mg tablet 100 mg PO BEDTIME@2100 Qty: 60 5RF diclofenac sodium [Voltaren Arthritis Pain] 1 % gel 4 g topical QID Qty: 100 5RF Rx Instructions: apply to single knee, ankle, foot; for foot includes sole/toes/top of foot ondansetron 4 mg tablet,disintegrating 4 mg PO Q6H PRN (Reason: nausea and vomiting) Qty: 90 0RF diclofenac sodium 75 mg tablet,delayed release (DR/EC) 75 mg PO BID PRN (Reason: pain) Qty: 60 5RF clindamycin HCl 300 mg capsule 300 mg PO TID 10 Days Qty: 30 0RF simvastatin 20 mg tablet 20 mg PO .QHS 30 Days Qty: 30 5RF Spiriva with HandiHaler 18 mcg capsule, w/inhalation device 1 cap inhalation DAILY Qty: 30 3RF Rx Instructions: puncture 1 cap using device; one dose = 2 inhalations budesonide-formoterol [Symbicort] 160-4.5 mcg/actuation HFA aerosol inhaler 2 puff inhalation BID Qty: 10.2 3RF gabapentin 100 mg capsule 100 mg PO TID Qty: 270 3RF pantoprazole 40 mg tablet,delayed release (DR/EC) See Rx Instructions .ROUTE .COMPLEX Qty: 30 2RF Dose Instruction: TAKE ONE TABLET BY MOUTH DAILY Rx Instructions: TAKE ONE TABLET BY MOUTH DAILY bupropion HCl 150 mg tablet sustained-release 12 hr See Rx Instructions .ROUTE .COMPLEX Qty: 60 2RF Dose Instruction: TAKE ONE TABLET BY MOUTH TWICE DAILY - START WITH ONE TABLET ONCE DAILY FOR 3 DAYS, THEN INCREASE TO TWICE DAILY Rx Instructions: TAKE ONE TABLET BY MOUTH TWICE DAILY - START WITH ONE TABLET ONCE DAILY FOR 3 DAYS, THEN INCREASE TO TWICE DAILY hydrocodone-acetaminophen 7.5-325 mg tablet 1 tab PO Q4H PRN (Reason: pain) 30 Days Qty: 120 0RF lidocaine-prilocaine 2.5-2.5 % cream See Rx Instructions .ROUTE .COMPLEX Rx Instructions: apply generous amount to port area at least 1 hour prior to chemo. Referrals: Venice Barry FNP [Primary Care Provider] - Coding Level of Care Code ED [employer] for [employer] Exam Comprehensive
[2022-08-10 17:12] LABS: Alanine Aminotransferase 12 U/L (0-33); Albumin Level 4.3 g/dL (3.5-5.2); Alkaline Phosphatase 65 U/L (35-105); Anion Gap 12.6 (5-19); Aspartate Amino Transferase 15 U/L (0-32); Blood Urea Nitrogen 15 mg/dL (6-20); C Reactive Protein 10.3 mg/L (0.0-4.9); Calcium 9.3 mg/dL (8.5-10.5); Carbon Dioxide 26 mmol/L (22-29); Chloride 102 mmol/L (98-107); Globulin 2.8 g/dL (1.3-4.6); Glomerular Filtration Rate 54.5 mL/min (90-130); Glucose 83 mg/dL (65-115); Osmolality Calculated 284 mOsm/kg (285-295); Potassium 3.6 mmol/L (3.5-5.1); Sodium 137 mmol/L (136-145); Total Bilirubin 0.4 mg/dL (0.15-1.2); Total Protein 7.1 g/dL (6.6-8.7)
[2022-08-10] MEDS: diphenhydrAMINE 50 mg/mL SDV 1mL IVP (17:20)
[2022-08-10] MEDS: haloperidol inj 5 mg/mL INJ 1 mL 2.5 MG IVP (17:21)
[2022-08-10] MEDS: sodium chloride 0.9% 1,000 ML 999 ML IV (17:23)
[2022-08-10] MEDS: ketorolac 30 mg/mL INJ IVP (17:24)
[2022-08-10 17:29] VITALS: BP 142/90; PULSE 62; O2SAT 100
[2022-08-10 17:30] VITALS: BP 131/78; O2SAT 97
[2022-08-10 18:21] VITALS: BP 145/95; PULSE 62; O2SAT 100
--- NOTE | 2022-08-12 08:31 | DCPLANNER ---
Patient called rn field case manager about referral to [facility] that was supposed to be made for patient. shop manager reviewed patients chart, the physician wanted patient to be seen at [facility], rn field case manager faxed patients information to the clinic. Patients information will be printed and reviewed. Clinic will call patient with appointment information.
== END 2022-08-10 18:20 | disposition home or self-care (01) ==
PROVIDERS: Emergency Provider Emergency Medicine; PCP Nurse Practitioner Family
DX: R51.9 Headache, unspecified (principal); F17.210 Nicotine dependence, cigarettes, uncomplicated; J44.9 Chronic obstructive pulmonary disease, unspecified; I10 Essential (primary) hypertension; E78.5 Hyperlipidemia, unspecified; Z85.71 Personal history of Hodgkin lymphoma
CPT/HCPCS: 36415; 80053; 85025; 85651; 86140; 96361; 96374; 96375; 99284; J1200; J1630; J1885; J2930; J7030

== ENCOUNTER 2022-08-12 08:01 | Oncology outpatient (recurring) (ONCR) | payer MEDICAID, SELFPAY ==
--- NOTE | 2022-08-12 11:45 | MR_ITS ---
WS: [id number] MRI HEAD WITH CONTRAST TECHNIQUE: Sagittal T1, T2 axial, T2 axial FLAIR, axial susceptibility weighted imaging, axial diffus ion weighted images, and coronal T2 images were obtained. Pre and post-T1 axial and post T1 coronal i mages. ADC and FSPGR images. CLINICAL INFORMATION: headache COMPARISON: None. FINDINGS: No evidence of restricted diffusion to suggest acute ischemia. Ventricular system and basal cisterns are patent. Mild patchy supratentorial patchy white matter changes nonspecific in a patient this age but can be seen with hypertension, diabetes, collagen vascular disease, and migraine headaches. This is progressed compared to 2011. Demyelinating disease is an additional consideration although less li hanny. Corpus callosum appears normal. No hemosiderin on susceptibly weighted images. Normal posterior fossa. Normal vascular flow voids at the skull base. No extra-axial fluid collections. No evidence of mass or mass effect. Paranasal sinus es and mastoid air cells are well aerated. Normal visualized orbits.Normal posterior nasopharynx and parapharyngeal fat. Normal optic chiasm and pituitary infundibulum. Normal cavernous sinuses and Meckel's cave. Temporal lobes and hippocampal formations are normal in appearance. No abnormal intracranial enhancement. Dural venous sinuses appear normal. MR/MR head wo/w con [id number] IMPRESSION: 1. No evidence of restricted diffusion to suggest acute ischemia. 2. Mild to moderate patchy supratentorial white matter changes nonspecific in a patient this age but can be seen with hypertension, diabetes, collagen vascul ar disease, and migraine headaches. Demyelinating disease less likely. 3. Normal corpus callosum. 4. No abnormal gadolinium enhancement. 5. No hemosiderin on susceptibly weighted images. 6. No other suspicious findings.
[2022-08-12] MEDS: gadobenate dimeglumine 20 mL vial IV (12:11)
--- NOTE | 2022-08-12 16:31 | PC.NURSE ---
Patient came in for the port a cath flush which was done per orders and with the treatment she states she was seen in ER over the weekend with the temporal edema along with headaches and blurred vision. Dr Lewis notified with the new orders for MRI . She left the suite ambulatory to await for the orders.hayes
== END 2022-08-20 23:59 | disposition home or self-care (01) ==
PROVIDERS: PCP Nurse Practitioner Family; Visit Provider Internal Medicine Medical Oncology
DX: C81.41 Lymphocyte-rich Hodgkin lymphoma, lymph nodes of head, face, and neck (principal); R53.83 Other fatigue; Z92.21 Personal history of antineoplastic chemotherapy; Z45.2 Encounter for adjustment and management of vascular access device
CPT/HCPCS: 70553; 96523; A9577

== ENCOUNTER 2022-08-18 06:58 | Outpatient (CLI) | payer MEDICAID, SELFPAY ==
--- NOTE | 2022-08-18 07:06 | US_ITS ---
WS: [id number] ULTRASOUND SOFT TISSUES posterior RIGHT hip. HISTORY: M25.551 - Pain in right hip COMPARISON: No similar studies. TECHNIQUE: 2-D and color Doppler imaging is submitted. Hypoechoic area along the posterior RIGHT hip is nearly isoechoic to the adjacent soft tissues and mu scles. Very nonspecific and may be related to a muscle bundle. There is no adjacent fluid. Hypoechoic area measures 10 x 32 x 6 mm. US/US soft tissue/extremity [id number] IMPRESSION: Vague hypoechoic soft tissue in the posterior RIGHT hip. Corresponds to the pal pable abnormality. This is very nonspecific and may be related to a muscle bund le. There is no adjacent fluid or inflammation. No increased vascularity. For f urther evaluation consider MRI RIGHT hip. Prior MRI lumbar spine did not includ e dislocation.
--- NOTE | 2022-08-18 08:00 | US_ITS ---
WS: [id number] RENAL ULTRASOUND HISTORY: M54.50 - Low back pain, unspecified COMPARISON: None available. TECHNIQUE: 2-D and color Doppler imaging of the kidney submitted. Right kidney: 10.9 cm x 6.1 cm x 4.2 cm. Normal echogenicity with no hydronephrosis or mass. Left kidney: 10.5 cm x 5.0 cm x 5.7 cm. Normal echogenicity with no hydronephrosis or mass. Aorta: Normal. Urinary Bladder: Normal distention. No intraluminal filling defects. Bilateral ureteral jets. US/US renal BI* [id number] IMPRESSION: Normal renal ultrasound.
== END 2022-08-18 06:59 | disposition home or self-care (01) ==
LOC: RAD 06:59
PROVIDERS: PCP Nurse Practitioner Family; Visit Provider Nurse Practitioner Family
DX: M54.50 Low back pain, unspecified (principal); M25.551 Pain in right hip; G89.29 Other chronic pain
CPT/HCPCS: 76770; 76882

== ENCOUNTER → 2022-09-05 08:27 | Outpatient (BNVA) | payer MEDICAID, SELFPAY | PROVIDERS: PCP Nurse Practitioner Family; Referring Provider Internal Medicine Medical Oncology; Visit Provider Nurse Practitioner | DX: G43.909 Migraine, unspecified, not intractable, without status migrainosus (principal); Z85.71 Personal history of Hodgkin lymphoma; Z92.21 Personal history of antineoplastic chemotherapy | CPT/HCPCS: 99204 ==

== ENCOUNTER 2022-09-06 10:17 | Emergency (ER) | payer MEDICAID, SELFPAY ==
[2022-09-06 10:18] VITALS: BP 131/70; PULSE 70; RESP 15; TEMP 36.3; O2SAT 97; BMI 37.1
--- NOTE | 2022-09-06 10:38 | ECG_ITS ---
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1980 Requested By: Roc Wallace Order Number: [id number] Reading MD: Tremaine Lazo Measurements Intervals [place]is Rate: 77 P: 62 DC: 188 QRS: 41 QRSD: 82 T: 49 QT: 370 QTc: 419 Interpretive Statements SINUS RHYTHM POSSIBLE LEFT ATRIAL ENLARGEMENT [-0.1mV P-WAVE IN V1/V2] LOW QRS VOLTAGE IN PRECORDIAL LEADS [QRS DEFLECTION < 1.0 mV IN CHEST LEADS] SEPTAL MYOCARDIAL INFARCTION , OF INDETERMINATE AGE [40+ ms Q WAVE IN V1/V2] Compared to ECG 01/27/2015 22:54:21 Low QRS voltage now present Myocardial infarct finding now present Electronically Signed On 09-07-2022 15:27:44 CHAR FILTER OPERATOR HELPER by Tremaine Lazo [id number]
--- NOTE | 2022-09-06 10:39 | W.ED.CHESTPA ---
HPI - Chest Pain General: Chief Complaint: Chest Pain Stated Complaint: CHEST PAIN Time Seen by Provider: 09/06/22 10:21 Source: patient Mode of arrival: ambulatory History of Present Illness: 41-year-old female with a history of migraines who was recently started on sumatriptan.. She had a migraine today she is also on Topamax which she takes scheduled. She took a sumatriptan shortly after that she has felt some chest pressure and discomfort. She describes it as a tightness no associated shortness of breath no radiation of discomfort. MD complaint: chest heaviness Onset (ago): minute(s) Prior episodes: No Onset: during rest Pain location: substernal Severity: mild Quality: tightness, aching and heaviness Relieving factors: nothing Exacerbating factors: nothing Associated symptoms: Deny abdominal pain, diaphoresis, dyspnea, fever(s), leg edema, nausea, palpitations, sense of impending doom, syncope or vomiting Treatment prior to arrival: none Review of Systems Const: Denies: fever(s), chills, fatigue, malaise or diaphoresis ENMT: Denies: throat pain, ear or mastoid pain, nasal discharge or nasal congestion Card: Denies: palpitations or syncope Resp: Denies: dyspnea GI: Denies: abdominal pain, nausea or vomiting : Denies: flank pain, difficulty voiding, dysuria, urinary frequency or urinary urgency Musc: Denies: neck pain or back pain Skin/Breast: Denies: rash or pruritus PFSH ED PFSH: Medical History Chronic anxiety COPD (chronic obstructive pulmonary disease) Degenerative arthritis Degenerative joint disease of spine Environmental and seasonal allergies Essential hypertension GERD (gastroesophageal reflux disease) Hodgkin lymphoma Hyperlipidemia Major depressive disorder Obstructive sleep apnea Surgical History History of adenoidectomy (2020) History of colonoscopy (2017) History of endometrial ablation (2011) Hysteroscopy followed by D&C and thermal ablation History of lymph node biopsy (12/05/20) Left cervical lymph node biopsy History of surgery on arm (2017) ORIF for fracture of the right humerus Hx of section x 2 Hx of neck surgery 12/31/2017 c-5 c-6, c-6 c-[address] avila Hx of tubal ligation (2001) 2001 Port-A-Cath in place (01/10/21) Family History Mother Hypercholesteremia Diabetes Hypertension Psychiatric illness, Onset Age: 20 Mother had an affair with a man. [place] [employer] took her children away. The patient is the product of this liaison. Brother Hypercholesteremia Diabetes Hypertension Myocardial infarct Heart disease Father Hypercholesteremia Diabetes Hypertension Sister Hypertension Stroke Grandmother Thyroid disease Denies family history of Colon cancer Ovarian cancer Breast cancer Uterine cancer Social History Smoking and tobacco status: current every day smoker (1/2 rod a day, smoked x 25+ years) Alcohol intake: never Other details last alcohol use: none History of recent travel: No Physical Exam Const: GENERAL APPEARANCE: cooperative and comfortable ORIENTATION/CONSCIOUSNESS: Yes awake, Yes oriented to person, Yes oriented to place and Yes oriented to time HENMT: COMMON NORMALS: normocephalic, atraumatic and hearing grossly normal bilaterally HEAD & SCALP: normocephalic and atraumatic Resp: COMMON NORMALS: normal respiratory effort, No retractions, No use of accessory muscles and clear to auscultation bilaterally AUSCULTATION: clear to auscultation bilaterally Cardio: COMMON NORMALS: regular rate, regular rhythm and No murmurs present (Cardio) RATE: regular rate RHYTHM: regular rhythm GI: COMMON NORMALS: Soft to palpation and No hepatosplenomegaly present AUSCULTATION: Yes normoactive bowel sounds PALPATION: Yes Soft to palpation, No Tenderness to palpation present (GI), No Guarding due to palpation present (GI) and Yes No hepatosplenomegaly present Extremity: COMMON NORMALS: normal to inspection, capillary refill normal, no clubbing, cyanosis or edema, no calf tenderness and no pedal edema Neuro: SENSORIUM/ORIENTATION: Yes oriented to person, Yes oriented to place and Yes oriented to time Skin: COMMON NORMALS: no rashes or lesions noted GENERAL SKIN EXAM: no rashes or lesions noted Course Vital Signs: Vital signs: Vital Signs Temperature 97.3 F L 09/06/22 10:18 Pulse Rate 59 L 09/06/22 12:03 Respiratory Rate 16 09/06/22 12:03 Blood Pressure 131/71 09/06/22 12:03 Pulse Oximetry 97 09/06/22 12:03 Oxygen Delivery Me thod 09/06/22 10:18 MDM - Chest Pain Medical Decision Making Labs imaging EKG normal. Discharge patient home I suspect her symptoms are secondary to the sumatriptan. She can use Phenergan if needed her headache is improved at this time. If she has recurrence she can use the Phenergan or the sumatriptan patient reassured that this is not allergic reaction but a side effect Medical Records I reviewed the patient's medical records. Lab Data I reviewed the patient's lab results. 09/06/22 11:34 09/06/22 11:34 Radiology Impressions Chest X-Ray 09/06/22 12:07 IMPRESSION: No acute cardiopulmonary process. Laboratory Results WBC 9.1 10^3/uL (4.0-10.0) 09/06/22 11:34 RBC 4.94 10^6/uL (4.1-5.3) 09/06/22 11:34 Hgb 14.6 g/dL (11.5-15.3) 09/06/22 11:34 Hct 45.4 % (37.0-47.0) 09/06/22 11:34 MCV 91.9 fl (81-99) 09/06/22 11:34 MCH 29.6 pg (28.0-34.0) 09/06/22 11:34 MCHC 32.2 g/dL (30.0-36.0) 09/06/22 11:34 RDW 13.9 % (12.1-15.1) 09/06/22 11:34 Plt Count 218 10^3/cmm (130-400) 09/06/22 11:34 MPV 9.5 fL (7.4-10.4) 09/06/22 11:34 Neut % (Auto) 52.8 % 09/06/22 11:34 Lymph % (Auto) 28.5 % 09/06/22 11:34 [place] % (Auto) 8.5 % 09/06/22 11:34 Eos % (Auto) 9.0 % 09/06/22 11:34 Baso % (Auto) 0.8 % 09/06/22 11:34 Neut # (Auto) 4.82 10^3/uL (1.8-7.7) 09/06/22 11:34 Lymph # (Auto) 2.6 10^3/uL (0.8-4.8) 09/06/22 11:34 [place] # (Auto) 0.8 10^3/uL (0.2-0.9) 09/06/22 11:34 Eos # (Auto) 0.8 10^3/uL (0.0-0.8) 09/06/22 11:34 Baso # (Auto) 0.1 10^3/uL (0.0-0.1) 09/06/22 11:34 Nucleated RBC % (auto) 0 % 09/06/22 11:34 Nucleated RBCs # 0.0 /100WBC 09/06/22 11:34 Sodium 139 mmol/L (136-145) 09/06/22 11:34 Potassium 4.4 mmol/L (3.5-5.1) 09/06/22 11:34 Chloride 105 mmol/L (98-107) 09/06/22 11:34 Carbon Dioxide 25 mmol/L (22-29) 09/06/22 11:34 Anion Gap 13.4 (5-19) 09/06/22 11:34 BUN 10 mg/dL (6-20) 09/06/22 11:34 Creatinine 1.1 mg/dL (0.5-0.9) H 09/06/22 11:34 GFR Calculation 54.5 mL/min (90-130) L 09/06/22 11:34 Glucose 97 mg/dL (65-115) 09/06/22 11:34 Calculated Osmolality 287 mOsm/kg (285-295) 09/06/22 11:34 Calcium 9.0 mg/dL (8.5-10.5) 09/06/22 11:34 Discharge Plan Discharge Patient Disposition: Home Clinical Impression: Medication side effects, Migraine Condition: Stable Prescriptions: New promethazine 25 mg tablet 25 mg PO Q6H PRN (Reason: headache) Qty: 20 0RF No Action sumatriptan succinate [Imitrex] 100 mg tablet 100 mg PO .COMPLEX Qty: 9 6RF Rx Instructions: 100 mg orally; topiramate [Topamax] 50 mg tablet 50 mg PO BID Qty: 60 6RF Rx Instructions: Take 1/2 tab twice daily for 1 week then increase to 1 full tab twice daily albuterol sulfate [ProAir HFA] 90 mcg/actuation HFA aerosol inhaler 2 puff INHALATION Q4H PRN (Reason: shortness of breath or wheezing) 30 Days Qty: 1 5RF cyclobenzaprine 10 mg tablet 10 mg PO BID PRN (Reason: muscle spasm) 30 Days Qty: 60 5RF fluticasone propionate 50 mcg/actuation spray,suspension See Rx Instructions .ROUTE .COMPLEX Qty: 16 6RF Dose Instruction: USE 2 SPRAYS IN EACH NOSTRIL DAILY AT 9:00AM Rx Instructions: USE 2 SPRAYS IN EACH NOSTRIL DAILY AT 9:00AM quetiapine [Seroquel] 50 mg tablet 100 mg PO BEDTIME@2100 Qty: 60 5RF diclofenac sodium [Voltaren Arthritis Pain] 1 % gel 4 g topical QID Qty: 100 5RF Rx Instructions: apply to single knee, ankle, foot; for foot includes sole/toes/top of foot ondansetron 4 mg tablet,disintegrating 4 mg PO Q6H PRN (Reason: nausea and vomiting) Qty: 90 0RF simvastatin 20 mg tablet 20 mg PO .QHS 30 Days Qty: 30 5RF Spiriva with HandiHaler 18 mcg capsule, w/inhalation device 1 cap inhalation DAILY Qty: 30 3RF Rx Instructions: puncture 1 cap using device; one dose = 2 inhalations gabapentin 100 mg capsule 100 mg PO TID Qty: 270 3RF pantoprazole 40 mg tablet,delayed release (DR/EC) See Rx Instructions .ROUTE .COMPLEX Qty: 30 2RF Dose Instruction: TAKE ONE TABLET BY MOUTH DAILY Rx Instructions: TAKE ONE TABLET BY MOUTH DAILY bupropion HCl 150 mg tablet sustained-release 12 hr See Rx Instructions .ROUTE .COMPLEX Qty: 60 2RF Dose Instruction: TAKE ONE TABLET BY MOUTH TWICE DAILY - START WITH ONE TABLET ONCE DAILY FOR 3 DAYS, THEN INCREASE TO TWICE DAILY Rx Instructions: TAKE ONE TABLET BY MOUTH TWICE DAILY - START WITH ONE TABLET ONCE DAILY FOR 3 DAYS, THEN INCREASE TO TWICE DAILY hydrocodone-acetaminophen 7.5-325 mg tablet 1 tab PO Q4H PRN (Reason: pain) 30 Days Qty: 120 0RF budesonide-formoterol [Symbicort] 160-4.5 mcg/actuation HFA aerosol inhaler 2 puff inhalation BID Qty: 10.2 3RF lidocaine-prilocaine 2.5-2.5 % cream See Rx Instructions .ROUTE .COMPLEX Rx Instructions: apply generous amount to port area at least 1 hour prior to chemo. Discharge Orders: Discharge ED (Routine); Ordered 09/06/22 Ordered By: Roc Pineda Referrals: Venice Barry FNP [Primary Care Provider] - Patient Instructions: Opioid Safety, Pain Management Activity Restrictions/Additional Instructions: You were seen for migraine and chest discomfort. The chest discomfort was secondary to the sumatriptan, this is a typical side effect of that medication. You can continue to use it if needed. You can also use the promethazine you were given to help with headaches as needed and contact your neurologist if you would like to try something different in the same family as sumatriptan to see if it works better without the side effects. Coding Level of Care Code ED Outside Plant Supervisor for Yvette Fwd Exam Detailed
[2022-09-06] MEDS: ketorolac 30 mg/mL INJ IVP (11:10)
[2022-09-06] MEDS: promethazine 25 mg/mL SDV 1 mL IM (11:12)
[2022-09-06] MEDS: sodium chloride 0.9% 1,000 ML 999 ML IV (11:14)
[2022-09-06 11:40] LABS: Basophils # 0.1 10^3/uL (0.0-0.1); Basophils % 0.8 %; Eosinophils # 0.8 10^3/uL (0.0-0.8); Hematocrit 45.4 % (37.0-47.0); Hemoglobin 14.6 g/dL (11.5-15.3); Lymphocytes # 2.6 10^3/uL (0.8-4.8); Lymphocytes % 28.5 %; Mean Corpuscular HGB Conc 32.2 g/dL (30.0-36.0); Mean Corpuscular Hemoglobin 29.6 pg (28.0-34.0); Mean Corpuscular Volume 91.9 fl (81-99); Mean Platelet Volume 9.5 fL (7.4-10.4); Monocytes # 0.8 10^3/uL (0.2-0.9); Monocytes % 8.5 %; Neutrophils # 4.82 10^3/uL (1.8-7.7); Neutrophils % 52.8 %; Nucleated Red Blood Cells % 0 %; Platelet Count 218 10^3/cmm (130-400); Red Blood Count 4.94 10^6/uL (4.1-5.3); Red Cell Distribution Width 13.9 % (12.1-15.1); White Blood Count 9.1 10^3/uL (4.0-10.0)
[2022-09-06 12:03] VITALS: BP 131/71; PULSE 59; RESP 16; O2SAT 97
--- NOTE | 2022-09-06 12:07 | XRR_ITS ---
PROCEDURE INFORMATION: Exam: XR Chest Exam date and time: 09/06/2022 12:18 PM Age: 41 years old Clinical indication: Cough and dyspnea; Additional info: Dyspnea/cough TECHNIQUE: Imaging protocol: Radiologic exam of the chest. Views: 1 view. Total images: 25 COMPARISON: CR XR chest 2V* [id number] 04/03/2022 1:15 PM FINDINGS: Tubes, catheters and devices: A right infusion port is present. Lungs: Unremarkable. No consolidation. Pleural spaces: Unremarkable. No pleural effusion. No pneumothorax. Heart/Mediastinum: Unremarkable. No cardiomegaly. Bones/joints: Partially visualized spinal fusion hardware noted. Intramedullary jennifer present within the right humerus partially visualized. XR/XR chest 1V portable [id number] IMPRESSION: No acute cardiopulmonary process.
[2022-09-06 12:45] LABS: Anion Gap 13.4 (5-19); Blood Urea Nitrogen 10 mg/dL (6-20); Carbon Dioxide 25 mmol/L (22-29); Chloride 105 mmol/L (98-107); Glomerular Filtration Rate 54.5 mL/min (90-130); Glucose 97 mg/dL (65-115); Osmolality Calculated 287 mOsm/kg (285-295); Potassium 4.4 mmol/L (3.5-5.1); Sodium 139 mmol/L (136-145)
== END 2022-09-06 13:10 | disposition home or self-care (01) ==
PROVIDERS: Emergency Provider Family Medicine; PCP Nurse Practitioner Family
DX: G43.909 Migraine, unspecified, not intractable, without status migrainosus (principal); T50.905A Adverse effect of unspecified drugs, medicaments and biological substances, initial encounter; F17.210 Nicotine dependence, cigarettes, uncomplicated; J44.9 Chronic obstructive pulmonary disease, unspecified; I10 Essential (primary) hypertension; Z85.71 Personal history of Hodgkin lymphoma; E78.5 Hyperlipidemia, unspecified
CPT/HCPCS: 36415; 71045; 80048; 85025; 93005; 96372; 96374; 99285; J1885; J2550; J7030

== ENCOUNTER 2022-09-09 06:56 | Outpatient (CLI) | payer MEDICAID, SELFPAY ==
[2022-09-09 07:01] VITALS: BMI 38.2
--- NOTE | 2022-09-09 07:01 | ECG_ITS ---
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 Interpretive Statements NAME OF STUDY: EXERCISE SESTAMIBI STRESS TEST INDICATION: [Shortness of Breath, ] EXERCISE DATA: The patient was exercised by Alejandro protocol. Baseline heart rate was 75 beats per minute. Baseline blood pressure was 124/79 millimeters of mercury. Target heart rate was 151 beats per minute. Maximum heart rate achieved was 152, which was 100 % of the target heart rate. Maximum blood pressure was 184/105 millimeters of mercury. Total exercise time was 5 minutes 49 seconds. Maximum METs achieved was 7.The reason for ending the test was completion of the protocol. ELECTROCARDIOGRAM: BASELINE: Showed sinus rhythm, normal axis, no significant ST-T changes at the baseline noted. [] EXERCISE: At the peak exercise level, [] No significant ST-T changes suggestive of ischemia noted. [] RECOVERY: During the recovery period, heart rate dropped appropriately. No significant ST-T changes in the recovery suggestive of ischemia noted. [] CONCLUSION: 1. Exercise capacity fair 2. Heart rate response was appropriate. 3. Blood pressure response was appropriate 4. Symptoms not suggestive of ischemia. 5. Electrocardiogram portion of the stress test was not suggestive of ischemia. 6. Nuclear scan will be documented separately. Electronically Signed On 09-14-2022 13:45:02 ANALYSIS REPORTING DEVELOPER by Royal Reyna M.D. [id number]
--- NOTE | 2022-09-09 07:02 | NMCV_ITS ---
NM chaz perf SPECT r/s* [id number] Alla Liz Age: 41 Gender: F : 1980 Exam Date: 09/09/2022 07:02 Ordering Phys: Royal Reyna M.D ([email or web address]) Technologist: LARRY Ambrose Exam Location: [facility] Indications: CHEST PAIN STRESS TEST Please see separate stress test report in [facility] for full findings IMAGE PROTOCOL Rest/Stress 1 Exercise Day Radiopharmaceutical Dose (mCi) Administration Site Administered by Rest: Tc-99m 10.7 IV LARRY Valenzuela Sestamibi Stress:Tc-99m 33.0 IV LARRY Valenzuela Sestamidaniel Rest: 09-Sep-2022 60 Discovery 630 Stress: 09-Sep-2022 30 Discovery 630 Radiopharmaceutical was injected at 86 % maximum heart rate. Images obtained in supine and prone position. SPECT RESULTS Technical Quality: Excellent Raw Data Analysis: Normal Image Corrections: No attenuation or motion correction applied Summed Stress Score: 5 Summed Rest Score: 0 Summed Difference Score: 5 PERFUSION FINDINGS There is a medium sized area of reversible perfusion abnormality seen in the inferior, apical inferior and apical lateral jessica. This is consistent with medium sized area of ischemia in RCA and left circumflex artery territory. FUNCTIONAL RESULTS (calculated via Gated SPECT) Stress Image LV EF (%): 75 Stress EDV (mL):106 TID: 0.75 Stress ESV (mL):27 FUNCTIONAL FINDINGS: There is normal left ventricular systolic function. IMPRESSIONS 1. Abnormal myocardial perfusion imaging with medium sized area of ischemia in the RCA and left circumflex artery territory. 2. LV systolic function is normal Royal Reyna MD (Electronically Signed) Final Date: 09 September 2022 10:58 S
[2022-09-09 09:20] VITALS: BP 153/96; PULSE 92
== END 2022-09-09 06:57 | disposition home or self-care (01) ==
LOC: CDL 06:57
PROVIDERS: PCP Nurse Practitioner Family; Visit Provider Internal Medicine
DX: R06.02 Shortness of breath (principal); R07.9 Chest pain, unspecified
CPT/HCPCS: 36415; 78452; 93017; A9500

== ENCOUNTER 2022-09-09 09:55 | Oncology outpatient (recurring) (ONCR) | payer MEDICAID, SELFPAY ==
[2022-09-09 10:10] VITALS: BP 115/82; PULSE 99; RESP 16; TEMP 35.9; O2SAT 85
== END 2022-09-20 23:59 | disposition home or self-care (01) ==
PROVIDERS: PCP Nurse Practitioner Family; Visit Provider Internal Medicine Medical Oncology
DX: Z45.2 Encounter for adjustment and management of vascular access device (principal); C81.41 Lymphocyte-rich Hodgkin lymphoma, lymph nodes of head, face, and neck; R53.83 Other fatigue; Z92.21 Personal history of antineoplastic chemotherapy
CPT/HCPCS: 96523

== ENCOUNTER → 2022-09-17 16:59 | Outpatient (BNVA) | payer MEDICAID, SELFPAY | PROVIDERS: PCP Nurse Practitioner Family; Visit Provider Nurse Practitioner Family | DX: R05.9 Cough, unspecified (principal); N18.9 Chronic kidney disease, unspecified; F32.9 Major depressive disorder, single episode, unspecified; I10 Essential (primary) hypertension; R53.83 Other fatigue; R07.9 Chest pain, unspecified; Z82.49 Family history of ischemic heart disease and other diseases of the circulatory system | CPT/HCPCS: 71046; 80048; 85025; 85610; 87400; 87426 ==

== ENCOUNTER 2022-09-23 07:09 | Outpatient (CLI) | payer MEDICAID, SELFPAY ==
[2022-09-23] VITALS (14 sets, daily range): BP systolic 128–149; BP diastolic 83–103; PULSE 63–80; RESP 12–23; TEMP 36.7; O2SAT 93–97; BMI 37.5
--- NOTE | 2022-09-23 07:30 | XACV_ITS ---
Exam Room: 2 Ht: 165 cm Wt: 103 kg BSA: 2.22 m2 Gender: Female : 1980 Any Known Allergies: Other Exam Priority: Routine Procedure(s): Procedure Description: Diagnostic procedure Procedure Description: Left Heart Catheterization Procedure Description: Left ventriculography Procedure Description: Coronary Angiography Diagnostic Cath Status: Elective Diagnostic Findings * INDICATION: 41-year-old woman with past medical history of Hodgkin's lymphoma in remission has been having heartburn symptoms and underwent stress test that showed ischemia in left circumflex artery and RCA territories. Plan for coronary angiogram with possible percutaneous coronary intervention. * Left main artery: Patent. Mild luminal irregularities. LAD: Has mild 20% stenosis in mid vessel. Left circumflex artery: Has ostial 20 to 30% stenosis. Has another 20 to 30% stenosis in mid vessel. RCA: Large sized, dominant vessel. No significant stenosis is seen.. * Coronary angiography shows right dominance. Conclusions 1. Left main artery: Patent. Mild luminal irregularities. LAD: Has mild 20% stenosis in mid vessel. Left circumflex artery: Has ostial 20 to 30% stenosis. Has another 20 to 30% stenosis in mid vessel. RCA: Large sized, dominant vessel. No significant stenosis is seen.. 2. Non obstructive CAD. 3. Normal left ventricular systolic function. Ejection fraction of 55%. Recommendations * Aggressive risk factor modification. * Outpatient cardiology follow-up in 4-week. Interventional RX Recommendation: medical therapy and/or counseling Diagnostic RX Recommendation: medical therapy and/or counseling Ventriculography Ejection Fraction: 55.0 % Pressures Phase:Rest AO : 121 / 92 ( 103 ) @ 8:42:00 AM 124 / 96 ( 111 ) @ 8:45:00 AM 154 / 91 ( 118 ) @ 8:51:00 AM 159 / 95 ( 123 ) @ 8:51:00 AM LV : 168 / -10 / 22 @ 8:49:00 AM 162 / -7 / 25 @ 8:50:00 AM 160 / -7 / 25 @ 8:51:00 AM Valves Phase:DefaultPhase AV : 6.0 @ 8:56:37 AM AV Mean Gradient: 13.0 @ 8:56:37 AM Clinical Evaluation EBL: 5mL-10mL Procedural Details Procedure Consent Obtained. Admit Source: Out Patient. Pre-Procedure Time Out. Identified patient by full name and date of as verbalized by the patient/guarantor. Does the consent match the physician's order: Yes. Accurate & Complete Informed Consent: Yes. Inpatient/Outpatient History & Physical on Chart: Yes. If H&P is completed, is and addenduem needed: No; If yes, is the addendum complete: N/A. Visualize and Verify Site with Patient/Guarantor: N/A. Relevant Radiology Images available: Yes. The risks, benefits, and alternatives of sedation and/or procedure were discussed by physician. The patient agrees to continue. Procedure started. [facility] Clinical Fraility Score: 3: Managing Well. R Developer Indications:abormal stress test. Chest Pain Symptom Assessment: Typical Angina Symptoms. Cardiovascular Instability: no. Correct patient, site and procedure confirmed by cath team. Current diagnosis: Chest Pain. PERRLA. Strong, equal hand product operations associate bilaterally. Lungs clear x 5 lobes. A 20 gauge IV was started in the right anticubital using aseptic technique. IV Fluids: 0.9% NaCl at KVO. 0 mL infused prior to crime lab analyst. Pre Procedural Pulses: bilateral radial was 2+. Pre Procedural Pulses: bilateral posterior tibial was 1+. Pre Procedural Pulses: right dorsalis pedis was 1+. Pre Procedural Pulses: left dorsalis pedis was 2+. Oxygen started at 2liters/min via nasal canula. right radial was prepped with chloroprep then draped in the usual sterile fashion. right groin was prepped with chloroprep then draped in the usual sterile fashion. Physician notified. Baseline sample Acquired. HR: 56 BPM. Physician arrived. Physician scrubbed in. Immediate Pre-Procedure Time Out. Correct Patient: Yes; Correct Procedure: Yes; Correct Site: Yes; Correct Patient Position: Yes; Correct Supplies: Yes; Dried Flammable Prep: Yes; Blood Products Available: N/A;. Lidocaine 1% infiltrated to the right radial. Arterial access obtained. A 5 swedish TIG catheter in over wire. Multiple views taken of left coronary artery. Catheter redirected to the RCA. Multiple views taken of right coronary artery. Catheter out. A 5 swedish Angled Pig catheter in over wire. EDP Sample taken: LV 168/-11,22; HR: 63 BPM; SpO2: 98%. LV gram performed in BRITT @ 10 mL/second for a total of 30 mL. Patient EF: Normal. EDP Sample taken: LV 162/-8,25; HR: 66 BPM; SpO2: 98%. Pullback taken: LV 160/-8,25; AO 154/91(118); Mean: 13mmHg, Peak to Peak: 6mmHg, SEP: 18sec/min; HR: 63 BPM; SpO2: 97%. Catheter out. A TR Band was successful obtaining hemostatsis at the Right Radial artery insertion site. Post Procedure: Pulses reassessed and unchanged. PERRLA. Strong, equal hand product operations associate bilaterally. No VTE prophylaxis required. Medication's Wasted: Nitro = 49.8 mg. Medication's Wasted: Heparin = 1000 units. Total IV fluids: 25 mL. Post-op diagnosis: non obstructive CAD. Complications: none. Estimated blood loss: 5mL-10mL. Responsiveness - Normal response to verbal stimuli; alert and oriented, PERRLA. Airway - Unaffected, no intervention required; spontaneous ventilation. Circulation: W/N/L, pulses unchanged. Nausea/Vomiting: No. Procedure completed. Patient transferred by wheelchair to CPRU. Vital chart was stopped. Access Site Site: Right Radial artery Sheath Size: 6 Fr Hemostasis Method: TR Band Hemostasis Success: Successful Procedure Medications Start: 8:39 AM Stop: 8:39 AM Medication: Versed Amount: 1 mg Route: I.V. Start: 8:39 AM Stop: 8:39 AM Medication: Versed Amount: 1 mg Route: I.V. Start: 8:39 AM Stop: 8:39 AM Medication: Fentanyl Amount: 50 mcg Route: I.V. Start: 8:40 AM Stop: 8:40 AM Medication: Fentanyl Amount: 50 mcg Route: I.V. Start: 8:40 AM Stop: 8:40 AM Medication: Nitrogylcerin Amount: 200 mcg Route: I.A. Start: 8:42 AM Stop: 8:42 AM Medication: Heparin Amount: 5000 units I, the attending physician, have reviewed and verified all procedure medications. Yes, all medications given per verbal order History/Risk Factors Hypertension: Yes Dyslipidemia: Yes Peripheral Arterial Disease (PAD): No Myocardial Infarction (KS): No Obesity: No Tobacco Use: Former Prior Interventions PCI: No CABG: No Valve Surgery: No Report Signatures Finalized by Royal Reyna MD on 09/23/2022 11:14 AM
[2022-09-23] MEDS: diphenhydrAMINE 50 mg Capsule PO (07:40)
--- NOTE | 2022-09-23 08:32 | P.HP_ITS ---
Same Day Surgery H&P Indication for Procedure/HPI DATE OF PROCEDURE: September 23, 2022 CHIEF COMPLAINT/INDICATIONFOR SURGICAL PROCEDURE: Chest pain/ abnormal stress test PREOP DIAGNOSIS: Chest pain/ abnormal stress test PLANNED PROCEDURE: Operation Date: 09/23/22 08:30 Proposed Procedures p [facility] 39238,R94.39(Left) - Royal Reyna M.D Possible percutaneous coronary intervention 41-year-old woman with past medical history of Hodgkin's lymphoma in remission has been having heartburn symptoms and underwent stress test that showed ischemia in left circumflex artery and RCA territories. Plan for coronary angiogram with possible percutaneous coronary intervention ROS CONSTITUTIONAL: No fever chills weight loss or gain or night sweats. [] HEENT: Normocephalic, atraumatic.[] RESPIRATORY: No cough, sputum, hemoptysis or wheezing.[] CARDIOVASCULAR: Dyspnea on exertion, heart burn/chest pain GI: no nausea vomiting diarrhea. [] GLOBAL PROGRAM MANAGER: No numbness, tingling, weakness or loss of function in any part of the body. [] MUSCULOSKELETAL: No knee or joint pain or rashes. [] Medications/Allergies* Home Medications Medication Instructions Recorded Confirmed Type lidocaine-prilocaine 2.5 %-2.5 % See Rx Instructions .Route .COMPLEX 02/26/21 09/23/22 History topical cream Allergies/Adverse Reactions Allergy/AdvReac Type Severity Reaction Status Date / Time amoxicillin [From Augmentin] Allergy ALGY-Rash Verified 09/17/22 15:38 clavulanic acid Allergy ALGY-Rash Verified 09/17/22 15:38 [From Augmentin] pregabalin [From Lyrica] Allergy unknown Verified 09/17/22 15:38 [place] jelly Allergy rash Uncoded 09/17/22 15:38 Pertinent History/Comorbid Conditions* Medical History (Updated 09/17/22 @ 16:29 by BRIAN Santacruz) Chronic anxiety COPD (chronic obstructive pulmonary disease) Degenerative arthritis Degenerative joint disease of spine Environmental and seasonal allergies Essential hypertension GERD (gastroesophageal reflux disease) Hodgkin lymphoma Hyperlipidemia Major depressive disorder Obstructive sleep apnea Surgical History (Updated 04/13/22 @ 07:17 by Luis Lewis MD) History of adenoidectomy (2020) History of colonoscopy (2017) History of endometrial ablation (2011) Hysteroscopy followed by D&C and thermal ablation History of lymph node biopsy (12/05/20) Left cervical lymph node biopsy History of surgery on arm (2017) ORIF for fracture of the right humerus Hx of section x 2 Hx of neck surgery 12/31/2017 c-5 c-6, c-6 c-[address] avila Hx of tubal ligation (2001) 2001 Port-A-Cath in place (01/10/21) Family History (Updated 07/04/22 @ 08:39 by Janee Klein) Diabetes Mother Brother Father Heart disease Brother Hypercholesteremia Mother Brother Father Psychiatric illness Mother, Onset Age: 20 Mother had an affair with a man. [employer] took her children away. The patient is the product of this liaison. Myocardial infarct Brother Hypertension Mother Brother Father Sister Thyroid disease Grandmother Stroke Sister Denies family history of Colon cancer Ovarian cancer Breast cancer Uterine cancer Social History Smoking and tobacco status: former smoker (1/2 rod a day, smoked x 25+ years) Quit status (tobacco): has quit using tobacco Year quit tobacco: 07/2022 Former quit date comment: hx of 2 ppd X 29 years Alcohol intake: never Other details last alcohol use: none History of recent travel: No Pertinent Exam Findings alert, oriented x 3, clear to auscultation bilaterally and regular rate & rhythm Conscious Sedation Assessment AIRWAY EVAL/ANESTHESIA PLAN: ASA III, Local Anesthesia, Risks, benefits & alternatives of sedation and/or procedure discussed and Patient agrees to continue as planned ADDITIONAL INFORMATION: Moderate sedation Recommendations Surgery/Procedure today (Left heart cath with possible percutaneous coronary intervention) Coding Level of Care Code Acute 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
--- NOTE | 2022-09-23 09:01 | PC.NURSE ---
IV Fluids RBVO from Dr. Reyna for NS to run at 75ml/hr until discharge.
--- NOTE | 2022-09-23 11:16 | PC.NURSE ---
TR Band 1000 1 ml air removed from right TR band. Site asymptomatic, no signs of bleeding or hematoma. Radial pulse palpable. 1010 2 ml air removed from right TR band. Site asymptomatic, no signs of bleeding or hematoma. Radial pulse palpable. 1020 2 ml air removed from right TR band. Site asymptomatic, no signs of bleeding or hematoma. Radial pulse palpable. 1030 2 ml air removed from right TR band. Site asymptomatic, no signs of bleeding or hematoma. Radial pulse palpable. 1040 2 ml air removed from right TR band. Site asymptomatic, no signs of bleeding or hematoma. Radial pulse palpable. 1050 2 ml air removed from right TR band. Site asymptomatic, no signs of bleeding or hematoma. Radial pulse palpable. 1100 2 ml air removed from right TR band. Site asymptomatic, no signs of bleeding or hematoma. Radial pulse palpable. 1110 2 ml air removed from right TR band. Radial pulse palpable. TR band deflated and removed at this time, site asymptomatic. No signs of bleeding or hematoma. Bandaid applied over site. Pt educated on reportable signs and symptoms. Will continue to monitor.
--- NOTE | 2022-09-23 12:15 | PC.NURSE ---
Discharge Verbal and Handout Discharge instructions given at this time. present at discharge. Patient and verbalized understanding. Right wrist dressing, clean dry and intact. No signs of bleeding or hematoma. Pt escorted to vehicle by wheelchair.
== END 2022-09-23 12:19 | disposition home or self-care (01) ==
PROVIDERS: PCP Nurse Practitioner Family; Visit Provider Internal Medicine
DX: I25.10 Atherosclerotic heart disease of native coronary artery without angina pectoris (principal); C81.90 Hodgkin lymphoma, unspecified, unspecified site; I10 Essential (primary) hypertension; E78.5 Hyperlipidemia, unspecified; Z87.891 Personal history of nicotine dependence; F41.1 Generalized anxiety disorder; J44.9 Chronic obstructive pulmonary disease, unspecified; M19.90 Unspecified osteoarthritis, unspecified site; K21.9 Gastro-esophageal reflux disease without esophagitis; F32.9 Major depressive disorder, single episode, unspecified; G47.33 Obstructive sleep apnea (adult) (pediatric)
CPT/HCPCS: 36415; 93458; 96361; 96365; 99152; C1769; C1887; C1894; J1644; J2250; J3010; J3490; J7030; Q0163; Q9967

== ENCOUNTER → 2022-10-01 14:07 | Outpatient (BNVA) | payer MEDICAID, SELFPAY | PROVIDERS: PCP Nurse Practitioner Family; Visit Provider Nurse Practitioner Family | DX: I10 Essential (primary) hypertension (principal); Z87.891 Personal history of nicotine dependence | CPT/HCPCS: 36415; 80048; 99214 ==

== ENCOUNTER → 2022-10-08 16:22 | Outpatient (BNVA) | payer MEDICAID, SELFPAY | PROVIDERS: PCP Nurse Practitioner Family; Visit Provider Nurse Practitioner Family | DX: R39.9 Unspecified symptoms and signs involving the genitourinary system (principal) | CPT/HCPCS: 81000 ==

== ENCOUNTER 2022-10-10 08:01 | Day surgery (SDC) | payer MEDICAID, SELFPAY ==
[2022-10-02 09:05] VITALS: BMI 37.9
--- NOTE | 2022-10-02 09:14 | P.ANESASSM_ITS ---
Pre-Anesthetic Assessment Height/Weight: Height 1.68 m Weight 106.594 kg Preop Diagnosis: Chest pain/ abnormal stress test Operation Date: 10/10/22 07:00 Proposed Procedures p Lumbar Spine Decompression L3/4 L4/5 73047/68116/M48.062(Not Applicable) - Jaden Cantu, Familial anesthetic complications: NOne Social Tobacco and No alcohol marijuana Exam alert, oriented x 3, clear to auscultation bilaterally and regular rate & rhythm Airway Mallampati: Class III Dentition: partials Pulmonary Asthma, Chronic Obstructive Pulmonary Disease and Sleep Apnea CV/HEM Hypertension Strong family hx of [facility] (males) 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 1. Left main artery: Patent.? Mild luminal irregularities. LAD: Has mild 20% stenosis in mid vessel. Left circumflex artery: Has ostial 20 to 30% stenosis. Has another 20 to 30% stenosis in mid vessel. RCA: Large sized, dominant vessel. No significant stenosis is seen.. ? 2. Non obstructive CAD. ? 3. Normal left ventricular systolic function. Ejection fraction of 55%. Recommendations ? * Aggressive risk factor modification. ? * Outpatient cardiology follow-up in 4-week. Mycoardial perfusion IMPRESSIONS ?1.? Abnormal myocardial perfusion imaging with medium sized area of ischemia in ?the RCA and left circumflex artery territory. ?2.? LV systolic function is normal Chronic Renal Insufficiency (Scr 1.1) etiology: probably chemo Hepatic None reported GI Gastroesophageal Reflux Disease Metabolic None reported Musc/skel Lower Back Pain and Osteoarthritis/DJD Neuropsych None reported Anesthetic Plan ASA status: 3 Anesthesia: General Risk of > 500 ml blood loss (7ml/kg in children): No Medications/Allergies Home Medications Medication Instructions Recorded Confirmed Last Taken Type lidocaine-prilocaine 2.5 %-2.5 % 1 applic topical PRN PRN 02/26/21 10/02/22 Unknown History topical cream Port/Catheter Care albuterol sulfate 90 mcg/actuation 2 puff inhalation Q4H PRN 04/03/22 10/02/22 10/02/22 Rx aerosol inhaler (ProAir HFA) shortness of breath or wheezing 30 days #1 ea cyclobenzaprine 10 mg tablet 10 mg PO BID PRN muscle spasm 30 04/03/22 10/02/22 09/30/22 Rx days #60 tabs ondansetron 4 mg disintegrating 4 mg PO Q6H PRN nausea and 04/03/22 10/02/22 10/02/22 Rx tablet vomiting #90 tabs quetiapine 50 mg tablet (Seroquel) 100 mg PO BEDTIME@2100 #60 tabs 04/03/22 10/02/22 10/01/22 Rx simvastatin 20 mg tablet 20 mg PO .QHS 30 days #30 tabs 04/03/22 10/02/22 10/01/22 Rx tiotropium bromide 18 mcg capsule 1 cap inhalation DAILY #30 05/09/22 10/02/22 10/01/22 Rx with inhalation device (Spiriva inhalations with HandiHaler) gabapentin 100 mg capsule 100 mg PO TID #270 caps 07/07/22 10/02/22 10/02/22 Rx budesonide-formoterol HFA 160 2 puff inhalation BID #10.2 grams 08/11/22 10/02/22 10/02/22 Rx mcg-4.5 mcg/actuation aerosol inhaler (Symbicort) hydrocodone 7.5 mg-acetaminophen 1 tab PO Q4H PRN pain 30 days #120 09/08/22 10/02/22 10/02/22 Rx 325 mg tablet tabs buspirone 10 mg tablet 10 mg PO BID #60 tabs 09/17/22 10/02/22 10/02/22 Rx dapagliflozin 10 mg tablet 10 mg PO QAM #90 tabs 09/17/22 10/02/22 10/02/22 Rx (Farxiga) sertraline 100 mg tablet 150 mg PO DAILY 30 days #45 tabs 09/17/22 10/02/22 10/02/22 Rx furosemide 20 mg tablet (Lasix) 20 mg PO QAM #30 tabs 09/23/22 10/02/22 10/02/22 Rx clonazepam 1 mg tablet 1 mg PO PRN PRN Anxiety 10/02/22 10/02/22 Unknown History fluticasone propionate 50 2 spray intranasal DAILY 10/02/22 10/02/22 10/02/22 History mcg/actuation nasal spray,suspension pantoprazole 40 mg tablet,delayed 40 mg PO DAILY 10/02/22 10/02/22 10/02/22 History release Allergies Allergy/AdvReac Type Severity Reaction Status Date / Time amoxicillin [From Augmentin] Allergy ALGY-Rash Verified 09/17/22 15:38 clavulanic acid Allergy ALGY-Rash Verified 09/17/22 15:38 [From Augmentin] pregabalin [From Lyrica] Allergy unknown Verified 09/17/22 15:38 sumatriptan Allergy ALGY-Difficulty Verified 10/02/22 08:57 Breathing topiramate Allergy ALGY-Difficulty Verified 10/02/22 08:57 Breathing [place] jelly Allergy rash Uncoded 09/17/22 15:38 [facility] Anesthesia Medical History (Updated 10/01/22 @ 13:03 by BRIAN Fritz) Abnormal stress test Chronic anxiety COPD (chronic obstructive pulmonary disease) Degenerative arthritis Degenerative joint disease of spine Environmental and seasonal allergies Essential hypertension GERD (gastroesophageal reflux disease) Hodgkin lymphoma Hyperlipidemia Major depressive disorder Obstructive sleep apnea Surgical History History of adenoidectomy (2020) History of colonoscopy (2017) History of endometrial ablation (2011) Hysteroscopy followed by D&C and thermal ablation History of lymph node biopsy (12/05/20) Left cervical lymph node biopsy History of surgery on arm (2017) ORIF for fracture of the right humerus Hx of section x 2 Hx of neck surgery 12/31/2017 c-5 c-6, c-6 c-[address] avila Hx of tubal ligation (2001) 2001 Port-A-Cath in place (01/10/21) Family History Mother Hypercholesteremia Diabetes Hypertension Psychiatric illness, Onset Age: 20 Mother had an affair with a man. [employer] took her children away. The patient is the product of this liaison. Brother Hypercholesteremia Diabetes Hypertension Myocardial infarct Heart disease Father Hypercholesteremia Diabetes Hypertension Sister Hypertension Stroke Grandmother Thyroid disease Denies family history of Colon cancer Ovarian cancer Breast cancer Uterine cancer Social History Smoking and tobacco status: former smoker (1/2 rod a day, smoked x 25+ years) Quit status (tobacco): has quit using tobacco Year quit tobacco: 07/2022 Former quit date comment: hx of 2 ppd X 29 years Alcohol intake: never Other details last alcohol use: none History of recent travel: No Data Anesthesia Cardiac Studies: Echocardiogram 08/14/21 Echocardiogram Ultrasound 01/18/21 Sestamibi Stress Test (Cardiology) 09/09
[2022-10-10] VITALS (13 sets, daily range): BP systolic 105–143; BP diastolic 69–96; PULSE 60–80; RESP 15–22; TEMP 36.3–37.1; O2SAT 95–100
--- NOTE | 2022-10-10 | XR_ITS ---
WS: [id number] XR lumbar spine 1V [id number] REASON FOR EXAM: right sided L3-4, L5-S1 Decompression FINDINGS: Surgical device overlying the right L5-S1 disc space. Surgical device overlying the right L3-L4 disc space. XR/XR lumbar spine 1V [id number] IMPRESSION: Intraoperative lumbar localization as above.
[2022-10-10] MEDS: sodium chloride 0.9% 1,000 ML 30 ML IV (08:32)
[2022-10-10] MEDS: scopolamine 1.5 Patch 1 PATCH TRANSDERMA (08:32)
--- NOTE | 2022-10-10 08:59 | PM.HP ---
Providers/Chief Complaint Primary Care Provider: BRIAN Santacruz Chief Complaint: LUMBAR DECOMPRESSION L3/4 L4/5 [id number]/M48.062 History of Present Illness Alla Liz is a 41 year old female Established 41 year old female here for evaluation of low back pain. She rates her pain 01/28 today Chief Complaint: low back pain Onset: very long time Duration: years Characteristics: ache, shooting, numbness Severity: Location: low back Radiating symptoms: bilat toes with the right being worse Aggravating factors: walking, walking up hill, sitting, standing, lifting Alleviating factors: heat, ibuprofen with significant relief Neuro deficits: denies numbness, tingling, weakness, incontinence of bowel/bladder, saddle anesthesia. Prior tx:ablation to nerves, SAMARA with adverse reaction?? Review of Systems Const: Denies: fever(s), chills or body aches Eyes: Denies: blurry vision or eye discomfort ENMT: Denies: throat pain, ear or mastoid pain, nasal discharge, nasal congestion or sinus pain Card: Denies: chest pain, palpitations or syncope Resp: Denies: dyspnea, productive cough, non-productive cough or wheezing GI: Denies: abdominal pain, nausea, vomiting or diarrhea : Reports: difficulty voiding, dysuria, urinary frequency, urinary urgency, dribbling, nocturia and urinary incontinence Skin/Breast: Denies: rash, pruritus or sores Medications/Allergies Home Medications Medication Instructions Recorded Confirmed Last Taken Type lidocaine-prilocaine 2.5 %-2.5 % 1 applic topical PRN PRN 02/26/21 10/08/22 Unknown History topical cream Port/Catheter Care albuterol sulfate 90 mcg/actuation 2 puff inhalation Q4H PRN 04/03/22 10/08/22 10/09/22 Rx aerosol inhaler (ProAir HFA) shortness of breath or wheezing 30 days #1 ea cyclobenzaprine 10 mg tablet 10 mg PO BID PRN muscle spasm 30 04/03/22 10/08/22 10/09/22 Rx days #60 tabs ondansetron 4 mg disintegrating 4 mg PO Q6H PRN nausea and 04/03/22 10/08/22 10/09/22 Rx tablet vomiting #90 tabs quetiapine 50 mg tablet (Seroquel) 100 mg PO BEDTIME@2100 #60 tabs 04/03/22 10/08/22 10/09/22 Rx simvastatin 20 mg tablet 20 mg PO .QHS 30 days #30 tabs 04/03/22 10/08/22 10/09/22 Rx tiotropium bromide 18 mcg capsule 1 cap inhalation DAILY #30 05/09/22 10/08/22 10/09/22 Rx with inhalation device (Spiriva inhalations with HandiHaler) gabapentin 100 mg capsule 100 mg PO TID #270 caps 07/07/22 10/08/22 10/09/22 Rx budesonide-formoterol HFA 160 2 puff inhalation BID #10.2 grams 08/11/22 10/08/22 10/09/22 Rx mcg-4.5 mcg/actuation aerosol inhaler (Symbicort) buspirone 10 mg tablet 10 mg PO BID #60 tabs 09/17/22 10/08/22 10/09/22 Rx dapagliflozin 10 mg tablet 10 mg PO QAM #90 tabs 09/17/22 10/08/22 10/09/22 Rx (Farxiga) sertraline 100 mg tablet 150 mg PO DAILY 30 days #45 tabs 09/17/22 10/08/22 10/09/22 Rx furosemide 20 mg tablet (Lasix) 20 mg PO QAM #30 tabs 09/23/22 10/08/22 10/09/22 Rx clonazepam 1 mg tablet 1 mg PO PRN PRN Anxiety 10/02/22 10/10/22 10/09/22 History fluticasone propionate 50 2 spray intranasal DAILY 10/02/22 10/08/22 10/09/22 History mcg/actuation nasal spray,suspension pantoprazole 40 mg tablet,delayed 40 mg PO DAILY 10/02/22 10/08/22 10/09/22 History release ubrogepant 100 mg tablet (Ubrelvy) 100 mg PO .COMPLEX Migraines #8 10/07/22 10/10/22 Unknown Rx tabs hydrocodone 7.5 mg-acetaminophen 1 tab PO Q4H PRN pain 30 days #120 10/08/22 10/10/22 10/09/22 Rx 325 mg tablet tabs sulfamethoxazole 800 1 tab PO BID 3 days #6 tabs 10/08/22 10/10/22 10/09/22 Rx mg-trimethoprim 160 mg tablet (Bactrim DS) Allergies Allergy/AdvReac Type Severity Reaction Status Date / Time amoxicillin [From Augmentin] Allergy ALGY-Rash Verified 10/10/22 08:11 clavulanic acid Allergy ALGY-Rash Verified 10/10/22 08:11 [From Augmentin] pregabalin [From Lyrica] Allergy unknown Verified 10/10/22 08:11 sumatriptan Allergy ALGY-Difficulty Verified 10/10/22 08:11 Breathing topiramate Allergy ALGY-Difficulty Verified 10/10/22 08:11 Breathing [place] jelly Allergy rash Uncoded 10/08/22 16:18 PFSH Acute PFSH: Medical History Abnormal stress test Chronic anxiety COPD (chronic obstructive pulmonary disease) Degenerative arthritis Degenerative joint disease of spine Environmental and seasonal allergies Essential hypertension GERD (gastroesophageal reflux disease) Hodgkin lymphoma Hyperlipidemia Major depressive disorder Obstructive sleep apnea Surgical History History of adenoidectomy (2020) History of colonoscopy (2017) History of endometrial ablation (2011) Hysteroscopy followed by D&C and thermal ablation History of lymph node biopsy (12/05/20) Left cervical lymph node biopsy History of surgery on arm (2017) ORIF for fracture of the right humerus Hx of section x 2 Hx of neck surgery 12/31/2017 c-5 c-6, c-6 c-[address] avila Hx of tubal ligation (2001) 2001 Port-A-Cath in [address] (01/10/21) Family History Mother Hypercholesteremia Diabetes Hypertension Psychiatric illness, Onset Age: 20 Mother had an affair with a man. [employer] took her children away. The patient is the product of this liaison. Brother Hypercholesteremia Diabetes Hypertension Myocardial infarct Heart disease Father Hypercholesteremia Diabetes Hypertension Sister Hypertension Stroke Grandmother Thyroid disease Denies family history of Colon cancer Ovarian cancer Breast cancer Uterine cancer Social History Smoking and tobacco status: former smoker (1/2 rod a day, smoked x 25+ years) Quit status (tobacco): has quit using tobacco Year quit tobacco: 07/2022 Former quit date comment: hx of 2 ppd X 29 years Alcohol intake: never Other details last alcohol use: none History of recent travel: No Vitals/I&O/Wt Last Vital Signs Temp 98.7 F 10/10/22 08:00 Pulse 60 10/10/22 08:00 Resp 16 10/10/22 08:00 BP 118/69 10/10/22 08:00 Pulse Ox 98 10/10/22 08:00 O2 Del Method 10/10/22 08:23 Physical Exam Narrative: CONSTITUTIONAL: The patient is a normal appearing [] in no apparent distress. GENERAL: Patient in no acute distress. CARDIAC: Regular rate and rhythm. CHEST: Normal inspiratory effort, normal respiratory rate. ABDOMEN: Soft and nontender. SKIN: Clear, warm and intact. NEURO?PSYCH: The patient is alert and oriented to person, place and time. Sensorv /SILT Motor StrengthShoulder abduction C5 5/5Wrist extension C6 5/5Elbow extension C7 5/5Hand Veterinary Toxicologist C8 5/5Finger abduction T15/5 Radial/ Ulnar/ Median n intact LowerSensory (SILT)Motor StrengthHin flexion L2/3Ant/inner thigh 5/5Hip adduction L2/3 5/5Knee extension L4 Lat thigh, 5/5Toe dorsiflexion L5 5/5Ankle dorsiflexion L5/ N13Scagelj flexion S1 5/5 DTRBleeps 2+Triceps 2+Brachioradialis 2+Patellar 2+Achilles 2+ MUSCULOSKELETAL: [] UPPEREXTREMITIES: The patient had full active ROM in fingers, wrist, elbow, and shoulder. The patient demonstrated ability to fully flex/extend/abduct/adduct fingers, make ok sign, cross 2nd/3rd digits, extend 1st digit fully.. Radial pulse 2+, CR<2 seconds. LOWER EXTREMITIES: Pt has full, active ROM of toes, ankle, knee, and hip. Dorsalis pedis/posterior tibialis pulses 2+, CR<2 seconds. SPINE: Skin warm, dry, intact. A&P Assessment and plan (1) Lumbar stenosis with neurogenic claudication: R L3/4 , L4/5, L5/S1 MIS decomp Attestations Medical Necessity Statement*: failed conservative tx Coding Level of Care Code Acute Code for Chg Fwd Diagnoses Lumbar stenosis with neurogenic claudication M48.062
[2022-10-10] MEDS: HYDROmorphone 1 mg/mL INJ 1 mL 0.5 MG IVP (09:09)
[2022-10-10] MEDS: clindamycin 900 MG/50 ML PREMIX 100 MG IV (09:10)
--- NOTE | 2022-10-10 09:15 | P.ANESUD_ITS ---
Pre-Anesthetic Update Pre-Anesthetic Assessment: Date of Surgery/Procedure: 10/10/22 Preop Pricilla gnosis: Lumbar stenosis with neurogenic claudication Proposed Procedure: Operation Date: 10/10/22 09:25 Proposed Procedures p Lumbar Spine Decompression L3/4 L4/5 74129/[id number]/M48.062(Not Applicable) - Jaden Cantu, DO Any changes to Pre-Anesthetic Assessment?: No Last Intake: Intake Last Liquid Date 10/09/22 Last Liquid Time 22:30 Last Solid Date 10/09/22 Last Solid Time 22:30 Vitals: Temperature 98.7 F 10/10/22 08:00 Temperature Source Temporal Artery S can 10/10/22 08:00 Pulse Rate 60 10/10/22 08:00 Pulse Rhythm 10/10/22 08:23 Pulse Strength 3+ Normal 10/10/22 08:23 Respiratory Rate 16 10/10/22 09:09 Respiratory Effort 10/10/22 09:09 Respiratory Depth Normal 10/10/22 09:09 Respiratory Patter n 10/10/22 09:09 Blood Pressure 118/69 10/10/22 08:00 Blood Pressure Melanie n 85 10/10/22 08:00 Pulse Oximetry 98 10/10/22 08:00 Oxygen Delivery Me thod 10/10/22 08:23 Exam: Pre-Anes Outpt Exam: alert, oriented x 3, clear to auscultation bilaterally and regular rate & rhythm Cardiac Studies: Echocardiogram 08/14/21 Echocardiogram Ultrasound 01/18/21 Sestamibi Stress Test (Cardiology) 09/09
--- NOTE | 2022-10-10 10:59 | PM.OP ---
Operative Report Date of procedure: October 10, 2022 Pre-op diagnosis: Preop Diagnosis Lumbar stenosis with neurogenic claudication Post-op diagnosis: same Procedure done: 1. L3/4 laminectomy with partial facetectomy 2. L5/S1 laminectomy with partial facetectomy Surgeon: Jaden Cantu Composing Machine Operator/Tender: none Estimated blood loss (mL): 5 Procedure: 1. L3/4 laminectomy with partial facetectomy 2. L5/S1 laminectomy with partial facetectomy Patient is brought to the operative suite. After undergoing anesthesia they are placed in the prone position. All areas of impingement are well padded. Patient is then prepped and draped in the normal sterile fashion. A skin incision is made over the L3/4 level. This is confirmed under c-arm guidance. A series of dilators are passed and the tubular retractor is docked on the L3 lamina. A bovie is used to clear the soft tissue off the lamina and the L 3/4 facet joint. A high speed cherise is then used to perform the laminectomy and take down the medial aspect of the L 3/4 facet joint. A kerrison rongeure was then used to take down the remaining lamina and smooth the edge of the laminectomy up to the point where the ligamentum flavum attaches. Attention was then brought to the medial aspect of the facet joint. The remaining medial aspect of the superior and inferior aspect of the facet joint were taken down with the kerrison from the pedicle of L3 to L 4. The facet joint had significant hypertrophy. Attention was then brought to the Ligamentum Flavum. The ligament was taken down from the lamina of L3 to L4 and out medially to the remaining facet joint. The ligament was thick. The dura was then exposed. The dura was in good repair. The L3 nerve was then traced with a curette out the L3/4 foramen and found to be adequately decompressed. The L4 nerve was traced with a curette around the L4 pedicle. The lateral recess was opened with a kerrison helping to further decompress the L4 nerve. Wound is then irrigated copiously with saline and surgiflo is used to stop any bleeding. The tubular retractor is removed and the A skin incision is made over the L5/S1 level. This is confirmed under c-arm guidance. A series of dilators are passed and the tubular retractor is docked on the L5 lamina. A bovie is used to clear the soft tissue off the lamina and the L 5/S1 facet joint. A high speed cherise is then used to perform the laminectomy and take down the medial aspect of the L 5/S1 facet joint. A kerrison rongeure was then used to take down the remaining lamina and smooth the edge of the laminectomy up to the point where the ligamentum flavum attaches. Attention was then brought to the medial aspect of the facet joint. The remaining medial aspect of the superior and inferior aspect of the facet joint were taken down with the kerrison from the pedicle of L5 to S1. The facet joint had significant hypertrophy. Attention was then brought to the Ligamentum Flavum. The ligament was taken down from the lamina of L5 to S1 and out medially to the remaining facet joint. The ligament was thick. The dura was then exposed. The dura was in good repair. The L5 nerve was then traced with a curette out the L5/S1 foramen and found to be adequately decompressed. The S1 nerve was traced with a curette around the S1 pedicle. The lateral recess was opened with a kerrison helping to further decompress the S1 nerve. Wound is then irrigated copiously with saline and surgiflo is used to stop any bleeding. The tubular retractor is removed and the wound is closed with vicryl and monocryl suture. Glue is then used to protect the wound. A sterile dressing is then placed. Patient was then placed in the supine position and transferred to the PACU in stable condition.
[2022-10-10] MEDS: fentaNYL 50 mcg/mL INJ 2mL 100 MCG IVP (11:06)
[2022-10-10] MEDS: HYDROcodone-acetaminophen 10-325 mg Tablet 1 TAB PO (11:30)
--- NOTE | 2022-10-10 14:20 | ANE.PACU2 ---
Inpatient post-anesthesia follow up: Airway intact: Yes Vital signs: Temperature 98.4 F Pulse Rate 65 Respiratory Rate 16 Blood Pressure 111/84 Pulse Oximetry 98 Oxygen Delivery Me thod Room Air Oxygen Flow Rate 6 Fraction of Inspir ed Oxygen Hydration adequate: Yes Nausea and vomiting: No Pain level: 3 Mental status: Baseline
== END 2022-10-10 12:15 | disposition home or self-care (01) ==
PROVIDERS: PCP Nurse Practitioner Family; Visit Provider Orthopaedic Surgery
PROC: (CPT 63005; principal; 2022-10-10 09:25)
DX: M48.062 Spinal stenosis, lumbar region with neurogenic claudication (principal); J44.9 Chronic obstructive pulmonary disease, unspecified; G47.30 Sleep apnea, unspecified; I10 Essential (primary) hypertension; K21.9 Gastro-esophageal reflux disease without esophagitis; E78.5 Hyperlipidemia, unspecified; G47.33 Obstructive sleep apnea (adult) (pediatric); Z87.891 Personal history of nicotine dependence
CPT/HCPCS: 63047; 63048; 72020; 75989; 76000; J1100; J1170; J2250; J2405; J2704; J3010; J3490; J7030

== ENCOUNTER → 2022-10-30 14:17 | Outpatient (BNVA) | payer MEDICAID, SELFPAY | PROVIDERS: PCP Nurse Practitioner Family; Visit Provider Orthopaedic Surgery | DX: Z47.89 Encounter for other orthopedic aftercare (principal) | CPT/HCPCS: 99024 ==

== ENCOUNTER 2022-11-12 06:00 | Oncology outpatient (recurring) (ONCR) | payer MEDICAID, SELFPAY ==
[2022-11-12 12:13] LABS: Basophils # 0.1 10^3/uL (0.0-0.1); Basophils % 0.8 %; Eosinophils # 0.7 10^3/uL (0.0-0.8); Eosinophils % 6.6 %; Hematocrit 40.7 % (37.0-47.0); Lymphocytes # 3.2 10^3/uL (0.8-4.8); Lymphocytes % 30.1 %; Mean Corpuscular HGB Conc 31.9 g/dL (30.0-36.0); Mean Corpuscular Hemoglobin 29.5 pg (28.0-34.0); Mean Corpuscular Volume 92.3 fl (81-99); Mean Platelet Volume 10.2 fL (7.4-10.4); Monocytes # 0.8 10^3/uL (0.2-0.9); Monocytes % 7.2 %; Neutrophils # 5.86 10^3/uL (1.8-7.7); Neutrophils % 55.1 %; Nucleated Red Blood Cells % 0 %; Platelet Count 195 10^3/cmm (130-400); Red Blood Count 4.41 10^6/uL (4.1-5.3); Red Cell Distribution Width 14.9 % (12.1-15.1); White Blood Count 10.6 10^3/uL (4.0-10.0)
[2022-11-12 12:32] LABS: Alanine Aminotransferase 10 U/L (0-33); Albumin Level 3.9 g/dL (3.5-5.2); Alkaline Phosphatase 55 U/L (35-105); Anion Gap 13.4 (5-19); Aspartate Amino Transferase 15 U/L (0-32); Blood Urea Nitrogen 7 mg/dL (6-20); Calcium 8.7 mg/dL (8.5-10.5); Carbon Dioxide 24 mmol/L (22-29); Chloride 105 mmol/L (98-107); Globulin 2.7 g/dL (1.3-4.6); Glomerular Filtration Rate 78.7 mL/min (90-130); Glucose 88 mg/dL (65-115); Lactate Dehydrogenase 169 U/L (135-214); Osmolality Calculated 283 mOsm/kg (285-295); Potassium 4.4 mmol/L (3.5-5.1); Sodium 138 mmol/L (136-145); Total Bilirubin 0.4 mg/dL (0.15-1.2); Total Protein 6.6 g/dL (6.6-8.7)
== END 2022-11-18 23:59 | disposition home or self-care (01) ==
PROVIDERS: PCP Nurse Practitioner Family; Visit Provider Internal Medicine Medical Oncology
DX: C81.41 Lymphocyte-rich Hodgkin lymphoma, lymph nodes of head, face, and neck (principal); R53.83 Other fatigue; M54.50 Low back pain, unspecified; M25.551 Pain in right hip; M25.552 Pain in left hip; M50.00 Cervical disc disorder with myelopathy, unspecified cervical region; Z79.899 Other long term (current) drug therapy; Z79.891 Long term (current) use of opiate analgesic; Z87.891 Personal history of nicotine dependence
CPT/HCPCS: 80053; 83615; 85025; 99214

== ENCOUNTER 2022-12-06 06:05 | Outpatient (CLI) | payer MEDICAID, SELFPAY ==
--- NOTE | 2022-12-06 12:00 | PETR_ITS ---
PROCEDURE INFORMATION: Exam: PET/CT Skull Base to Mid-thigh Exam date and time: 12/06/2022 11:50 AM Age: 42 years old Clinical indication: Hodgkins lymphoma; Follow-up oncological assessment; Additional info: Adenopathy, soft tissue mass right posterior illiac crest. The compressive surgeries at the L3-L4 and L5-S1 levels on 10/10/2022. LABS AND CLINICAL REPORTS: Glucose: 97 mg/dl Treatment strategy for malignancy (PET staging): Restaging (PS) TECHNIQUE: Imaging protocol: Following at least four-hour fasting and following the injection of F-18-FDG, low dose CT images were obtained. Then, PET images were obtained. Attenuation corrected images were constructed using the CT scan. Fused images of PET and CT were reviewed. The standardized uptake values (SUV) reported below are maximum values within a region of interest, expressed in gm/ml. Exam includes orbital meatal line to mid-thigh. Radiopharmaceutical: 13.59 mCi F-18 FDG (Fluorodeoxyglucose), IV. Time of imaging post radiopharmaceutical administration: 48.8 minutes. Injection site: Right antecubital vein. COMPARISON: 1. Ultrasound soft tissue posterior right hip 08/18/2022. 2. PET/CT 05/11/2021. 3. PET/CT 02/24/2021. FINDINGS: Tubes, catheters and devices: A right chest port is in good position with its tip near the SVC/RA junction. Brain: Visualized brain has normal physiologic uptake. Pharynx: No abnormal uptake. Larynx: No abnormal uptake. Lungs, pleura and trachea: No abnormal uptake. Stable bilateral 2 mm pulmonary parenchymal calcifications and bilateral 3 mm pulmonary hilar calcifications are consistent with remote granulomatous disease. Heart: Normal physiologic uptake. Mediastinal space: No abnormal uptake. Liver: No abnormal uptake. Gallbladder and bile ducts: No abnormal uptake. Pancreas: No abnormal uptake. Spleen: No abnormal uptake. Adrenal glands: No abnormal uptake. Kidneys and ureters: Normal physiologic uptake. Stomach and bowel: No abnormal uptake. Mild diverticulosis in the descending and sigmoid colon without evidence of diverticulitis. Vasculature: No abnormal uptake. Lymph nodes: No abnormal uptake. No lymphadenopathy in the head, neck, chest, abdomen, pelvis or extremities. Bones/joints: The right L3 laminotomy defect has an SUV max of 3.8. The right L5 laminotomy defect has an SUV max of 4.6, which is expected postoperative change (granulation tissue). Anterior cervical diskectomy and fusion at C5-C7 using an anterior plate. Intramedullary jennifer in the right humerus. Soft tissues: There is no CT or PET abnormality at the posterior right hip where an ultrasound on 08/18/2022 found vague hypoechoic soft tissue . Reference SUVs: Mediastinal blood: SUV max 3.0. Liver parenchyma: SUV max 3.8. PET/PET [facility] SUBSEQ [id number] IMPRESSION: 1. Negative for malignancy (Deauville criteria 1). 2. The right L3 laminotomy defect has an SUV max of 3.8. The right L5 laminotomy defect has an SUV max of 4.6, which is normal expected postoperative change (granulation tissue). 3. There is no CT or PET abnormality at the posterior right hip where an ultrasound on 08/18/2022 found vague hypoechoic soft tissue . ASSESSMENT Deauville scorin 1: No Uptake 2: Uptake is < or = Mediastinum (max SUV) 3: Uptake is > Mediastinum (max SUV) but </= Liver (max SUV) 4: Uptake moderately higher than liver (uptake > maximum SUV of the liver) 5: Uptake markedly higher than liver (uptake 2-3x > maximum SUV of the liver) and/or new lesions A score of 1-3 are considered NEGATIVE (indicating appropriate response to chemotherapy) A score of 4 or 5 is considered POSITIVE (indicating lack of response to chemotherapy)
== END 2022-12-06 06:06 | disposition home or self-care (01) ==
LOC: RAD 12-08 06:06
PROVIDERS: PCP Nurse Practitioner Family; Visit Provider Nurse Practitioner
DX: C81.90 Hodgkin lymphoma, unspecified, unspecified site (principal)
CPT/HCPCS: 78815; A9552

== ENCOUNTER 2022-12-25 10:48 | Oncology outpatient (recurring) (ONCR) | payer MEDICAID, SELFPAY ==
[2022-12-25 11:30] VITALS: BMI 36.6
[2022-12-25 11:39] LABS: Erythrocyte Sedimentation Rate 31 mm/hr (0-15)
[2022-12-25 11:57] LABS: C Reactive Protein 14.8 mg/L (0.0-4.9)
[2022-12-25 12:03] LABS: Add Urine Culture? No; Add Urine Microscopic? YES; Bacteria Urine TRACE /hpf; Bilirubin Urine Neg (Negative); Blood Urine Neg (Negative); Glucose Urine UA 4+ (Normal); Ketones Urine Negative (Negative); Leukocyte Esterase Urine Negative (Negative); Nitrate Urine Negative (Negative); Protein Urine Neg (Negative); Squamous Epithelial Cell Urine 0-4 /hpf (0-5); Urine Appearance SL Hazy (CLEAR); Urine Color Yellow (Yellow); Urobilinogen Urine Neg (Negative); pH Urine 6 (5-7)
[2022-12-25 12:28] LABS: Basophils % 0.4 %; Eosinophils # 0.2 10^3/uL (0.0-0.8); Eosinophils % 1.9 %; Hematocrit 45.9 % (37.0-47.0); Hemoglobin 15.1 g/dL (11.5-15.3); Lymphocytes # 1.5 10^3/uL (0.8-4.8); Lymphocytes % 14.5 %; Mean Corpuscular HGB Conc 32.9 g/dL (30.0-36.0); Mean Corpuscular Hemoglobin 29.3 pg (28.0-34.0); Mean Platelet Volume 9.9 fL (7.4-10.4); Monocytes # 0.6 10^3/uL (0.2-0.9); Monocytes % 5.9 %; Neutrophils % 76.7 %; Nucleated Red Blood Cells % 0 %; Platelet Count 276 10^3/cmm (130-400); Red Blood Count 5.16 10^6/uL (4.1-5.3); Red Cell Distribution Width 15.1 % (12.1-15.1); White Blood Count 10.3 10^3/uL (4.0-10.0)
[2022-12-25 12:40] LABS: Alanine Aminotransferase 11 U/L (0-33); Albumin Level 4.5 g/dL (3.5-5.2); Alkaline Phosphatase 74 U/L (35-105); Anion Gap 16.5 (5-19); Aspartate Amino Transferase 13 U/L (0-32); Blood Urea Nitrogen 12 mg/dL (6-20); Calcium 9.2 mg/dL (8.5-10.5); Carbon Dioxide 23 mmol/L (22-29); Chloride 101 mmol/L (98-107); Globulin 3.4 g/dL (1.3-4.6); Glomerular Filtration Rate 54.2 mL/min (90-130); Glucose 107 mg/dL (65-115); Osmolality Calculated 282 mOsm/kg (285-295); Potassium 4.5 mmol/L (3.5-5.1); Sodium 136 mmol/L (136-145); Total Bilirubin 0.3 mg/dL (0.15-1.2); Total Protein 7.9 g/dL (6.6-8.7)
[2022-12-29 12:58] LABS: Angiotensin Converting Enzyme 30 U/L (9-67)
== END 2023-01-18 23:59 | disposition home or self-care (01) ==
PROVIDERS: Internal Medicine; PCP Nurse Practitioner Family; Visit Provider Internal Medicine Medical Oncology
DX: C81.41 Lymphocyte-rich Hodgkin lymphoma, lymph nodes of head, face, and neck (principal); R53.0 Neoplastic (malignant) related fatigue; M54.50 Low back pain, unspecified; M25.551 Pain in right hip; M25.552 Pain in left hip; M54.2 Cervicalgia; Z98.1 Arthrodesis status; Z79.899 Other long term (current) drug therapy; Z79.891 Long term (current) use of opiate analgesic; Z47.89 Encounter for other orthopedic aftercare
CPT/HCPCS: 36415; 80053; 81001; 82164; 85025; 85651; 86140; 96523; 99024; 99213; 99214

== ENCOUNTER → 2022-12-30 08:00 | Outpatient (BNVA) | payer MEDICAID, SELFPAY | PROVIDERS: PCP Nurse Practitioner Family; Visit Provider Surgery | DX: Z95.828 Presence of other vascular implants and grafts (principal) | CPT/HCPCS: 36590; 99213 ==

== ENCOUNTER → 2022-12-31 15:27 | Outpatient (BNVA) | payer MEDICAID, SELFPAY | PROVIDERS: PCP Nurse Practitioner Family; Visit Provider Nurse Practitioner Family | DX: F41.9 Anxiety disorder, unspecified (principal); F32.A Depression, unspecified; E78.2 Mixed hyperlipidemia; E55.9 Vitamin D deficiency, unspecified | CPT/HCPCS: 80061; 82306; 82607; 83036; 84443 ==

== ENCOUNTER 2023-01-13 08:55 | Outpatient (CLI) | payer MEDICAID, SELFPAY ==
--- NOTE | 2023-01-13 08:45 | MR_ITS ---
WS: [id number] MRI CERVICAL SPINE NONCONTRAST HISTORY: Postop, progressive neck pain. No injury. COMPARISON: 08/12/2021 Technique: Multiplanar, multisequence noncontrast imaging of the cervical spine. Straightening of the normal cervical lordosis. Anterior cervical fusion with interbody spacers from C 5 to C7. No marrow edema or fracture. Signal within the cervical cord is normal. Visualized posterior fossa is unremarkable. Craniocervical junction, C1 and C2 relationship, odontoid process and soft tissues are normal. C2-C3: Normal. C3-C4: Minimal facet joint arthritis. No stenosis. C4-C5: Small central disc protrusion. There is a small associated annular fissure. Mild facet arthrit is. No stenosis. C5-C6: No significant stenosis. Mild facet joint arthritis. C6-C7: Very mild osteophytic ridging. Mild bilateral foraminal narrowing. C7-T1: Normal. Paraspinal soft tissue are normal. MR/MR cervical spin wo con* [id number] IMPRESSION: 1. Status post anterior cervical fusion from C5 to C7. No interval change. 2. Normal signal within the cord. 3. Very small central disc protrusion at C4-5. Minimally increased in size sin ce 08/12/2021 is still no significant stenosis or contact on the cord. 4. Mild bilateral foraminal stenosis at C6-7 predominantly due to osteophyte d isease.
== END 2023-01-13 08:56 | disposition home or self-care (01) ==
PROVIDERS: PCP Nurse Practitioner Family; Visit Provider Orthopaedic Surgery
DX: M48.062 Spinal stenosis, lumbar region with neurogenic claudication (principal); Z48.89 Encounter for other specified surgical aftercare; M47.812 Spondylosis without myelopathy or radiculopathy, cervical region; M50.21 Other cervical disc displacement, high cervical region
CPT/HCPCS: 72141

== ENCOUNTER 2023-01-13 21:51 | Emergency (ER) | payer MEDICAID, SELFPAY ==
[2023-01-13 21:55] VITALS: BP 125/85; PULSE 87; RESP 18; TEMP 37; O2SAT 100; BMI 34.5
--- NOTE | 2023-01-13 22:22 | ED_ITS ---
HPI - Back Pain/Injury General: Chief Complaint: Back Pain/Injury Stated Complaint: lower back pain, surgery in Sep Time Seen by Provider: 01/13/23 22:21 History of Present Illness: 42-year-old female comes in today with low back pain. Patient reports having an MRI of her neck today since then patient has had increased pain and discomfort to the low back. Patient's routine medications for her chronic pain has not been effective for her today. Patient appears nontoxic. Patient has a history of COPD, anxiety, chronic pain, neuralgia, peripheral edema, GERD, depression, hyperlipidemia. Associated symptoms: Reports nausea; Deny chills, fever(s) or vomiting Review of Systems General: Reports: 10 or more systems reviewed and unremarkable except in HPI and below Const: Denies: fever(s) or chills Eyes: Denies: change in vision ENMT: Denies: throat pain Card: Denies: chest pain Resp: Denies: dyspnea GI: Reports: nausea; Denies: vomiting, diarrhea or constipation : Denies: difficulty voiding Musc: Reports: back pain Skin/Breast: Denies: rash Neuro: Denies: headache(s) Psych: Denies: depression PFS ED PFSH: Medical History Abnormal stress test Chronic anxiety COPD (chronic obstructive pulmonary disease) Degenerative arthritis Degenerative joint disease of spine Environmental and seasonal allergies Essential hypertension GERD (gastroesophageal reflux disease) Hodgkin lymphoma Hyperlipidemia Major depressive disorder Obstructive sleep apnea Surgical History History of adenoidectomy (2020) History of back surgery (10/10/22) L3-4 laminectomy with partial facetectomy and L5/S1 laminectomy with partial facetectomy History of colonoscopy (2017) History of endometrial ablation (2011) Hysteroscopy followed by D&C and thermal ablation History of lymph node biopsy (12/05/20) Left cervical lymph node biopsy History of surgery on arm (2017) ORIF for fracture of the right humerus Hx of section x 2 Hx of neck surgery 12/31/2017 c-5 c-6, c-6 c-[address] avila Hx of tubal ligation (2001) 2001 Port-A-Cath in place (01/10/21) Family History Mother Hypercholesteremia Diabetes Hypertension Psychiatric illness, Onset Age: 20 Mother had an affair with a man. [employer] took her children away. The patient is the product of this liaison. Brother Hypercholesteremia Diabetes Hypertension Myocardial infarct Heart disease Father Hypercholesteremia Diabetes Hypertension Sister Hypertension Stroke Grandmother Thyroid disease Denies family history of Colon cancer Ovarian cancer Breast cancer Uterine cancer Social History Smoking and tobacco status: former smoker (1/2 rod a day, smoked x 25+ years) Quit status (tobacco): has quit using tobacco Year quit tobacco: 07/2022 Former quit date comment: hx of 2 ppd X 29 years Alcohol intake: never Other details last alcohol use: none Substance/Drug Use: never Physical Exam Const: COMMON NORMALS: alert HENMT: COMMON NORMALS: normocephalic HEAD & SCALP: normocephalic Eye: COMMON NORMALS: Equal, round and reactive pupils present and EOMs intact bilaterally PUPIL: Yes Equal, round and reactive pupils present Neck/C-Spine: CERVICAL SPINE: No Cervical spine tenderness Resp: COMMON NORMALS: normal respiratory effort Cardio: COMMON NORMALS: regular rate RATE: regular rate Back/Pelvis: THORACIC SPINE/UPPER BACK: Yes normal to inspection, No thoracic spinal tenderness and No paraspinal muscle tenderness LUMBAR SPINE/LOWER BACK: No lumbar spinal tenderness and Yes paraspinal muscle tenderness OTHER: No redness or inflammation is noted along the skin of the lumbar spine. Extremity: COMMON NORMALS: no pedal edema Neuro: SENSORIUM/ORIENTATION: Yes alert Skin: COMMON NORMALS: turgor normal GENERAL SKIN EXAM: turgor normal Course Vital Signs: Vital signs: Vital Signs Temperature 98.6 F 01/13/23 21:55 Pulse Rate 65 01/13/23 23:18 Respiratory Rate 16 01/13/23 23:18 Blood Pressure 113/64 01/13/23 23:18 Pulse Oximetry 99 01/13/23 23:18 Oxygen Delivery Me thod Room Air 01/13/23 23:18 MDM - Back Pain/Injury Medical Decision Making 42-year-old female comes in today with complaints of increased low back pain. Patient had surgery done 6 months ago. Patient reports no fever but feels hot, has some nausea, had increased back pain starting today. Patient did have an MRI earlier today of the cervical spine. Examination of the low back no some paraspinous muscle tenderness. No redness or inflammation is noted of the skin. Mild tenderness is noted along the lumbar spine. Vital signs are normal. Differential diagnosis includes not limited to lumbar strain, facet arthropathy, intervertebral disc disease. CBC and CMP noted some mild leukocytosis at 12.7 which seems to be patient's baseline, patient's creatinine was 1.0 which also seems to be patient's baseline. Sed rate and CRP were unremarkable. X-ray noted some degenerative changes of the lumbar spine. Patient was stable. Patient was given 30 mg of ketorolac IM and 4 mg of morphine. Patient had some improvement in pain and was able to rest. Patient was recommended to follow-up with primary care or pain animal daycare provider for further evaluation and treatment. No signs of serious illness or injury was noted and patient was stable and released to home. Labs 01/13/23 22:37 01/13/23 22:37 Radiology Impressions Lumbar Spine X-Ray 01/13/23 22:30 IMPRESSION: Moderate disc space narrowing at L2-L3 and at L3-L4 with productive degenerative endplate changes. Laboratory Results WBC 12.7 10^3/uL (4.0-10.0) H 01/13/23 22:37 RBC 5.06 10^6/uL (4.1-5.3) 01/13/23 22:37 Hgb 14.4 g/dL (11.5-15.3) 01/13/23 22:37 Hct 45.2 % (37.0-47.0) 01/13/23 22:37 MCV 89.3 fl (81-99) 01/13/23 22:37 MCH 28.5 pg (28.0-34.0) 01/13/23 22:37 MCHC 31.9 g/dL (30.0-36.0) 01/13/23 22:37 RDW 15.2 % (12.1-15.1) H 01/13/23 22:37 Plt Count 269 10^3/cmm (130-400) 01/13/23 22:37 MPV 9.7 fL (7.4-10.4) 01/13/23 22:37 Neut % (Auto) 58.3 % 01/13/23 22:37 Lymph % (Auto) 31.9 % 01/13/23 22:37 [place] % (Auto) 5.9 % 01/13/23 22:37 Eos % (Auto) 2.4 % 01/13/23 22:37 Baso % (Auto) 0.4 % 01/13/23 22:37 Neut # (Auto) 7.43 10^3/uL (1.8-7.7) 01/13/23 22:37 Lymph # (Auto) 4.1 10^3/uL (0.8-4.8) 01/13/23 22:37 [place] # (Auto) 0.8 10^3/uL (0.2-0.9) 01/13/23 22:37 Eos # (Auto) 0.3 10^3/uL (0.0-0.8) 01/13/23 22:37 Baso # (Auto) 0.1 10^3/uL (0.0-0.1) 01/13/23 22:37 Nucleated RBC % (auto) 0 % 01/13/23 22: Nucleated RBCs # 0.0 /100WBC 01/13/23 22:37 ESR 11 mm/hr (0-15) 01/13/23 22:37 Sodium 136 mmol/L (136-145) 01/13/23 22:37 Potassium 4.2 mmol/L (3.5-5.1) 01/13/23 22:37 Chloride 100 mmol/L (98-107) 01/13/23 22:37 Carbon Dioxide 26 mmol/L (22-29) 01/13/23 22:37 Anion Gap 14.2 (5-19) 01/13/23 22:37 BUN 15 mg/dL (6-20) 01/13/23 22:37 Creatinine 1.0 mg/dL (0.5-0.9) H 01/13/23 22:37 GFR Calculation 60.5 mL/min (90-130) L 01/13/23 22:37 Glucose 86 mg/dL (65-115) 01/13/23 22:37 Calculated Osmolality 282 mOsm/kg (285-295) L 01/13/23 22:37 Calcium 9.0 mg/dL (8.5-10.5) 01/13/23 22:37 Total Bilirubin 0.2 mg/dL (0.15-1.2) 01/13/23 22:37 AST 12 U/L (0-32) 01/13/23 22:37 ALT 10 U/L (0-33) 01/13/23 22:37 Alkaline Phosphatase 58 U/L (35-105) 01/13/23 22:37 C-Reactive Protein 11.4 mg/L (0.0-4.9) H 01/13/23 22:37 Total Protein 6.7 g/dL (6.6-8.7) 01/13/23 22:37 Albumin 3.9 g/dL (3.5-5.2) 01/13/23 22:37 Globulin 2.8 g/dL (1.3-4.6) 01/13/23 22:37 Urine Color Yellow (Yellow) 01/13/23 23:01 Urine Appearance Clear (CLEAR) 01/13/23 23:01 Urine pH 8 (5-7) H 01/13/23 23:01 Ur Specific [place] 1.015 (1.005-1.030) 01/13/23 23:01 Urine Protein Neg (Negative) 01/13/23 23:01 Urine Glucose (UA) 4+ (Normal) H 01/13/23 23:01 Urine Ketones Negative (Negative) 01/13/23 23:01 Urine Blood Neg (Negative) 01/13/23 23:01 Urine Nitrate Negative (Negative) 01/13/23 23:01 Urine Bilirubin Neg (Negative) 01/13/23 23:01 Prot Sulfosalicylic Acd Negative (Negative) 01/13/23 23:01 Urine Urobilinogen Norm mg/dL (Negative) 01/13/23 23:01 Ur Leukocyte Esterase Negative (Negative) 01/13/23 23:01 Discharge Plan Discharge Patient Disposition: Home Clinical Impression: Low back pain Condition: Stable Prescriptions: No Action tizanidine 4 mg tablet 4 mg PO Q8H PRN (Reason: muscle spasticity) Qty: 90 5RF ondansetron 4 mg tablet,disintegrating 4 mg PO Q6H PRN (Reason: nausea and vomiting) Qty: 90 2RF simvastatin 20 mg tablet 20 mg PO .QHS 30 Days Qty: 30 5RF clonazepam 1 mg tablet 1 mg PO DAILY PRN (Reason: Anxiety) Qty: 30 2RF sertraline 100 mg tablet 150 mg PO DAILY 30 Days Qty: 45 5RF pantoprazole 40 mg tablet,delayed release (DR/EC) See Rx Instructions .ROUTE .COMPLEX Qty: 30 5RF Dose Instruction: TAKE ONE TABLET BY MOUTH DAILY Rx Instructions: TAKE ONE TABLET BY MOUTH DAILY Farxiga 10 mg tablet 10 mg PO QAM Qty: 30 5RF azithromycin 250 mg tablet See Rx Instructions PO .COMPLEX Qty: 6 0RF Rx Instructions: For 250 mg dose pack: take 500 mg today (day 1), then 250 mg for 4 days (days 2-5) PO albuterol sulfate [ProAir HFA] 90 mcg/actuation HFA aerosol inhaler 2 puff INHALATION Q4H PRN (Reason: shortness of breath or wheezing) 30 Days Qty: 1 5RF prednisone 5 mg tablet See Rx Instructions PO DAILY Qty: 60 0RF Rx Instructions: 15mg po qday x 5 days,then 10mg po qday x 5 days, then 5mg po qday orally daily; hydrocodone-acetaminophen 10-325 mg tablet 1 tab PO QID PRN (Reason: pain) 30 Days Qty: 120 0RF Spiriva with HandiHaler 18 mcg capsule, w/inhalation device 1 cap inhalation DAILY Qty: 30 3RF Rx Instructions: puncture 1 cap using device; one dose = 2 inhalations gabapentin 100 mg capsule 100 mg PO TID Qty: 270 3RF budesonide-formoterol [Symbicort] 160-4.5 mcg/actuation HFA aerosol inhaler 2 puff inhalation BID Qty: 10.2 3RF quetiapine [Seroquel] 50 mg tablet 100 mg PO BEDTIME@2100 Qty: 60 2RF furosemide [Lasix] 20 mg tablet 20 mg PO QAM Qty: 30 2RF fluconazole 150 mg tablet See Rx Instructions .ROUTE .COMPLEX Qty: 2 0RF Dose Instruction: TAKE ONE TABLET BY MOUTH EVERY THREE DAYS FOR TWO DOSES; MAY REPEAT SECOND DOSE 72 HOURS AFTER FIRST DOSE IF SYMPTOMS PERSIST Rx Instructions: TAKE ONE TABLET BY MOUTH EVERY THREE DAYS FOR TWO DOSES; MAY REPEAT SECOND DOSE 72 HOURS AFTER FIRST DOSE IF SYMPTOMS PERSIST lidocaine-prilocaine 2.5-2.5 % cream 1 applic topical PRN PRN (Reason: Port/Catheter Care) Rx Instructions: apply generous amount to port area at least 1 hour prior to chemo. fluticasone propionate 50 mcg/actuation spray,suspension 2 spray intranasal DAILY Rx Instructions: USE 2 SPRAYS IN EACH NOSTRIL DAILY AT 9:00AM Discharge Orders: Discharge ED (Routine); Ordered 01/14/23 Ordered By: Khoa Gutierrez Referrals: Venice Barry FNP [Primary Care Provider] - Discharge Diet: Usual diet Discharge Activity: Increase activity as tolerated Patient Instructions: Opioid Safety, Pain Management Activity Restrictions/Additional Instructions: Your urine and labs did not show any signs of infection. X-rays noted no fractures. Previous exams noted no metastasis to the bone or other significant abnormalities. Follow-up with primary care or pain animal daycare provider for further treatment and evaluation. Return to ER for new concerns. Coding Level of Care Code ED Clinical Resource Nurse for Yvette Beaulieu
--- NOTE | 2023-01-13 22:30 | XRR_ITS ---
PROCEDURE INFORMATION: Exam: XR Lumbosacral Spine Exam date and time: 01/13/2023 10:47 PM Age: 42 years old Clinical indication: Low back pain; Prior surgery; Surgery date: 6+ months; Surgery type: Lumbar TECHNIQUE: Imaging protocol: Radiologic exam of the lumbosacral spine. Views: 2 or 3 views. COMPARISON: OT XR lumbar spine 1V [id number] 10/10/2022 9:32 AM FINDINGS: Bones/joints: Moderate disc space narrowing at L2-L3 and at L3-L4 with productive degenerative endplate changes. Soft tissues: Unremarkable. XR/XR lumbar spine 2-3V* [id number] IMPRESSION: Moderate disc space narrowing at L2-L3 and at L3-L4 with productive degenerative endplate changes.
[2023-01-13 22:40] VITALS: RESP 16
[2023-01-13] MEDS: ketorolac 30 mg/mL INJ IM (22:40)
[2023-01-13] MEDS: morphine 4 mg/mL SDV 1 mL IM (22:40)
[2023-01-13 22:46] LABS: Erythrocyte Sedimentation Rate 11 mm/hr (0-15)
[2023-01-13 22:48] LABS: Basophils # 0.1 10^3/uL (0.0-0.1); Basophils % 0.4 %; Eosinophils # 0.3 10^3/uL (0.0-0.8); Eosinophils % 2.4 %; Hematocrit 45.2 % (37.0-47.0); Hemoglobin 14.4 g/dL (11.5-15.3); Lymphocytes # 4.1 10^3/uL (0.8-4.8); Lymphocytes % 31.9 %; Mean Corpuscular HGB Conc 31.9 g/dL (30.0-36.0); Mean Corpuscular Hemoglobin 28.5 pg (28.0-34.0); Mean Corpuscular Volume 89.3 fl (81-99); Mean Platelet Volume 9.7 fL (7.4-10.4); Monocytes # 0.8 10^3/uL (0.2-0.9); Monocytes % 5.9 %; Neutrophils # 7.43 10^3/uL (1.8-7.7); Neutrophils % 58.3 %; Nucleated Red Blood Cells % 0 %; Platelet Count 269 10^3/cmm (130-400); Red Blood Count 5.06 10^6/uL (4.1-5.3); Red Cell Distribution Width 15.2 % (12.1-15.1); White Blood Count 12.7 10^3/uL (4.0-10.0)
[2023-01-13 22:59] LABS: Alanine Aminotransferase 10 U/L (0-33); Albumin Level 3.9 g/dL (3.5-5.2); Alkaline Phosphatase 58 U/L (35-105); Anion Gap 14.2 (5-19); Aspartate Amino Transferase 12 U/L (0-32); Blood Urea Nitrogen 15 mg/dL (6-20); C Reactive Protein 11.4 mg/L (0.0-4.9); Carbon Dioxide 26 mmol/L (22-29); Chloride 100 mmol/L (98-107); Globulin 2.8 g/dL (1.3-4.6); Glomerular Filtration Rate 60.5 mL/min (90-130); Glucose 86 mg/dL (65-115); Osmolality Calculated 282 mOsm/kg (285-295); Potassium 4.2 mmol/L (3.5-5.1); Sodium 136 mmol/L (136-145); Total Bilirubin 0.2 mg/dL (0.15-1.2); Total Protein 6.7 g/dL (6.6-8.7)
[2023-01-13 23:18] VITALS: BP 113/64; PULSE 65; RESP 16; O2SAT 99
[2023-01-13 23:26] LABS: Add Urine Microscopic? NO; Charge for UA Resulting for Rev
[2023-01-14 00:02] LABS: Bilirubin Urine Neg (Negative); Blood Urine Neg (Negative); Glucose Urine UA 4+ (Normal); Ketones Urine Negative (Negative); Leukocyte Esterase Urine Negative (Negative); Nitrate Urine Negative (Negative); Protein Urine Neg (Negative); Specific Gravity, Urine 1.015 (1.005-1.030); Sulfosalicylic Acid Urine Negative (Negative); Urine Appearance Clear (CLEAR); Urine Color Yellow (Yellow); Urobilinogen Urine Norm (Negative); pH Urine 8 (5-7)
[2023-01-14 00:16] VITALS: BP 123/74; PULSE 60; RESP 16; O2SAT 94
== END 2023-01-14 00:16 | disposition home or self-care (01) ==
PROVIDERS: Emergency Provider Nurse Practitioner Family; PCP Nurse Practitioner Family
DX: M54.50 Low back pain, unspecified (principal); Z87.891 Personal history of nicotine dependence; J44.9 Chronic obstructive pulmonary disease, unspecified; I10 Essential (primary) hypertension; Z85.71 Personal history of Hodgkin lymphoma; E78.5 Hyperlipidemia, unspecified
CPT/HCPCS: 72100; 80053; 81003; 85025; 85651; 86140; 96372; 99284; J1885; J2270

== ENCOUNTER 2023-01-16 16:21 | Emergency (ER) | payer MEDICAID, SELFPAY ==
[2023-01-16 16:36] VITALS: BP 136/82; PULSE 79; RESP 15; O2SAT 100
--- NOTE | 2023-01-16 16:51 | CTR_ITS ---
PROCEDURE INFORMATION: Exam: CT Lumbar Spine Without Contrast Exam date and time: 01/16/2023 5:10 PM Age: 42 years old Clinical indication: Low back pain; Prior surgery; Surgery date: 1-6 months; Surgery type: Lumbar surgery 09/2022; Additional info: Lumbar radicular pain TECHNIQUE: Imaging protocol: Computed tomography of the lumbar spine without contrast. Radiation optimization: All CT scans at this facility use at least one of these dose optimization techniques: automated exposure control; mA and/or kV adjustment per patient size (includes targeted exams where dose is matched to clinical indication); or iterative reconstruction. REPORTING DATA: Count of CT and Cardiac NM exams in prior 12 months: This patient has received 2 known CTs and 0 known cardiac nuclear medicine studies in the 12 months prior to the current study. COMPARISON: PT PET skulltothi SUBSEQ [id number] 12/06/2022 11:50 AM RADIATION DOSE METRICS: Total DLP (mGy-cm): 877.4 FINDINGS: Bones/joints: No acute fracture. Normal alignment. No significant disc bulge or herniation. No severe spinal canal stenosis. No significant neural foraminal narrowing. Soft tissues: Unremarkable. CT/CT lumbar spine wo con* [id number] IMPRESSION: No acute findings.
[2023-01-16 16:57] VITALS: BP 119/75; PULSE 75; RESP 16; O2SAT 98
[2023-01-16 17:47] VITALS: RESP 16
[2023-01-16] MEDS: methocarbamol 750 mg Tablet PO (17:47)
[2023-01-16] MEDS: morphine 4 mg/mL SDV 1 mL IM (17:47)
[2023-01-16] MEDS: ketorolac 60 mg/2 mL INJ IM (17:48)
[2023-01-16] MEDS: methylPREDNISolone (DEPO) 80 MG/ML INJ 1 mL IM (17:48)
[2023-01-16] MEDS: lidocaine 5% Patch 1 PATCH TOPICAL (17:49)
--- NOTE | 2023-01-16 18:04 | W.ED.BACK ---
HPI - Back Pain/Injury General: Chief Complaint: Back Pain/Injury Stated Complaint: Lower back pain Time Seen by Provider: 01/16/23 16:34 History of Present Illness: 42-year-old female presents emergency department chief complaint of lumbar back pain patient recall she had a recent surgery approximately 2 months ago on her back unclear what was done she has a known history of lumbar spinal stenosis recent seen by her doctor yesterday scheduled for an MRI patient reports mild pain running down her left leg reports no muscular weakness to her leg reports no bowel or bladder incontinence issues or any other associated symptoms patient does not recall any recent trauma or injury noted to her back reporting no other associate symptoms reports she been taking her medication as prescribed to no relief. Patient presents to the ER with her for further assessment management. Associated symptoms: Deny abdominal pain, chills, fatigue, fever(s), nausea or vomiting Review of Systems General: Reports: 10 or more systems reviewed and unremarkable except in HPI and below Const: Denies: fever(s), chills, fatigue or malaise Eyes: Denies: change in vision or blurry vision Card: Denies: chest pain or palpitations Resp: Denies: dyspnea or productive cough GI: Denies: abdominal pain, nausea or vomiting : Denies: flank pain Musc: Reports: back pain; Denies: extremity pain or extremity swelling Skin/Breast: Denies: rash or pruritus Neuro: Denies: headache(s) Psych: Denies: anxiety or depression [place]/Lymph: Denies: easy bleeding All/Imm: Denies: urticaria, throat swelling or facial swelling PFS ED PFSH: Medical History Abnormal stress test Chronic anxiety COPD (chronic obstructive pulmonary disease) Degenerative arthritis Degenerative joint disease of spine Environmental and seasonal allergies Essential hypertension GERD (gastroesophageal reflux disease) Hodgkin lymphoma Hyperlipidemia Major depressive disorder Obstructive sleep apnea Surgical History History of adenoidectomy (2020) History of back surgery (10/10/22) L3-4 laminectomy with partial facetectomy and L5/S1 laminectomy with partial facetectomy History of colonoscopy (2017) History of endometrial ablation (2011) Hysteroscopy followed by D&C and thermal ablation History of lymph node biopsy (12/05/20) Left cervical lymph node biopsy History of surgery on arm (2017) ORIF for fracture of the right humerus Hx of section x 2 Hx of neck surgery 12/31/2017 c-5 c-6, c-6 c-[address] avila Hx of tubal ligation (2001) 2001 Port-A-Cath in place (01/10/21) Family History Mother Hypercholesteremia Diabetes Hypertension Psychiatric illness, Onset Age: 20 Mother had an affair with a man. [employer] took her children away. The patient is the product of this liaison. Brother Hypercholesteremia Diabetes Hypertension Myocardial infarct Heart disease Father Hypercholesteremia Diabetes Hypertension Sister Hypertension Stroke Grandmother Thyroid disease Denies family history of Colon cancer Ovarian cancer Breast cancer Uterine cancer Social History Smoking and tobacco status: current every day smoker (1/2 rod a day, smoked x 25+ years) cigarettes Packs smoked per day: 0.2 Alcohol intake: never Other details last alcohol use: none Substance/Drug Use: never Physical Exam Const: COMMON NORMALS: no acute distress, patient oriented x3 and healthy appearing HENMT: COMMON NORMALS: normocephalic and atraumatic HEAD & SCALP: normocephalic and atraumatic Eye: COMMON NORMALS: Equal, round and reactive pupils present and EOMs intact bilaterally PUPIL: Yes Equal, round and reactive pupils present Neck/C-Spine: COMMON NORMALS: full ROM, supple and no JVD Lymph: LYMPHATIC: no lymphadenopathy noted Chest: COMMONS NORMALS: normal inspection of the chest and normal palpation of entire chest wall Resp: COMMON NORMALS: normal respiratory effort, No retractions and clear to auscultation bilaterally EFFORT & INSPECTION: Yes able to speak in complete sentences and Yes symmetric chest movement AUSCULTATION: clear to auscultation bilaterally Cardio: COMMON NORMALS: no JVD, regular rate and regular rhythm RATE: regular rate RHYTHM: regular rhythm GI: COMMON NORMALS: Normal to inspection, nondistended, normoactive bowel sounds present, Soft to palpation and non-tender INSPECTION: Yes normal to inspection PALPATION: Yes Soft to palpation Back/Pelvis: OTHER: Moderate pain to palpation of the lumbar spine mild muscular spasm appreciated to the left lateral back no obvious ecchymosis step-offs or crepitus noted subjective numbness going on the left leg no obvious muscular weakness appreciated to either leg no foot drop noted DTRs are intact bilaterally 2+ Extremity: COMMON NORMALS: normal to inspection and full ROM Neuro: COMMON NORMALS: patient oriented x3, CN's II-XII intact bilaterally, moves all extremities and no focal motor deficits Psych: COMMON NORMALS: mental status grossly normal, Normal thought process present, cooperative and normal affect THOUGHT PROCESS: Normal thought process present Skin: COMMON NORMALS: no rashes or lesions noted GENERAL SKIN EXAM: no rashes or lesions noted Course Vital Signs: Vital signs: Vital Signs Pulse Rate 75 01/16/23 16:57 Respiratory Rate 16 01/16/23 17:47 Blood Pressure 119/75 01/16/23 16:57 Pulse Oximetry 98 01/16/23 16:57 Oxygen Delivery Me thod Room Air 01/16/23 16:57 MDM - Back Pain/Injury Medical Decision Making Due to patient's symptoms and condition we will provide the patient appropriate medications patient does report she is ran out of her chronic pain medication over the last 1 week due to progressive increased usage of it advised patient we will be treating her pain appropriate while in emergency department however cannot provide her additional opiate or narcotic pain medications for her underlying condition advised we will be obtaining CT imaging of the of the lumbar spine without contrast to further eval as MRI Abilities not available which patient is not demonstrating any concerning findings for cauda equina syndrome. Patient CT imaging came back unremarkable patient was subsequent discharged home with increased medications including steroids for her back advised prompt follow-up outpatient with her orthopedic physician or primary care doctor Thursday which advised the patient family to return the interim if any of your symptoms persist or worse. Labs Radiology Impressions Lumbar Spine CT 01/16/23 16:51 IMPRESSION: No acute findings. Discharge Plan Discharge Patient Disposition: Home Clinical Impression: Lumbar stenosis with neurogenic claudication, Chronic bilateral low back pain, Lumbar radiculopathy Condition: Stable Prescriptions: New prednisone 50 mg tablet 50 mg PO DAILY 7 Days Qty: 7 0RF Neurontin 300 mg capsule 300 mg PO Q8H Qty: 20 0RF ketorolac 10 mg tablet 10 mg PO Q8H PRN (Reason: pain) 5 Days Qty: 14 0RF No Action tizanidine 4 mg tablet 4 mg PO Q8H PRN (Reason: muscle spasticity) Qty: 90 5RF ondansetron 4 mg tablet,disintegrating 4 mg PO Q6H PRN (Reason: nausea and vomiting) Qty: 90 2RF clonazepam 1 mg tablet 1 mg PO DAILY PRN (Reason: Anxiety) Qty: 30 2RF sertraline 100 mg tablet 150 mg PO DAILY 30 Days Qty: 45 5RF pantoprazole 40 mg tablet,delayed release (DR/EC) See Rx Instructions .ROUTE .COMPLEX Qty: 30 5RF Dose Instruction: TAKE ONE TABLET BY MOUTH DAILY Rx Instructions: TAKE ONE TABLET BY MOUTH DAILY Farxiga 10 mg tablet 10 mg PO QAM Qty: 30 5RF albuterol sulfate [ProAir HFA] 90 mcg/actuation HFA aerosol inhaler 2 puff INHALATION Q4H PRN (Reason: shortness of breath or wheezing) 30 Days Qty: 1 5RF albuterol sulfate 2.5 mg /3 mL (0.083 %) solution for nebulization 2.5 mg inhalation QID PRN (Reason: shortness of breath or wheezing) Qty: 90 1RF fluconazole 150 mg tablet See Rx Instructions .ROUTE .COMPLEX Qty: 2 0RF Dose Instruction: TAKE ONE TABLET BY MOUTH EVERY THREE DAYS FOR TWO DOSES; MAY REPEAT SECOND DOSE 72 HOURS AFTER FIRST DOSE IF SYMPTOMS PERSIST Rx Instructions: TAKE ONE TABLET BY MOUTH EVERY THREE DAYS FOR TWO DOSES; MAY REPEAT SECOND DOSE 72 HOURS AFTER FIRST DOSE IF SYMPTOMS PERSIST ergocalciferol (vitamin D2) 1,250 mcg (50,000 unit) capsule 1,250 mcg PO .weekly Qty: 4 2RF simvastatin 40 mg tablet 40 mg PO .QHS 30 Days Qty: 30 5RF Spiriva with HandiHaler 18 mcg capsule, w/inhalation device 1 cap inhalation DAILY Qty: 30 3RF Rx Instructions: puncture 1 cap using device; one dose = 2 inhalations gabapentin 100 mg capsule 100 mg PO TID Qty: 270 3RF budesonide-formoterol [Symbicort] 160-4.5 mcg/actuation HFA aerosol inhaler 2 puff inhalation BID Qty: 10.2 3RF quetiapine [Seroquel] 50 mg tablet 100 mg PO BEDTIME@2100 Qty: 60 2RF furosemide [Lasix] 20 mg tablet 20 mg PO QAM Qty: 30 2RF hydrocodone-acetaminophen 10-325 mg tablet 1 tab PO QID PRN (Reason: pain) 30 Days Qty: 120 0RF lidocaine-prilocaine 2.5-2.5 % cream 1 applic topical PRN PRN (Reason: Port/Catheter Care) Rx Instructions: apply generous amount to port area at least 1 hour prior to chemo. fluticasone propionate 50 mcg/actuation spray,suspension 2 spray intranasal DAILY Rx Instructions: USE 2 SPRAYS IN EACH NOSTRIL DAILY AT 9:00AM Discharge Orders: Discharge ED (Routine); Ordered 01/16/23 Ordered By: Bernard Mendiola Referrals: Bernard Mendiola [Emergency Provider] - Venice Barry FNP [Primary Care Provider] - 4-7 days Discharge Activity: Increase activity as tolerated Patient Instructions: Sciatica (ED), Lumbar Radiculopathy (ED), Chronic Back Pain (DC), Pain Management Activity Restrictions/Additional Instructions: Please further follow-up with your doctor on Thursday for further assessment management, take medication as prescribed and please return the interim if any of your symptoms persist or worse. You have been started on a higher dose of Neurontin for your back pain please discontinue your other dose until otherwise noted. Coding Level of Care Code ED Clinical Trials Assistant for Yvette Beaulieu
== END 2023-01-16 18:42 | disposition home or self-care (01) ==
PROVIDERS: Emergency Provider Emergency Medicine; PCP Nurse Practitioner Family
DX: M48.062 Spinal stenosis, lumbar region with neurogenic claudication (principal); M54.16 Radiculopathy, lumbar region
CPT/HCPCS: 72131; 96372; 99284; J1040; J1885; J2270

== ENCOUNTER 2023-02-02 06:51 | Outpatient (CLI) | payer MEDICAID, SELFPAY ==
--- NOTE | 2023-02-02 07:15 | MR_ITS ---
WS: [id number] MRI LUMBAR SPINE NONCONTRAST TECHNIQUE: Sagittal T1, T2 and STIR imaging. Axial T1 and T2 imaging. CLINICAL INFORMATION: low back pain, post op lumbar decompression COMPARISON: None. FINDINGS: Mild lumbar curve. No acute compression. Slight retrolisthesis L3 on L4 and L4 on L5. Prior ACDF C5-C 7. Mild annular bulging T12-L1. Mild facet arthropathy. L1-L2: No significant disc bulging. Mild facet arthropathy. Spinal canal and foramen are patent. L2-L3: Mild annular bulging. Mild facet arthropathy. Spinal canal and foramen are patent. L3-L4: Mild annular bulging L3-L4 with slight retrolisthesis. Slight impingement traversing L4 nerve roots bilaterally. Prior RIGHT hemilaminectomy. Mild bilateral foraminal narrowing, RIGHT greater daniel n LEFT. Mild facet arthropathy. L4-L5: Mild annular bulging. Slight impingement LEFT subarticular recess and traversing LEFT L5 nerve root. Mild LEFT foraminal narrowing. Mild facet arthropathy. L5-S1: Mild annular bulging. Small RIGHT synovial cyst slightly contacts the far exiting RIGHT L5 ner ve root. Small synovial cyst measures 5.6 mm. Mild facet arthropathy. Visualized pelvic bony structures: Normal. Paravertebral soft tissues: Normal. MR/MR lumbar spine wo con* [id number] IMPRESSION: 1. Mild lumbar curve. No acute compression. No high-grade central canal stenos is. 2. RIGHT hemilaminectomy L3-L4. 3. Mild annular bulging with slight narrowing of subarticular recess bilateral ly. Mild RIGHT greater than LEFT foraminal narrowing at this level. 4. Annular bulging L4-L5 impinges the traversing LEFT L5 nerve root in the sub articular recess. Correlation LEFT L5 nerve root symptoms. Mild LEFT foraminal narrowing. 5. Tiny RIGHT synovial cyst L5-S1 encroaches on the exiting RIGHT L5 nerve baldo t. Synovial cyst measures 5.6 mm. 6. Mild facet arthropathy L3-L4 and L4-L5.
== END 2023-02-02 06:52 ==
PROVIDERS: PCP Nurse Practitioner Family; Visit Provider Orthopaedic Surgery
DX: M48.062 Spinal stenosis, lumbar region with neurogenic claudication (principal)
CPT/HCPCS: 72148; 99214

== ENCOUNTER → 2023-02-10 13:37 | Outpatient (BNVA) | payer MEDICAID, SELFPAY | PROVIDERS: PCP Nurse Practitioner Family; Visit Provider Internal Medicine | DX: R76.8 Other specified abnormal immunological findings in serum (principal); E55.9 Vitamin D deficiency, unspecified; M25.50 Pain in unspecified joint | CPT/HCPCS: 99214 ==

== ENCOUNTER → 2023-02-19 12:30 | Outpatient (BNVA) | payer MEDICAID, SELFPAY | PROVIDERS: PCP Nurse Practitioner Family; Visit Provider Orthopaedic Surgery | DX: Z09 Encounter for follow-up examination after completed treatment for conditions other than malignant neoplasm (principal); M48.062 Spinal stenosis, lumbar region with neurogenic claudication | CPT/HCPCS: 99214 ==

== ENCOUNTER → 2023-04-14 11:34 | Outpatient (BNVA) | payer MEDICAID, SELFPAY | PROVIDERS: PCP Nurse Practitioner Family; Visit Provider Nurse Practitioner Family | DX: I10 Essential (primary) hypertension (principal); E55.9 Vitamin D deficiency, unspecified | CPT/HCPCS: 80053; 80061; 82306; 85025 ==

== ENCOUNTER → 2023-04-24 12:02 | Outpatient (BNVA) | payer MEDICAID, SELFPAY | PROVIDERS: PCP Nurse Practitioner Family; Visit Provider Nurse Practitioner Family | DX: R41.3 Other amnesia (principal) | CPT/HCPCS: 82607; 83735; 84443 ==

== ENCOUNTER → 2023-04-30 16:17 | Outpatient (BNVA) | payer MEDICAID, SELFPAY | PROVIDERS: PCP Nurse Practitioner Family; Visit Provider Internal Medicine | DX: M54.50 Low back pain, unspecified (principal); G89.29 Other chronic pain; M25.551 Pain in right hip; M17.11 Unilateral primary osteoarthritis, right knee | CPT/HCPCS: 73560; 99214 ==

== ENCOUNTER 2023-06-15 16:15 | Outpatient (CLI) | payer MEDICAID, SELFPAY ==
--- NOTE | 2023-06-15 16:37 | XRR_ITS ---
PROCEDURE INFORMATION: Exam: XR Lumbosacral Spine Exam date and time: 06/15/2023 4:50 PM Age: 42 years old Clinical indication: Condition or disease; Stenosis, spinal; Lumbar region; Prior surgery; Surgery date: 6+ months; Surgery type: Lspine; Patient HX: Cancer (type)--lymphoma; Additional info: M48.062 - spinal stenosis, lumbar region with neurogenic . . . TECHNIQUE: Imaging protocol: Radiologic exam of the lumbosacral spine. Views: 2 or 3 views. COMPARISON: 1. CT lumbar spine wo con* [id number] 01/16/2023 5:10 PM 2. CR XR lumbar spine 2-3V* [id number] 01/13/2023 10:47 PM FINDINGS: Bones/joints: No acute fracture. Normal alignment. Overall mild multilevel intervertebral disc space narrowing and osteophyte formation along the lumbar spine greatest at L3-L4 with associated endplate sclerosis. Mild mid to lower lumbar spine facet arthrosis. Soft tissues: Unremarkable. XR/XR lumbar spine 2-3V* [id number] IMPRESSION: Mild multilevel lumbar spine degenerative changes greatest at L3-L4.
--- NOTE | 2023-06-15 16:37 | XRR_ITS ---
PROCEDURE INFORMATION: Exam: XR Sacrum and Coccyx, 2 or More Views Exam date and time: 06/15/2023 4:56 PM Age: 42 years old Clinical indication: Pain; Lumbago; Prior surgery; Surgery date: 6+ months; Surgery type: L spine; Patient HX: Cancer (type)--lymphoma; Additional info: M53.3 - sacrococcygeal disorders, not elsewhere classified TECHNIQUE: Imaging protocol: XR of the sacrum and coccyx, 2 or more views. COMPARISON: 1. CR XR lumbar spine 2-3V* [id number] 06/15/2023 4:50 PM 2. CR XR lumbar spine 2-3V* [id number] 01/13/2023 10:47 PM 3. CR XR hip BI m 5V wo/w pel* [id number] 05/15/2022 3:01 PM FINDINGS: Bones/joints: No evidence of acute fracture. No evidence of aggressive osteolytic or blastic lesion. Mild spurring of the sacroiliac joints. Soft tissues: Unremarkable. XR/XR sacrum coccyx min 2V [id number] IMPRESSION: 1. No acute findings. 2. Minimal degenerative change of the sacroiliac joints.
== END 2023-06-15 16:16 | disposition home or self-care (01) ==
PROVIDERS: PCP Nurse Practitioner Family; Visit Provider Nurse Practitioner Family
DX: M48.062 Spinal stenosis, lumbar region with neurogenic claudication (principal); M53.3 Sacrococcygeal disorders, not elsewhere classified
CPT/HCPCS: 72100; 72220

== ENCOUNTER 2023-06-25 10:45 | Oncology outpatient (recurring) (ONCR) | payer MEDICAID, SELFPAY ==
[2023-06-25 11:05] VITALS: BP 112/75; PULSE 77; RESP 16; TEMP 36.7; O2SAT 99
[2023-06-25 11:13] LABS: Basophils % 0.3 %; Eosinophils # 0.1 10^3/uL (0.0-0.8); Eosinophils % 0.9 %; Hematocrit 40.8 % (36-47); Lymphocytes # 2.8 10^3/uL (0.8-4.8); Mean Corpuscular HGB Conc 33.8 g/dL (30-55); Mean Corpuscular Hemoglobin 30.3 pg (27-33); Mean Corpuscular Volume 89.5 fl (85-98); Mean Platelet Volume 9.9 fL (7.4-10.4); Monocytes # 0.5 10^3/uL (0.2-0.9); Monocytes % 4.5 %; Neutrophils # 8.19 10^3/uL (1.8-7.7); Nucleated Red Blood Cells % 0 %; Platelet Count 234 10^3/cmm (157-399); Red Blood Count 4.56 10^6/uL (3.85-5.65); Red Cell Distribution Width 14.7 % (12.1-15.1); White Blood Count 11.69 10^3/uL (3.29-11.43)
[2023-06-25 11:41] LABS: Alanine Aminotransferase 8 U/L (0-33); Albumin Level 4.2 g/dL (3.5-5.2); Alkaline Phosphatase 54 U/L (35-105); Anion Gap 12.3 (5-19); Aspartate Amino Transferase 14 U/L (0-32); Blood Urea Nitrogen 9 mg/dL (6-20); Calcium 8.6 mg/dL (8.5-10.5); Carbon Dioxide 27 mmol/L (22-29); Chloride 104 mmol/L (98-107); Globulin 2.6 g/dL (1.3-4.6); Glomerular Filtration Rate 60.5 mL/min (90-130); Glucose 89 mg/dL (65-115); Lactate Dehydrogenase 194 U/L (135-214); Osmolality Calculated 286 mOsm/kg (285-295); Potassium 4.3 mmol/L (3.5-5.1); Sodium 139 mmol/L (136-145); Total Bilirubin 0.6 mg/dL (0.15-1.2); Total Protein 6.8 g/dL (6.6-8.7)
== END 2023-07-21 23:59 | disposition home or self-care (01) ==
PROVIDERS: PCP Nurse Practitioner Family; Visit Provider Internal Medicine Medical Oncology
DX: C81.41 Lymphocyte-rich Hodgkin lymphoma, lymph nodes of head, face, and neck (principal); R53.0 Neoplastic (malignant) related fatigue; M54.50 Low back pain, unspecified; M25.551 Pain in right hip; M25.552 Pain in left hip; Z79.891 Long term (current) use of opiate analgesic; Z79.899 Other long term (current) drug therapy; M54.2 Cervicalgia; Z98.1 Arthrodesis status; Z47.89 Encounter for other orthopedic aftercare
CPT/HCPCS: 36415; 80053; 83615; 85025; 99214

== ENCOUNTER → 2023-06-29 10:28 | Outpatient (BNVA) | payer MEDICAID, SELFPAY | PROVIDERS: PCP Nurse Practitioner Family; Visit Provider Nurse Practitioner Family | DX: J06.9 Acute upper respiratory infection, unspecified (principal); J30.2 Other seasonal allergic rhinitis; J01.00 Acute maxillary sinusitis, unspecified | CPT/HCPCS: 87486; 87581; 87633 ==

== ENCOUNTER → 2023-07-01 08:49 | Outpatient (BNVA) | payer MEDICAID, SELFPAY | PROVIDERS: PCP Nurse Practitioner Family; Visit Provider Internal Medicine | DX: M25.569 Pain in unspecified knee (principal); M25.562 Pain in left knee; G89.29 Other chronic pain; N18.9 Chronic kidney disease, unspecified; R76.8 Other specified abnormal immunological findings in serum; M25.50 Pain in unspecified joint; E55.9 Vitamin D deficiency, unspecified | CPT/HCPCS: 99214 ==

== ENCOUNTER → 2023-07-28 10:03 | Outpatient (BNVA) | payer MEDICAID, SELFPAY | PROVIDERS: PCP Nurse Practitioner Family; Visit Provider Nurse Practitioner Family | DX: R50.9 Fever, unspecified (principal) | CPT/HCPCS: 87400; 87426 ==

== ENCOUNTER → 2023-08-04 09:13 | Outpatient (BNVA) | payer MEDICAID, SELFPAY | PROVIDERS: PCP Nurse Practitioner Family; Visit Provider Anesthesiology Pain Medicine | DX: M48.062 Spinal stenosis, lumbar region with neurogenic claudication (principal); M79.18 Myalgia, other site; M25.562 Pain in left knee; G89.29 Other chronic pain; M25.551 Pain in right hip; M25.552 Pain in left hip; M47.816 Spondylosis without myelopathy or radiculopathy, lumbar region | CPT/HCPCS: 99214 ==

== ENCOUNTER → 2023-08-31 15:14 | Outpatient (BNVA) | payer MEDICAID, SELFPAY | PROVIDERS: PCP Nurse Practitioner Family; Visit Provider Obstetrics & Gynecology | DX: R10.2 Pelvic and perineal pain (principal) | CPT/HCPCS: 76830 ==

== ENCOUNTER → 2023-10-06 08:24 | Outpatient (BNVA) | payer MEDICAID, SELFPAY | PROVIDERS: PCP Nurse Practitioner Family; Visit Provider Internal Medicine | DX: M25.562 Pain in left knee; G89.29 Other chronic pain; N18.9 Chronic kidney disease, unspecified; M35.9 Systemic involvement of connective tissue, unspecified; M25.50 Pain in unspecified joint; E55.9 Vitamin D deficiency, unspecified; H53.9 Unspecified visual disturbance | CPT/HCPCS: 36415; 80053; 81003; 83516; 84443; 85025; 85651; 86003; 86008; 86140; 86160; 99214 ==

== ENCOUNTER 2023-10-28 08:08 | Outpatient (CLI) | payer MEDICAID, SELFPAY ==
--- NOTE | 2023-10-28 08:30 | USCV_ITS ---
Alla Liz Age: 42 Gender: F : 1980 Exam Date: 10/28/2023 08:26 Ordering Phys: Royal Reyna M.D ([email or web address]) Technologist: Exam Location: [facility] – [place] Indication: hx of cancer treatment BP: 125 / 70 HR: 85 Rhythm: Sinus Technical Quality: Adequate MEASUREMENTS (Male / Female) Normal Values 2D ECHO LV Diastolic Diameter PLAX 4.0 cm 4.2 - 5.9 / 3.9 - 5.3 cm LV Systolic Diameter PLAX 2.9 cm IVS Diastolic Thickness 1.2 cm 0.6 - 1.0 / 0.6 - 0.9 cm IVS Systolic Thickness 1.5 cm LVPW Diastolic Thickness 1.1 cm 0.6 - 1.0 / 0.6 - 0.9 cm LVPW Systolic Thickness 1.5 cm LVOT Diameter 2.0 cm LV Ejection Fraction 2D Teich 56.9 % LV Ejection Fraction MOD 2C 71.4 % LV Ejection Fraction 2C AL 71.1 % LA Diameter 3.8 cm IVC Diameter 2.3 cm M-MODE Aortic Annulus Diameter 3.7 cm LA Ao Ratio MM 1.0 MV E Point Septal Separation 0.7 cm DOPPLER LVOT Peak Velocity 102.0 cm/s MV Area PHT 2.5 cm squared Mitral E to A Ratio 0.7 MV E' Velocity 50.0 cm/s Mitral E to MV E' Ratio 15.6 Mitral E to LV E' Lateral Ratio 16.4 Mitral E to LV E' Septal Ratio 14.9 TR Peak Velocity 233.7 cm/s TR Peak Gradient 21.8 mmHg TV Peak E Velocity 83.0 cm/s Right Atrial Pressure 3.0 mmHg Pulmonary Artery Systolic Pressu 24.8 mmHg RV Acceleration Time 0.1 s FINDINGS Left Ventricle Left ventricle normal size. LV systolic function normal with EF 60 to 65%. No regional wall motion abnormalities are seen. Grade 1 diastolic dysfunction. Right Ventricle Normal in size and function Right Atrium Normal in size Left Atrium Normal in size Mitral Valve Structurally normal valve. Mild mitral regurgitation. Aortic Valve Structurally normal aortic valve. Tricuspid Valve Mild tricuspid regurgitation. Pulmonary artery systolic pressure is normal. Pulmonic Valve Not well-visualized Pericardium Normal Aorta Normal in size IVC Not well visualized CONCLUSIONS LV systolic function is normal with EF of 60 to 65%. Grade 1 diastolic dysfunction. Mild mitral regurgitation. Mild tricuspid regurgitation. Compared to prior echocardiogram from 2020, no significant changes are seen Royal Reyna MD (Electronically Signed) Final Date: 12 November 2023 08:48 S
== END 2023-10-28 08:09 | disposition home or self-care (01) ==
LOC: RAD 08:08
PROVIDERS: PCP Nurse Practitioner Family; Visit Provider Internal Medicine
DX: R06.02 Shortness of breath (principal); R07.9 Chest pain, unspecified
CPT/HCPCS: 93306

== ENCOUNTER 2023-11-04 14:23 | Outpatient (CLI) | payer MEDICAID, SELFPAY ==
--- NOTE | 2023-11-04 14:30 | MR_ITS ---
WS: [id number] MRI HEAD WITHOUT AND WITH GADOLINIUM ENHANCEMENT WITH ATTENTION TO THE ORBITS TECHNIQUE: Noncontrast axial T1, axial T2 FSE fat sat, coronal T2 fat sat, coronal T1, coronal T1 fat sat, sagittal T2 fat sat, plus contrast enhanced coronal, sagittal, and axial T1 fat sat images obta ined. High-resolution orbital imaging was performed with fat saturation technique. CLINICAL INFORMATION: R51.9 - Headache, unspecified COMPARISON: MRI 2021 FINDINGS: No evidence of restricted diffusion to suggest acute ischemia. Moderate patchy supratentorial white m atter changes similar to the prior examination 2021. No significant parenchymal volume loss. Normal p osterior fossa. Normal vascular flow voids at the skull base. No extra-axial fluid collections. No ev idence of mass or mass effect. Mild mucosal thickening in the paranasal sinuses. Normal posterior misty opharynx. Normal parapharyngeal fat. Mastoid air cells are well aerated. Normal optic chiasm and pituitary infundibulum. Visualized optic nerves are normal in appearance. No evidence of optic neuritis. Normal rectus muscles. No evidence of optic nerve edema. Proximal 7th and 8th cranial nerves appear normal. No abnormal gadolinium enhancement. Normal visual ized dural venous sinuses. IMPRESSION: 1. No evidence of restricted diffusion to suggest acute ischemia. 2. Moderate patchy supratentorial white matter changes appear stable compared to 2022. This is nonsp ecific in a patient this age but can be seen with hypertension, diabetes, collagen vascular disease, and migraine headaches. Demyelinating disease is less likely. 3. No significant parenchymal volume loss. 4. Mild mucosal thickening in the paranasal sinuses. 5. Normal optic chiasm and pituitary infundibulum. No evidence of optic nerve edema or optic neuriti s. 6. No abnormal gadolinium enhancement.
[2023-11-04] MEDS: gadobenate dimeglumine 20 mL vial IV (15:28)
== END 2023-11-04 14:24 | disposition home or self-care (01) ==
LOC: RAD 14:26
PROVIDERS: PCP Nurse Practitioner Family; Visit Provider Nurse Practitioner Family
DX: R51.9 Headache, unspecified (principal); R90.82 White matter disease, unspecified
CPT/HCPCS: 70543; A9577

== ENCOUNTER → 2023-11-24 14:51 | Outpatient (BNVA) | payer MEDICAID, SELFPAY | PROVIDERS: PCP Nurse Practitioner Family; Visit Provider Nurse Practitioner Family | DX: R05.9 Cough, unspecified (principal) | CPT/HCPCS: 87400; 87426 ==

== ENCOUNTER → 2023-11-26 10:27 | Outpatient (BNVA) | payer MEDICAID, SELFPAY | PROVIDERS: PCP Nurse Practitioner Family; Visit Provider Internal Medicine | DX: I10 Essential (primary) hypertension (principal); R07.9 Chest pain, unspecified; F17.210 Nicotine dependence, cigarettes, uncomplicated | CPT/HCPCS: 99213 ==

== ENCOUNTER 2023-12-29 11:41 | Oncology outpatient (recurring) (ONCR) | payer MEDICAID, SELFPAY ==
[2023-12-29 12:20] LABS: Basophils % 0.4 %; Eosinophils # 0.8 10^3/uL (0.0-0.8); Eosinophils % 8.1 %; Lymphocytes % 30.6 %; Mean Corpuscular HGB Conc 32.7 g/dL (30-55); Mean Corpuscular Hemoglobin 29.6 pg (27-33); Mean Corpuscular Volume 90.5 fl (85-98); Mean Platelet Volume 10.3 fL (7.4-10.4); Monocytes # 0.5 10^3/uL (0.2-0.9); Monocytes % 5.1 %; Neutrophils # 5.33 10^3/uL (1.8-7.7); Neutrophils % 55.3 %; Nucleated Red Blood Cells % 0 %; Platelet Count 227 10^3/cmm (157-399); Red Blood Count 4.97 10^6/uL (3.85-5.65); Red Cell Distribution Width 15.1 % (12.1-15.1); White Blood Count 9.64 10^3/uL (3.29-11.43)
[2023-12-29 12:41] LABS: Alanine Aminotransferase 7 U/L (0-33); Albumin Level 3.8 g/dL (3.5-5.2); Alkaline Phosphatase 66 U/L (35-105); Anion Gap 15.3 (5-19); Aspartate Amino Transferase 14 U/L (0-32); Blood Urea Nitrogen 10 mg/dL (6-20); Calcium 9.1 mg/dL (8.5-10.5); Carbon Dioxide 20 mmol/L (22-29); Chloride 104 mmol/L (98-107); Globulin 3.9 g/dL (1.3-4.6); Glomerular Filtration Rate 60.2 mL/min (90-130); Glucose 97 mg/dL (65-115); Lactate Dehydrogenase 170 U/L (135-214); Osmolality Calculated 279 mOsm/kg (285-295); Potassium 4.3 mmol/L (3.5-5.1); Sodium 135 mmol/L (136-145); Total Bilirubin 0.5 mg/dL (0.15-1.2); Total Protein 7.7 g/dL (6.6-8.7)
== END 2024-01-19 23:59 | disposition home or self-care (01) ==
LOC: ONCMED 11:42
PROVIDERS: PCP Nurse Practitioner Family; Visit Provider Internal Medicine Medical Oncology
DX: C81.41 Lymphocyte-rich Hodgkin lymphoma, lymph nodes of head, face, and neck (principal); Z79.899 Other long term (current) drug therapy; D64.9 Anemia, unspecified; F17.210 Nicotine dependence, cigarettes, uncomplicated
CPT/HCPCS: 36415; 80053; 83615; 85025; 99214

== ENCOUNTER 2024-01-15 08:10 | Outpatient (CLI) | payer MEDICAID, SELFPAY ==
[2024-01-15] MEDS: iohexol 350 mg/mL 500 mL Btl (per mL) IV (09:19)
[2024-01-15] MEDS: iohexol 350 mg/mL 500 mL Btl (per mL) PO (09:20)
--- NOTE | 2024-01-15 09:30 | CT_ITS ---
WS: [id number] CT CHEST, ABDOMEN AND PELVIS WITH CONTRAST HISTORY: History of lymphoma. Surveillance. TECHNIQUE: Contiguous 5 mm axial imaging performed through the chest, abdomen and pelvis with IV cont rast, oral contrast has been provided. Coronal and sagittal reformats chest. Coronal and sagittal ref ormats through the abdomen and pelvis. All CT scans at [facility] use at least one of these d ose optimization techniques: automated exposure control; mA and/or kV adjustment per patient size (in cludes targeted exams where dose is matched to clinical indication); or iterative reconstruction. CONTRAST: Omnipaque 350; 100 mL IV. DLP: 1043.48 mGy.cm COMPARISON: 08/21/[address]: Lungs are well aerated. Subcentimeter, noncalcified pulmonary nodules are noted in the RIGH T lung. These are unchanged since 08/21/2017. There is an additional subpleural nodule LEFT lower lobe which is stable. Heart is normal size. Normal aorta and pulmonary artery. No pericardial or pleural effusions. Mild coronary artery calcification. No axillary lymphadenopathy. Several small hilar lymph nodes are identified. The largest on the RIGHT measures 10 mm and was present on the prior exam also. Small hiatal hernia. Abdomen CT: Enlarged liver with hepatic steatosis. No bile duct dilatation. Normal portal vein. Renuka l size spleen. Normal gallbladder and adrenal glands. Normal pancreas. No renal obstruction or mass. Mild atherosclerosis aorta. No mesenteric or retroperitoneal adenopathy. There are a few small shotty lymph nodes but these are not enlarged. Stomach is well distended with oral contrast. No small bowel obstruction. There is mild soft tissue t hickening at the cecum which is probably due to focal fecal material. There is no obstructive pattern . Numerous diverticula in the descending and sigmoid colon. No evidence for acute diverticulitis. No obstructive pattern. Tortuous distal colon and chronic changes of diverticulosis. Pelvic CT: Normal urinary bladder. Uterus is present. No free fluid or adenopathy in the pelvis. No i nguinal lymph nodes. No destructive bone lesions. IMPRESSION: 1. No lymphadenopathy within the chest, abdomen or pelvis. RIGHT hilar lymph node is similar to 2017 . 2. Normal spleen. 3. No ascites. 4. Mild hepatic enlargement and hepatic steatosis. 5. Moderate distal colon diverticulosis. Chronic changes of diverticulosis.
== END 2024-01-15 08:11 | disposition home or self-care (01) ==
LOC: RAD 08:11
PROVIDERS: PCP Nurse Practitioner Family; Visit Provider Nurse Practitioner Family
DX: C81.41 Lymphocyte-rich Hodgkin lymphoma, lymph nodes of head, face, and neck (principal); R16.0 Hepatomegaly, not elsewhere classified; K76.0 Fatty (change of) liver, not elsewhere classified; K57.30 Diverticulosis of large intestine without perforation or abscess without bleeding
CPT/HCPCS: 71260; 74177; Q9967

== ENCOUNTER 2024-02-26 19:50 | Emergency (ER) | payer MEDICAID, SELFPAY ==
[2024-02-26 19:53] VITALS: BP 112/75; PULSE 99; RESP 18; TEMP 37.1; O2SAT 99; BMI 31.8
--- NOTE | 2024-02-26 20:24 | ED_ITS ---
HPI - Back Pain/Injury 2 General: Chief Complaint: Back Pain/Injury Stated Complaint: Lower abd pain Time Seen by Provider: 02/26/24 20:11 Source: patient Mode of arrival: ambulatory Limitations: no limitations History of Present Illness: Patient is a 43-year-old female past medical history of Hodgkin lymphoma, COPD, and diverticulosis complaining of back pain for the past 3 days. Patient does not report any inciting event immediately prior to the pain, but does state last week she fell out of her chair and thinks this could potentially have caused it. She does note that when the pain started she was just laying down. She currently states the pain is in the mid low back and it radiates down both legs. Also she is noting a headache. She states that she has an upcoming appointment to place a colostomy due to her longstanding history of diverticulosis/diverticulitis. At this time she is not reporting any fever, abdominal pain, chest pain, shortness of breath, or significant weight loss. She additionally denies any bowel or bladder incontinence, saddle anesthesia, or other distal sensory changes. She denies trauma to the back. She reports a chronic history of back pain and degenerative disc disease, states that she is also trying to get established with a spine doctor but has been unable to do so. For pain prior to arrival, she notes taking muscle relaxer as well as arthritis Tylenol which has not helped. Pain rating at this time is 10/10 and worse with any movement. She also notes that sitting up makes the pain worse, and it is relieved with lying flat. MD elicited complaint: back pain Onset (ago): day(s) Timing: constant Severity: severe Pain scale (0-10): 10 Similar Symptoms Previously: Yes Location: lumbar spine and thoracic spine Radiation: left upper leg and right upper leg Exacerbating factors: movement and sitting upright Relieving factors: supine Associated symptoms: Deny abdominal pain, chills, dysuria, fatigue, fever(s), nausea or vomiting Work related injury: No Review of Systems 2 General: Reports: 10 or more systems reviewed and unremarkable except in HPI and below Const: Denies: fever(s), chills, change in weight or fatigue Eyes: Denies: change in vision ENMT: Denies: throat pain, ear or mastoid pain or nasal discharge Card: Denies: chest pain, palpitations, swelling of feet/ankles or lightheadedness Resp: Denies: dyspnea, productive cough or wheezing GI: Denies: abdominal pain, nausea, vomiting, diarrhea or constipation : Denies: flank pain, difficulty voiding, dysuria or urinary frequency Musc: Reports: back pain and extremity pain; Denies: neck pain or joint pain Skin/Breast: Denies: rash Neuro: Reports: headache(s); Denies: numbness in extremities or weakness in extremities PFSH ED 2 PFSH: Medical History Knee pain Abnormal stress test COPD (chronic obstructive pulmonary disease) Chronic anxiety Degenerative arthritis GERD (gastroesophageal reflux disease) Degenerative joint disease of spine Obstructive sleep apnea Hodgkin lymphoma Environmental and seasonal allergies Major depressive disorder Hyperlipidemia Essential hypertension Surgical History History of back surgery (10/10/22) L3-4 laminectomy with partial facetectomy and L5/S1 laminectomy with partial facetectomy History of endometrial ablation (2011) Hysteroscopy followed by D&C and thermal ablation History of lymph node biopsy (12/05/20) Left cervical lymph node biopsy Port-A-Cath in place (01/10/21) History of surgery on arm (2017) ORIF for fracture of the right humerus History of adenoidectomy (2020) History of colonoscopy (2017) Hx of neck surgery 12/31/2017 c-5 c-6, c-6 c-[address] avila Hx of tubal ligation (2001) 2001 Hx of section x 2 Family History Mother Hypercholesteremia Diabetes Hypertension Psychiatric illness, Onset Age: 20 Mother had an affair with a man. [place] [employer] took her children away. The patient is the product of this liaison. Brother Hypercholesteremia Diabetes Hypertension Myocardial infarct Heart disease Father Hypercholesteremia Diabetes Hypertension Sister Hypertension Stroke Grandmother Thyroid disease Denies family history of Colon cancer Ovarian cancer Breast cancer Uterine cancer Social History Smoking and tobacco/nicotine status: current every day tobacco/nicotine user cigarettes Packs smoked per day: 0.2 Alcohol intake: never Substance/Drug Use: never Physical Exam 2 Const: COMMON NORMALS: average body habitus, patient oriented x3, no limitations and alert GENERAL APPEARANCE: cooperative and in distress (From pain) ORIENTATION/CONSCIOUSNESS: Yes awake HENMT: COMMON NORMALS: normocephalic and atraumatic HEAD & SCALP: n ormocephalic and atraumatic Eye: COMMON NORMALS: EOMs intact bilaterally and conjunctivae normal C ONJUNCTIVA: Yes conjunctivae normal Neck/C-Spine: COMMON NORMALS: full ROM, supple and no meningeal signs O THER: Negative Brudzinski's Resp: COMMON NORMALS: normal respiratory effort, No use of accessory muscles and clear to auscultation bilaterally AUSCULTATION: clear to auscultation bilaterally Cardio: COMMON NORMALS: regular rate, regular rhythm, S1 normal heart sound present, S2 normal heart sound present, No gallops present (Cardio), No murmurs present (Cardio), No rub (Cardio) and Peripheral pulses 2+ throughout RATE: r egular rate RHYTHM: regular rhythm HEART SOUNDS: S1 normal heart sound present and S2 normal heart sound present PERIPHERAL PULSES: Peripheral pulses 2+ throughout GI: COMMON NORMALS: Normal to inspection, nondistended, normoactive bowel sounds present, Soft to palpation and non-tender PALPATION: Yes Soft to palpation Back/Pelvis: COMMON NORMALS: thoracic and lumbar spine normal to inspection THORACIC SPINE/UPPER BACK: Yes ROM limited, Yes pain with ROM, No thoracic spinal tenderness and Yes paraspinal muscle tenderness Thoracic paraspinal muscle tenderness: bilateral LUMBAR SPINE/LOWER BACK: Yes ROM limited, Yes pain with ROM, No lumbar spinal tenderness, Yes paraspinal muscle tenderness Lumbar paraspinal muscle tenderness: bilateral, Yes straight leg raise positive right and Yes straight leg raise positive left Extremity: COMMON NORMALS: normal to inspection, full ROM and no joint enlargement Neuro: COMMON NORMALS: patient oriented x3, moves all extremities, no focal motor deficits, no sensory deficits noted and deep tendon reflexes 2+ bilaterally SENSORIUM/ORIENTATION: Yes alert MENINGEAL SIGNS: Yes no meningeal signs GAIT: Yes Antalgic gait present Psych: COMMON NORMALS: mental status grossly normal Skin: COMMON NORMALS: no rashes or lesions noted GENERAL SKIN EXAM: no rashes or lesions noted Course 2 Vital Signs: Vital signs: Vital Signs Temperature 98.7 F 06 19:53 Pulse Rate 99 02/26/24 19:53 Respiratory Rate 18 02/26/24 19:53 Blood Pressure 112/75 02/26/24 19:53 Pulse Oximetry 99 02/26/24 19:53 Oxygen Delivery Me thod Room Air 02/26/24 19:53 MDM - Back Pain/Injury Medical Decision Making Patient presents for 3 days of low back pain. Reported history of sciatica. Also noting headache. X-ray of the thoracic and lumbar back did not reveal any acute abnormalities, she does have a history of degenerative disc disease and has not seen spine surgery in over a year. Blood work revealed that she was mildly dehydrated, and she is started on a liter of fluids. Urinalysis did reveal evidence of a moderately significant urinary tract infection, patient clarifies she has not been having any symptoms. I do believe that patient's headache likely from dehydration and her back pain from the urinary tract infection. I did inform her, however, to follow-up with primary care early next week for reevaluation and to make sure that her symptoms are improving. In the case that they are, I instructed her to follow-up with orthopedic spine as she did in the past, and specific other return precautions were given. She is to increase her fluid intake at home and continue taking Tylenol or ibuprofen for pain. Labs 02/26/24 20:49 02/26/24 20:49 Radiology Impressions Lumbar Spine X-Ray 02/26/24 20:26 IMPRESSION: No acute findings. Thoracic Spine X-Ray 02/26/24 20:26 IMPRESSION: No acute findings. Laboratory Results WBC 13.96 10^3/uL (3.29-11.43) H 02/26/24 20:49 RBC 4.89 10^6/uL (3.85-5.65) 02/26/24 20:49 Hgb 15.00 g/dL (11.27-16.99) 02/26/24 20:49 Hct 43.3 % (36-47) 02/26/24 20:49 MCV 88.5 fl (85-98) 02/26/24 20:49 MCH 30.7 pg (27-33) 02/26/24 20:49 MCHC 34.6 g/dL (30-55) 02/26/24 20:49 RDW 14.3 % (12.1-15.1) 02/26/24 20:49 Plt Count 160 10^3/cmm (157-399) 02/26/24 20:49 MPV 10.3 fL (7.4-10.4) 02/26/24 20:49 Neut % (Auto) 75.5 % 02/26/24 20:49 Lymph % (Auto) 11.8 % 02/26/24 20:49 [place] % (Auto) 11.2 % 02/26/24 20:49 Eos % (Auto) 0.6 % 02/26/24 20:49 Baso % (Auto) 0.4 % 02/26/24 20:49 Neut # (Auto) 10.53 10^3/uL (1.8-7.7) H 02/26/24 20:49 Lymph # (Auto) 1.7 10^3/uL (0.8-4.8) 02/26/24 20:49 [place] # (Auto) 1.6 10^3/uL (0.2-0.9) H 02/26/24 20:49 Eos # (Auto) 0.1 10^3/uL (0.0-0.8) 02/26/24 20:49 Baso # (Auto) 0.1 10^3/uL (0.0-0.1) 02/26/24 20:49 Nucleated RBC % (auto) 0 % 02/26/24 20:49 Nucleated RBCs # 0.0 /100WBC 02/26/24 20:49 Sodium 131 mmol/L (136-145) L 02/26/24 20:49 Potassium 3.8 mmol/L (3.5-5.1) 02/26/24 20:49 Chloride 95 mmol/L (98-107) L 02/26/24 20:49 Carbon Dioxide 21 mmol/L (22-29) L 02/26/24 20:49 Anion Gap 18.8 (5-19) 02/26/24 20:49 BUN 8 mg/dL (6-20) 02/26/24 20:49 Creatinine 1.0 mg/dL (0.5-0.9) H 02/26/24 20:49 GFR Calculation 60.2 mL/min (90-130) L 02/26/24 20:49 Glucose 97 mg/dL (65-115) 02/26/24 20:49 Calculated Osmolality 270 mOsm/kg (285-295) L 02/26/24 20:49 Calcium 9.3 mg/dL (8.5-10.5) 02/26/24 20:49 Total Bilirubin 0.9 mg/dL (0.15-1.2) 02/26/24 20:49 AST 12 U/L (0-32) 02/26/24 20:49 ALT 10 U/L (0-33) 02/26/24 20:49 Alkaline Phosphatase 75 U/L (35-105) 02/26/24 20:49 Total Protein 7.8 g/dL (6.6-8.7) 02/26/24 20:49 Albumin 4.0 g/dL (3.5-5.2) 02/26/24 20:49 Globulin 3.8 g/dL (1.3-4.6) 02/26/24 20:49 Urine Color Yellow (Yellow) 02/26/24 21:17 Urine Appearance Cloudy (CLEAR) A 02/26/24 21:17 Urine pH 5 (5-7) 02/26/24 21:17 Ur Specific [place] 1.010 (1.005-1.030) 02/26/24 21:17 Urine Protein 1+ (Negative) H 02/26/24 21:17 Urine Glucose (UA) 4+ (Normal) H 02/26/24 21:17 Urine Ketones 2+ (Negative) H 02/26/24 21:17 Urine Blood 3+ (Negative) H 02/26/24 21:17 Urine Nitrate Negative (Negative) 02/26/24 21:17 Urine Bilirubin 1+ (Negative) H 02/26/24 21:17 Urine Urobilinogen Neg mg/dL (Negative) 02/26/24 21:17 Ur Leukocyte Esterase 2+ (Negative) H 02/26/24 21:17 Urine RBC 5-10 /hpf (0-2) H 02/26/24 21:17 Urine WBC 55-80 /hpf (0-5) H 02/26/24 21:17 Ur Squamous Epith Cells 0-4 /hpf (0-5) H 02/26/24 21:17 Amorphous Sediment Not Reportable 02/26/24 21:17 Urine Bacteria 1+ /hpf (NONE) H 02/26/24 21:17 All radiology interpretation(s) finalized by discharge Discharge Plan Discharge Patient Disposition: Home Clinical Impression: Dehydration Urinary tract infection Qualifiers: Urinary tract infection type: acute cystitis Hematuria presence: without hematuria Qualified Code(s): N30.00 - Acute cystitis without hematuria Condition: Stable Prescriptions: New Cipro 500 mg tablet 500 mg PO BID 10 Days Qty: 20 0RF Discontinued tizanidine 4 mg tablet See Rx Instructions .ROUTE .COMPLEX Qty: 90 2RF Dose Instruction: TAKE ONE TABLET BY MOUTH EVERY 8 HOURS NEEDED FOR MUSCLE SPASTICITY Rx Instructions: TAKE ONE TABLET BY MOUTH EVERY 8 HOURS NEEDED FOR MUSCLE SPASTICITY No Action clonazepam 1 mg tablet 1 mg PO DAILY PRN (Reason: Anxiety) Qty: 30 2RF levocetirizine [Xyzal] 5 mg tablet 5 mg PO DAILY 90 Days Qty: 90 1RF hydrocortisone acetate [Anusol-HC] 25 mg suppository 25 mg [place] BID PRN (Reason: itching) Qty: 24 3RF albuterol sulfate [ProAir HFA] 90 mcg/actuation HFA aerosol inhaler 2 puff INHALATION Q4H PRN (Reason: shortness of breath or wheezing) 30 Days Qty: 1 5RF albuterol sulfate 2.5 mg /3 mL (0.083 %) solution for nebulization 2.5 mg inhalation QID PRN (Reason: shortness of breath or wheezing) Qty: 90 1RF thiamine HCl (vitamin B1) 100 mg tablet 100 mg PO DAILY Qty: 30 0RF meloxicam 15 mg tablet 15 mg PO DAILY Qty: 30 3RF sulfasalazine 500 mg tablet 1 g PO DAILY Qty: 60 2RF Rx Instructions: give with food (meal/snack) 500mg PO BID triamcinolone acetonide 0.1 % cream 1 applic topical BID 14 Days Qty: 80 0RF Spiriva with HandiHaler 18 mcg capsule, w/inhalation device 1 cap inhalation DAILY Qty: 30 3RF Rx Instructions: puncture 1 cap using device; one dose = 2 inhalations budesonide-formoterol [Symbicort] 160-4.5 mcg/actuation HFA aerosol inhaler 2 puff inhalation BID Qty: 10.2 3RF naloxone [Narcan] 4 mg/actuation spray,non-aerosol 1 spray intranasal Q3M PRN (Reason: opioid overdose) Qty: 2 0RF Rx Instructions: spray into ONE nostril;alternate nostrils w each dose until help arrives gabapentin 100 mg capsule 100 mg PO TID Qty: 270 3RF ergocalciferol (vitamin D2) 1,250 mcg (50,000 unit) capsule See Rx Instructions .ROUTE .COMPLEX Qty: 4 0RF Dose Instruction: TAKE ONE CAPSULE BY MOUTH WEEKLY Rx Instructions: TAKE ONE CAPSULE BY MOUTH WEEKLY hydroxychloroquine 200 mg tablet 200 mg PO BID Qty: 60 3RF estradiol 0.01 % (0.1 mg/gram) cream See Rx Instructions .ROUTE .COMPLEX Qty: 42.5 2RF Dose Instruction: USE ONE APPLICATORFUL VAGINALLY DAILY FOR TWO WEEKS,THEN APPLY TWICE A WEEK Rx Instructions: USE ONE APPLICATORFUL VAGINALLY DAILY FOR TWO WEEKS,THEN APPLY TWICE A WEEK sertraline 100 mg tablet See Rx Instructions .ROUTE .COMPLEX Qty: 45 2RF Dose Instruction: TAKE 1 AND 1/2 TABLETS BY MOUTH DAILY Rx Instructions: TAKE 1 AND 1/2 TABLETS BY MOUTH DAILY Farxiga 10 mg tablet See Rx Instructions .ROUTE .COMPLEX Qty: 30 2RF Dose Instruction: TAKE ONE TABLET BY MOUTH EVERY MORNING Rx Instructions: TAKE ONE TABLET BY MOUTH EVERY MORNING buspirone 10 mg tablet See Rx Instructions .ROUTE .COMPLEX Qty: 60 2RF Dose Instruction: TAKE ONE TABLET BY MOUTH TWICE DAILY Rx Instructions: TAKE ONE TABLET BY MOUTH TWICE DAILY atorvastatin 40 mg tablet See Rx Instructions .ROUTE .COMPLEX Qty: 30 2RF Dose Instruction: TAKE ONE TABLET BY MOUTH DAILY Rx Instructions: TAKE ONE TABLET BY MOUTH DAILY furosemide 20 mg tablet See Rx Instructions .ROUTE .COMPLEX Qty: 30 2RF Dose Instruction: TAKE ONE TABLET BY MOUTH EVERY MORNING Rx Instructions: TAKE ONE TABLET BY MOUTH EVERY MORNING quetiapine 50 mg tablet See Rx Instructions .ROUTE .COMPLEX Qty: 60 2RF Dose Instruction: TAKE TWO TABLETS BY MOUTH EVERY NIGHT AT BEDTIME AT 9:00 PM Rx Instructions: TAKE TWO TABLETS BY MOUTH EVERY NIGHT AT BEDTIME AT 9:00 PM ondansetron 4 mg tablet,disintegrating See Rx Instructions .ROUTE .COMPLEX Qty: 90 2RF Dose Instruction: DISSOLVE ONE TABLET BY MOUTH EVERY 6 HOURS NEEDED FOR NAUSEA AND VOMITING Rx Instructions: DISSOLVE ONE TABLET BY MOUTH EVERY 6 HOURS NEEDED FOR NAUSEA AND VOMITING pantoprazole 40 mg tablet,delayed release (DR/EC) See Rx Instructions .ROUTE BID Qty: 60 2RF Dose Instruction: TAKE ONE TABLET BY MOUTH DAILY Rx Instructions: TAKE ONE TABLET BY MOUTH DAILY twice a day; fluticasone propionate 50 mcg/actuation spray,suspension 2 spray intranasal DAILY Rx Instructions: USE 2 SPRAYS IN EACH NOSTRIL DAILY AT 9:00AM Discharge Orders: Discharge ED (Routine); Ordered 02/26/24 Ordered By: Shyam Parks Referrals: Venice Barry FNP [Primary Care Provider] - Discharge Diet: As Directed Discharge Activity: Increase activity as tolerated Patient Instructions: Dehydration (ED), Urinary Tract Infection in Women (ED) Activity Restrictions/Additional Instructions: Stop your tizanidine. Please take ciprofloxacin and increase your fluid intake as directed. Please follow-up with primary care next week for reevaluation. Return with any new or worsening symptoms may have. Coding Level of Care Code ED Assistant Director Of Plant Operations for Yvette Beaulieu
--- NOTE | 2024-02-26 20:26 | XRR_ITS ---
PROCEDURE INFORMATION: Exam: XR Lumbosacral Spine Exam date and time: 02/26/2024 8:31 PM Age: 43 years old Clinical indication: Low back pain; Patient HX: HX of cervical surgery in 2020; Additional info: Back pain x3 days, radiates down both legs TECHNIQUE: Imaging protocol: Radiologic exam of the lumbosacral spine. Views: 2 or 3 views. COMPARISON: CR XR lumbar spine 2-3V* [id number] 06/15/2023 4:50 PM FINDINGS: Bones/joints: Mild degenerative disc disease at L3-L4. No acute fracture. Normal alignment. Soft tissues: Unremarkable. XR/XR lumbar spine 2-3V* [id number] IMPRESSION: No acute findings.
--- NOTE | 2024-02-26 20:26 | XRR_ITS ---
PROCEDURE INFORMATION: Exam: XR Thoracic Spine Exam date and time: 02/26/2024 8:31 PM Age: 43 years old Clinical indication: Pain in thoracic spine; Patient HX: History of lumbar and cervical surgery; Additional info: Back pain x3 days TECHNIQUE: Imaging protocol: Radiologic exam of the thoracic spine. Views: 3 views. COMPARISON: CR XR lumbar spine 2-3V* [id number] 02/26/2024 8:31 PM FINDINGS: Bones/joints: Normal. No acute fracture. Subtle levoscoliosis of the upper thoracic. Soft tissues: Unremarkable. XR/XR thoracic spine 3V* [id number] IMPRESSION: No acute findings.
[2024-02-26] MEDS: methocarbamol 750 mg Tablet PO (20:58)
[2024-02-26] MEDS: ketorolac 60 mg/2 mL INJ IM (20:59)
[2024-02-26] MEDS: dexamethasone 10 mg/mL INJ IM (20:59)
[2024-02-26 21:00] LABS: Basophils # 0.1 10^3/uL (0.0-0.1); Basophils % 0.4 %; Eosinophils # 0.1 10^3/uL (0.0-0.8); Eosinophils % 0.6 %; Hematocrit 43.3 % (36-47); Lymphocytes # 1.7 10^3/uL (0.8-4.8); Lymphocytes % 11.8 %; Mean Corpuscular HGB Conc 34.6 g/dL (30-55); Mean Corpuscular Hemoglobin 30.7 pg (27-33); Mean Corpuscular Volume 88.5 fl (85-98); Mean Platelet Volume 10.3 fL (7.4-10.4); Monocytes # 1.6 10^3/uL (0.2-0.9); Monocytes % 11.2 %; Neutrophils # 10.53 10^3/uL (1.8-7.7); Neutrophils % 75.5 %; Nucleated Red Blood Cells % 0 %; Platelet Count 160 10^3/cmm (157-399); Red Blood Count 4.89 10^6/uL (3.85-5.65); Red Cell Distribution Width 14.3 % (12.1-15.1); White Blood Count 13.96 10^3/uL (3.29-11.43)
[2024-02-26 21:18] LABS: Alanine Aminotransferase 10 U/L (0-33); Alkaline Phosphatase 75 U/L (35-105); Anion Gap 18.8 (5-19); Aspartate Amino Transferase 12 U/L (0-32); Blood Urea Nitrogen 8 mg/dL (6-20); Calcium 9.3 mg/dL (8.5-10.5); Carbon Dioxide 21 mmol/L (22-29); Chloride 95 mmol/L (98-107); Globulin 3.8 g/dL (1.3-4.6); Glomerular Filtration Rate 60.2 mL/min (90-130); Glucose 97 mg/dL (65-115); Osmolality Calculated 270 mOsm/kg (285-295); Potassium 3.8 mmol/L (3.5-5.1); Sodium 131 mmol/L (136-145); Total Bilirubin 0.9 mg/dL (0.15-1.2); Total Protein 7.8 g/dL (6.6-8.7)
[2024-02-26 21:34] LABS: Add Urine Culture? Yes; Add Urine Microscopic? YES; Bacteria Urine 1+ /hpf; Bilirubin Urine 1+ (Negative); Blood Urine 3+ (Negative); Glucose Urine UA 4+ (Normal); Ketones Urine 2+ (Negative); Leukocyte Esterase Urine 2+ (Negative); Nitrate Urine Negative (Negative); Protein Urine 1+ (Negative); Squamous Epithelial Cell Urine 0-4 /hpf (0-5); Urine Appearance Cloudy (CLEAR); Urine Color Yellow (Yellow); Urobilinogen Urine Neg (Negative); WBC Urine 55-80 /hpf (0-5); pH Urine 5 (5-7)
[2024-02-26] MEDS: sodium chloride 0.9% 1,000 ML 999 ML IV (21:45)
[2024-02-26] MEDS: ciprofloxacin 500 mg Tablet PO (21:45)
[2024-02-26 22:45] VITALS: BP 102/67; PULSE 91; RESP 16; TEMP 37.1; O2SAT 100
== END 2024-02-26 22:31 | disposition home or self-care (01) ==
PROVIDERS: Emergency Provider Physician Assistant; PCP Nurse Practitioner Family
DX: N30.00 Acute cystitis without hematuria (principal); E86.0 Dehydration; F17.210 Nicotine dependence, cigarettes, uncomplicated; J44.9 Chronic obstructive pulmonary disease, unspecified; Z85.71 Personal history of Hodgkin lymphoma; E78.5 Hyperlipidemia, unspecified; I10 Essential (primary) hypertension
CPT/HCPCS: 36415; 72072; 72100; 80053; 81001; 85025; 87077; 87086; 87186; 96372; 99284; J1100; J1885; J7030

== ENCOUNTER → 2024-03-02 15:00 | Outpatient (BNVA) | payer MEDICAID, SELFPAY | PROVIDERS: PCP Nurse Practitioner Family; Visit Provider Nurse Practitioner Family | DX: N30.00 Acute cystitis without hematuria (principal); M54.50 Low back pain, unspecified; G89.29 Other chronic pain | CPT/HCPCS: 80053; 81000; 85025; 87086 ==

== ENCOUNTER → 2024-03-07 13:57 | Outpatient (BNVA) | payer MEDICAID, SELFPAY | PROVIDERS: PCP Nurse Practitioner Family; Visit Provider Surgery | DX: K21.9 Gastro-esophageal reflux disease without esophagitis (principal); Z86.010 Personal history of colon polyps | CPT/HCPCS: 99214 ==

== ENCOUNTER 2024-03-16 14:00 | Oncology outpatient (recurring) (ONCR) | payer MEDICAID, SELFPAY ==
--- NOTE | 2024-03-16 14:30 | MRR_ITS ---
PROCEDURE INFORMATION: Exam: MR Lumbar Spine Without Contrast Exam date and time: 03/16/2024 2:18 PM Age: 43 years old Clinical indication: Pain and injury or trauma; Fall; Blunt trauma (contusions or hematomas); Low back pain; Injury details: Lbp, fell over in recliner; Prior surgery; Surgery date: 6+ months; Surgery type: trimmed bone , possibly laminectomy; Additional info: M54.50 - low back pain, unspecified TECHNIQUE: Imaging protocol: Magnetic resonance imaging of the lumbar spine without contrast. COMPARISON: MR lumbar spine wo con* [id number] 02/02/2023 7:17 AM FINDINGS: Bones/joints: 2 mm degenerative retrolisthesis of L3 on L4. Postsurgical changes status post right-sided laminotomy at L3. No evidence of acute fracture or subluxation. No evidence of ligamentous disruption. No evidence of aggressive osseous lesion. Spinal cord: Visualized cord signal is unremarkable. Conus terminates at L1. L1-L2: No central or foraminal stenosis. L2-L3: Minimal disc bulge without central or foraminal stenosis. L3-L4: Mild disc bulge and mild bilateral facet arthrosis results in mild bilateral foraminal stenosis. There may be slight contacting of the undersurfaces of the exiting L3 nerve roots bilaterally. No central stenosis. There are bilateral facet effusions. There is L3-L4 endplate degeneration with edematous endplate changes. L4-L5: Disc bulge and mild facet arthrosis results in mild bilateral foraminal stenosis. No central stenosis. L5-S1: Disc bulge with a left foraminal component results in mild left-sided foraminal stenosis with suspected contacting of the undersurface of the exiting left L5 nerve root. No central stenosis. Soft tissues: Paraspinal soft tissues are unremarkable. No evidence of retroperitoneal hemorrhage or fluid collection. MR/MR lumbar spine wo con* [id number] IMPRESSION: 1. No evidence of acute traumatic injury.
== END 2024-03-20 23:59 | disposition home or self-care (01) ==
LOC: RAD 14:00 → ONCMED 04-05 07:30
PROVIDERS: PCP Nurse Practitioner Family; Visit Provider Internal Medicine Medical Oncology
DX: G89.29 Other chronic pain (principal); M54.50 Low back pain, unspecified
CPT/HCPCS: 72148

== ENCOUNTER → 2024-05-02 09:25 | Outpatient (BNVA) | payer MEDICAID, SELFPAY | PROVIDERS: PCP Nurse Practitioner Family; Visit Provider Internal Medicine Rheumatology | DX: M06.041 Rheumatoid arthritis without rheumatoid factor, right hand (principal); M06.042 Rheumatoid arthritis without rheumatoid factor, left hand; Z79.899 Other long term (current) drug therapy; Z71.85 Encounter for immunization safety counseling; R76.8 Other specified abnormal immunological findings in serum; M47.9 Spondylosis, unspecified; Z11.1 Encounter for screening for respiratory tuberculosis; Z11.59 Encounter for screening for other viral diseases | CPT/HCPCS: 99215 ==

== ENCOUNTER 2024-05-11 08:53 | Day surgery (SDC) | payer MEDICAID, SELFPAY ==
[2024-05-11 09:21] VITALS: BP 117/75; PULSE 77; RESP 18; TEMP 36.6; O2SAT 100
[2024-05-11] MEDS: sodium chloride 0.9% 1,000 ML 30 ML IV (09:28)
--- NOTE | 2024-05-11 10:05 | ANES.PREANE2 ---
Pre-Anesthetic Assessment Height/Weight: Height 1.68 m Weight 86.183 kg Temp Pulse Resp BP Pulse Ox O2 Del Method 97.8 F 77 18 117/75 100 Room Air 05/11/24 09:21 05/11/24 09:21 05/11/24 09:21 05/11/24 09:21 05/11/24 09:21 05/11/24 09:21 Preop Diagnosis: blood in stool, GERD Operation Date: 05/11/24 10:15 Proposed Procedures p EGD 29807, 95026, G0105, K21.9, Z86.010(Not Applicable) - Cecilio Otoole DO s Colonoscopy(Not Applicable) - Cecilio Otoole DO Familial anesthetic complications: None Was Beta Elisa taken within 24 hours: N/A Was Clonidine taken within 24 hours: N/A Last intake: Intake Last Liquid Date 05/10/24 Last Liquid Time 22:30 Last Solid Date 05/09/24 Last Solid Time 22:00 Social Tobacco and No alcohol one pack(s) per day Exam alert, oriented x 3, clear to auscultation bilaterally and regular rate & rhythm Airway Submandibular: within normal limits Cervical ROM: within normal limits Mallampati: Class II Dentition: false Comments: Comments: two upper front teeth History/ROS No significant history except as noted and No significant complaints Pulmonary Asthma and Chronic Obstructive Pulmonary Disease CV/HEM high cholesterol Chronic Renal Insufficiency Hepatic None reported GI Gastroesophageal Reflux Disease and Hiatal Hernia Metabolic None reported Anesthetic Plan ASA status: 2 Anesthesia: MAC Risk of > 500 ml blood loss (7ml/kg in children): No Other Pertinent Information n/a Medications/Allergies Home Medications Medication Instructions Recorded Confirmed Last Taken Type albuterol sulfate 90 mcg/actuation 2 puff inhalation Q4H PRN 04/03/22 05/09/24 05/09/24 Rx aerosol inhaler (ProAir HFA) shortness of breath or wheezing 30 days #1 ea budesonide-formoterol HFA 160 2 puff inhalation BID #10.2 grams 08/11/22 05/09/24 05/09/24 Rx mcg-4.5 mcg/actuation aerosol inhaler (Symbicort) albuterol sulfate 2.5 mg/3 mL 2.5 mg (3 mL) inhalation QID PRN 01/14/23 05/09/24 05/09/24 Rx (0.083 %) solution for nebulization shortness of breath or wheezing #90 mL naloxone 4 mg/actuation nasal 1 spray intranasal Q3M PRN opioid 01/26/23 05/09/24 05/09/24 Rx spray (Narcan) overdose #2 ea clonazepam 1 mg tablet 1 mg PO DAILY PRN Anxiety #30 tabs 04/14/23 05/09/24 05/09/24 Rx triamcinolone acetonide 0.1 % 1 applic topical BID 14 days #80 12/16/23 05/09/24 05/09/24 Rx topical cream grams pantoprazole 40 mg tablet,delayed 40 mg PO BID 6 weeks #84 tabs 03/07/24 05/09/24 05/09/24 Rx release (Protonix) hydroxychloroquine 200 mg tablet 200 mg PO BID #180 tabs 05/02/24 05/09/24 05/09/24 Rx leflunomide 20 mg tablet 20 mg PO DAILY #30 tabs 05/02/24 05/09/24 05/09/24 Rx prednisone 20 mg tablet See Rx Instructions PO .COMPLEX 05/02/24 05/09/24 05/09/24 Rx PRN joint pain flare #30 tabs acetaminophen 500 mg tablet 1,000 mg PO Q6H PRN Pain 05/09/24 05/09/24 05/09/24 History atorvastatin 40 mg tablet 40 mg PO DAILY 05/09/24 05/09/24 05/09/24 History azelastine 137 mcg (0.1 %) nasal 1 spray intranasal BID PRN Allergy 05/09/24 05/09/24 05/09/24 History spray Symptoms buspirone 10 mg tablet 10 mg PO BID 05/09/24 05/09/24 05/09/24 History cyclobenzaprine 10 mg tablet 10 mg PO TID PRN Spasms 05/09/24 05/09/24 05/08/24 History dapagliflozin propanediol 10 mg 10 mg PO QAM 05/09/24 05/09/24 05/09/24 History tablet (Farxiga) estradiol 0.01% (0.1 mg/gram) 1 appful vaginal .2X WK 05/09/24 05/09/24 05/09/24 History vaginal cream furosemide 20 mg tablet 20 mg PO QAM 05/09/24 05/09/24 05/09/24 History gabapentin 100 mg capsule 100 mg PO TID PRN nerve pain 05/09/24 05/09/24 05/09/24 History hydrocortisone acetate 1 % rectal 1 applic MD QID PRN Outbreak 05/09/24 05/09/24 05/09/24 History cream quetiapine 50 mg tablet 100 mg PO BEDTIME 05/09/24 05/09/24 05/09/24 History sertraline 100 mg tablet 150 mg PO DAILY 05/09/24 05/09/24 05/09/24 History tizanidine 4 mg tablet 4 mg PO Q8H 05/09/24 05/09/24 05/07/24 History ondansetron 4 mg disintegrating 4 mg PO Q6H PRN Nausea And 05/11/24 Unknown Rx tablet Vomiting #30 tabs Allergies Allergy/AdvReac Type Severity Reaction Status Date / Time amoxicillin [From Augmentin] Allergy ALGY-Rash Verified 05/09/24 09:48 clavulanic acid Allergy ALGY-Rash Verified 05/09/24 09:48 [From Augmentin] pregabalin [From Lyrica] Allergy unknown Verified 05/09/24 09:48 sumatriptan Allergy ALGY-Difficulty Verified 05/09/24 09:48 Breathing topiramate Allergy ALGY-Difficulty Verified 05/09/24 09:48 Breathing [place] jelly Allergy rash Uncoded 05/09/24 09:48 Current Medications Generic Name Dose Route Start Last Admin Trade Name Freq PRN Reason Stop Dose Admin Sodium Chloride 1,000 mls @ 30 mls/hr 05/11/24 09:15 05/11/24 09:28 Sodium Chloride 0.9% IV 05/12/24 09:14 30 mls/hr .Q24H JOSÉ MIGUEL Administration PFSH Anesthesia Medical History (Updated 05/02/24 @ 10:15 by Luis Ferguson MD) Immunization counseling High risk medication use Seronegative rheumatoid arthritis of both hands History of colon polyps Knee pain Abnormal stress test COPD (chronic obstructive pulmonary disease) Chronic anxiety Degenerative arthritis GERD (gastroesophageal reflux disease) Degenerative joint disease of spine Obstructive sleep apnea Hodgkin lymphoma Environmental and seasonal allergies Major depressive disorder Hyperlipidemia Essential hypertension Surgical History History of back surgery (10/10/22) L3-4 laminectomy with partial facetectomy and L5/S1 laminectomy with partial facetectomy History of endometrial ablation (2011) Hysteroscopy followed by D&C and thermal ablation History of lymph node biopsy (12/05/20) Left cervical lymph node biopsy Port-A-Cath in place (01/10/21) History of surgery on arm (2017) ORIF for fracture of the right humerus History of adenoidectomy (2020) History of colonoscopy (2017) Hx of neck surgery 12/31/2017 c-5 c-6, c-6 c-[address] avila Hx of tubal ligation (2001) 2001 Hx of section x 2 Family History Mother Hypercholesteremia Diabetes Hypertension Psychiatric illness, Onset Age: 20 Mother had an affair with a man. [employer] took her children away. The patient is the product of this liaison. Brother Hypercholesteremia Diabetes Hypertension Myocardial infarct Heart disease Father Hypercholesteremia Diabetes Hypertension Sister Hypertension Stroke Grandmother Thyroid disease Denies family history of Colon cancer Ovarian cancer Breast cancer Uterine cancer Social History Smoking and tobacco/nicotine status: never used tobacco/nicotine Alcohol intake: never Substance/Drug Use: never Data Anesthesia Cardiac Studies: Echocardiogram 10/28/23 Echocardiogram Ultrasound 01/18/21 Sestamibi Stress Test (Cardiology) 09/09/22
--- NOTE | 2024-05-11 10:23 | PM.HP ---
Providers/Chief Complaint Primary Care Provider: BRIAN Santacruz Chief Complaint: K21.9, Z86.010 History of Present Illness Alla Liz is a 43 year old female Review of Systems General: Reports: 10 or more systems reviewed and unremarkable except in HPI and below Medications/Allergies Home Medications Medication Instructions Recorded Confirmed Last Taken Type albuterol sulfate 90 mcg/actuation 2 puff inhalation Q4H PRN 04/03/22 05/09/24 05/09/24 Rx aerosol inhaler (ProAir HFA) shortness of breath or wheezing 30 days #1 ea budesonide-formoterol HFA 160 2 puff inhalation BID #10.2 grams 08/11/22 05/09/24 05/09/24 Rx mcg-4.5 mcg/actuation aerosol inhaler (Symbicort) albuterol sulfate 2.5 mg/3 mL 2.5 mg (3 mL) inhalation QID PRN 01/14/23 05/09/24 05/09/24 Rx (0.083 %) solution for nebulization shortness of breath or wheezing #90 mL naloxone 4 mg/actuation nasal 1 spray intranasal Q3M PRN opioid 01/26/23 05/09/24 05/09/24 Rx spray (Narcan) overdose #2 ea clonazepam 1 mg tablet 1 mg PO DAILY PRN Anxiety #30 tabs 04/14/23 05/09/24 05/09/24 Rx triamcinolone acetonide 0.1 % 1 applic topical BID 14 days #80 12/16/23 05/09/24 05/09/24 Rx topical cream grams pantoprazole 40 mg tablet,delayed 40 mg PO BID 6 weeks #84 tabs 03/07/24 05/09/24 05/09/24 Rx release (Protonix) hydroxychloroquine 200 mg tablet 200 mg PO BID #180 tabs 05/02/24 05/09/24 05/09/24 Rx leflunomide 20 mg tablet 20 mg PO DAILY #30 tabs 05/02/24 05/09/24 05/09/24 Rx prednisone 20 mg tablet See Rx Instructions PO .COMPLEX 05/02/24 05/09/24 05/09/24 Rx PRN joint pain flare #30 tabs acetaminophen 500 mg tablet 1,000 mg PO Q6H PRN Pain 05/09/24 05/09/24 05/09/24 History atorvastatin 40 mg tablet 40 mg PO DAILY 05/09/24 05/09/24 05/09/24 History azelastine 137 mcg (0.1 %) nasal 1 spray intranasal BID PRN Allergy 05/09/24 05/09/24 05/09/24 History spray Symptoms buspirone 10 mg tablet 10 mg PO BID 05/09/24 05/09/24 05/09/24 History cyclobenzaprine 10 mg tablet 10 mg PO TID PRN Spasms 05/09/24 05/09/24 05/08/24 History dapagliflozin propanediol 10 mg 10 mg PO QAM 05/09/24 05/09/24 05/09/24 History tablet (Farxiga) estradiol 0.01% (0.1 mg/gram) 1 appful vaginal .2X WK 05/09/24 05/09/24 05/09/24 History vaginal cream furosemide 20 mg tablet 20 mg PO QAM 05/09/24 05/09/24 05/09/24 History gabapentin 100 mg capsule 100 mg PO TID PRN nerve pain 05/09/24 05/09/24 05/09/24 History hydrocortisone acetate 1 % rectal 1 applic DC QID PRN Outbreak 05/09/24 05/09/24 05/09/24 History cream quetiapine 50 mg tablet 100 mg PO BEDTIME 05/09/24 05/09/24 05/09/24 History sertraline 100 mg tablet 150 mg PO DAILY 05/09/24 05/09/24 05/09/24 History tizanidine 4 mg tablet 4 mg PO Q8H 05/09/24 05/09/24 05/07/24 History ondansetron 4 mg disintegrating 4 mg PO Q6H PRN Nausea And 05/11/24 Unknown Rx tablet Vomiting #30 tabs Allergies Allergy/AdvReac Type Severity Reaction Status Date / Time amoxicillin [From Augmentin] Allergy ALGY-Rash Verified 05/09/24 09:48 clavulanic acid Allergy ALGY-Rash Verified 05/09/24 09:48 [From Augmentin] pregabalin [From Lyrica] Allergy unknown Verified 05/09/24 09:48 sumatriptan Allergy ALGY-Difficulty Verified 05/09/24 09:48 Breathing topiramate Allergy ALGY-Difficulty Verified 05/09/24 09:48 Breathing [place] jelly Allergy rash Uncoded 05/09/24 09:48 PFSH Acute PFSH: Medical History (Updated 05/02/24 @ 10:15 by Luis Ferguson MD) Immunization counseling High risk medication use Seronegative rheumatoid arthritis of both hands History of colon polyps Knee pain Abnormal stress test COPD (chronic obstructive pulmonary disease) Chronic anxiety Degenerative arthritis GERD (gastroesophageal reflux disease) Degenerative joint disease of spine Obstructive sleep apnea Hodgkin lymphoma Environmental and seasonal allergies Major depressive disorder Hyperlipidemia Essential hypertension Surgical History History of back surgery (10/10/22) L3-4 laminectomy with partial facetectomy and L5/S1 laminectomy with partial facetectomy History of endometrial ablation (2011) Hysteroscopy followed by D&C and thermal ablation History of lymph node biopsy (12/05/20) Left cervical lymph node biopsy Port-A-Cath in place (01/10/21) History of surgery on arm (2017) ORIF for fracture of the right humerus History of adenoidectomy (2020) History of colonoscopy (2017) Hx of neck surgery 12/31/2017 c-5 c-6, c-6 c-[address] avila Hx of tubal ligation (2001) 2001 Hx of section x 2 Family History Mother Hypercholesteremia Diabetes Hypertension Psychiatric illness, Onset Age: 20 Mother had an affair with a man. [employer] took her children away. The patient is the product of this liaison. Brother Hypercholesteremia Diabetes Hypertension Myocardial infarct Heart disease Father Hypercholesteremia Diabetes Hypertension Sister Hypertension Stroke Grandmother Thyroid disease Denies family history of Colon cancer Ovarian cancer Breast cancer Uterine cancer Social History Smoking and tobacco/nicotine status: never used tobacco/nicotine Alcohol intake: never Substance/Drug Use: never Vitals/I&O/Wt Last Vital Signs Temp 97.8 F 05/11/24 09:21 Pulse 77 05/11/24 09:21 Resp 18 05/11/24 09:21 BP 117/75 05/11/24 09:21 Pulse Ox 100 08/21/24 09:21 O2 Del Method Room Air 05/11/24 09:21 Weight last 48 hrs Weight 190 lb A&P Assessment and plan (1) GERD (gastroesophageal reflux disease): (2) History of colon polyps: Plan EGD and colonoscopy Attestations Medical Necessity Statement*: Home Coding Level of Care Code Acute Code for Chg Fwd Diagnoses GERD (gastroesophageal reflux disease) K21.9 History of colon polyps Z86.010
[2024-05-11 11:00] VITALS: BP 147/103; PULSE 68; RESP 18; TEMP 36.3; O2SAT 99
[2024-05-11 11:11] VITALS: BP 145/86; PULSE 66; RESP 16; O2SAT 99
[2024-05-11] MEDS: ondansetron 2 mg/ML SDV 2 mL 4 MG IVP (11:17)
[2024-05-11 11:24] VITALS: BP 134/82; PULSE 59; RESP 16; O2SAT 100
--- NOTE | 2024-05-11 11:41 | ANE.PACU2 ---
Inpatient post-anesthesia follow up: Airway intact: Yes Vital signs: Temperature 97.4 F Pulse Rate 59 Respiratory Rate 16 Blood Pressure 134/82 Pulse Oximetry 100 Oxygen Delivery Me thod Room Air Oxygen Flow Rate Fraction of Inspir ed Oxygen Hydration adequate: Yes Nausea and vomiting: No Pain level: 1 Mental status: Baseline
== END 2024-05-11 11:41 | disposition home or self-care (01) ==
PROVIDERS: PCP Nurse Practitioner Family; Visit Provider Surgery
PROC: 0DJ08ZZ Inspection of Upper Intestinal Tract, Via Natural or Artificial Opening Endoscopic (ICD-10-PCS; CPT 43235; principal; 2024-05-11 10:15)
PROC: 0DJD8ZZ Inspection of Lower Intestinal Tract, Via Natural or Artificial Opening Endoscopic (ICD-10-PCS; CPT 45378; 2024-05-11 10:15)
DX: Z12.11 Encounter for screening for malignant neoplasm of colon (principal); Z86.010 Personal history of colon polyps; D12.5 Benign neoplasm of sigmoid colon; K29.50 Unspecified chronic gastritis without bleeding; K21.9 Gastro-esophageal reflux disease without esophagitis; J44.9 Chronic obstructive pulmonary disease, unspecified; G47.33 Obstructive sleep apnea (adult) (pediatric); E78.5 Hyperlipidemia, unspecified; I10 Essential (primary) hypertension
CPT/HCPCS: 43239; 45385; 88305; 88342; J2405; J2704; J7030

== ENCOUNTER 2024-06-02 09:18 | Outpatient (CLI) | payer MEDICAID, SELFPAY ==
[2024-06-02 09:42] LABS: Basophils % 0.6 %; Eosinophils # 0.2 10^3/uL (0.0-0.8); Eosinophils % 2.4 %; Hematocrit 46.8 % (36-47); Lymphocytes % 14.6 %; Mean Corpuscular HGB Conc 33.1 g/dL (30-55); Mean Corpuscular Hemoglobin 30.6 pg (27-33); Mean Corpuscular Volume 92.5 fl (85-98); Monocytes # 0.4 10^3/uL (0.2-0.9); Monocytes % 5.8 %; Neutrophils # 5.38 10^3/uL (1.8-7.7); Nucleated Red Blood Cells % 0 %; Platelet Count 189 10^3/cmm (157-399); Red Blood Count 5.06 10^6/uL (3.85-5.65); Red Cell Distribution Width 14.9 % (12.1-15.1); White Blood Count 7.07 10^3/uL (3.29-11.43)
[2024-06-02 09:49] LABS: Erythrocyte Sedimentation Rate 3 mm/hr (0-15)
[2024-06-02 10:04] LABS: Alanine Aminotransferase 18 U/L (0-33); Albumin Level 4.5 g/dL (3.5-5.2); Alkaline Phosphatase 53 U/L (35-105); Aspartate Amino Transferase 21 U/L (0-32); Globulin 2.7 g/dL (1.3-4.6); Glomerular Filtration Rate 48.8 mL/min (90-130); Total Bilirubin 0.7 mg/dL (0.15-1.2); Total Protein 7.2 g/dL (6.6-8.7)
[2024-06-03 15:56] LABS: Cyclic Citrullinated Peptide <16 UNITS
[2024-06-07 18:29] LABS: Mutated Citrullinated Vimentin <20 U/mL (<20)
== END 2024-06-02 09:19 | disposition home or self-care (01) ==
LOC: LAB 09:19
PROVIDERS: PCP Nurse Practitioner Family; Visit Provider Internal Medicine Rheumatology
DX: Z79.899 Other long term (current) drug therapy (principal); M06.041 Rheumatoid arthritis without rheumatoid factor, right hand; M06.042 Rheumatoid arthritis without rheumatoid factor, left hand
CPT/HCPCS: 36415; 80076; 82565; 83520; 85025; 85651; 86140; 86200; 86431

== ENCOUNTER 2024-06-16 06:30 | Outpatient (CLI) | payer MEDICAID, SELFPAY ==
--- NOTE | 2024-06-16 06:45 | US_ITS ---
WS: [id number] RIGHT UPPER QUADRANT ULTRASOUND HISTORY: abdominal pain COMPARISON: None available. Liver: 14.6 cm in length. Normal size liver and echogenicity. No bile duct dilatation or mass. Portal Vein: Normal hepatopetal flow with monophasic waveform. Gallbladder: Normally distended gallbladder with no stones or wall thickening. CBD: 0.3 cm Pancreas: Normal size and echogenicity. Right kidney: 8.5 cm in length. Normal size and echogenicity. No hydronephrosis or mass. Aorta and IVC: Unremarkable abdominal aorta and IVC. No ascites. US/US gall bladder [id number] IMPRESSION: Normal right upper quadrant ultrasound.
== END 2024-06-16 06:31 | disposition home or self-care (01) ==
LOC: RAD 06:31
PROVIDERS: PCP Nurse Practitioner Family; Visit Provider Surgery
DX: R10.9 Unspecified abdominal pain (principal)
CPT/HCPCS: 76705

== ENCOUNTER 2024-06-24 07:17 | Outpatient (CLI) | payer MEDICAID, SELFPAY ==
--- NOTE | 2024-06-24 08:00 | NM_ITS ---
WS: [id number] NUCLEAR MEDICINE HIDA SCAN WITH GALLBLADDER EJECTION FRACTION HISTORY: abdominal pain COMPARISON: Gallbladder 06/16/2024 TECHNIQUE: The patient was intravenously injected with 7.6 mCi of TC99m Mebrofenin. Immediate imaging over the right upper quadrant was followed by 5 minute image and additional images for a total of 60 minutes. Normal uptake of radiotracer throughout the liver. Activity identified in the gallbladder at 15 minutes and well distended by 60 minutes. Activity in the proximal small bowel was seen by 15 minutes. Good washout of the radiotracer from the liver by 60 minutes. The patient then drank 8 ounces of Ensure Plus. Ejection fraction at 60 minutes was 44%. Normal GB ej ection fraction is 35-75%. Post fatty meal symptoms: None. NM/NM hepatobiliary w phar* [id number] IMPRESSION: 1. Normal HIDA scan. 2. Normal gallbladder ejection fraction.
== END 2024-06-24 07:18 | disposition home or self-care (01) ==
LOC: RAD 07:18
PROVIDERS: PCP Nurse Practitioner Family; Visit Provider Surgery
DX: R10.9 Unspecified abdominal pain (principal)
CPT/HCPCS: 78227; A9537

== ENCOUNTER → 2024-06-30 08:30 | Outpatient (BNVA) | payer MEDICAID, SELFPAY | PROVIDERS: PCP Nurse Practitioner Family; Visit Provider Surgery | DX: K21.9 Gastro-esophageal reflux disease without esophagitis (principal); K80.50 Calculus of bile duct without cholangitis or cholecystitis without obstruction | CPT/HCPCS: 99214 ==

== ENCOUNTER 2024-07-07 06:12 | Day surgery (SDC) | payer MEDICAID, SELFPAY ==
[2024-07-07] VITALS (9 sets, daily range): BP systolic 134–176; BP diastolic 79–101; PULSE 65–97; RESP 12–20; TEMP 36.1–36.2; O2SAT 94–99; BMI 28.2
--- NOTE | 2024-07-07 06:53 | P.ANESASSM_ITS ---
Pre-Anesthetic Assessment Height/Weight: Height 5 ft 6 in Weight 175 lb Temp Pulse Resp BP Pulse Ox O2 Del Method 97 F L 97 18 134/92 98 Room Air 07/07/24 06:28 07/07/24 06:28 07/07/24 06:28 07/07/24 06:28 07/07/24 06:28 07/07/24 06:35 Preop Diagnosis: Biliary colic Operation Date: 07/07/24 08:05 Proposed Procedures p Laparoscopic Cholecystectomy 86484, K80.50(Not Applicable) - Cecilio Otoole, DO Was Beta Elisa taken within 24 hours: N/A Was Clonidine taken within 24 hours: N/A Last intake: Intake Last Liquid Date 07/06/24 Last Liquid Time 22:00 Last Solid Date 07/06/24 Last Solid Time 22:00 Social Tobacco and No alcohol Exam alert, oriented x 3, clear to auscultation bilaterally and regular rate & rhythm Airway Submandibular: within normal limits Cervical ROM: within normal limits Mallampati: Class II Dentition: partials and full Anesthetic Plan ASA status: 3 Anesthesia: General Other: No prior issues with anesthesia NPO since yesterday evening Very significant PMH Rheumatoid arthritis, cervical disc disorder with cervical fusion. Patient is on 20 mg prednisone daily for the last few months. States she has 1-2 pills left Plan for higher IntraOp steroid dose GERD on Protonix CKD, baseline creatinine around 1.2 Labs reviewed 06/02/2024 and acceptable for procedure Echo 10/28/2023 showing EF 60 to 65%. Mild mitral and tricuspid regurg Plan for GETA Medications/Allergies Home Medications Medication Instructions Recorded Confirmed Last Taken Type albuterol sulfate 90 mcg/actuation 2 puff inhalation Q4H PRN 04/03/22 07/06/24 07/06/24 Rx aerosol inhaler (ProAir HFA) shortness of breath or wheezing 30 days #1 ea budesonide-formoterol HFA 160 2 puff inhalation BID #10.2 grams 08/11/22 07/06/24 07/06/24 Rx mcg-4.5 mcg/actuation aerosol inhaler (Symbicort) albuterol sulfate 2.5 mg/3 mL 2.5 mg (3 mL) inhalation QID PRN 01/14/23 07/06/24 07/06/24 Rx (0.083 %) solution for nebulization shortness of breath or wheezing #90 mL naloxone 4 mg/actuation nasal 1 spray intranasal Q3M PRN opioid 01/26/23 07/06/24 07/06/24 Rx spray (Narcan) overdose #2 ea clonazepam 1 mg tablet 1 mg PO DAILY PRN Anxiety #30 tabs 04/14/23 07/06/24 07/06/24 Rx triamcinolone acetonide 0.1 % 1 applic topical BID 14 days #80 12/16/23 07/06/24 07/06/24 Rx topical cream grams hydroxychloroquine 200 mg tablet 200 mg PO BID #180 tabs 05/02/24 07/06/24 07/06/24 Rx leflunomide 20 mg tablet 20 mg PO DAILY #30 tabs 05/02/24 07/06/24 07/06/24 Rx prednisone 20 mg tablet See Rx Instructions PO .COMPLEX 05/02/24 07/06/24 05/09/24 Rx PRN joint pain flare #30 tabs acetaminophen 500 mg tablet 1,000 mg PO Q6H PRN Pain 05/09/24 07/06/24 05/09/24 History azelastine 137 mcg (0.1 %) nasal 1 spray intranasal BID PRN Allergy 05/09/24 07/06/24 07/06/24 History spray Symptoms cyclobenzaprine 10 mg tablet 10 mg PO TID PRN Spasms 05/09/24 07/06/24 07/06/24 History estradiol 0.01% (0.1 mg/gram) 1 appful vaginal .2X WK 05/09/24 07/06/24 05/09/24 History vaginal cream gabapentin 100 mg capsule 100 mg PO TID PRN nerve pain 05/09/24 07/06/24 07/06/24 History hydrocortisone acetate 1 % rectal 1 applic MD QID PRN Outbreak 05/09/24 07/06/24 07/06/24 History cream tizanidine 4 mg tablet 4 mg PO Q8H 05/09/24 07/06/24 07/06/24 History pantoprazole 40 mg tablet,delayed 40 mg PO DAILY 1 month #60 tabs 06/30/24 07/06/24 07/06/24 Rx release (Protonix) atorvastatin 40 mg tablet 40 mg PO DAILY #90 tabs 07/06/24 07/07/24 1 Day Ago Rx ~07/06/24 buspirone 10 mg tablet 10 mg PO BID #90 tabs 07/06/24 07/07/24 1 Day Ago Rx ~07/06/24 dapagliflozin propanediol 10 mg 10 mg PO QAM #90 tabs 07/06/24 07/07/24 1 Day Ago Rx tablet (Farxiga) ~07/06/24 furosemide 20 mg tablet 20 mg PO QAM #90 tabs 07/06/24 07/07/24 1 Day Ago Rx ~07/06/24 ondansetron 4 mg disintegrating 4 mg PO 2XD PRN Nausea And Vomiting 07/06/24 07/06/24 Unknown History tablet quetiapine 50 mg tablet 100 mg (2 x 50 mg) PO BEDTIME #90 07/06/24 Unknown Rx tabs sertraline 100 mg tablet 150 mg (1.5 x 100 mg) PO DAILY 07/06/24 07/07/24 Unknown Rx #135 tabs Allergies Allergy/AdvReac Type Severity Reaction Status Date / Time amoxicillin [From Augmentin] Allergy ALGY-Rash Verified 07/07/24 07:06 clavulanic acid Allergy ALGY-Rash Verified 07/07/24 07:06 [From Augmentin] pregabalin [From Lyrica] Allergy unknown Verified 07/07/24 07:06 sumatriptan Allergy ALGY-Difficulty Verified 07/07/24 07:06 Breathing topiramate Allergy ALGY-Difficulty Verified 07/07/24 07:06 Breathing [place] jelly Allergy rash Uncoded 07/07/24 07:06 REPLACED BY [facility] Anesthesia Medical History Tubular adenoma of colon Immunization counseling High risk medication use Seronegative rheumatoid arthritis of both hands History of colon polyps Knee pain Abnormal stress test COPD (chronic obstructive pulmonary disease) Chronic anxiety Degenerative arthritis GERD (gastroesophageal reflux disease) Degenerative joint disease of spine Obstructive sleep apnea Hodgkin lymphoma Environmental and seasonal allergies Major depressive disorder Hyperlipidemia Essential hypertension Surgical History History of back surgery (10/10/22) L3-4 laminectomy with partial facetectomy and L5/S1 laminectomy with partial facetectomy History of endometrial ablation (2011) Hysteroscopy followed by D&C and thermal ablation History of lymph node biopsy (12/05/20) Left cervical lymph node biopsy Port-A-Cath in place (01/10/21) History of surgery on arm (2017) ORIF for fracture of the right humerus History of adenoidectomy (2020) History of colonoscopy (2017) Hx of neck surgery 12/31/2017 c-5 c-6, c-6 c-[address] avila Hx of tubal ligation (2001) 2001 Hx of section x 2 Family History Mother Hypercholesteremia Diabetes Hypertension Psychiatric illness, Onset Age: 20 Mother had an affair with a man. [employer] took her children away. The patient is the product of this liaison. Brother Hypercholesteremia Diabetes Hypertension Myocardial infarct Heart disease Father Hypercholesteremia Diabetes Hypertension Sister Hypertension Stroke Grandmother Thyroid disease Denies family history of Colon cancer Ovarian cancer Breast cancer Uterine cancer Social History Smoking and tobacco/nicotine status: never used tobacco/nicotine Alcohol intake: never Substance/Drug Use: never Data Anesthesia Cardiac Studies: Echocardiogram 10/28/23 Echocardiogram Ultrasound 01/18/21 Sestamibi Stress Test (Cardiology) 09/09
--- NOTE | 2024-07-07 07:01 | W.PM.OPSUD ---
Surgery/Procedure H&P Update DATE OF PROCEDURE: July 07, 2024 DATE H&P PERFORMED: 06/30/24 H&P UPDATE INFORMATION: I have reviewed H&P completed within last 30 days, I have examined patient prior to procedure and No changes to prior documentation PREOP DIAGNOSIS: Biliary colic PLANNED PROCEDURE: Operation Date: 07/07/24 08:05 Proposed Procedures p Laparoscopic Cholecystectomy 52431, K80.50(Not Applicable) - Cecilio Otoole DO
[2024-07-07] MEDS: sodium chloride 0.9% 1,000 ML 30 ML IV (07:05)
[2024-07-07] MEDS: ceFAZolin 2,000 mg SDV 2000 MG IVP (07:41)
[2024-07-07] MEDS: lidocaine-epi 2% PF 1:200,000 20 mL SDV XX (08:10)
--- NOTE | 2024-07-07 08:15 | P.OP_ITS ---
Operative Report Date of procedure: July 07, 2024 Surgeon: Cecilio Otoole DO Brief History: This is a very pleasant 43-year-old female presented my office with abdominal pain. She was diagnosed with biliary colic. Laparoscopic cholecystectomy is indicated. The risks and benefits were explained and documented. Procedure: Preoperative diagnosis: Biliary colic Postoperative diagnosis: Same Procedure performed: Laparoscopic cholecystectomy Surgeon: Dr. Cecilio Otoole DO Estimated blood loss: 5 mL Specimens: Gallbladder to pathology Complications: None apparent Description of procedure: Patient was wheeled into the operative room and placed on the OR table in a supine position. Abdomen was inspected prepped and draped in usual sterile fashion. Time-out was performed and all present were in agreement. A 15 blade scalp was used to make a stab incision in the left upper quadrant and intra- abdominal insufflation was achieved using a Veress needle. After localizing the tissue incisions were made and a 5 millimeter trocar was placed into the umbilicus as well as 2 in the right upper quadrant. A 12 millimeter trocar was placed in the epigastrium. Gallbladder was grasped and elevated. The triangle of Calot was carefully dissected using blunt dissection and electrocautery until the triangle of Calot clearly identified. The cystic duct was clipped proxima lly and double clipped distally. The duct was then ligated proximally. The cystic artery was doubly clipped and ligated. The gallbladder was then removed from the liver bed using electrocautery. The gallbladder was removed from the abdomen using an Endo-Catch bag through the epigastric incision. The liver bed was inspected and no bleeding was seen. The abdomen was irrigated and suctioned. All ports removed. Skin was washed and dried. Incisions were closed with 4-0 Monocryl in a subcuticular interrupted fashion. Skin glue was applied. Patient tolerated the procedure well.
[2024-07-07] MEDS: ondansetron 2 mg/ML SDV 2 mL 4 MG IVP (08:48)
[2024-07-07] MEDS: fentaNYL 50 mcg/mL INJ 2mL IVP (09:10)
--- NOTE | 2024-07-07 10:05 | ANE.PACU2 ---
Inpatient post-anesthesia follow up: Airway intact: Yes Vital signs: Temperature 97.2 F Pulse Rate 71 Respiratory Rate 18 Blood Pressure 147/94 Pulse Oximetry 95 Oxygen Delivery Me thod Room Air Oxygen Flow Rate Fraction of Inspir ed Oxygen Hydration adequate: Yes Nausea and vomiting: No Pain level: 1 Mental status: Baseline
== END 2024-07-07 10:05 | disposition home or self-care (01) ==
PROVIDERS: PCP Nurse Practitioner Family; Visit Provider Surgery
PROC: 0FT44ZZ Resection of Gallbladder, Percutaneous Endoscopic Approach (ICD-10-PCS; CPT 47562; principal; 2024-07-07 08:05)
DX: K81.1 Chronic cholecystitis (principal); M06.9 Rheumatoid arthritis, unspecified; K21.9 Gastro-esophageal reflux disease without esophagitis; N18.9 Chronic kidney disease, unspecified; Z79.52 Long term (current) use of systemic steroids; G47.33 Obstructive sleep apnea (adult) (pediatric); E78.5 Hyperlipidemia, unspecified; I10 Essential (primary) hypertension; J44.9 Chronic obstructive pulmonary disease, unspecified
CPT/HCPCS: 47562; 88304; J0131; J0690; J1100; J1170; J2371; J2405; J2704; J2710; J3010; J3490; J7030

== ENCOUNTER 2024-07-11 09:40 | Emergency (ER) | payer MEDICAID, SELFPAY | END 2024-07-11 10:26 | disposition left against medical advice (07) | PROVIDERS: Emergency Provider Family Medicine; PCP Nurse Practitioner Family | DX: Z53.21 Procedure and treatment not carried out due to patient leaving prior to being seen by health care provider (principal) | CPT/HCPCS: 71046 ==

== ENCOUNTER → 2024-07-18 12:25 | Outpatient (BNVA) | payer MEDICAID, SELFPAY | PROVIDERS: PCP Nurse Practitioner Family; Visit Provider Surgery | DX: Z90.49 Acquired absence of other specified parts of digestive tract (principal); Z98.890 Other specified postprocedural states | CPT/HCPCS: 99024 ==

== ENCOUNTER → 2024-07-19 08:50 | Outpatient (BNVA) | payer MEDICAID, SELFPAY | PROVIDERS: PCP Nurse Practitioner Family; Visit Provider Nurse Practitioner Family | DX: R30.0 Dysuria (principal); I10 Essential (primary) hypertension; E55.9 Vitamin D deficiency, unspecified | CPT/HCPCS: 80053; 80061; 81000; 82306; 82607; 83036; 84443; 85025 ==

== ENCOUNTER 2024-08-09 12:35 | Oncology outpatient (recurring) (ONCR) | payer MEDICAID, SELFPAY ==
[2024-08-09 12:56] LABS: Basophils # 0.1 10^3/uL (0.0-0.1); Basophils % 0.5 %; Eosinophils % 0.2 %; Lymphocytes # 1.7 10^3/uL (0.8-4.8); Lymphocytes % 12.8 %; Mean Corpuscular HGB Conc 34.3 g/dL (30-55); Mean Corpuscular Hemoglobin 31.1 pg (27-33); Mean Corpuscular Volume 90.6 fl (85-98); Mean Platelet Volume 9.7 fL (7.4-10.4); Monocytes # 0.6 10^3/uL (0.2-0.9); Monocytes % 4.9 %; Nucleated Red Blood Cells % 0 %; Platelet Count 240 10^3/cmm (157-399); Red Blood Count 5.08 10^6/uL (3.85-5.65); White Blood Count 12.96 10^3/uL (3.29-11.43)
[2024-08-09 13:13] LABS: Alanine Aminotransferase 16 U/L (0-33); Albumin Level 4.4 g/dL (3.5-5.2); Alkaline Phosphatase 68 U/L (35-105); Anion Gap 16.8 (5-19); Aspartate Amino Transferase 19 U/L (0-32); Blood Urea Nitrogen 11 mg/dL (6-20); Calcium 9.5 mg/dL (8.5-10.5); Carbon Dioxide 23 mmol/L (22-29); Chloride 103 mmol/L (98-107); Glucose 121 mg/dL (65-115); Lactate Dehydrogenase 245 U/L (135-214); Osmolality Calculated 289 mOsm/kg (285-295); Potassium 3.8 mmol/L (3.5-5.1); Sodium 139 mmol/L (136-145); Total Bilirubin 0.8 mg/dL (0.15-1.2); Total Protein 7.4 g/dL (6.6-8.7)
== END 2024-08-20 23:59 | disposition home or self-care (01) ==
PROVIDERS: Nurse Practitioner Family; PCP Nurse Practitioner Family; Visit Provider Internal Medicine Medical Oncology
DX: G89.29 Other chronic pain (principal); M54.50 Low back pain, unspecified; C81.41 Lymphocyte-rich Hodgkin lymphoma, lymph nodes of head, face, and neck; R53.0 Neoplastic (malignant) related fatigue; M25.551 Pain in right hip; M25.552 Pain in left hip; Z79.891 Long term (current) use of opiate analgesic; Z79.899 Other long term (current) drug therapy; M54.2 Cervicalgia; Z98.1 Arthrodesis status; Z47.89 Encounter for other orthopedic aftercare
CPT/HCPCS: 36415; 80053; 83615; 85025; 99213

== ENCOUNTER → 2024-08-15 11:53 | Outpatient (BNVA) | payer MEDICAID, SELFPAY | PROVIDERS: PCP Nurse Practitioner Family; Visit Provider Nurse Practitioner Family | DX: R30.0 Dysuria (principal) | CPT/HCPCS: 81003 ==

== ENCOUNTER 2024-08-25 13:08 | Outpatient (CLI) | payer MEDICAID, SELFPAY ==
--- NOTE | 2024-08-25 13:15 | USCV_ITS ---
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 PROCEDURES: Venous duplex imaging was performed in only the right lower extremity. The following venous structures were evaluated: common femoral vein, profunda vein, proximal portion of the greater saphenous vein, superficial femoral vein, and the popliteal vein. In addition, the posterior tibial and peroneal trunk were evaluated. Serial compression, augmentation maneuvers, and spectral Doppler flow evaluation were performed. FINDINGS: No evidence of DVT seen in any vessel visualized at this time. CONCLUSIONS No evidence of right lower extremity DVT. Jaguar James MD (Electronically Signed) Final Date: 25 August 2024 14:04 S
== END 2024-08-25 13:09 | disposition home or self-care (01) ==
LOC: RAD 13:08
PROVIDERS: PCP Nurse Practitioner Family; Visit Provider Nurse Practitioner Family
DX: M79.661 Pain in right lower leg (principal); Z71.85 Encounter for immunization safety counseling; M06.041 Rheumatoid arthritis without rheumatoid factor, right hand; M06.042 Rheumatoid arthritis without rheumatoid factor, left hand; R76.8 Other specified abnormal immunological findings in serum; Z79.899 Other long term (current) drug therapy
CPT/HCPCS: 93971; 99214

== ENCOUNTER → 2024-10-10 09:16 | Outpatient (BNVA) | payer MEDICAID, SELFPAY | PROVIDERS: PCP Nurse Practitioner Family | DX: J02.9 Acute pharyngitis, unspecified (principal) | CPT/HCPCS: 87071; 87880 ==

== ENCOUNTER → 2024-10-26 11:25 | Outpatient (BNVA) | payer MEDICAID, SELFPAY | PROVIDERS: PCP Nurse Practitioner Family; Visit Provider Nurse Practitioner Family | DX: B37.0 Candidal stomatitis (principal) | CPT/HCPCS: 81513; 87481; 87491; 87591; 87661 ==

== ENCOUNTER 2024-11-16 12:01 | Oncology outpatient (recurring) (ONCR) | payer MEDICAID, SELFPAY ==
[2024-11-16 12:25] LABS: Basophils # 0.1 10^3/uL (0.0-0.1); Basophils % 0.7 %; Eosinophils # 0.1 10^3/uL (0.0-0.8); Hematocrit 48.4 % (36-47); Lymphocytes # 2.5 10^3/uL (0.8-4.8); Lymphocytes % 24.5 %; Mean Corpuscular HGB Conc 33.7 g/dL (30-55); Mean Corpuscular Hemoglobin 30.9 pg (27-33); Mean Corpuscular Volume 91.8 fl (85-98); Monocytes # 0.9 10^3/uL (0.2-0.9); Monocytes % 8.3 %; Neutrophils # 6.69 10^3/uL (1.8-7.7); Neutrophils % 64.9 %; Nucleated Red Blood Cells % 0 %; Platelet Count 217 10^3/cmm (157-399); Red Blood Count 5.27 10^6/uL (3.85-5.65); Red Cell Distribution Width 14.5 % (12.1-15.1); White Blood Count 10.31 10^3/uL (3.29-11.43)
[2024-11-16 12:28] LABS: Erythrocyte Sedimentation Rate 17 mm/hr (0-15)
[2024-11-16 12:50] LABS: Alanine Aminotransferase 15 U/L (0-33); Albumin Level 4.4 g/dL (3.5-5.2); Alkaline Phosphatase 69 U/L (35-105); Anion Gap 13.7 (5-19); Aspartate Amino Transferase 18 U/L (0-32); Blood Urea Nitrogen 9 mg/dL (6-20); Calcium 9.2 mg/dL (8.5-10.5); Carbon Dioxide 25 mmol/L (22-29); Chloride 105 mmol/L (98-107); Globulin 2.8 g/dL (1.3-4.6); Glomerular Filtration Rate 77.9 mL/min (90-130); Glucose 99 mg/dL (65-115); Osmolality Calculated 289 mOsm/kg (285-295); Potassium 3.7 mmol/L (3.5-5.1); Sodium 140 mmol/L (136-145); Total Bilirubin 0.7 mg/dL (0.15-1.2); Total Protein 7.2 g/dL (6.6-8.7)
[2024-11-16 12:54] LABS: Alanine Aminotransferase 14 U/L (0-33); Albumin Level 4.5 g/dL (3.5-5.2); Alkaline Phosphatase 67 U/L (35-105); Aspartate Amino Transferase 17 U/L (0-32); Globulin 2.7 g/dL (1.3-4.6); Glomerular Filtration Rate 77.9 mL/min (90-130); Lactate Dehydrogenase 236 U/L (135-214); Total Bilirubin 0.7 mg/dL (0.15-1.2); Total Protein 7.2 g/dL (6.6-8.7)
== END 2024-11-18 23:59 | disposition home or self-care (01) ==
PROVIDERS: Internal Medicine Rheumatology; Nurse Practitioner Family; PCP Nurse Practitioner Family; Visit Provider Internal Medicine Medical Oncology
DX: Z08 Encounter for follow-up examination after completed treatment for malignant neoplasm (principal); Z85.72 Personal history of non-Hodgkin lymphomas; J02.9 Acute pharyngitis, unspecified; M06.041 Rheumatoid arthritis without rheumatoid factor, right hand; M06.042 Rheumatoid arthritis without rheumatoid factor, left hand; Z79.899 Other long term (current) drug therapy; Z71.6 Tobacco abuse counseling; Z92.21 Personal history of antineoplastic chemotherapy
CPT/HCPCS: 36415; 80053; 80076; 82565; 83615; 85025; 85651; 86140; 99213

== ENCOUNTER → 2024-11-24 12:48 | Outpatient (BNVA) | payer MEDICAID, SELFPAY | PROVIDERS: PCP Nurse Practitioner Family; Visit Provider Internal Medicine | DX: I10 Essential (primary) hypertension (principal) | CPT/HCPCS: 99213 ==

== ENCOUNTER → 2024-12-22 09:33 | Outpatient (BNVA) | payer MEDICAID, SELFPAY | PROVIDERS: PCP Nurse Practitioner Family; Visit Provider Internal Medicine Rheumatology | DX: M06.041 Rheumatoid arthritis without rheumatoid factor, right hand (principal); M06.042 Rheumatoid arthritis without rheumatoid factor, left hand; Z79.899 Other long term (current) drug therapy; Z71.85 Encounter for immunization safety counseling; R76.8 Other specified abnormal immunological findings in serum | CPT/HCPCS: 99214 ==

== ENCOUNTER 2025-01-05 12:45 | Oncology outpatient (recurring) (ONCR) | payer MEDICAID, SELFPAY ==
--- NOTE | 2025-01-02 10:14 | XRR_ITS ---
PROCEDURE INFORMATION: Exam: XR Pelvis Exam date and time: 01/02/2025 10:25 AM Age: 44 years old Clinical indication: Pelvic pain; Prior surgery; Surgery date: 6+ months; Surgery type: Open heart, , spine, RT arm, tubal ligation; Pelvic and perineal pain for years. PT has HX of lower back surgery and a tumor on the right hip. Pain radiates down the right leg. , HX of lymphoma; Additional info: R10.2 - pelvic and perineal pain TECHNIQUE: Imaging protocol: Radiologic exam of the pelvis. Views: 1 or 2 view. COMPARISON: CT chest abdpel w/*[id number] 01/15/2024 9:31 AM FINDINGS: Bones/joints: No acute bony abnormality identified. No evidence for a joint effusion. Soft tissues: Unremarkable. Notes: Notes: If there is further concern, recommend follow-up radiographs or bone scan for complete assessment. XR/XR pelvis 1-2V* [id number] IMPRESSION: No acute bony findings.
[2025-01-02] MEDS: iohexol 350 mg/mL 500 mL Btl (per mL) PO (11:03)
[2025-01-02] MEDS: iohexol 350 mg/mL 500 mL Btl (per mL) IV ×2 (12:05)
--- NOTE | 2025-01-02 12:30 | CT_ITS ---
WS: [id number] CT NECK WITH CONTRAST HISTORY: lymphocyte-rich hodgkin lymphoma TECHNIQUE: Contiguous 2 mm axial images are performed through the neck with intravenous contrast. Sagittal and coronal reformats are also submitted. All CT scans at [facility] use at least one of these dose optimization techniques: automated exposure control; mA and/or kV adjustment per patient size (includes targeted exams where dose is matched to clinical indication); or iterative reconstruction. CONTRAST: CONTRAST: Omnipaque 350; 100 mL IV. DLP: 171.92 mGy.cm COMPARISON: 11/12/2020 Nasopharynx, oropharynx, hypopharynx and larynx are unremarkable. No soft tissue masses or abnormal enhancement. Torus tubarius and fossa of Rosenmuller and parapharyngeal fat are normal. No significantly enlarged lymph nodes. Lymph nodes described on 11/12/2020 have decreased in size and hypervascularity. Normal-appearing bilateral cervical chain lymph nodes. Normal sized thyroid. There is a tiny 3 mm nodule in the LEFT thyroid. Submandibular glands and parotid glands are normal. Straightening of the normal cervical lordosis. Anterior cervical fusion C5-C7 with interbody spacers at C5-6 and C6-7. Visualized portions of the skull base demonstrate no abnormalities. Orbits and globes are within normal limits. No soft tissue masses. Visualized paranasal sinuses and mastoid air cells are normal. Lung apices are clear. CT/CT neck w con* [id number] IMPRESSION: 1. No cervical chain lymphadenopathy. Previously described pathologic lymph no khushi nodes on 11/12/2020 have resolved. 2. No neck mass.
--- NOTE | 2025-01-02 13:00 | CT_ITS ---
WS: [id number] CT CHEST, ABDOMEN AND PELVIS WITH CONTRAST HISTORY: lymphocyte-rich hodgkin lymphoma TECHNIQUE: Contiguous 5 mm axial imaging performed through the chest, abdomen and pelvis with IV contrast, oral contrast has been provided. Coronal and sagittal reformats chest. Coronal and sagittal reformats through the abdomen and pelvis. All CT scans at [facility] use at least one of these dose optimization techniques: automated exposure control; mA and/or kV adjustment per patient size (includes targeted exams where dose is matched to clinical indication); or iterative reconstruction. CONTRAST: Omnipaque 350; 75 mL IV. DLP: 797.45 mGy.cm COMPARISON:, Prior PET/CT 12/06/2022, chest CT 12/20/[address]: Stable 4 mm nodules RIGHT lower lobe. There are few additional scattered calcified granulomata. No pericardial or pleural effusions. Normal size aorta and pulmonary artery. Normal size heart. No mediastinal or hilar adenopathy. No axillary adenopathy. Abdomen CT: Normal liver and spleen. No intrahepatic duct dilatation. Portal vein is normal. Prior cholecystectomy. Normal pancreas. No pancreatic duct dilatation. Normal adrenal glands. No renal obstruction or mass. Mild atherosclerosis aorta. No GI tract obstruction. Numerous diverticula throughout the colon. No evidence for acute diverticulitis. No ascites or adenopathy. Pelvic CT: No adenopathy or ascites. Normally distended urinary bladder. Uterus is anteverted and midline. 2.1 cm RIGHT ovarian follicle. No destructive bone lesions. CT/CT chest abdpel w/*[id number] IMPRESSION: 1. No adenopathy within the chest, abdomen or pelvis. 2. Long-term stability 4 mm nodules RIGHT lower lobe. 3. No splenomegaly. 4. Prior cholecystectomy.
[2025-01-05 12:52] LABS: Basophils # 0.1 10^3/uL (0.0-0.1); Basophils % 0.6 %; Eosinophils # 0.1 10^3/uL (0.0-0.8); Eosinophils % 0.6 %; Hematocrit 47.9 % (36-47); Lymphocytes # 1.9 10^3/uL (0.8-4.8); Lymphocytes % 17.2 %; Mean Corpuscular HGB Conc 33.4 g/dL (30-55); Mean Corpuscular Volume 89.9 fl (85-98); Mean Platelet Volume 10.2 fL (7.4-10.4); Monocytes # 0.9 10^3/uL (0.2-0.9); Monocytes % 8.3 %; Neutrophils # 7.93 10^3/uL (1.8-7.7); Neutrophils % 72.7 %; Nucleated Red Blood Cells % 0 %; Platelet Count 174 10^3/cmm (157-399); Red Blood Count 5.33 10^6/uL (3.85-5.65); Red Cell Distribution Width 14.4 % (12.1-15.1); Reticulocyte % 1.5 % (0.5-2.0)
[2025-01-05 12:55] LABS: Erythrocyte Sedimentation Rate 22 mm/hr (0-15)
[2025-01-05 13:12] LABS: Alanine Aminotransferase 12 U/L (0-33); Albumin Level 4.3 g/dL (3.5-5.2); Alkaline Phosphatase 59 U/L (35-105); Anion Gap 17.9 (5-19); Aspartate Amino Transferase 17 U/L (0-32); Blood Urea Nitrogen 9 mg/dL (6-20); Calcium 9.3 mg/dL (8.5-10.5); Carbon Dioxide 20 mmol/L (22-29); Chloride 103 mmol/L (98-107); Ferritin 55 ng/mL (15-150); Glomerular Filtration Rate 67.7 mL/min (90-130); Glucose 109 mg/dL (65-115); Iron 40 ug/dL (37-145); Lactate Dehydrogenase 237 U/L (135-214); Osmolality Calculated 283 mOsm/kg (285-295); Percent Saturation 15.5 % (20-50); Potassium 3.9 mmol/L (3.5-5.1); Sodium 137 mmol/L (136-145); Total Bilirubin 0.7 mg/dL (0.15-1.2); Total Iron Binding Capacity 257 mcg/dl; Total Protein 7.3 g/dL (6.6-8.7); Unsaturated Iron Binding 217 ug/dL (112-347)
[2025-01-06 04:16] LABS: Beta-2-Microglobulin 2.02 mg/L (< OR = 2.51)
[2025-01-06 06:25] LABS: PROTEIN, TOTAL 7.2 g/dL (6.1-8.1)
[2025-01-06 21:09] LABS: ALBUMIN 4.3 g/dL (3.8-4.8); ALPHA 1 GLOBULIN 0.4 g/dL (0.2-0.3); ALPHA 2 GLOBULIN 0.9 g/dL (0.5-0.9); BETA 1 GLOBULIN 0.4 g/dL (0.4-0.6); BETA 2 GLOBULIN 0.4 g/dL (0.2-0.5); GAMMA GLOBULIN 0.9 g/dL (0.8-1.7)
[2025-01-08 22:40] LABS: Immunofixation Serum Normal pattern.
== END 2025-01-18 23:59 | disposition home or self-care (01) ==
PROVIDERS: PCP Nurse Practitioner Family; Referring Provider Internal Medicine Rheumatology; Visit Provider Internal Medicine
DX: Z08 Encounter for follow-up examination after completed treatment for malignant neoplasm; Z85.72 Personal history of non-Hodgkin lymphomas; F17.210 Nicotine dependence, cigarettes, uncomplicated; D75.1 Secondary polycythemia; Z92.21 Personal history of antineoplastic chemotherapy; Z53.9 Procedure and treatment not carried out, unspecified reason
CPT/HCPCS: 70491; 71260; 72170; 74177; 80053; 82232; 82728; 83010; 83540; 83550; 83615; 84155; 84165; 85025; 85045; 85651; 86334; 99214

== ENCOUNTER 2025-01-22 00:30 | Emergency (ER) | payer MEDICAID, SELFPAY ==
[2025-01-22 00:38] VITALS: BP 145/96; PULSE 93; RESP 14; TEMP 37.3; O2SAT 97; BMI 26.6
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
[2025-01-22] MEDS: oxyCODONE-APAP 5-325 mg Tablet 2 TAB PO (03:10)
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
[2025-01-22 03:23] VITALS: PULSE 82; RESP 16; O2SAT 97
== END 2025-01-22 03:13 | disposition home or self-care (01) ==
PROVIDERS: Emergency Provider Emergency Medicine; PCP Nurse Practitioner Family
DX: S20.211A Contusion of right front wall of thorax, initial encounter (principal); F17.210 Nicotine dependence, cigarettes, uncomplicated; J44.9 Chronic obstructive pulmonary disease, unspecified; E78.5 Hyperlipidemia, unspecified; I10 Essential (primary) hypertension; X58.XXXA Exposure to other specified factors, initial encounter
CPT/HCPCS: 71101; 99283; J9999

== ENCOUNTER 2025-02-01 07:37 | Oncology outpatient (recurring) (ONCR) | payer MEDICAID, SELFPAY ==
--- NOTE | 2025-02-01 08:00 | CT_ITS ---
WS: [id number] CT chest wo con [id number] HISTORY: R07.81 - Pleurodynia TECHNIQUE: Axial imaging performed through the thorax. Coronal and sagittal reformats are submitted. All CT scans at [facility] use at least one of these dose optimization techniques: automated exposure control; mA and/or kV adjustment per patient size (includes targeted exams where dose is matched to clinical indication); or iterative reconstruction. CONTRAST: None DLP: 299.81 mGy.cm COMPARISON: 01/02/2025 Lungs and central airway: Several small scattered calcified granulomata. Noncalcified 3 mm nodule RIGHT lower lobe is stable. 3 mm nodule along the RIGHT fissure. No pneumothorax. No pulmonary contusion. Pleura: Normal. No pleural effusion. Heart and pericardium: Normal size heart with no pericardial effusion. Mediastinum and taye: No mediastinum or hilar adenopathy. Vessels: Normal size aortic and pulmonary artery. No coronary artery calcifications. Chest wall and lower neck: No soft tissue masses. Upper abdomen: Prior cholecystectomy. No adrenal mass. Osseous structures: Orthopedic hardware in the cervical spine and proximal RIGHT humerus. No rib fractures are identified. CT/CT chest wo con [id number] IMPRESSION: 1. No pulmonary contusion or pneumothorax. 2. No rib fracture. 3. No thoracic spine fracture identified. 4. Prior granulomatous disease. 5. Stable 3 mm noncalcified RIGHT lower lobe nodule.
== END 2025-02-18 23:59 | disposition home or self-care (01) ==
LOC: RAD 07:38 → ONCMED 10:59
PROVIDERS: PCP Nurse Practitioner Family; Referring Provider Internal Medicine Rheumatology; Visit Provider Nurse Practitioner Family
DX: Z53.9 Procedure and treatment not carried out, unspecified reason (principal); Z08 Encounter for follow-up examination after completed treatment for malignant neoplasm; Z85.72 Personal history of non-Hodgkin lymphomas; F17.210 Nicotine dependence, cigarettes, uncomplicated; D75.1 Secondary polycythemia; Z92.21 Personal history of antineoplastic chemotherapy; C81.41 Lymphocyte-rich Hodgkin lymphoma, lymph nodes of head, face, and neck; R10.2 Pelvic and perineal pain; Z90.49 Acquired absence of other specified parts of digestive tract; R91.1 Solitary pulmonary nodule; R07.81 Pleurodynia
CPT/HCPCS: 71250

== ENCOUNTER → 2025-04-20 13:34 | Outpatient (BNVA) | payer MEDICAID, SELFPAY | PROVIDERS: PCP Nurse Practitioner Family; Visit Provider Internal Medicine Rheumatology | DX: M06.041 Rheumatoid arthritis without rheumatoid factor, right hand (principal); M06.042 Rheumatoid arthritis without rheumatoid factor, left hand; Z79.899 Other long term (current) drug therapy; Z71.85 Encounter for immunization safety counseling; R76.8 Other specified abnormal immunological findings in serum; M53.3 Sacrococcygeal disorders, not elsewhere classified | CPT/HCPCS: 72220; 99215 ==

== ENCOUNTER 2025-04-20 18:24 | Inpatient (IN) | payer MEDICAID, SELFPAY ==
--- OUTSIDE RECORDS SUMMARY | 2017-11-11 03:00 | XMS_ITS | Continuity of Care Document ---
Author Organization [facility] Address [id number] [address] Phone Care Team Providers Care Work Study Student Name Role Phone Carlos Verma DDS Unavailable Unavailable Medications Medication Instructions Dosage Effective Dates (start - stop) Status Comments gabapentin 300 mg capsule take 1 capsule by oral route 3 times every day 300 MG - Active fluoxetine 10 mg capsule take 2 capsule by oral route every day 20 MG - Active ranitidine 75 mg tablet take 1 tablet by oral route 2 times every day with glass of water - Active Seroquel 50 mg tablet take 1 tablet by o ral route 2 times every day 50 MG - Active Acid Golf Teacher (ranitidine) 75 mg tablet take 1 tablet by oral route 2 times every day with glass of water - Active Gas Relief Extra Strength 125 mg capsule - Active Laxative (bisacodyl) 5 mg tablet take 1 tablet by oral route every day as needed for constipation 5 MG - Active lisinopril 20 mg tablet take 1 tablet by oral route every day 20 MG - Active Claritin 10 mg tablet take 1 tablet by o ral route every day 10 MG - Active Naprosyn 500 mg tablet take 1 tablet by oral route 2 times every day with food 500 MG - Active cyclobenzaprine 10 mg tablet take 1 tablet by oral route 2 times every day 10 MG - Active tramadol 50 mg tablet take 1 tablet by o ral route every 6 hours as needed 50 MG - Active Advanced AM-PM 1,000 mg-800 unit-2.5 mg oral pack - Active Problems Condition Type Effective Dates (start - stop) Clini charlie Status Comments No Known Problems Procedures Procedure Date Bitewings Four Films Intraoral Periapical First Film Intraoral Periapical Each Additional Film Intraoral Periapical Each Additional Film Panoramic Film Comprehensive Oral Evaluatio n New Or Established EDR Approval Note Advance Directives Directive Yes / No Effective Date File Name No Information Encounters Encounter Description Practice Location Reason(s) For Visit Diagnoses Date Provider Providers Copied on Encounter [facility], [id number] [place], [place], [id number], tel:[phone] [facility] Encounter for dental exam and cleaning w/o abnormal findings Bayron Gonzalez. [address] [place], [address], [place]. tel:[phone] Referring Provider: Carlos Verma T, [address] [place], [address]. tel:[phone] Family History Family Member Type Diagnosis Age At Onset No Information Payers Payer name Insurance type Covered libertarian ID [place] D Medicaid [id number] Social History Type Description Quantity Date Captured Comments Alcohol Use Details No Caffeine Use Details Unknown Tobacco Use Status Occasional cigarette smoker Smoking Status Heavy tobacco smoker Smoking Tobacco Use Details Cigarette: No Details Available Cigarette: 1 Packs per day Sex Female Sexual Orientation Decline To Specify Gender Identity Female Vital Signs Date / Time: Height Weight BMI Pulse Rate Blood Pressure Temperature Respiratory Rate Body Surface Area Head Circumference Head Circ. Percentile Wt./Hector. Percentile BMI percentile Pulse Ox Inhaled Ox 8:27 AM 112/74 mm[Hg] Chief Complaint And Reason For Visit No Information Reason For Referral Reason For Referral No Information History Of Present Illness Encounter Date Complaint History Of Prese nt Illness No Information Functional Status Date Functional Assessmen t No Information Instructions Date Instruction Additional Infor abebe Lifestyle education Related to D ental Examination Assessments Type Assessment Date No Information Patient Care Teams Name Effective Dates (start - stop) Status Members No Information
[2025-04-20] VITALS (7 sets, daily range): BP systolic 137–198; BP diastolic 82–155; PULSE 72–90; RESP 16; TEMP 37; O2SAT 96–99; BMI 24.2; BMI 24.7
--- NOTE | 2025-04-20 18:50 | XRR_ITS ---
PROCEDURE INFORMATION: Exam: XR Chest Exam date and time: 04/20/2025 7:00 PM Age: 44 years old Clinical indication: Other: HTN; Additional info: Hypertension TECHNIQUE: Imaging protocol: Radiologic exam of the chest. Views: 1 view. COMPARISON: CT chest con [id number] 02/01/2025 8:17 AM FINDINGS: Lungs: No pulmonary consolidation. Pleural spaces: Suggested trace bilateral pleural effusions. No pneumothorax. Heart/Mediastinum: The cardiomediastinal silhouette is within normal limits. The cardiomediastinal silhouette is within normal limits. Bones/joints: No acute osseous abnormalities are seen. XR/XR chest 1V portable [id number] IMPRESSION: 1. Suggested trace bilateral pleural effusions. 2. No other evidence of acute cardiopulmonary disease.
--- NOTE | 2025-04-20 19:36 | ECG_ITS ---
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
--- NOTE | 2025-04-20 19:41 | ED_ITS ---
HPI - General Adult 2 General: Chief complaint: General Medical Stated complaint: High BP Time Seen by Provider: 04/20/25 19:30 History of Present Illness: 44-year-old female with a history of lym phoma in remission, COPD, anxiety, GERD, hypertension she stopped taking medication for secondary to low blood pressures after she was treated for cancer and nonocclusive coronary disease seen on cath done in 2021 who presents emergency room with hypertension. She says she had an episode of chest pain 2 days ago that resolved. She says since then her blood pressure has been elevated. She has been monitoring it because it had been starting to come up and her doctor put her on a machine at home to monitor. She said it got as high as 200/110. On presentation here she was initially 200/155 and has gone down spontaneously to 161/96 at the time of my exam. No current chest pain. No fevers. No cough. No abdominal pain. No vomiting. No altered mental status. No focal motor deficits. Related Data Home Medications ?Medication ?Instructions ?Recorded ?Confirmed acetaminophen 500 mg tablet 1,000 mg PO Q6H PRN Pain 0 05/09/24 03/30/25 azelastine 137 mcg (0.1 %) nasal 1 spray intranasal BI D PRN Allergy 05/09/24 03/30/25 spray Symptoms estradiol 0.01% (0.1 mg/gram) 1 appful vaginal .2X WK 05/09/24 03/30/25 vaginal cream gabapentin 100 mg capsule 100 mg PO TID PRN nerve pain 05/09/24 03/30/25 hydrocortisone acetate 1 % rectal 1 applic NM QID PRN Outbreak 05/09/24 03/30/25 cream Previous Rx's ?Medication ?Instructions ?Recorded albuterol sulfate 90 mcg/actuation 2 puff inhalation Q 4H PRN 04/03/22 aerosol inhaler (ProAir HFA) shortness of breath or wh eezing 30 days #1 ea naloxone 4 mg/actuation nasal 1 spray intranasal Q3M P RN opioid 01/26/23 spray (Narcan) overdose #2 ea pantoprazole 40 mg tablet,delayed 40 mg PO DAILY 1 thu #60 tabs 06/30/24 release (Protonix) docusate sodium 100 mg capsule 100 mg PO BID #14 caps 07/07/24 (Colace) albuterol sulfate 2.5 mg/3 mL 2.5 mg (3 mL) inhalation QID PRN 07/11/24 (0.083 %) solution for nebulization shortness of breat h or wheezing #75 mL nicotine (polacrilex) 4 mg gum 4 mg buccal Q2H #100 ea 07/19/24 clotrimazole 1 % topical cream 1 applic topical BID 2 weeks #15 07/28/24 grams cyclobenzaprine 10 mg tablet See Rx Instructions .Rout e 08/22/24 .COMPLEX #30 tabs budesonide-formoterol HFA 160 2 puff inhalation BID #1 0.2 grams 10/05/24 mcg-4.5 mcg/actuation aerosol inhaler (Symbicort) sulfasalazine 500 mg tablet 0.5 g PO BID #60 tabs 12/13 atorvastatin 40 mg tablet See Rx Instructions .Route 0 03/15/25 .COMPLEX #30 tabs buspirone 10 mg tablet See Rx Instructions .Route 0 03/15/25 .COMPLEX #60 tabs quetiapine 50 mg tablet See Rx Instructions .Route 0 03/15/25 .COMPLEX #60 tabs fluconazole 150 mg tablet 150 mg PO Q3D 2 doses #2 tab s 03/30/25 dapagliflozin propanediol 10 mg See Rx Instructions .R oute 04/11/25 tablet (Farxiga) .COMPLEX #30 tabs furosemide 20 mg tablet See Rx Instructions .Route 0 04/11/25 .COMPLEX #30 tabs sertraline 100 mg tablet See Rx Instructions .Route 0 04/11/25 .COMPLEX #45 tabs ondansetron 4 mg disintegrating See Rx Instructions .R oute 04/12/25 tablet .COMPLEX #30 tabs diclofenac sodium 75 mg 75 mg PO Q12H PRN pain (scal e 04/20/25 tablet,delayed release score 7-10) #60 tabs hydroxychloroquine 200 mg tablet 200 mg PO BID #180 ta bs 04/20/25 leflunomide 20 mg tablet 20 mg PO DAILY #90 tabs 03/23 10/15 prednisone 20 mg tablet See Rx Instructions PO .COMP GLADIS 04/20/25 PRN joint pain flare #30 tabs prednisone 5 mg tablet 5 mg PO DAILY #90 tabs 04/20 Allergies Allergy/AdvReac Type Severity Reaction Status Date / Time amoxicillin (From Augmentin) Allergy ALGY-Rash Verified 03/30/25 14:29 clavulanic acid (From Allergy ALGY-Rash Verified 03/30/25 14:29 Augmentin) nonoxynol 9 (From [place] Plus Allergy ALGY-Rash Verified 03/30/25 14:29 Spermicidal Jelly) pregabalin (From Lyrica) Allergy unknown Verified 03/30/25 14:29 sumatriptan Allergy ALGY-Difficulty Verified 03/30/25 14:29 Breathing topiramate Allergy ALGY-Difficulty Verified 03/30/25 14:29 Breathing Review of Systems 2 Narrative: Constitutional symptoms: Negative except as documented in HPI. Skin symptoms: Negative except as documented in HPI. Eye symptoms: Negative except as documented in HPI. ENMT symptoms: Negative except as documented in HPI. Respiratory symptoms: Negative except as documented in HPI. Cardiovascular symptoms: Negative except as documented in HPI. Gastrointestinal symptoms: Negative except as documented in HPI. Genitourinary symptoms: Negative except as documented in HPI. Musculoskeletal symptoms: Negative except as documented in HPI. Neurologic symptoms: Negative except as documented in HPI. Psychiatric symptoms: Negative except as documented in HPI. Endocrine symptoms: Negative except as documented in HPI. PFSH ED 2 PFSH: Medical History (Updated 04/20/25 @ 22:42 by Kari Snell MD) Coccydynia Tubular adenoma of colon Immunization counseling High risk medication use Seronegative rheumatoid arthritis of both hands History of colon polyps Knee pain Abnormal stress test COPD (chronic obstructive pulmonary disease) Chronic anxiety Degenerative arthritis GERD (gastroesophageal reflux disease) Degenerative joint disease of spine Obstructive sleep apnea Hodgkin lymphoma Environmental and seasonal allergies Major depressive disorder Hyperlipidemia Essential hypertension Surgical History History of laparoscopic cholecystectomy History of back surgery (10/10/22) L3-4 laminectomy with partial facetectomy and L5/S1 laminectomy with partial facetectomy History of endometrial ablation (2011) Hysteroscopy followed by D&C and thermal ablation History of lymph node biopsy (12/05/20) Left cervical lymph node biopsy Port-A-Cath in place (01/10/21) History of surgery on arm (2017) ORIF for fracture of the right humerus History of adenoidectomy (2020) History of colonoscopy (2017) Hx of neck surgery 12/31/2017 c-5 c-6, c-6 c-[address] avila Hx of tubal ligation (2001) 2001 Hx of section x 2 Family History Mother Hypercholesteremia Diabetes Hypertension Psychiatric illness, Onset Age: 20 Mother had an affair with a man. [place] [employer] took her children away. The patient is the product of this liaison. Brother Hypercholesteremia Diabetes Hypertension Myocardial infarct Heart disease Father Hypercholesteremia Diabetes Hypertension Sister Hypertension Stroke Grandmother Thyroid disease Denies family history of Colon cancer Ovarian cancer Breast cancer Uterine cancer Social History Smoking and tobacco/nicotine status: current every day tobacco/nicotine user (1 pack per day for 32 yrs ) cigarettes Packs smoked per day: 1 Years cigarettes smoked: 31 Alcohol intake: never Substance/Drug Use: never Physical Exam 2 Narrative: EXAM NARRATIVE: General: Alert, no acute distress. Skin: Warm, dry. Head: Normocephalic, atraumatic. Neck: Supple, trachea midline. Eye: Extraocular movements are intact. Ears, nose, mouth and throat: mucosa moist. Cardiovascular: Regular, Normal peripheral perfusion. Respiratory: Lungs are clear to auscultation, respirations are non-labored, breath sounds are equal, Symmetrical chest wall expansion. Gastrointestinal: Soft, Nontender, Non distended Musculoskeletal: Normal ROM, no deformity. Neurological: Alert and oriented, No focal neurological deficit observed. Psychiatric: Cooperative, appropriate mood & affect. Course 2 Vital Signs: Vital signs: Vital Signs Temperature 98.6 F 04/20/25 18:27 Pulse Rate 74 04/20/25 20:36 Respiratory Rate 16 04/20/25 20:36 Blood Pressure 147/95 04/20/25 20:36 Pulse Oximetry 97 04/20/25 20:36 Oxygen Delivery Me thod Room Air 04/20/25 20:36 MDM - General Adult Medical Decision Making Medical decision making: Differential diagnosis including but not limited to and based on the above HPI, review of systems and physical exam: Patient presents with hypertension: Essential hypertension. Stroke. acute coronary syndrome. kidney failure. congestive heart failure. anxiety. Orders placed to evaluate differential diagnosis based on the above differential, HPI and physical exam EKG: Time 1935. Rate 79. Normal sinus rhythm, nonspecific ST changes, no ectopy, normal NM & QRS intervals, This was reviewed and interpreted by myself the ER physician at 1939. Repeat EKG: Time 2042. Rate 73. Normal sinus rhythm, nonspecific ST changes. No ectopy, normal NM & QRS intervals, This was reviewed and interpreted by myself the ER physician at 2047. No significant changes from EKG done previously in the emergency room today Chest x-ray: Possible small bilateral pleural effusions. No infiltrate. No pneumothorax. This was reviewed and interpreted by myself the emergency room physician. I also reviewed the radiology report. Lab Review: Laboratory results were reviewed and interpreted by myself the emergency room physician. No leukocytosis. No anemia. No renal failure. Initial troponin is 19 but repeat troponin is unchanged. I reviewed the patient's medical record. Reexamination: Blood pressure has come down quite a bit spontaneously. Still somewhat elevated so hydralazine was given. Patient remained stable. No increased work of breathing. No altered mental status. No focal motor deficits. Consultation: Spoke with Dr. Reyna who is on-call for cardiology about the patient. He has followed with her in clinic in the past. He agrees that observation and possible stress test is appropriate Consultation: I spoke with Dr. Collazo who is on-call for the hospitalist service who agrees to admission. Assessment and plan: Accelerated hypertension Chest pain ?P.o. aspirin and p.o. hydralazine -I discussed the patient with the hospitalist on-call who is admitting the patient. - Discussed findings and plan with patient. Answered any questions. - All laboratory values were reviewed and interpreted personally by myself, the ER physician - All imaging was reviewed and interpreted personally by myself, the ER physician. - Evaluation and treatment of this problem were appropriate in the emergency setting Lab Data 04/20/25 19:34 04/20/25 19:34 Radiology Impressions Chest X-Ray 04/20/25 18:50 IMPRESSION: 1. Suggested trace bilateral pleural effusions. 2. No other evidence of acute cardiopulmonary disease. Laboratory Results WBC 11.90 10^3/uL (3.29-11.43) H 04/20/25 19:34 RBC 5.13 10^6/uL (3.85-5.65) 04/20/25 19:34 Hgb 16.20 g/dL (11.27-16.99) 04/20/25 19:34 Hct 47.0 % (36-47) 04/20/25 19:34 MCV 91.6 fl (85-98) 04/20/25 19:34 MCH 31.6 pg (27-33) 04/20/25 19:34 MCHC 34.5 g/dL (30-55) 04/20/25 19:34 RDW 14.2 % (12.1-15.1) 04/20/25 19:34 Plt Count 168 10^3/cmm (157-399) 04/20/25 19:34 MPV 10.1 fL (7.4-10.4) 04/20/25 19:34 Neut % (Auto) 71.5 % 04/20/25 19:34 Lymph % (Auto) 18.2 % 04/20/25 19:34 [place] % (Auto) 9.2 % 04/20/25 19:34 Eos % (Auto) 0.2 % 04/20/25 19:34 Baso % (Auto) 0.3 % 04/20/25 19:34 Neut # (Auto) 8.52 10^3/uL (1.8-7.7) H 04/20/25 19:34 Lymph # (Auto) 2.2 10^3/uL (0.8-4.8) 04/20/25 19:34 [place] # (Auto) 1.1 10^3/uL (0.2-0.9) H 04/20/25 19:34 Eos # (Auto) 0.0 10^3/uL (0.0-0.8) 04/20/25 19:34 Baso # (Auto) 0.0 10^3/uL (0.0-0.1) 04/20/25 19:34 Nucleated RBC % (auto) 0 % 04/20/25 19:34 Nucleated RBCs # 0.0 /100WBC 04/20/25 19:34 Sodium 140 mmol/L (136-145) 04/20/25 19:34 Potassium 3.7 mmol/L (3.5-5.1) 04/20/25 19:34 Chloride 102 mmol/L (98-107) 04/20/25 19:34 Carbon Dioxide 23 mmol/L (22-29) 04/20/25 19:34 Anion Gap 18.7 (5-19) 04/20/25 19:34 BUN 11 mg/dL (6-20) 04/20/25 19:34 Creatinine 1.0 mg/dL (0.5-0.9) H 04/20/25 19:34 GFR Calculation 60.0 mL/min (90-130) L 04/20/25 19:34 Glucose 75 mg/dL (65-115) 04/20/25 19:34 Calculated Osmolality 288 mOsm/kg (285-295) 04/20/25 19:34 Calcium 9.3 mg/dL (8.5-10.5) 04/20/25 19:34 Total Bilirubin 0.7 mg/dL (0.15-1.2) 04/20/25 19:34 AST 18 U/L (0-32) 04/20/25 19:34 ALT 17 U/L (0-33) 04/20/25 19:34 Alkaline Phosphatase 57 U/L (35-105) 04/20/25 19:34 Troponin T Baseline 18 ng/L (0-10) H 04/20/25 19:34 Troponin T 120 Minute 19.30 ng/L (0-10) H 04/20/25 21:10 Delta Troponin T 1.30 ABS# (0-10) 04/20/25 21:10 NT-Pro-B Natriuret Pep 562 pg/mL (0-125) H 04/20/25 19:34 Total Protein 7.0 g/dL (6.6-8.7) 04/20/25 19:34 Albumin 4.5 g/dL (3.5-5.2) 04/20/25 19:34 Globulin 2.5 g/dL (1.3-4.6) 04/20/25 19:34 All radiology interpretation(s) finalized by discharge Discharge Plan Discharge Patient Disposition: Placed in Observation Clinical Impression: Accelerated hypertension, Chest pain Coding Level of Care Code ED Account Associate for Yvette Beaulieu
[2025-04-20 19:51] LABS: Hematocrit 47.0 % (36-47); Hemoglobin 16.20 g/dL (11.27-16.99); Mean Corpuscular HGB Conc 34.5 g/dL (30-55); Mean Corpuscular Hemoglobin 31.6 pg (27-33); Mean Corpuscular Volume 91.6 fl (85-98); Nucleated Red Blood Cells % 0 %; Platelet Count 168 10^3/cmm (157-399); Red Blood Count 5.13 10^6/uL (3.85-5.65); White Blood Count 11.90 10^3/uL (3.29-11.43)
[2025-04-20 20:11] LABS: Troponin(5th) Baseline 18 ng/L (0-10)
[2025-04-20 20:19] LABS: Alanine Aminotransferase 17 U/L (0-33); Albumin Level 4.5 g/dL (3.5-5.2); Alkaline Phosphatase 57 U/L (35-105); Aspartate Amino Transferase 18 U/L (0-32); Blood Urea Nitrogen 11 mg/dL (6-20); Calcium 9.3 mg/dL (8.5-10.5); Carbon Dioxide 23 mmol/L (22-29); Chloride 102 mmol/L (98-107); Creatinine Clr Calc Pharmacy 70.4270; Globulin 2.5 g/dL (1.3-4.6); Glucose 75 mg/dL (65-115); NT Pro B Type Natriuretic Pept 562 pg/mL (0-125); Osmolality Calculated 288 mOsm/kg (285-295); Sodium 140 mmol/L (136-145); Total Protein 7.0 g/dL (6.6-8.7)
[2025-04-20 20:23] LABS: Anion Gap 18.7 (5-19); Potassium 3.7 mmol/L (3.5-5.1)
--- NOTE | 2025-04-20 20:50 | ECG_ITS ---
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
[2025-04-20 21:36] LABS: Troponin 5 2HR 19.30 ng/L (0-10); Troponin 5 2HR Delta 1.30 ABS# (0-10)
[2025-04-20] MEDS: heparin 5,000 unit/mL INJ 1 mL IVP (23:28)
[2025-04-20] MEDS: heparin drip 25,000 UNIT/500 ML PREMIX 19 UNIT IV (23:30)
[2025-04-21] VITALS (7 sets, daily range): BP systolic 107–159; BP diastolic 63–96; PULSE 62–74; RESP 17; TEMP 36.3–37.1; O2SAT 95–97
--- NOTE | 2025-04-21 01:06 | ECG_ITS ---
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
[2025-04-21 01:53] LABS: Troponin 5 6HR 24.08 ng/L (0-10); Troponin 5 6HR Delta 6.08 ng/L (0-12)
--- NOTE | 2025-04-21 02:42 | P.HP_ITS ---
Providers/Chief Complaint 2 Admitting Physician: Africa Collazo MD--seen and admitted before midnight Primary Care Provider: BRIAN Santacruz Chief Complaint: High BP History of Present Illness Alla Liz is a 44 year old female with medical history significant for high blood pressure and the patient used to be on blood pressure medication prior to her non-Hodgkin's lymphoma. During the treatment the blood pressure was getting lower and that was discontinued at that time and patient never had any further antihypertensive medication. Patient had a cardiac catheterization done for a nonocclusive coronary artery 4 years ago. For some reason patient was noted to complain of headaches and the blood pressure on presentation was 250/110 and then he came down to 150/90 on a dose of hydralazine. Upon my evaluating the patient and the medical floor the systolic blood pressure was 107 hydralazine was held and only to restart this morning as the blood pressure came up. This to be monitored and this has been ordered as twice daily. Cardiology was consulted with Dr. Reyna patient was placed on heparin drip and I had had a designation for this patient to be ICU with a hypertensive urgency. Upon going to the ICU patient was noted to have been in MedSurg I went there and saw the patient. He had no symptomatology and I felt this is appropriate for she is on telemetry and she also on heparin drip and she is n.p.o. awaiting for cardiology. Patient had had chest pain 2 days prior to presentation for this reason care is being optimized at this time. Review of Systems 2 Narrative: System review (10 organ reviewed was unremarkable Medications/Allergies Home Medications ?Medication ?Instructions ?Recorded ?Confirmed ?Last Taken ?Type albuterol sulfate 90 mcg/actuation 2 puff inhalation Q 4H PRN 04/03/22 03/30/25 07/06/24 Rx aerosol inhaler (ProAir HFA) shortness of breath or wh eezing 30 days #1 ea naloxone 4 mg/actuation nasal 1 spray intranasal Q3M P RN opioid 01/26/23 03/30/25 07/06/24 Rx spray (Narcan) overdose #2 ea acetaminophen 500 mg tablet 1,000 mg PO Q6H PRN Pain 0 05/09/24 03/30/25 05/09/24 History azelastine 137 mcg (0.1 %) nasal 1 spray intranasal BI D PRN Allergy 05/09/24 03/30/25 07/06/24 History spray Symptoms estradiol 0.01% (0.1 mg/gram) 1 appful vaginal .2X WK 05/09/24 03/30/25 05/09/24 History vaginal cream gabapentin 100 mg capsule 100 mg PO TID PRN nerve pain 05/09/24 03/30/25 07/06/24 History hydrocortisone acetate 1 % rectal 1 applic NM QID PRN Outbreak 05/09/24 03/30/25 07/06/24 History cream pantoprazole 40 mg tablet,delayed 40 mg PO DAILY 1 mon #60 tabs 06/30/24 03/30/25 07/06/24 Rx release (Protonix) docusate sodium 100 mg capsule 100 mg PO BID #14 caps 07/07/24 03/30/25 Unknown Rx (Colace) albuterol sulfate 2.5 mg/3 mL 2.5 mg (3 mL) inhalation QID PRN 07/11/24 03/30/25 Unknown Rx (0.083 %) solution for nebulization shortness of breat h or wheezing #75 mL nicotine (polacrilex) 4 mg gum 4 mg buccal Q2H #100 ea 07/19/24 03/30/25 Unknown Rx clotrimazole 1 % topical cream 1 applic topical BID 2 weeks #15 07/28/24 03/30/25 Unknown Rx grams cyclobenzaprine 10 mg tablet See Rx Instructions .Rout e 08/22/24 03/30/25 Unknown Rx .COMPLEX #30 tabs budesonide-formoterol HFA 160 2 puff inhalation BID #1 0.2 grams 10/05/24 03/30/25 Unknown Rx mcg-4.5 mcg/actuation aerosol inhaler (Symbicort) sulfasalazine 500 mg tablet 0.5 g PO BID #60 tabs 04/0 12/1303/30/25 Unknown Rx atorvastatin 40 mg tablet See Rx Instructions .Route 0 03/15/25 03/30/25 Unknown Rx .COMPLEX #30 tabs buspirone 10 mg tablet See Rx Instructions .Route 0 03/15/25 03/30/25 Unknown Rx .COMPLEX #60 tabs quetiapine 50 mg tablet See Rx Instructions .Route 0 03/15/25 03/30/25 Unknown Rx .COMPLEX #60 tabs fluconazole 150 mg tablet 150 mg PO Q3D 2 doses #2 tab s 03/30/25 03/30/25 Unknown Rx dapagliflozin propanediol 10 mg See Rx Instructions .R oute 04/11/25 Unknown Rx tablet (Farxiga) .COMPLEX #30 tabs furosemide 20 mg tablet See Rx Instructions .Route 0 04/11/25 Unknown Rx .COMPLEX #30 tabs sertraline 100 mg tablet See Rx Instructions .Route 0 04/11/25 Unknown Rx .COMPLEX #45 tabs ondansetron 4 mg disintegrating See Rx Instructions .R oute 04/12/25 Unknown Rx tablet .COMPLEX #30 tabs diclofenac sodium 75 mg 75 mg PO Q12H PRN pain (scal e 04/20/25 04/20/25 Unknown Rx tablet,delayed release score 7-10) #60 tabs hydroxychloroquine 200 mg tablet 200 mg PO BID #180 ta bs 04/20/25 04/20/25 Unknown Rx leflunomide 20 mg tablet 20 mg PO DAILY #90 tabs 03/2304/20/25 Unknown Rx prednisone 20 mg tablet See Rx Instructions PO .COMP GLADIS 04/20/25 04/20/25 Unknown Rx PRN joint pain flare #30 tabs prednisone 5 mg tablet 5 mg PO DAILY #90 tabs 04/2004/20/25 Unknown Rx Allergies Allergy/AdvReac Type Severity Reaction Status Date / Time amoxicillin (From Augmentin) Allergy ALGY-Rash Verified 03/30/25 14:29 clavulanic acid (From Allergy ALGY-Rash Verified 03/30/25 14:29 Augmentin) nonoxynol 9 (From [place] Plus Allergy ALGY-Rash Verified 03/30/25 14:29 Spermicidal Jelly) pregabalin (From Lyrica) Allergy unknown Verified 03/30/25 14:29 sumatriptan Allergy ALGY-Difficulty Verified 03/30/25 14:29 Breathing topiramate Allergy ALGY-Difficulty Verified 03/30/25 14:29 Breathing PFSH Acute 2 PFSH: Medical History Coccydynia Tubular adenoma of colon Immunization counseling High risk medication use Seronegative rheumatoid arthritis of both hands History of colon polyps Knee pain Abnormal stress test COPD (chronic obstructive pulmonary disease) Chronic anxiety Degenerative arthritis GERD (gastroesophageal reflux disease) Degenerative joint disease of spine Obstructive sleep apnea Hodgkin lymphoma Environmental and seasonal allergies Major depressive disorder Hyperlipidemia Essential hypertension Surgical History History of laparoscopic cholecystectomy History of back surgery (10/10/22) L3-4 laminectomy with partial facetectomy and L5/S1 laminectomy with partial facetectomy History of endometrial ablation (2011) Hysteroscopy followed by D&C and thermal ablation History of lymph node biopsy (12/05/20) Left cervical lymph node biopsy Port-A-Cath in place (01/10/21) History of surgery on arm (2017) ORIF for fracture of the right humerus History of adenoidectomy (2020) History of colonoscopy (2017) Hx of neck surgery 12/31/2017 c-5 c-6, c-6 c-[address] avila Hx of tubal ligation (2001) 2001 Hx of section x 2 Family History Mother Hypercholesteremia Diabetes Hypertension Psychiatric illness, Onset Age: 20 Mother had an affair with a man. [place] [employer] took her children away. The patient is the product of this liaison. Brother Hypercholesteremia Diabetes Hypertension Myocardial infarct Heart disease Father Hypercholesteremia Diabetes Hypertension Sister Hypertension Stroke Grandmother Thyroid disease Denies family history of Colon cancer Ovarian cancer Breast cancer Uterine cancer Social History Smoking and tobacco/nicotine status: current every day tobacco/nicotine user (1 pack per day for 32 yrs ) cigarettes Packs smoked per day: 1 Years cigarettes smoked: 31 Alcohol intake: never Substance/Drug Use: never Vitals/I&O/Wt Last Vital Signs Temp 97.9 F 04/21/25 00:02 Pulse 73 04/21/25 00:02 Resp 17 04/21/25 00:02 BP 159/93 04/21/25 00:02 Pulse Ox 96 04/21/25 00:02 O2 Del Method Room Air 04/21/25 00:02 04/20/25 04/20/25 04/21/25 14:59 22:59 06:59 Intake Total 3.8 / 3.8 Balance 3.8 / 3.8 Weight last 48 hrs Weight 69.536 kg Weight 68.039 kg Physical Exam 2 Narrative: Patient is well in no apparent distress but with a cheerful disposition at my evaluation. HEENT normocephalic atraumatic neck neck is supple cardiovascular heart rate is regular lungs are pretty much clear abdomen soft nontender nondistended unremarkable extremities are intact no edema has good pulses neurology has no focality lab studies lab studies reviewed and noted. Data 04/21/25 01:54 04/21/25 01:54 A&P Assessment and plan 1. Chest pain: Patient had has chest pain for the past 2 days prior - Patient now on heparin drip and had not had any chest pain during this presentation only 2 days prior while at home - Continue to treat and optimize Cardiology consulted by the emergency room doctor Patient made n.p.o. awaiting for cardiology evaluation Patient had nonocclusive coronary in the range of 30 to 40% that was 4 years ago coronary my have much ordered by this time With the treatment of non-Hodgkin's lymphoma is cool accelerate coronary artery disease Will monitor closely for blood pressure for its has been erratic. 2. Accelerated hypertension: Continue medication as prescribed check blood pressure prior to giving oral hydralazine low-dose at 25 mg twice daily Will continue to optimize 3. Nonocclusive coronary atherosclerosis of [place] coronary artery: Cardiology has been consulted continue heparin drip on this for this nonocclusive was 4 years ago It takes 5 years for coronary to mature and this could become occlusive at this time being the culprit Further evaluation needed with the stress test or angiogram Dr. Reyna on the case Plan: GI and DVT prophylaxis in place PDMP PDMP Reviewed: Last Reviewed 04/21/25 08:45 by Africa Collazo MD Attestations 2 Medical Necessity Statement*: Patient with known coronary artery disease to nonocclusive 4 years ago coming in with ongoing chest pain patient and with also hypertensive urgency at presentation will need at least 2 midnights for further optimization of care and monitoring Coding Level of Care Code 71539 Diagnoses Chest pain R07.9 Accelerated hypertension I10 Nonocclusive coronary atherosclerosis of [place] coronary artery I25.10 Time Spent (min) 60
[2025-04-21 02:50] LABS: Hematocrit 45.4 % (36-47); Hemoglobin 15.50 g/dL (11.27-16.99); Mean Corpuscular HGB Conc 34.1 g/dL (30-55); Mean Corpuscular Hemoglobin 31.4 pg (27-33); Mean Corpuscular Volume 92.1 fl (85-98); Nucleated Red Blood Cells % 0 %; Platelet Count 157 10^3/cmm (157-399); Red Blood Count 4.93 10^6/uL (3.85-5.65); White Blood Count 12.26 10^3/uL (3.29-11.43)
[2025-04-21 03:05] LABS: Alanine Aminotransferase 15 U/L (0-33); Albumin Level 4.1 g/dL (3.5-5.2); Alkaline Phosphatase 57 U/L (35-105); Anion Gap 16.3 (5-19); Aspartate Amino Transferase 18 U/L (0-32); Blood Urea Nitrogen 10 mg/dL (6-20); Calcium 9.3 mg/dL (8.5-10.5); Carbon Dioxide 25 mmol/L (22-29); Chloride 104 mmol/L (98-107); Creatinine Clr Calc Pharmacy 88.8732; Globulin 2.2 g/dL (1.3-4.6); Glucose 91 mg/dL (65-115); Magnesium 2.2 mg/dL (1.7-2.3); Osmolality Calculated 293 mOsm/kg (285-295); Potassium 3.3 mmol/L (3.5-5.1); Sodium 142 mmol/L (136-145); Total Protein 6.3 g/dL (6.6-8.7)
--- OUTSIDE RECORDS SUMMARY | 2025-04-21 07:29 | XMS_ITS | Clinical Summary ---
Author Organization [facility] Address 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 Active diphenhydrAMINE -acetaminophen (TYLENOL PM EXTRA STRENGTH) 25-500 mg Tablet Take 2 Tablet by mouth nightly as needed for Insomnia. Active cyclobenzaprine (FLEXERIL) 10 mg tablet Take 1 Tablet (10 mg) by mouth every 8 hours as needed for Spasm. 20 Tablet 0 06/03/2015 Active ibuprofen (MOTRIN) 800 mg tablet Take 1 Tablet (800 mg) by mouth every 8 hours as needed for Pain. 60 Tablet 0 06/03/2015 Active HYDROcodone-thompson taminophen (NORCO) 5-325 mg tablet Take 1-2 Tablet by mouth every 4 hours as needed for Pain, Moderate. Max Daily Amount: 12 Tablet 12 Tablet None 06/03/2015 Active Social History Tobacco Use Types Packs/Day Years Used Date Smoking Tobacco: Every Day Cigarettes 1.5 22 Smokeless Tobacco: Never Tobacco Cessation:Ready to Q uit: No; Counseling Given: Yes Alcohol Use Standard Drinks/Week Comments No 0 (1 standard drink = 0.6 oz pur e alcohol) Comments No Sex and Gender Information Value Date Recorded Sex Assigned at Not on file Legal Sex Female 2:58 PM CDT Gender Identity Not on file Sexual Orientation Not on file Last Filed Vital Signs Vital Sign Reading Time Taken Comments Blood Pressure 131/75 06/03/2015 1:12 PM CDT Pulse - - Temperature 36.5 C (97.7 F) 06/03/2015 1:12 PM CDT Respiratory Rate 16 06/03/2015 1:12 PM CDT Oxygen Saturation 100% 06/03/2015 1:12 PM CDT Inhaled Oxygen Concentration - - Weight 114.4 kg (252 lb 4 oz) 06/03/2015 12:21 P M CDT Height 168.9 cm (5' 6.5 ) 06/03/2015 12:21 PM CD T Body Mass Index 40.1 06/03/2015 12:21 PM CDT Plan of Treatment Health Maintenance Due Date Last Done Comments HPV VACCINES (1 - 3-dose series) 11/28/1994 DTAP/TDAP/TD VACCINES (1 - Tdap) 11/28/1998 HEPATITIS B VACCINES (1 of 3 - 19+ 3-dose series) 11/19 HPV/Cotest (21-29) 11/28/2000 CERVICAL CANCER SCREENING 11/28/2009 HPV/Cotest (30-65) 11/28/2009 PAP SMEAR 11/28/2009 BREAST CANCER SCREENING 2019 COLORECTAL SCREENING 11/28/2024 Colorectal Cancer Screening 11/28/2024 FIT-DNA Q 3 years 11/28/2024 FIT/FOBT Q 1 year 11/28/2024 Flex Sig/CT Colonography Q 5 years 11/28/2024 INFLUENZA VACCINE (#1) 2025
--- OUTSIDE RECORDS SUMMARY | 2025-04-21 07:29 | XMS_ITS | Clinical Summary ---
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 Max Daily Amount: 12 Tablet 12 Tablet None 5 Active cyclobenzaprine (FLEXERIL) 10 mg tablet Take 1 Tablet (10 mg) by mouth every 8 hours as needed for Spasm. 20 Tablet 0 5 Active acetaminophen (TYLENOL) 500 mg tablet Take 1,000 mg by mouth every 6 hours as needed. 5 Active diphenhydrAMINE-a cetaminophen (TYLENOL PM) 25-500 mg Tablet Take 2 Tablet by mouth nightly as needed for Insomnia. 5 Active ibuprofen (MOTRIN) 800 mg tablet Take 1 Tablet (800 mg) by mouth every 8 hours as needed for Pain. 60 Tablet 0 5 Active albuterol sulfate 90 mcg/actuation metered powder inhaler Take by inhalation. Active budesonide (PULMICORT RESPULE) 0.25 mg/2 mL Suspension for Nebulization Take by inhalation 2 times daily. Active clonazePAM (KlonoPIN) 1 mg tablet Take 1 mg by mouth 2 times daily. Active dapagliflozin (Farxiga) 10 mg Tablet Take by mouth daily. Active furosemide (LASIX) 20 mg tablet Take 20 mg by mouth daily. Active gabapentin (NEURONTIN) 100 mg capsule Take 100 mg by mouth 3 times daily. Active pantoprazole (PROTONIX) 40 mg Tablet, Delayed Release (E.C.) Take 40 mg by mouth daily. Active sertraline (ZOLOFT) 100 mg tablet Take 100 mg by mouth daily. Active simvastatin (ZOCOR) 20 mg tablet Take 20 mg by mouth daily with supper. Active tiotropium (SPIRIVA) 18 mcg capsule Take 18 mcg by inhalation daily. 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 Gender Identity Not on file Sexual Orientation Not on file Last Filed Vital Signs Vital Sign Reading Time Taken Comments Blood Pressure 104/68 08/24/2023 9:35 AM 

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
--- NOTE | 2025-04-21 12:44 | PC.NURSE ---
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 This nurse went to speak to pt and pt stated, I am leaving. I'm not staying here. I don't understand why they haven't restarted all of my medications right now and why I am only getting my Zoloft. This nurse informed pt that the hospitalist wanted to wait for cardiology to come visit with her. Hospitalist has spoken with both pt and several times about plan of care. After explaining this to pt, pt still demanded to leave. This nurse brought AMA form to pt and pt threw paperwork and pen on the floor. IV was taken out and pt left with . notified.
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
== END 2025-04-21 12:48 | disposition left against medical advice (07) | DRG 305 ==
LOC: ER 22:42 → MEDSURG 23:04
PROVIDERS: Admitting Provider Internal Medicine; Emergency Provider Emergency Medicine; PCP Nurse Practitioner Family; Visit Provider Internal Medicine
DX: I16.0 Hypertensive urgency (principal); C81.9A Hodgkin lymphoma, unspecified, in remission; I25.10 Atherosclerotic heart disease of native coronary artery without angina pectoris; R07.9 Chest pain, unspecified; J44.9 Chronic obstructive pulmonary disease, unspecified; F41.9 Anxiety disorder, unspecified; K21.9 Gastro-esophageal reflux disease without esophagitis; I10 Essential (primary) hypertension; M06.00 Rheumatoid arthritis without rheumatoid factor, unspecified site; G47.33 Obstructive sleep apnea (adult) (pediatric); F32.9 Major depressive disorder, single episode, unspecified; E78.5 Hyperlipidemia, unspecified; F17.210 Nicotine dependence, cigarettes, uncomplicated; Z53.29 Procedure and treatment not carried out because of patient's decision for other reasons
CPT/HCPCS: 36415; 71045; 80053; 80076; 82306; 82565; 83735; 83880; 84100; 84484; 85025; 85651; 86140; 86480; 86704; 86803; 87340; 93005; 96365; 96375; 97161; 99285; G0378; J1644; J9999

== ENCOUNTER → 2025-05-03 08:15 | Outpatient (BNVA) | payer MEDICAID, SELFPAY | PROVIDERS: PCP Nurse Practitioner Family; Visit Provider Internal Medicine Cardiovascular Disease | DX: I25.10 Atherosclerotic heart disease of native coronary artery without angina pectoris (principal); I10 Essential (primary) hypertension; G47.30 Sleep apnea, unspecified; F17.210 Nicotine dependence, cigarettes, uncomplicated | CPT/HCPCS: 99214 ==

== ENCOUNTER 2025-07-07 08:00 | Oncology outpatient (recurring) (ONCR) | payer MEDICAID, SELFPAY ==
[2025-07-04 11:40] LABS: Hematocrit 45.8 % (36-47); Hemoglobin 15.30 g/dL (11.27-16.99); Mean Corpuscular HGB Conc 33.4 g/dL (30-55); Mean Corpuscular Hemoglobin 32.1 pg (27-33); Mean Corpuscular Volume 96.2 fl (85-98); Nucleated Red Blood Cells % 0 %; Platelet Count 176 10^3/cmm (157-399); Red Blood Count 4.76 10^6/uL (3.85-5.65); White Blood Count 10.11 10^3/uL (3.29-11.43)
[2025-07-04 12:02] LABS: Alanine Aminotransferase 17 U/L (0-33); Albumin Level 4.2 g/dL (3.5-5.2); Alkaline Phosphatase 67 U/L (35-105); Anion Gap 15.7 (5-19); Aspartate Amino Transferase 20 U/L (0-32); Blood Urea Nitrogen 10 mg/dL (6-20); Calcium 9.1 mg/dL (8.5-10.5); Carbon Dioxide 27 mmol/L (22-29); Chloride 102 mmol/L (98-107); Creatinine Clr Calc Pharmacy 75.1706; Globulin 2.6 g/dL (1.3-4.6); Glucose 73 mg/dL (65-115); Osmolality Calculated 290 mOsm/kg (285-295); Potassium 3.7 mmol/L (3.5-5.1); Sodium 141 mmol/L (136-145); Total Protein 6.8 g/dL (6.6-8.7)
--- NOTE | 2025-07-07 08:00 | PETR_ITS ---
PROCEDURE INFORMATION: Exam: PET/CT Skull Base to Mid-thigh Exam date and time: 07/07/2025 9:08 AM Age: 44 years old Clinical indication: Condition or disease; Primary cancer: Hodgkin lymphoma; Prior surgery; Surgery date: 6+ months; Surgery type: Port in/out, right shoulder, neck LABS AND CLINICAL REPORTS: Glucose: 92 mg/dl Treatment strategy for malignancy (PET staging): Restaging (PS) TECHNIQUE: Imaging protocol: Following at least four-hour fasting and following the injection of radiopharmaceutical, low dose CT images were obtained. Then, PET images were obtained. Attenuation corrected images were constructed using the CT scan. Fused images of PET and CT were reviewed. The standardized uptake values (SUV) reported below are maximum values within a region of interest, expressed in gm/ml. Exam includes orbital meatal line to mid-thigh. SUV normalization method: BodyWeight Radiopharmaceutical: 10.75 mCi F-18 FDG (Fluorodeoxyglucose), IV. Time of imaging post radiopharmaceutical administration: 45 minutes Injection site: LEFT AC COMPARISON: CT chest 02/01/2025, CT neck, chest, abdomen and pelvis 01/02/2025, PT PET skull to thigh SUBS [id number] 12/06/2022 11:50 AM, PET-CT 05/11/2021 FINDINGS: Brain: Visualized brain has normal physiologic uptake. Paranasal sinuses: Mild non radiotracer avid mucosal thickening within the medial left maxillary sinus is noted (series 202, image 47). Pharynx: No abnormal uptake. Larynx: No abnormal uptake. Lungs, pleura and trachea: No abnormal uptake. Pulmonary calcified granulomas are identified bilaterally. A medial right lower lobe noncalcified solid 3-4 mm nodule on series 202, image 141 is unchanged. Unchanged posterolateral right lower lobe 3 mm nodule on image 143. Similar pleural-based solid nodule in the lateral left lower lobe measuring 2-3 mm on image 155. Heart: Normal physiologic uptake. Mediastinal space: No abnormal uptake. Liver: No abnormal uptake. Gallbladder and biliary ducts: No abnormal uptake. Cholecystectomy surgical clips are identified. Pancreas: No abnormal uptake. Spleen: No abnormal uptake. Adrenal glands: No abnormal uptake. Kidneys and ureters: Normal physiologic uptake. Stomach and bowel: No abnormal uptake. There are scattered colonic diverticula. Vasculature: No abnormal uptake. Multifocal regions of atherosclerotic calcification are present. Lymph nodes: No abnormal uptake. No lymphadenopathy in the head, neck, chest, abdomen, pelvis, and extremities. Small benign-appearing calcified bilateral hilar lymph nodes are present. Skeleton: No abnormal uptake in the visualized axial and appendicular skeleton. Degenerative changes in the spine are present. Anterior metallic fusion from C5 through C7 is identified. An intramedullary jennifer in the right humeral shaft is present traversing a healed fracture. Soft tissues: No abnormal uptake in the visualized head, neck, chest, abdomen, pelvis, and extremities. METRICS: Mediastinal blood pool: SUV max 2.0, SUV mean 1.7 Liver uptake: SUV max 2.1, SUV mean 1.8 PET/PET skull to thigh SUBS [id number] IMPRESSION: 1. No evidence of radiotracer avid malignancy. Deauville score: 1 2. Non radiotracer avid mild mucosal thickening of the left maxillary sinus is noted, likely related to chronic paranasal sinus disease. 3. There are small solid noncalcified bilateral pulmonary nodules without elevated uptake, similar compared with 02/01/2025. Evaluation of small nodules can be limited by PET-CT. Fleischner Society follow up recommendations for incidental nodules are not indicated for patients with a history of cancer. Follow up per the patient's medical condition. 4. Additional nonurgent findings as detailed above.
== END 2025-07-21 23:59 | disposition home or self-care (01) ==
LOC: ONCMED 08:23
PROVIDERS: PCP Nurse Practitioner Family; Referring Provider Internal Medicine Rheumatology; Visit Provider Internal Medicine Medical Oncology
DX: Z53.9 Procedure and treatment not carried out, unspecified reason; C81.41 Lymphocyte-rich Hodgkin lymphoma, lymph nodes of head, face, and neck; D12.6 Benign neoplasm of colon, unspecified; J34.89 Other specified disorders of nose and nasal sinuses; R91.8 Other nonspecific abnormal finding of lung field; Z90.49 Acquired absence of other specified parts of digestive tract; K57.30 Diverticulosis of large intestine without perforation or abscess without bleeding; I70.90 Unspecified atherosclerosis; I89.8 Other specified noninfective disorders of lymphatic vessels and lymph nodes; M47.9 Spondylosis, unspecified; M43.22 Fusion of spine, cervical region; Z87.81 Personal history of (healed) traumatic fracture
CPT/HCPCS: 36415; 78815; 80053; 83615; 85025; 99213; A9552

== ENCOUNTER 2025-07-15 22:48 | Emergency (ER) | payer MEDICAID, SELFPAY ==
[2025-07-15 22:53] VITALS: BP 138/89; PULSE 99; RESP 14; TEMP 36.7; O2SAT 96; BMI 23.1
--- OUTSIDE RECORDS SUMMARY | 2025-07-15 22:58 | XMS_ITS | Clinical Summary ---
Author Organization [facility] Address [address] [place] [address] Care Team Providers Care Roof Panel Hanger Name Role Phone Unavailable Primary Care Provider [...] Health Maintenance Due Date Last Done Comments DTAP/TDAP/TD VACCINES (1 - Tdap) 11/28/1998 HEPATITIS B VACCINES (1 of 3 - 19+ 3-dose series) 11/19 HPV/Cotest (21-29) 11/28/2000 HPV VACCINES (1 - 3-dose SCDM series) 11/28/2006 CERVICAL CANCER SCREENING 11/28/2009 HPV/Cotest (30-65) 11/28/2009 PAP SMEAR 11/28/2009 BREAST CANCER SCREENING 2019 COLORECTAL SCREENING 11/28/2024 Colorectal Cancer Screening 11/28/2024 FIT-DNA Q 3 years 11/28/2024 FIT/FOBT Q 1 year 11/28/2024 Flex Sig/CT Colonography Q 5 years 11/28/2024 INFLUENZA VACCINE (#1) 2025
--- OUTSIDE RECORDS SUMMARY | 2025-07-15 22:58 | XMS_ITS | Clinical Summary ---
Author Organization [facility] Address [address] Attn: Epic Prelude ADT [place] [address] Care Team Providers Care Mechatronics Technologist Name Role Phone Unavailable Primary Care Provider [...] drink = 0.6 oz pur e alcohol) Feeling Safe Answer Date Recorded Are you in a relationship wi th someone who hurts you emotionally and/or physically? No 01/07/2023 Comments No Sex and Gender Information Value Date Recorded Sex Assigned at Not on file Legal Sex Female 2:33 AM LEAF [employer] PICKER Gender Identity Not on file Sexual Orientation Not on file Last Filed Vital Signs Vital Sign Reading Time Taken Comments Blood Pressure 104/68 08/24/2023 9:35 AM LEAF [employer] PICKER Pulse 77 01/07/2023 1:45 PM CDT Temperature 36.3 C (97.3 F) 01/07/2023 1:45 PM CDT Respiratory Rate 18 01/07/2023 1:32 PM CDT Oxygen Saturation 95% 01/07/2023 1:45 PM CDT Inhaled Oxygen Concentration - - Weight 88.5 kg (195 lb) 08/24/2023 9:35 AM LEAF [employer] PICKER Height 167.6 cm (5' 6 ) 08/24/2023 9:35 AM LEAF [employer] PICKER Body Mass Index 31.47 08/24/2023 9:35 AM LEAF [employer] PICKER Plan of Treatment Health Maintenance Due Date [...] INFLUENZA VACCINE (#1) 2025 07/29/2021 Insurance MEDICAID [id number]
--- NOTE | 2025-07-16 00:18 | W.ED.DENTAL ---
HPI - Dental/Oral General: Chief complaint: Dental/Oral Stated complaint: mouth pain Time Seen by Provider: 07/15/25 23:54 History of Present Illness: Patient is a 44-year-old female who presents with pain and swelling following dental extractions performed a couple of days ago. She had two teeth extracted from the upper jaw, one on each side. The patient reports that the extraction site is painful and swollen, particularly on one side, which she believes may be infected. She denies bleeding but affirms swelling. Patient reports that during the procedure, she received local anesthetic injections that caused significant numbness, making it difficult for her to swallow. She denies any vomiting. The patient mentions she has a dental plate that broke along with her tooth when she bit down on something, which precipitated the need for extractions. She states she plans to get full upper dentures. Related Data Home Medications ?Medication ?Instructions ?Recorded ?Confirmed acetaminophen 500 mg tablet 1,000 mg PO Q6H PRN Pain 05/09/24 07/11/25 azelastine 137 mcg (0.1 %) nasal 1 spray intranasal BID PRN Allergy 05/09/24 07/11/25 spray Symptoms budesonide-formoterol HFA 160 2 puff inhalation BID 04/21/25 07/11/25 mcg-4.5 mcg/actuation aerosol inhaler (Symbicort) cetirizine 10 mg tablet 10 mg PO DAILY 04/21/25 07/11/25 cyclobenzaprine 10 mg tablet 10 mg PO TID PRN Muscle Spasm 04/21/25 07/11/25 fluticasone propionate 50 2 spray intranasal DAILY 04/21/25 07/11/25 mcg/actuation nasal spray,suspension Previous Rx's ?Medication ?Instructions ?Recorded pantoprazole 40 mg tablet,delayed 40 mg PO DAILY 1 month #60 tabs 06/30/24 release (Protonix) albuterol sulfate 2.5 mg/3 mL 2.5 mg (3 mL) inhalation QID PRN 07/11/24 (0.083 %) solution for nebulization shortness of breath or wheezing #75 mL sulfasalazine 500 mg tablet 0.5 g PO BID #60 tabs 12/22/24 diclofenac sodium 75 mg 75 mg PO Q12H PRN pain (scale 04/20/25 tablet,delayed release score 7-10) #60 tabs hydroxychloroquine 200 mg tablet 200 mg PO BID #180 tabs 04/20/25 leflunomide 20 mg tablet 20 mg PO DAILY #90 tabs 04/20/25 prednisone 5 mg tablet 5 mg PO DAILY #90 tabs 04/20/25 lisinopril 2.5 mg tablet 2.5 mg PO DAILY PRN blood pressure 05/03/25 #90 tabs prednisone 20 mg tablet See Rx Instructions PO .COMPLEX 06/05/25 PRN joint pain flare #30 tabs buspirone 10 mg tablet 10 mg PO BID #180 tabs 06/14/25 quetiapine 50 mg tablet 100 mg (2 x 50 mg) PO .@9PM #180 06/14/25 tabs buspirone 15 mg tablet 15 mg PO BID #60 tabs 06/22/25 hydroxyzine pamoate 25 mg capsule 25 mg PO BID PRN anxiety #60 caps 06/22/25 (Vistaril) fluconazole 150 mg tablet 150 mg PO Q3D 2 doses #2 tabs 07/11/25 ondansetron 4 mg disintegrating See Rx Instructions .Route 07/11/25 tablet .COMPLEX #30 tabs atorvastatin 40 mg tablet 40 mg PO DAILY #90 tabs 07/12/25 dapagliflozin propanediol 10 mg See Rx Instructions .Route 07/12/25 tablet (Farxiga) .COMPLEX #90 tabs furosemide 20 mg tablet See Rx Instructions .Route 07/12/25 .COMPLEX #90 tabs sertraline 100 mg tablet See Rx Instructions .Route 07/12/25 .COMPLEX #60 tabs clindamycin HCl 300 mg capsule 300 mg PO TID 7 days #21 caps 07/16/25 (Cleocin HCl) hydrocodone 5 mg-acetaminophen 325 1 tab PO Q8H PRN pain #7 tabs 07/16/25 mg tablet Allergies Allergy/AdvReac Type Severity Reaction Status Date / Time amoxicillin (From Augmentin) Allergy ALGY-Rash Verified 07/15/25 22:57 clavulanic acid (From Allergy ALGY-Rash Verified 07/15/25 22:57 Augmentin) nonoxynol 9 (From [place] [facility] Allergy ALGY-Rash Verified 07/15/25 22:57 Spermicidal Jelly) pregabalin (From Lyrica) Allergy unknown Verified 07/15/25 22:57 sumatriptan Allergy ALGY-Difficulty Verified 07/15/25 22:57 Breathing topiramate Allergy ALGY-Difficulty Verified 07/15/25 22:57 Breathing PFSH ED PFSH: Medical History Alcohol dependence, in remission Other stimulant dependence, in remission Cannabis dependence Nicotine use disorder JUNI (generalized anxiety disorder) Major depressive disorder, recurrent, moderate Psychiatric care Coccydynia Tubular adenoma of colon Immunization counseling High risk medication use Seronegative rheumatoid arthritis of both hands History of colon polyps Knee pain Abnormal stress test COPD (chronic obstructive pulmonary disease) Chronic anxiety Degenerative arthritis GERD (gastroesophageal reflux disease) Degenerative joint disease of spine Obstructive sleep apnea Hodgkin lymphoma Environmental and seasonal allergies Major depressive disorder Hyperlipidemia Essential hypertension Surgical History History of laparoscopic cholecystectomy History of back surgery (10/10/22) L3-4 laminectomy with partial facetectomy and L5/S1 laminectomy with partial facetectomy History of endometrial ablation (2011) Hysteroscopy followed by D&C and thermal ablation History of lymph node biopsy (12/05/20) Left cervical lymph node biopsy Port-A-Cath in place (01/10/21) History of surgery on arm (2017) ORIF for fracture of the right humerus History of adenoidectomy (2020) History of colonoscopy (2017) Hx of neck surgery 12/31/2017 c-5 c-6, c-6 c-[address] avila Hx of tubal ligation (2001) 2001 Hx of section x 2 Family History Mother Hypercholesteremia Diabetes Hypertension Psychiatric illness, Onset Age: 20 Mother had an affair with a man. [employer] took her children away. The patient is the product of this liaison. Brother Hypercholesteremia Diabetes Hypertension Myocardial infarct Heart disease Father Hypercholesteremia Diabetes Hypertension Sister Hypertension Stroke Grandmother Thyroid disease Denies family history of Colon cancer Ovarian cancer Breast cancer Uterine cancer Social History Smoking and tobacco/nicotine status: current every day tobacco/nicotine user cigarettes Packs smoked per day: 1 Years cigarettes smoked: 31 Alcohol intake: never Substance/Drug Use: current Substance/Drug use frequency: daily Physical Exam Const: GENERAL APPEARANCE: cooperative; not ill appearing HENMT: COMMON NORMALS: normocephalic and atraumatic HEAD & SCALP: normocephalic and atraumatic FACE & SINUS: normal facial exam and face symmetric; no erythema and no edema OTHER: Right maxillary incisor extraction site mild gingival swelling. No drainage. No definite abscess. No active bleeding. Eye: COMMON NORMALS: Equal, round and reactive pupils present and EOMs intact bilaterally PUPIL: Yes Equal, round and reactive pupils present Resp: COMMON NORMALS: normal respiratory effort and No use of accessory muscles Cardio: COMMON NORMALS: regular rate and regular rhythm RATE: regular rate RHYTHM: regular rhythm Course Vital Signs: Vital signs: Vital Signs Temperature 98.1 F 07/15/25 22:53 Pulse Rate 99 07/15/25 22:53 Respiratory Rate 14 07/15/25 22:53 Blood Pressure 138/89 07/15/25 22:53 Pulse Oximetry 96 07/15/25 22:53 Oxygen Delivery Me thod Room Air 07/15/25 22:53 MDM - Dental/Oral Medical Decision Making Appears to be dry socket. Will cover with antibiotics just in case early infection is present. She is given a dose of dexamethasone for swelling and pain. Pain control, home remedies discussed. She will call her dentist Thursday. No radiology studies performed this visit Discharge Plan Discharge Patient Disposition: Home Clinical Impression: Dry tooth socket Condition: Stable Prescriptions: New hydrocodone-acetaminophen 5-325 mg tablet 1 tab PO Q8H PRN (Reason: pain) Qty: 7 0RF clindamycin HCl [Cleocin HCl] 300 mg capsule 300 mg PO TID 7 Days Qty: 21 0RF No Action pantoprazole [Protonix] 40 mg tablet,delayed release (DR/EC) 40 mg PO DAILY 30 Days Qty: 60 12RF albuterol sulfate 2.5 mg /3 mL (0.083 %) solution for nebulization 2.5 mg inhalation QID PRN (Reason: shortness of breath or wheezing) Qty: 75 0RF sulfasalazine 500 mg tablet 0.5 g PO BID Qty: 60 5RF diclofenac sodium 75 mg tablet,delayed release (DR/EC) 75 mg PO Q12H PRN (Reason: pain (scale score 7-10)) Qty: 60 1RF hydroxychloroquine 200 mg tablet 200 mg PO BID Qty: 180 1RF leflunomide 20 mg tablet 20 mg PO DAILY Qty: 90 1RF prednisone 5 mg tablet 5 mg PO DAILY Qty: 90 1RF lisinopril 2.5 mg tablet 2.5 mg PO DAILY PRN (Reason: blood pressure) Qty: 90 1RF Rx Instructions: Take only if blood pressure is over 140/90 hydroxyzine pamoate [Vistaril] 25 mg capsule 25 mg PO BID PRN (Reason: anxiety) Qty: 60 2RF buspirone 15 mg tablet 15 mg PO BID Qty: 60 1RF ondansetron 4 mg tablet,disintegrating See Rx Instructions .ROUTE .COMPLEX Qty: 30 0RF Dose Instruction: DISSOLVE ONE TABLET BY MOUTH EVERY 6 HOURS NEEDED FOR NAUSEA AND VOMITING Rx Instructions: DISSOLVE ONE TABLET BY MOUTH EVERY 6 HOURS NEEDED FOR NAUSEA AND VOMITING fluconazole 150 mg tablet 150 mg PO Q3D Qty: 2 0RF prednisone 20 mg tablet See Rx Instructions PO .COMPLEX PRN (Reason: joint pain flare) Qty: 30 1RF Rx Instructions: Take 1 or 2 tablets by mouth daily for up to 7 days as needed for arthritis flare. quetiapine 50 mg tablet 100 mg PO .@9PM Qty: 180 0RF buspirone 10 mg tablet 10 mg PO BID Qty: 180 0RF atorvastatin 40 mg tablet 40 mg PO DAILY Qty: 90 1RF dapagliflozin propanediol [Farxiga] 10 mg tablet See Rx Instructions .ROUTE .COMPLEX Qty: 90 0RF Dose Instruction: TAKE ONE TABLET BY MOUTH EVERY MORNING Rx Instructions: TAKE ONE TABLET BY MOUTH EVERY MORNING furosemide 20 mg tablet See Rx Instructions .ROUTE .COMPLEX Qty: 90 0RF Dose Instruction: TAKE ONE TABLET BY MOUTH EVERY MORNING Rx Instructions: TAKE ONE TABLET BY MOUTH EVERY MORNING sertraline 100 mg tablet See Rx Instructions .ROUTE .COMPLEX Qty: 60 2RF Dose Instruction: TAKE TWO TABLETS BY MOUTH DAILY Rx Instructions: TAKE TWO TABLETS BY MOUTH DAILY cetirizine 10 mg tablet 10 mg PO DAILY fluticasone propionate 50 mcg/actuation spray,suspension 2 spray INTRANASAL DAILY cyclobenzaprine 10 mg tablet 10 mg PO TID PRN (Reason: Muscle Spasm) budesonide-formoterol [Symbicort] 160-4.5 mcg/actuation HFA aerosol inhaler 2 puff inhalation BID acetaminophen 500 mg Tablet 1,000 mg PO Q6H PRN (Reason: Pain) azelastine 137 mcg (0.1 %) [place],Non-Aerosol 1 spray INTRANASAL BID PRN (Reason: Allergy Symptoms) Rx Instructions: administer into each nostril Discharge Orders: Discharge ED (Routine); Ordered 07/16/25 Ordered By: Domingo Howell Referrals: Venice Barry FNP [Primary Care Provider, Family Practice] Patient Instructions: Dry Socket (ED), Opioid Safety, Pain Management, Patient Portal & Rama Instructions Activity Restrictions/Additional Instructions: Antibiotics as directed. You may use ibuprofen or other NSAIDs for pain. You can use pain medicine for more significant pain. Ice can help with swelling. Salt water rinses are good. Clove oil or honey on a cottonball placed in the socket can help as well. Call your dentist Thursday for a follow-up appointment. Print Language: Thai Coding Level of Care Code ED Architectural Model Maker for Yvette Beaulieu
[2025-07-16] MEDS: oxyCODONE-APAP 5-325 mg Tablet 2 TAB PO (00:43)
[2025-07-16 01:05] VITALS: BP 140/89; PULSE 94; RESP 16; O2SAT 96
== END 2025-07-16 01:06 | disposition home or self-care (01) ==
PROVIDERS: Emergency Provider Emergency Medicine; PCP Nurse Practitioner Family
DX: M27.3 Alveolitis of jaws (principal); F17.210 Nicotine dependence, cigarettes, uncomplicated; E78.5 Hyperlipidemia, unspecified; J44.9 Chronic obstructive pulmonary disease, unspecified; I10 Essential (primary) hypertension
CPT/HCPCS: 99283; J1100; J9999

== ENCOUNTER → 2025-07-31 09:55 | Outpatient (BNVA) | payer MEDICAID, SELFPAY | PROVIDERS: PCP Nurse Practitioner Family; Visit Provider Nurse Practitioner Family | DX: L57.8 Other skin changes due to chronic exposure to nonionizing radiation (principal); B07.8 Other viral warts; L08.89 Other specified local infections of the skin and subcutaneous tissue; L29.89 Other pruritus; Z78.9 Other specified health status; L53.8 Other specified erythematous conditions; L57.0 Actinic keratosis | CPT/HCPCS: 17000; 17110; 99202 ==

== ENCOUNTER → 2025-08-07 10:22 | Outpatient (BNVA) | payer MEDICAID, SELFPAY | PROVIDERS: PCP Nurse Practitioner Family; Visit Provider Student in an Organized Health Care Education/Training Program | DX: R12 Heartburn (principal) | CPT/HCPCS: 99213 ==

== ENCOUNTER → 2025-08-30 14:14 | Outpatient (BNVA) | payer MEDICAID, SELFPAY | PROVIDERS: PCP Nurse Practitioner Family; Visit Provider Internal Medicine Rheumatology | DX: M06.041 Rheumatoid arthritis without rheumatoid factor, right hand (principal); M06.042 Rheumatoid arthritis without rheumatoid factor, left hand; Z79.899 Other long term (current) drug therapy; Z71.85 Encounter for immunization safety counseling; R76.89 Other specified abnormal immunological findings in serum; M53.3 Sacrococcygeal disorders, not elsewhere classified; Z85.71 Personal history of Hodgkin lymphoma | CPT/HCPCS: 99214 ==

== ENCOUNTER → 2025-09-04 09:31 | Outpatient (BNVA) | payer MEDICAID, SELFPAY | PROVIDERS: PCP Nurse Practitioner Family; Visit Provider Nurse Practitioner Family | DX: B07.8 Other viral warts (principal); R23.8 Other skin changes; Z78.9 Other specified health status; L53.8 Other specified erythematous conditions; L29.89 Other pruritus; L57.0 Actinic keratosis | CPT/HCPCS: 17000; 17110 ==